=== PATIENT | female | born 1950 | race Caucasian/White ===

== ENCOUNTER 2017-07-21 12:40 | Emergency (ER) | payer MEDICAID, SELFPAY ==
[2017-07-21 12:42] VITALS: BP 113/70; PULSE 98; RESP 16; TEMP 36.6; O2SAT 98; BMI 42.1
[2017-07-21 13:51] LABS: Mucous, Urine 0 SEEN /hpf (<or=2+)
[2017-07-21 13:54] LABS: Color, Urine Yellow (Yellow); Glucose, Dipstick Normal (Normal); Ketone-Dipstick 5 mg/dl (Negative); Leukocyte Esterase-Dipstick 500 /ul (Negative); Nitrite-Dipstick Negative (Negative); Occult Blood-Urine 250 /ul (Negative); Protein-Dipstick 30 mg/dl (Negative); Specific Gravity, Urine 1.015 (1.002-1.030); Urine Clarity Turbid (Clear); Urine Urobilinogen 4 mg/dl (Normal)
[2017-07-21 13:55] LABS: Urine Bilirubin Dipstick 1 mg/dL (Negative)
[2017-07-21 14:04] LABS: Bacteria 1+ /hpf (None Seen); Red Blood Cells-Urine 5-10 SEEN /hpf (0-5); Squamous Epithelial Cells - UA 0-5 SEEN /hpf (5-10); White Blood Cells 50-100 SEEN /hpf (0-5)
[2017-07-21 14:11] LABS: Absolute Lymphocyte Count 0.69 X10^3/ul (0.83-4.51); Basophil# 0.01 X10^3/uL; Basophil% 0.3 % (0-1); Eosinophil# 0.17 X10^3/uL; Eosinophils% 5.5 % (0-5); Hematocrit 32.2 % (37-47); Hemoglobin 9.7 g/dl (12.0-15.0); Lymphocyte # 0.69 X10^3/ul (4.0); Lymphocyte % 22.3 % (19-41); Mean Corp Hgb Conc 30.1 g/gl (32-36); Mean Corpuscular Hgb 29.1 pg (27.0-32.0); Mean Corpuscular Volume 96.7 fL (81-99); Mean Platelet Vol. 11.4 fl (6.2-12.0); Monocyte# 0.24 X10^3/uL; Monocyte% 7.8 % (0-10); Neutrophil # 1.97 X10^3/uL (2.7-7.7); Neutrophil % 63.8 % (47-70); POSITIVE COUNT NO; POSITIVE DIFFERENTIAL NO; POSITIVE MORPHOLOGY NO; Platelet Count 145 K/mm3 (150-450); RBC Distribution Width CV 17.5 % (11.6-14.6); RBC Distribution Width SD 58.5 fl (35.1-43.9); Red Blood Count 3.33 M/mm3 (4.2-5.4); White Blood Count 3.1 K/mm3 (4.4-11.0)
[2017-07-21 14:23] LABS: Anion Gap 5 (5-15); BUN 21 mg/dL (7-18); BUN/Creat Ratio 17.8 RATIO (10-20); Calcium,Total 7.9 mg/dL (8.5-10.1); Chloride 107 mmol/L (98-107); Creatinine, Serum 1.18 mg/dL (0.55-1.02); EST Glomerular Filtration Rate 49 mL/min (>60); Est Glom Filt Rate - Afr Amer 59 mL/min (>60); Glucose 70 mg/dL (74-106); Potassium 4.2 mmol/L (3.5-5.1); Sodium Level 140 mmol/L (136-145)
--- NOTE | 2017-07-21 15:25 | ED.DCSUM_ITS ---
- ER Visit Summary Date of Service: 07/21/17 Chief Complaint: [Abdominal pain] History of Present Illness: The patient is a 67 F [who presents the emergency department with 4-5 days of lower abdominal pain lower back pain urinary frequency dysuria and urgency. No fevers or chills no nausea or vomiting. She also has burning and redness in her left groin. She has a history of UTIs. Her bowel movements have been normal. She is a diabetic.] Physical Examination: [] Afebrile vital signs within acceptable limits WN WD obese PERRL EOMI MMM NECK supple and nontender, no masses RRR no murmur rub or gallop, no peripheral edema, symmetric radial pulses CTAB no respiratory distress ABDOMEN is soft mild suprapubic tenderness, normal bowel sounds, no distension, no rebound or guarding She has redness and skin is correlation with satellite lesions in underneath the left pannus Tenderness to percussion of the low back but no CVA tenderness SKIN is warm and dry no rashes Alert and Oriented x3, CN II-XII in tact, no motor or sensory deficits, gait normal No lymphadenopathy Test Results: [] Emergency Department Course and Treatment: [Screening labs were obtained and show mild acute renal insufficiency with a creatinine of 1.1. She has a chronic leukopenia and white blood cell count was 3.1 she has a chronic anemia and hemoglobin is 9.7. Patient's urine was consistent with infection and urine culture was sent she was given a gram of ceftriaxone IV. Blood sugar was 70 she did eat in the emergency department and her blood sugar will be tracked prior to discharge. She will be sent home on Augmentin given sensitivity to penicillin of her previous urine cultures she will be given nystatin cream for treatment of her yeast infection] Treatment Plan: [] Disposition: [Discharge] Impression: [UTI, yeast infection in the left groin] This note was generated with [employer] dictation software. It may contain incorrect words, spelling, and punctuation that were not noted in review of the chart prior to signing ED Disposition - Plan for ED Patient: Chief Complaint: Complaint Referrals: Kolton Garcia [Primary Care Provider] -
--- NOTE | 2017-07-21 15:25 | ED.DEP ---
ED Disposition - Plan for ED Patient: Chief Complaint: Complaint Instructions: ED UTI Cystitis Female, ED Candidiasis Cutaneous Prescriptions: Amox/Clavulanate Tablet [Augmentin Tablet] 875 mg PO Q12H #20 tablet Nystatin/Triamcin Cream [Mycolog] 1 applic TOPICAL BID #1 tube Referrals: Kolton Garcia [Primary Care Provider] - 3-5 Days
[2017-07-21 15:45] LABS: Bedside Glucose 66 mg/dL (70-110)
[2017-07-21 15:47] VITALS: BP 123/81; PULSE 86; RESP 20; O2SAT 95
--- NOTE | 2017-07-21 15:59 | ED.DEP ---
ED Disposition - Plan for ED Patient: Chief Complaint: Complaint Instructions: ED Candidiasis Cutaneous, ED UTI Cystitis Female Prescriptions: Amox/Clavulanate Tablet [Augmentin Tablet] 875 mg PO Q12H #20 tablet Nystatin/Triamcin Cream [Mycolog] 1 applic TOPICAL BID #1 tube Phenazopyridine [Pyridium] 100 mg PO TID #6 tablet Referrals: Kolton Garcia [Primary Care Provider] - 3-5 Days
[2017-07-21 16:06] LABS: Bedside Glucose 85 mg/dL (70-110)
== END 2017-07-21 16:12 | disposition home or self-care (01) ==
PROVIDERS: Emergency Provider Emergency Medicine; Family Provider Family Medicine; PCP Family Medicine
DX: N39.0 Urinary tract infection, site not specified (principal); B37.89 Other sites of candidiasis; E11.9 Type 2 diabetes mellitus without complications; E66.9 Obesity, unspecified; Z68.41 Body mass index [BMI] 40.0-44.9, adult; Z87.440 Personal history of urinary (tract) infections; Z79.899 Other long term (current) drug therapy
CPT/HCPCS: 80048; 81001; 82962; 85025; 96365; 99284; A4216

== ENCOUNTER 2017-08-20 11:24 | Emergency (ER) | payer MEDICARE, MEDICAID, SELFPAY ==
[2017-08-20 11:26] VITALS: BP 95/68; PULSE 104; RESP 16; TEMP 36.4; O2SAT 100; BMI 38.2
[2017-08-20 11:35] LABS: Bedside Glucose 103 mg/dL (70-110)
[2017-08-20 12:44] LABS: Absolute Lymphocyte Count 0.47 X10^3/ul (0.83-4.51); Absolute Neutrophil Count 2.3 X10^3/uL (2.0-7.7); Basophil# 0.01 X10^3/uL; Basophil% 0.3 % (0-1); Eosinophil# 0.25 X10^3/uL; Eosinophils% 7.8 % (0-5); Hematocrit 34.2 % (37-47); Hemoglobin 10.1 g/dl (12.0-15.0); Lymphocyte # 0.47 X10^3/ul (4.0); Lymphocyte % 14.6 % (19-41); Mean Corp Hgb Conc 29.5 g/gl (32-36); Mean Corpuscular Hgb 28.3 pg (27.0-32.0); Mean Corpuscular Volume 95.8 fL (81-99); Mean Platelet Vol. 10.4 fl (6.2-12.0); Monocyte# 0.15 X10^3/uL; Monocyte% 4.7 % (0-10); Neutrophil # 2.31 X10^3/uL (2.7-7.7); Platelet Count 149 K/mm3 (150-450); RBC Distribution Width CV 17.5 % (11.6-14.6); RBC Distribution Width SD 60.6 fl (35.1-43.9); Red Blood Count 3.57 M/mm3 (4.2-5.4); White Blood Count 3.2 K/mm3 (4.4-11.0)
[2017-08-20 12:49] LABS: Differential Indicated SCAN CRITERIA MET; POSITIVE COUNT NO; POSITIVE DIFFERENTIAL YES; POSITIVE MORPHOLOGY NO
[2017-08-20 13:01] LABS: Anion Gap 9 (5-15); BUN 13 mg/dL (7-18); BUN/Creat Ratio 11.1 RATIO (10-20); Calcium,Total 7.6 mg/dL (8.5-10.1); Chloride 114 mmol/L (98-107); Creatinine, Serum 1.17 mg/dL (0.55-1.02); EST Glomerular Filtration Rate 49 mL/min (>60); Est Glom Filt Rate - Afr Amer 60 mL/min (>60); Estimated Creatinine Clearance 42.56 ml/min; Glucose 81 mg/dL (74-106); Potassium 3.9 mmol/L (3.5-5.1); Sodium Level 143 mmol/L (136-145)
[2017-08-20 13:36] VITALS: BP 142/86; PULSE 87; RESP 18; O2SAT 98
[2017-08-20 13:45] LABS: Color, Urine Yellow (Yellow); Glucose, Dipstick Normal (Normal); Ketone-Dipstick 15 mg/dl (Negative); Leukocyte Esterase-Dipstick 100 /ul (Negative); Nitrite-Dipstick Positive (Negative); Occult Blood-Urine 10 /ul (Negative); Protein-Dipstick 30 mg/dl (Negative); Urine Clarity Sl. Cloudy (Clear); Urine Urobilinogen 4 mg/dl (Normal)
[2017-08-20 13:47] LABS: Urine Bilirubin Dipstick 3 mg/dL (Negative)
[2017-08-20 13:48] LABS: Bacteria 1+ /hpf (None Seen); Hyaline Cast 0-5 SEEN /lpf (0-5); Mucous, Urine 1+ /hpf (<or=2+); Red Blood Cells-Urine 0-5 SEEN /hpf (0-5); Squamous Epithelial Cells - UA 0-5 SEEN /hpf (5-10); White Blood Cells 0-5 SEEN /hpf (0-5)
[2017-08-20 15:06] VITALS: BP 95/82; PULSE 91; RESP 21; O2SAT 99
--- NOTE | 2017-08-20 15:06 | ED.DCSUM_ITS ---
- ER Visit Summary Date of Service: 08/20/17 Chief Complaint: Hypoglycemia History of Present Illness: The patient is a 67 F who presents with hypoglycemic episode today. Patient states she felt lightheaded. Patient admits to some nausea and vomiting. Patient denies any shortness of breath. Patient also admits to some diarrhea. Patient denies any abdominal pain. Patient denies any fevers or chills. Patient states she has had a decreased appetite which is why her blood sugar felt like it was dropping again today. States she has been under a lot of stress with her son recently. Physical Examination: Vital signs are stable. Patient is afebrile. Patient is in no acute distress. Oral mucosa is pink and moist. Oropharynx is clear. Heart was regular rate and rhythm. Lungs are clear and equal bilaterally. There is good respiratory effort noted. Abdomen is soft. There is some mild diffuse tenderness. There is no rebound or guarding noted. Cranial nerves II through XII are intact. There are no focal motor or sensory deficits noted. The remaining physical exam is within normal limits. Test Results: CBC showed a white blood cell count 3.2. There is a mild anemia with a hemoglobin of 10.1. Basic metabolic profile showed a slightly elevated chloride of 114 and a slightly elevated creatinine of 1.17. Urinalysis showed leukocytes were 100. Nitrates were positive. There is 1+ bacteria. Emergency Department Course and Treatment: Patient was given a dose of Bactrim here. Patient was given a prescription for Bactrim. Patient was instructed to follow-up with her primary care physician in 7-10 days. She understood and was agreeable with the plan. All questions were answered. Disposition: Discharged home Impression: Urinary tract infection This note was generated with [facility] dictation software. It may contain incorrect words, spelling, and punctuation that were not noted in review of the chart prior to signing ED Disposition - Plan for ED Patient: Disposition: Home or Assisted Living Chief Complaint: Hypoglycemia Diagnosis: UTI (urinary tract infection) Instructions: ED UTI Cystitis Female Prescriptions: Sulfamethoxazole/Trimethoprim [Bactrim Ds Tablet] 1 ea PO BID #6 tab Referrals: Kolton Garcia [Primary Care Provider] -
[2017-08-20] MEDS: Smz/Tmp Ds Tablet 1 TABLET PO (15:07)
== END 2017-08-20 15:21 | disposition home or self-care (01) ==
PROVIDERS: Emergency Provider Emergency Medicine; Family Provider Family Medicine; PCP Family Medicine
DX: N39.0 Urinary tract infection, site not specified (principal); B96.89 Other specified bacterial agents as the cause of diseases classified elsewhere; E11.649 Type 2 diabetes mellitus with hypoglycemia without coma; Z79.899 Other long term (current) drug therapy
CPT/HCPCS: 80048; 81001; 82962; 85025; 99285; A4216

== ENCOUNTER 2017-10-03 23:03 | Inpatient (IN) | payer MEDICARE, MEDICAID, SELFPAY ==
[2017-10-03 23:04] VITALS: BP 90/49; PULSE 103; RESP 12; TEMP 36.6; O2SAT 96; BMI 38.7
--- NOTE | 2017-10-03 23:19 | ED.VIS.GEN ---
History of Present Illness Chief Complaint: Hypotension Informant: Patient, SNF Onset: Today Timing: - - unk Quality: 60s systolic Worsened by: nothing Relieved by: nothing Associated Symptoms: pt denies. states I feel fine. Narrative: Apparently patient had a decreased level of responsiveness although her eyes were open and she was awake, according [facility], her blood pressure was 77 over 40s, and she was awake and following commands but not talking so much, but here she is conversive with staff and states that she feels okay. She states she does not remember the staff of the [facility] talking to her, she does not remember feeling bad or anything like that. She does admit that she has had diarrhea lately. She had a urinary tract infection, they discontinued Ceftin near earlier today for that, she has C. difficile and has been placed on Flagyl but it apparently was not improving so today she was switched to oral vancomycin. Patient denies having any abdominal pain. - Past Medical History (1) Anxiety disorder Status: Chronic (2) DM type 2 (diabetes mellitus, type 2) Status: Chronic (3) Dyslipidemia Status: Chronic (4) HTN (hypertension) Status: Chronic (5) YOLANDA (obstructive sleep apnea) Status: Chronic (6) Obesity Status: Chronic Past Medical History - Allergies and Home Meds Allergies/Adverse Reactions: Allergies latex Allergy (Verified 07/21/17 12:41) Rash levofloxacin [From Levaquin] Allergy (Verified 07/21/17 12:41) Rash acetaminophen [From Darvocet-N] Adverse Reaction (Verified 07/21/17 12:41) Vomiting codeine Adverse Reaction (Verified 07/21/17 12:41) Unknown gabapentin Adverse Reaction (Verified 07/21/17 12:41) Other propoxyphene [From Darvon] Adverse Reaction (Verified 07/21/17 12:41) Vomiting Home Medications: Home Medications Medication Instructions Recorded Albuterol Inhaler [Ventolin Hfa] 2 puff INHALATION Q4H PRN PRN 02/28/16 Nystatin Powder [Mycostatin Powder] 1 applic TOPICAL BID PRN PRN 05/02/17 Nystatin/Triamcin Cream [Mycolog] 1 applic TOPICAL BID #1 tube 07/21/17 Bisacodyl 10 mg RC PRN PRN 10/04/17 Cefdinir 300 mg PO QHS 10/04/17 Citalopram Hydrobromide 40 mg PO DAILY 10/04/17 [Citalopram HBr] L. Rhamnosus GG/Inulin [Culturelle 1 each PO DAILY 10/04/17 Capsule] Mag Hydrox/Aluminum Hyd/Simeth 10/04/17 [Antacid Suspension] Potassium Chloride [K-Dur] 20 meq PO DAILY 10/04/17 Promethazine HCl 25 mg PO Q6H PRN PRN 10/04/17 Primary Care Physician: Kolton Garcia MD [Primary Care Provider] - Surgical History: appendectomy, cholecystectomy Lives: Group Home Smoking Status: Never smoker - Family History Maternal Family History: Reports: No pertinent history Review of Systems General: Denies: Fever Eyes: Denies: Blurred Vision - bilaterally, Diplopia ENT: Denies: Bilateral ear pain, Sore throat Cardiovascular: Denies: Chest pain, Palpitations Respiratory: Denies: Dyspnea, Cough Gastrointestinal: Reports: Diarrhea. Denies: Abdominal pain, Nausea, Vomiting Genitourinary: Denies: Dysuria, Hematuria Musculoskeletal: Denies: Myalgias, Back pain Skin: Denies: Rash, Abscess Neurological: Denies: Headache, Numbness Psych: Reports: Depression - chronic -- mother 2 yrs ago. Denies: Anxiety, Suicidal thoughts Endocrine: Denies: Heat intolerance, Cold intolerance Hematologic: Denies: Easy bruising, Easy bleeding Allergy: Denies: Swelling of the mouth, Swelling of the tongue Physical Exam Vital Signs/Narrative: Vital Signs Temp Pulse Resp BP Pulse Ox 10/03/17 23:04 97.9 F 103 H 12 90/49 L 96 Inital Vital Signs reviewed: Yes General: Well nourished, Well developed, Obese Head: Normocephalic, Atraumatic Eyes: Perrl, EOMI ENT: No rhinorrhea, Dry mucous membranes - w/ patches of thrush on oral MM Neck: Supple, Nontender, No lymphadenopathy, No JVD Cardiovascular: Regular rate, Regular rhythm, No murmurs Respiratory: No distress, CTA bilaterally, Chest nontender Abdomen: Soft, Nondistended, Normal bowel sounds, Tender - diffusely mildly, except NT in periumbilical area. Negative for: Guarding, Rebound tenderness Back: Nontender, Normal Inspection Extremities: Nontender, Edema - 2+ BLE symmetric w/o cellulitis Skin: Normal color, No rash Neurological: Alert, Cranial nerves II-XII grossly intact, Normal Strength, Normal Sensation, Disoriented - to time. Negative for: Confused Psychological: Normal affect Diagnostic/Tx/Re-eval Chest X-Ray - ED: 1 View, Read by Radiologist Impressions Chest X-Ray 10/03/17 23:50 IMPRESSION: Mild central vascular congestion. No pneumonia. A large hiatal hernia. Electronically Signed: Johnathan Sneed, at 0:17 EDT Tel , Service support , Abdomen/Pelvis CT 10/04/17 23:17 IMPRESSION: A markedly atrophic right kidney. 2 calyceal calculi in the left kidney. No hydronephrosis. A large hiatal hernia with the entire stomach and the splenic flexure in the hernial sac. This also a small umbilical hernia with a portion of bowel within the hernial sac. No acute appendicitis or diverticulitis and no intestinal obstruction. Electronically Signed: Johnathan Corcoranteh, at 1:01 EDT Tel , Service support , 10/03/17 23:50 Chest 1 View (Portable) [RAD] Stat 10/04/17 23:17 Abdomen/Pelvis without Cont [CT] Stat Laboratory Results 10/03/17 10/03/17 10/03/17 Range/Units 23:10 23:10 23:10 WBC 6.6 (4.4-11.0) K/mm3 RBC 3.24 L (4.2-5.4) M/mm3 Hgb 9.6 L (12.0-15.0) g/dl Hct 29.9 L (37-47) % MCV 92.3 (81-99) fL MCH 29.6 (27.0-32.0) pg MCHC 32.1 (32-36) g/gl RDW 21.0 H (11.6-14.6) % RDW Differential 68.3 H (35.1-43.9) fl Plt Count 54 L (150-450) K/mm3 Immature Gran % (Auto) 0.500 (0.0-0.9) % Neut % (Auto) 82.8 H (47-70) % Lymph % (Auto) 13.5 L (19-41) % Mobile % (Auto) 3.0 (0-10) % Eos % (Auto) 0.0 (0-5) % Baso % (Auto) 0.2 (0-1) % Absolute Neuts (auto) 5.5 (2.0-7.7) X10^3/uL Absolute Lymphs (auto) 0.89 (0.83-4.51) X10^3/ul Total Counted Not Reportable Differential Comment SCANNED Platelet Estimate MOD DEC (ADEQ) Polychromasia RARE Hypochromasia 3+ Anisocytosis 2+ Macrocytosis 1+ Target Cells RARE Ovalocytes 2+ Sodium 136 (136-145) mmol/L Potassium 3.8 (3.5-5.1) mmol/L Chloride 109 H (98-107) mmol/L Carbon Dioxide 18.0 L (21.0-32.0) mmol/L Anion Gap 9 (5-15) BUN 31 H (7-18) mg/dL Creatinine 1.55 H (0.55-1.02) mg/dL Estim Creat Clear Calc 34.72 ml/min Est GFR (MDRD) Af Amer 43 L (>60) mL/min Est GFR (MDRD) Non-Af 36 L (>60) mL/min BUN/Creatinine Ratio 20.0 (10-20) RATIO Glucose 72 L (74-106) mg/dL Lactic Acid 0.9 (0.4-2.0) mmol/L Calcium 7.1 L (8.5-10.1) mg/dL Total Bilirubin 0.60 (0.20-1.00) mg/dL AST 25 (15-37) U/L ALT 21 (13-56) U/L Alkaline Phosphatase 361 H (45-117) U/L Troponin I < 0.02 (<0.06) ng/mL Total Protein 3.6 L (6.4-8.2) g/dL Albumin 1.3 L (3.2-5.0) g/dL Globulin 2.3 (2.2-4.2) g/dL Albumin/Globulin Ratio 0.6 L (0.9-2.4) RATIO Urine Color (Yellow) Urine Clarity (Clear) Urine pH (5.0 - 8.0) Ur Specific [place] (1.002-1.030) Urine Protein (Negative) mg/dl Urine Glucose (UA) (Normal) mg/dl Urine Ketones (Negative) mg/dl Urine Occult Blood (Negative) /ul Urine Nitrite (Negative) Urine Bilirubin (Negative) mg/dL Urine Urobilinogen (Normal) mg/dl Ur Leukocyte Esterase (Negative) /ul Urine RBC (0-5) /hpf Urine WBC (0-5) /hpf Ur Squamous Epith Cells (5-10) /hpf Ur Transition Epith Cell (0-5) /hpf Urine Bacteria (None Seen) /hpf Urine Mucus (<or=2+) /hpf POC Glucose (70-110) mg/dL 10/03/17 10/03/17 Range/Units 23:30 23:50 WBC (4.4-11.0) K/mm3 RBC (4.2-5.4) M/mm3 Hgb (12.0-15.0) g/dl Hct (37-47) % MCV (81-99) fL MCH (27.0-32.0) pg MCHC (32-36) g/gl RDW (11.6-14.6) % RDW Differential (35.1-43.9) fl Plt Count (150-450) K/mm3 Immature Gran % (Auto) (0.0-0.9) % Neut % (Auto) (47-70) % Lymph % (Auto) (19-41) % Mobile % (Auto) (0-10) % Eos % (Auto) (0-5) % Baso % (Auto) (0-1) % Absolute Neuts (auto) (2.0-7.7) X10^3/uL Absolute Lymphs (auto) (0.83-4.51) X10^3/ul Total Counted Differential Comment Platelet Estimate (ADEQ) Polychromasia Hypochromasia Anisocytosis Macrocytosis Target Cells Ovalocytes Sodium (136-145) mmol/L Potassium (3.5-5.1) mmol/L Chloride (98-107) mmol/L Carbon Dioxide (21.0-32.0) mmol/L Anion Gap (5-15) BUN (7-18) mg/dL Creatinine (0.55-1.02) mg/dL Estim Creat Clear Calc ml/min Est GFR (MDRD) Af Amer (>60) mL/min Est GFR (MDRD) Non-Af (>60) mL/min BUN/Creatinine Ratio (10-20) RATIO Glucose (74-106) mg/dL Lactic Acid (0.4-2.0) mmol/L Calcium (8.5-10.1) mg/dL Total Bilirubin (0.20-1.00) mg/dL AST (15-37) U/L ALT (13-56) U/L Alkaline Phosphatase (45-117) U/L Troponin I (<0.06) ng/mL Total Protein (6.4-8.2) g/dL Albumin (3.2-5.0) g/dL Globulin (2.2-4.2) g/dL Albumin/Globulin Ratio (0.9-2.4) RATIO Urine Color Jessica (Yellow) Urine Clarity Sl. Cloudy (Clear) Urine pH 6.0 (5.0 - 8.0) Ur Specific [place] 1.020 (1.002-1.030) Urine Protein 30 H (Negative) mg/dl Urine Glucose (UA) Normal (Normal) mg/dl Urine Ketones 5 H (Negative) mg/dl Urine Occult Blood 10 H (Negative) /ul Urine Nitrite Positive H (Negative) Urine Bilirubin 1 H (Negative) mg/dL Urine Urobilinogen 1 H (Normal) mg/dl Ur Leukocyte Esterase 100 H (Negative) /ul Urine RBC 0-5 SEEN (0-5) /hpf Urine WBC 0-5 SEEN (0-5) /hpf Ur Squamous Epith Cells 0-5 SEEN (5-10) /hpf Ur Transition Epith Cell 0-5 SEEN (0-5) /hpf Urine Bacteria 1+ (None Seen) /hpf Urine Mucus 0 SEEN (<or=2+) /hpf POC Glucose 69 L (70-110) mg/dL - Rhythm Strip Rhythm Strip: Sinus Tach Rate: 105 Ectopy: None - Medical Decision Making Patient was given 2 L of IV fluids bolused, over several hours total. On reevaluation, her blood pressure still reading in the 70s. We did modified orthostatics, as she does not stand currently at baseline, her blood pressure went up when she sat up, to 90 systolic. It was in the 70s while lying flat. We did manual, it was 88/56, with a mean of 64. With continued observation, her blood pressures remained in the 70s systolic. She also has a non-anion gap metabolic acidosis. I think all of this is due to her continued diarrhea, due to C. difficile. She was just switched over to oral vancomycin. I think that given her vital signs, and the initial reason that [facility], that she should be admitted overnight to acute care for continued monitoring and hydration. Her lactate is within normal limits, she has no leukocytosis, her CT shows no signs of severe C. difficile, and she clinically is well and not septic. Discussed with hospitalist. ED Disposition - Plan for ED Patient: Disposition: Acute Care Hospital [facility] Chief Complaint: Hypotension Diagnosis: Dehydration, GEORGE (acute kidney injury), C. difficile colitis Referrals: Kolton Garcia MD [Primary Care Provider] -
--- NOTE | 2017-10-03 23:25 | ED.DCSUM_ITS ---
History of Present Illness Chief Complaint: Hypotension Informant: Patient, SNF Onset: Today Timing: - - unk Quality: 60s systolic Worsened by: nothing Relieved by: nothing Associated Symptoms: pt denies. states I feel fine. Narrative: Apparently patient had a decreased level of responsiveness although her eyes were open and she was awake, according to nursing staff at the long term. Her EMS, her blood pressure was 77 over 40s, and she was awake and following commands but not talking so much, but here she is conversive with staff and states that she feels okay. She states she does not remember the staff of the long term talking to her, she does not remember feeling bad or anything like that. She does admit that she has had diarrhea lately. She had a urinary tract infection, they discontinued Ceftin near earlier today for that, she has C. difficile and has been placed on Flagyl but it apparently was not improving so today she was switched to oral vancomycin. Patient denies having any abdominal pain. - Past Medical History (1) Anxiety disorder Status: Chronic (2) DM type 2 (diabetes mellitus, type 2) Status: Chronic (3) Dyslipidemia Status: Chronic (4) HTN (hypertension) Status: Chronic (5) YOLANDA (obstructive sleep apnea) Status: Chronic (6) Obesity Status: Chronic Past Medical History - Allergies and Home Meds Allergies/Adverse Reactions: Allergies latex Allergy (Verified 07/21/17 12:41) Rash levofloxacin [From Levaquin] Allergy (Verified 07/21/17 12:41) Rash acetaminophen [From Darvocet-N] Adverse Reaction (Verified 07/21/17 12:41) Vomiting codeine Adverse Reaction (Verified 07/21/17 12:41) Unknown gabapentin Adverse Reaction (Verified 07/21/17 12:41) Other propoxyphene [From Darvon] Adverse Reaction (Verified 07/21/17 12:41) Vomiting Home Medications: Home Medications Medication Instructions Recorded Albuterol Inhaler [Ventolin Hfa] 2 puff INHALATION Q4H PRN PRN 02/28/16 Nystatin Powder [Mycostatin Powder] 1 applic TOPICAL BID PRN PRN 05/02/17 Nystatin/Triamcin Cream [Mycolog] 1 applic TOPICAL BID #1 tube 07/21/17 Bisacodyl 10 mg RC PRN PRN 10/04/17 Cefdinir 300 mg PO QHS 10/04/17 Citalopram Hydrobromide 40 mg PO DAILY 10/04/17 [Citalopram HBr] L. Rhamnosus GG/Inulin [Culturelle 1 each PO DAILY 10/04/17 Capsule] Mag Hydrox/Aluminum Hyd/Simeth 10/04/17 [Antacid Suspension] Potassium Chloride [K-Dur] 20 meq PO DAILY 10/04/17 Promethazine HCl 25 mg PO Q6H PRN PRN 10/04/17 Primary Care Physician: Kolton Garcia MD [Primary Care Provider] - Surgical History: appendectomy, cholecystectomy Lives: [facility] Smoking Status: Never smoker - Family History Maternal Family History: Reports: No pertinent history Review of Systems General: Denies: Fever Eyes: Denies: Blurred Vision - bilaterally, Diplopia ENT: Denies: Bilateral ear pain, Sore throat Cardiovascular: Denies: Chest pain, Palpitations Respiratory: Denies: Dyspnea, Cough Gastrointestinal: Reports: Diarrhea. Denies: Abdominal pain, Nausea, Vomiting Genitourinary: Denies: Dysuria, Hematuria Musculoskeletal: Denies: Myalgias, Back pain Skin: Denies: Rash, Abscess Neurological: Denies: Headache, Numbness Psych: Reports: Depression - chronic -- mother 2 yrs ago. Denies: Anxiety , Suicidal thoughts Endocrine: Denies: Heat intolerance, Cold intolerance Hematologic: Denies: Easy bruising, Easy bleeding Allergy: Denies: Swelling of the mouth, Swelling of the tongue Physical Exam Vital Signs/Narrative: Vital Signs Temp Pulse Resp BP Pulse Ox 10/03/17 23:04 97.9 F 103 H 12 90/49 L 96 Inital Vital Signs reviewed: Yes General: Well nourished, Well developed, Obese Head: Normocephalic, Atraumatic Eyes: Perrl, EOMI ENT: No rhinorrhea, Dry mucous membranes - w/ patches of thrush on oral MM Neck: Supple, Nontender, No lymphadenopathy, No JVD Cardiovascular: Regular rate, Regular rhythm, No murmurs Respiratory: No distress, CTA bilaterally, Chest nontender Abdomen: Soft, Nondistended, Normal bowel sounds, Tender - diffusely mildly, except NT in periumbilical area. Negative for: Guarding, Rebound tenderness Back: Nontender, Normal Inspection Extremities: Nontender, Edema - 2+ BLE symmetric w/o cellulitis Skin: Normal color, No rash Neurological: Alert, Cranial nerves II-XII grossly intact, Normal Strength, Normal Sensation, Disoriented - to time. Negative for: Confused Psychological: Normal affect Diagnostic/Tx/Re-eval Chest X-Ray - ED: 1 View, Read by Radiologist Impressions Chest X-Ray 10/03/17 23:50 IMPRESSION: Mild central vascular congestion. No pneumonia. A large hiatal hernia. Electronically Signed: Johnathan Sneed, at 0:17 EDT Tel , Service support , Abdomen/Pelvis CT 10/04/17 23:17 IMPRESSION: A markedly atrophic right kidney. 2 calyceal calculi in the left kidney. No hydronephrosis. A large hiatal hernia with the entire stomach and the splenic flexure in the hernial sac. This also a small umbilical hernia with a portion of bowel within the hernial sac. No acute appendicitis or diverticulitis and no intestinal obstruction. Electronically Signed: Johnathan Corcoranteh, at 1:01 EDT Tel , Service support , 10/03/17 23:50 Chest 1 View (Portable) [RAD] Stat 10/04/17 23:17 Abdomen/Pelvis without Cont [CT] Stat Laboratory Results 10/03/17 10/03/17 10/03/17 Range/Units 23:10 23:10 23:10 WBC 6.6 (4.4-11.0) K/mm3 RBC 3.24 L (4.2-5.4) M/mm3 Hgb 9.6 L (12.0-15.0) g/dl Hct 29.9 L (37-47) % MCV 92.3 (81-99) fL MCH 29.6 (27.0-32.0) pg MCHC 32.1 (32-36) g/gl RDW 21.0 H (11.6-14.6) % RDW Differential 68.3 H (35.1-43.9) fl Plt Count 54 L (150-450) K/mm3 Immature Gran % (Auto) 0.500 (0.0-0.9) % Neut % (Auto) 82.8 H (47-70) % Lymph % (Auto) 13.5 L (19-41) % [place] % (Auto) 3.0 (0-10) % Eos % (Auto) 0.0 (0-5) % Baso % (Auto) 0.2 (0-1) % Absolute Neuts (auto) 5.5 (2.0-7.7) X10^3/uL Absolute Lymphs (auto) 0.89 (0.83-4.51) X10^3/ul Total Counted Not Reportable Differential Comment SCANNED Platelet Estimate MOD DEC (ADEQ) Polychromasia RARE Hypochromasia 3+ Anisocytosis 2+ Macrocytosis 1+ Target Cells RARE Ovalocytes 2+ Sodium 136 (136-145) mmol/L Potassium 3.8 (3.5-5.1) mmol/L Chloride 109 H (98-107) mmol/L Carbon Dioxide 18.0 L (21.0-32.0) mmol/L Anion Gap 9 (5-15) BUN 31 H (7-18) mg/dL Creatinine 1.55 H (0.55-1.02) mg/dL Estim Creat Clear Calc 34.72 ml/min Est GFR (MDRD) Af Amer 43 L (>60) mL/min Est GFR (MDRD) Non-Af 36 L (>60) mL/min BUN/Creatinine Ratio 20.0 (10-20) RATIO Glucose 72 L (74-106) mg/dL Lactic Acid 0.9 (0.4-2.0) mmol/L Calcium 7.1 L (8.5-10.1) mg/dL Total Bilirubin 0.60 (0.20-1.00) mg/dL AST 25 (15-37) U/L ALT 21 (13-56) U/L Alkaline Phosphatase 361 H (45-117) U/L Troponin I < 0.02 (<0.06) ng/mL Total Protein 3.6 L (6.4-8.2) g/dL Albumin 1.3 L (3.2-5.0) g/dL Globulin 2.3 (2.2-4.2) g/dL Albumin/Globulin Ratio 0.6 L (0.9-2.4) RATIO Urine Color (Yellow) Urine Clarity (Clear) Urine pH (5.0 - 8.0) Ur Specific [place] (1.002-1.030) Urine Protein (Negative) mg/dl Urine Glucose (UA) (Normal) mg/dl Urine Ketones (Negative) mg/dl Urine Occult Blood (Negative) /ul Urine Nitrite (Negative) Urine Bilirubin (Negative) mg/dL Urine Urobilinogen (Normal) mg/dl Ur Leukocyte Esterase (Negative) /ul Urine RBC (0-5) /hpf Urine WBC (0-5) /hpf Ur Squamous Epith Cells (5-10) /hpf Ur Transition Epith Cell (0-5) /hpf Urine Bacteria (None Seen) /hpf Urine Mucus (<or=2+) /hpf POC Glucose (70-110) mg/dL 10/03/17 10/03/17 Range/Units 23:30 23:50 WBC (4.4-11.0) K/mm3 RBC (4.2-5.4) M/mm3 Hgb (12.0-15.0) g/dl Hct (37-47) % MCV (81-99) fL MCH (27.0-32.0) pg MCHC (32-36) g/gl RDW (11.6-14.6) % RDW Differential (35.1-43.9) fl Plt Count (150-450) K/mm3 Immature Gran % (Auto) (0.0-0.9) % Neut % (Auto) (47-70) % Lymph % (Auto) (19-41) % [place] % (Auto) (0-10) % Eos % (Auto) (0-5) % Baso % (Auto) (0-1) % Absolute Neuts (auto) (2.0-7.7) X10^3/uL Absolute Lymphs (auto) (0.83-4.51) X10^3/ul Total Counted Differential Comment Platelet Estimate (ADEQ) Polychromasia Hypochromasia Anisocytosis Macrocytosis Target Cells Ovalocytes Sodium (136-145) mmol/L Potassium (3.5-5.1) mmol/L Chloride (98-107) mmol/L Carbon Dioxide (21.0-32.0) mmol/L Anion Gap (5-15) BUN (7-18) mg/dL Creatinine (0.55-1.02) mg/dL Estim Creat Clear Calc ml/min Est GFR (MDRD) Af Amer (>60) mL/min Est GFR (MDRD) Non-Af (>60) mL/min BUN/Creatinine Ratio (10-20) RATIO Glucose (74-106) mg/dL Lactic Acid (0.4-2.0) mmol/L Calcium (8.5-10.1) mg/dL Total Bilirubin (0.20-1.00) mg/dL AST (15-37) U/L ALT (13-56) U/L Alkaline Phosphatase (45-117) U/L Troponin I (<0.06) ng/mL Total Protein (6.4-8.2) g/dL Albumin (3.2-5.0) g/dL Globulin (2.2-4.2) g/dL Albumin/Globulin Ratio (0.9-2.4) RATIO Urine Color Jessica (Yellow) Urine Clarity Sl. Cloudy (Clear) Urine pH 6.0 (5.0 - 8.0) Ur Specific [place] 1.020 (1.002-1.030) Urine Protein 30 H (Negative) mg/dl Urine Glucose (UA) Normal (Normal) mg/dl Urine Ketones 5 H (Negative) mg/dl Urine Occult Blood 10 H (Negative) /ul Urine Nitrite Positive H (Negative) Urine Bilirubin 1 H (Negative) mg/dL Urine Urobilinogen 1 H (Normal) mg/dl Ur Leukocyte Esterase 100 H (Negative) /ul Urine RBC 0-5 SEEN (0-5) /hpf Urine WBC 0-5 SEEN (0-5) /hpf Ur Squamous Epith Cells 0-5 SEEN (5-10) /hpf Ur Transition Epith Cell 0-5 SEEN (0-5) /hpf Urine Bacteria 1+ (None Seen) /hpf Urine Mucus 0 SEEN (<or=2+) /hpf POC Glucose 69 L (70-110) mg/dL - Rhythm Strip Rhythm Strip: Sinus Tach Rate: 105 Ectopy: None - Medical Decision Making Patient was given 2 L of IV fluids bolused, over several hours total. On reevaluation, her blood pressure still reading in the 70s. We did modified orthostatics, as she does not stand currently at baseline, her blood pressure went up when she sat up, to 90 systolic. It was in the 70s while lying flat. We did manual, it was 88/56, with a mean of 64. With continued observation, her blood pressures remained in the 70s systolic. She also has a non-anion gap metabolic acidosis. I think all of this is due to her continued diarrhea, due to C. difficile. She was just switched over to oral vancomycin. I think that given her vital signs, and the initial reason that she was sent out of the long term to here, that she should be admitted overnight to acute care for continued monitoring and hydration. Her lactate is within normal limits, she has no leukocytosis, her CT shows no signs of severe C. difficile, and she clinically is well and not septic. Discussed with hospitalist. ED Disposition - Plan for ED Patient: Disposition: Acute Care Hospital [facility] Chief Complaint: Hypotension Diagnosis: Dehydration, GEORGE (acute kidney injury), C. difficile colitis Referrals: Kolton Garcia MD [Primary Care Provider] -
[2017-10-03 23:35] LABS: Absolute Lymphocyte Count 0.89 X10^3/ul (0.83-4.51); Absolute Neutrophil Count 5.5 X10^3/uL (2.0-7.7); Basophil# 0.01 X10^3/uL; Basophil% 0.2 % (0-1); Hematocrit 29.9 % (37-47); Hemoglobin 9.6 g/dl (12.0-15.0); Lymphocyte # 0.89 X10^3/ul (4.0); Lymphocyte % 13.5 % (19-41); Mean Corp Hgb Conc 32.1 g/gl (32-36); Mean Corpuscular Hgb 29.6 pg (27.0-32.0); Mean Corpuscular Volume 92.3 fL (81-99); Neutrophil # 5.48 X10^3/uL (2.7-7.7); Neutrophil % 82.8 % (47-70); Platelet Count 54 K/mm3 (150-450); RBC Distribution Width SD 68.3 fl (35.1-43.9); Red Blood Count 3.24 M/mm3 (4.2-5.4); White Blood Count 6.6 K/mm3 (4.4-11.0)
[2017-10-03 23:35] LABS: Bedside Glucose 69 mg/dL (70-110)
[2017-10-03 23:36] LABS: Differential Indicated SCAN CRITERIA MET; POSITIVE COUNT NO; POSITIVE DIFFERENTIAL NO; POSITIVE MORPHOLOGY YES
[2017-10-03 23:46] LABS: Lactic Acid 0.9 mmol/L (0.4-2.0)
[2017-10-03 23:48] LABS: ALB/GLOB Ratio 0.6 RATIO (0.9-2.4); AST(SGOT) 25 U/L (15-37); Alanine Aminotransfer ALT/SGPT 21 U/L (13-56); Albumin, Serum 1.3 g/dL (3.2-5.0); Alkaline Phosphatase 361 U/L (45-117); Anion Gap 9 (5-15); BUN 31 mg/dL (7-18); Calcium,Total 7.1 mg/dL (8.5-10.1); Chloride 109 mmol/L (98-107); Creatinine, Serum 1.55 mg/dL (0.55-1.02); EST Glomerular Filtration Rate 36 mL/min (>60); Est Glom Filt Rate - Afr Amer 43 mL/min (>60); Estimated Creatinine Clearance 34.72 ml/min; Globulin 2.3 g/dL (2.2-4.2); Glucose 72 mg/dL (74-106); Potassium 3.8 mmol/L (3.5-5.1); Protein, Total 3.6 g/dL (6.4-8.2); Sodium Level 136 mmol/L (136-145)
--- NOTE | 2017-10-03 23:50 | RAD_ITS ---
STUDY: X-RAY CHEST REASON FOR EXAM: Female, 67 years old. Hypotension TECHNIQUE: 1 view COMPARISON: May 02, 2017 FINDINGS: There is a large hiatal hernia. The heart is normal in size. There is mild central vascular congestion but no pneumonia and no pleural effusions.. Normal visualized thoracic spine. Normal visualized ribs, clavicles, and shoulders. There is no demonstrated abnormality of the visualized soft tissue structures of the upper abdomen. RAD/Chest 1 View (Portable) IMPRESSION: Mild central vascular congestion. No pneumonia. A large hiatal hernia. Electronically Signed: Johnathan Sneed, at 0:17 EDT Tel , Service support ,
[2017-10-03 23:54] LABS: Mucous, Urine 0 SEEN /hpf (<or=2+)
[2017-10-03 23:56] LABS: Color, Urine Amber (Yellow); Glucose, Dipstick Normal (Normal); Ketone-Dipstick 5 mg/dl (Negative); Leukocyte Esterase-Dipstick 100 /ul (Negative); Nitrite-Dipstick Positive (Negative); Occult Blood-Urine 10 /ul (Negative); Protein-Dipstick 30 mg/dl (Negative); Urine Clarity Sl. Cloudy (Clear); Urine Urobilinogen 1 mg/dl (Normal)
[2017-10-03 23:58] LABS: Anisocytosis 2+; Differential Comment SCANNED; Hypochromasia 3+; Macrocytosis 1+; Ovalocyte 2+; Platelet Estimate MOD DEC (ADEQ); Polychromasia RARE; Target Cells RARE
[2017-10-04] VITALS (19 sets, daily range): BP systolic 71–94; BP diastolic 43–66; PULSE 81–97; RESP 14–18; TEMP 36.3–36.8; O2SAT 93–97; BMI 40.6
[2017-10-04 00:05] LABS: Urine Bilirubin Dipstick 1 mg/dL (Negative)
[2017-10-04 00:06] LABS: Bacteria 1+ /hpf (None Seen); Squamous Epithelial Cells - UA 0-5 SEEN /hpf (5-10)
[2017-10-04 00:07] LABS: Red Blood Cells-Urine 0-5 SEEN /hpf (0-5); Transitional Epithelial - Ur 0-5 SEEN /hpf (0-5); White Blood Cells 0-5 SEEN /hpf (0-5)
[2017-10-04] MEDS: 0.9% Normal Saline 1,000 ML 999 ML IV (00:56)
[2017-10-04] MEDS: 0.9% Normal Saline 1,000 ML 200 ML IV (03:42)
--- NOTE | 2017-10-04 03:50 | NURSING ---
PT BGL WAS 66, RESULTS PAGED TO HOSPITALIST, ED PHYSICIAN NOTIFIED WELL
[2017-10-04 03:51] LABS: Bedside Glucose 65 mg/dL (70-110)
--- NOTE | 2017-10-04 03:51 | PCM.HP.STD ---
Problem List (1) GEORGE (acute kidney injury) Status: Acute (2) C. difficile colitis Status: Acute (3) YOLANDA (obstructive sleep apnea) Status: Chronic (4) HTN (hypertension) Status: Chronic (5) Dyslipidemia Status: Chronic (6) DM type 2 (diabetes mellitus, type 2) Status: Chronic (7) Anxiety disorder Status: Chronic History of Present Illness Date of Admission: 10/04/17 Chief Complaint: Hypotension. The patient is a 67 year old F with past medical history as mentioned above presented to the emergency department from group home because of low blood pressure and decreased level of responsiveness. At this time, the patient is alert and oriented ?3. She mentioned that they brought her to the hospital because she was sick, has been throwing up and she has been having diarrhea. She has a recent history of UTI and she was started on Ceftin that was discontinued a few days ago after she started having C. difficile colitis. Around 10 days ago, she was diagnosed with C. difficile colitis and she was started on Flagyl. She continued to have diarrhea without improvement and she was started on oral vancomycin today. Patient mentioned that she still having diarrhea. She denied abdominal pain, fever or chills. She denies chest pain or shortness of breath. She has history of type 2 diabetes mellitus and she was on metformin, most recent hemoglobin A1c was 4.8 on May,. Apparently, she is not on any antidiabetic medications at this time. Her blood sugar in the emergency room was 72 mg/dL. She has history of depression and anxiety and she has been on Celexa and Ativan as needed. She has a history of obstructive sleep apnea and she has been on CPAP. In the emergency room, patient was hypotensive, afebrile, heart rate has been stable, pulse ox is maintained on room air. Routine blood work was remarkable for hemoglobin of 9.6 g/dL, platelet count of 54, BUN of 31 and creatinine of 1.55. Lactic acid was normal. Troponin was negative. Urinalysis revealed cloudy urine, positive for nitrite, 100 leukocyte esterase, 0-5 WBCs and 1+ bacteria. She is being admitted for hypotension and acute kidney injury secondary to perfuse diarrhea and poor oral intake due to C. difficile colitis. Past Medical History Past Medical History (Chronic Problems): Chronic Problems YOLANDA (obstructive sleep apnea) (Chronic) Obesity (Chronic) HTN (hypertension) (Chronic) Dyslipidemia (Chronic) DM type 2 (diabetes mellitus, type 2) (Chronic) Anxiety disorder (Chronic) Allergies latex Allergy (Verified 07/21/17 12:41) Rash levofloxacin [From Levaquin] Allergy (Verified 07/21/17 12:41) Rash acetaminophen [From Darvocet-N] Adverse Reaction (Verified 07/21/17 12:41) Vomiting codeine Adverse Reaction (Verified 07/21/17 12:41) Unknown gabapentin Adverse Reaction (Verified 07/21/17 12:41) Other propoxyphene [From Darvon] Adverse Reaction (Verified 07/21/17 12:41) Vomiting Home Medications: Ambulatory Orders Medication Instructions Recorded Albuterol Inhaler [Ventolin Hfa] 2 puff INHALATION Q4H PRN PRN 02/28/16 Nystatin Powder [Mycostatin Powder] 1 applic TOPICAL BID PRN PRN 05/02/17 Nystatin/Triamcin Cream [Mycolog] 1 applic TOPICAL BID #1 tube 07/21/17 Bisacodyl 10 mg RC PRN PRN 10/04/17 Cefdinir 300 mg PO QHS 10/04/17 Citalopram Hydrobromide 40 mg PO DAILY 10/04/17 [Citalopram HBr] L. Rhamnosus GG/Inulin [Culturelle 1 each PO DAILY 10/04/17 Capsule] Mag Hydrox/Aluminum Hyd/Simeth 10/04/17 [Antacid Suspension] Potassium Chloride [K-Dur] 20 meq PO DAILY 10/04/17 Promethazine HCl 25 mg PO Q6H PRN PRN 10/04/17 Surgical History: appendectomy, cholecystectomy FAMILY PRACTICE MD History: No pertinent FAMILY PRACTICE MD history Lives: Care Home Smoking Status: Never smoker Alcohol: None, Rare - *Family History Maternal History Items: No pertinent history Paternal History Items: No pertinent history Review of Systems Constitutional: Reports: Anorexia, Weakness, Fatigue. Denies: Chills, Fever Eyes: Denies: Blurred vision, Double vision, Drainage, Redness HEENT: Denies: Difficulty Hearing, Ear Pain, Eye Pain, Nasal Congestion, Sore Throat Cardiovascular: Denies: Chest Pain, Chest Pressure, Chest Tightness, Light Headedness, Palpitations, Syncope Respiratory: Denies: Cough, Pleuritic Pain, Shortness of Breath, Sputum production, Wheezing Gastrointestinal: Reports: Diarrhea, Nausea, Vomiting. Denies: Abdominal Pain, Constipation Genitourinary: Denies: Dysuria, Frequency, Hematuria Musculoskeletal: Denies: Arm Pain, Back Pain, Foot Pain Skin: Denies: Dryness, Rash Neurological: Denies: Balance problems, Double vision, Change in Speech, Slurred speech, Focal weakness, Incoordination Psychiatric: Reports: Anxiety, Depression Endocrine: Denies: Change in Body Habitus, Polydipsia VTE Information - Inpt Only VTE Present on Admission: No VTE Mechan Device Prophylaxis: None VTE Pharm Prophylaxis ordered?: No Patient Problems: Active and Suspected Problems Dehydration (Acute) GEORGE (acute kidney injury) (Acute) C. difficile colitis (Acute) - Physical Exam General: Alert, Oriented x3, Cooperative, - - Minimally short of breath. HEENT: Atraumatic, PERRLA, EOMI Oral: No Gingival or Mucosal Lesions/ Ulcerations, Dry Mucosa Neck: Supple, No JVD, Negative Carotid Bruits, Trachea Midline, Thyroid Normal Size and Texture Lungs: Clear to auscultation, No rhonchi, No wheeze, No rales, Diminished Cardiovascular: Regular rate, Regular Rhythm, Normal S1, Normal S2, PMI Normal Abdomen: Bowel Sounds Present, Soft, Non Tender, Non-Distended, No Hepato-splenomegaly, Obese Extremities: No clubbing, No cyanosis, Edema - Nonpitting edema. Skin: No rashes, No breakdown Lymphatic: No Cervical, Supraclavicular, or Inguinal Adenopathy Neurological: Cranial nerves II-XII grossly intact, Neuro grossly intact Psych/Mental Status: Flat Affect Vital Signs Temp Pulse Resp BP Pulse Ox 97.9 F 94 14 82/66 L 96 10/03/17 23:04 10/04/17 03:34 10/04/17 03:34 10/04/17 03:34 10/04/17 03:34 Oxygen Delivery Method Room Air Weight: 247 lb 2.211 oz Body Mass Index (BMI) 38.7 Finger Stick Blood Glucose 69 Laboratory Tests Past 24 Hrs 10/03/17 10/03/17 10/03/17 23:10 23:10 23:10 WBC 6.6 RBC 3.24 L Hgb 9.6 L Hct 29.9 L MCV 92.3 MCH 29.6 MCHC 32.1 RDW 21.0 H RDW Differential 68.3 H Plt Count 54 L Immature Gran % (Auto) 0.500 Neut % (Auto) 82.8 H Lymph % (Auto) 13.5 L [place] % (Auto) 3.0 Eos % (Auto) 0.0 Baso % (Auto) 0.2 Absolute Neuts (auto) 5.5 Absolute Lymphs (auto) 0.89 Total Counted Not Reportable Differential Comment SCANNED Platelet Estimate MOD DEC Polychromasia RARE Hypochromasia 3+ Anisocytosis 2+ Macrocytosis 1+ Target Cells RARE Ovalocytes 2+ Sodium 136 Potassium 3.8 Chloride 109 H Carbon Dioxide 18.0 L Anion Gap 9 BUN 31 H Creatinine 1.55 H Estim Creat Clear Calc 34.72 Est GFR (MDRD) Af Amer 43 L Est GFR (MDRD) Non-Af 36 L BUN/Creatinine Ratio 20.0 Glucose 72 L Lactic Acid 0.9 Calcium 7.1 L Total Bilirubin 0.60 AST 25 ALT 21 Alkaline Phosphatase 361 H Troponin I < 0.02 Total Protein 3.6 L Albumin 1.3 L Globulin 2.3 Albumin/Globulin Ratio 0.6 L Urine Color Urine Clarity Urine pH Ur Specific Roff Urine Protein Urine Glucose (UA) Urine Ketones Urine Occult Blood Urine Nitrite Urine Bilirubin Urine Urobilinogen Ur Leukocyte Esterase Urine RBC Urine WBC Ur Squamous Epith Cells Ur Transition Epith Cell Urine Bacteria Urine Mucus 10/03/17 23:50 WBC RBC Hgb Hct MCV MCH MCHC RDW RDW Differential Plt Count Immature Gran % (Auto) Neut % (Auto) Lymph % (Auto) [place] % (Auto) Eos % (Auto) Baso % (Auto) Absolute Neuts (auto) Absolute Lymphs (auto) Total Counted Differential Comment Platelet Estimate Polychromasia Hypochromasia Anisocytosis Macrocytosis Target Cells Ovalocytes Sodium Potassium Chloride Carbon Dioxide Anion Gap BUN Creatinine Estim Creat Clear Calc Est GFR (MDRD) Af Amer Est GFR (MDRD) Non-Af BUN/Creatinine Ratio Glucose Lactic Acid Calcium Total Bilirubin AST ALT Alkaline Phosphatase Troponin I Total Protein Albumin Globulin Albumin/Globulin Ratio Urine Color Jessica Urine Clarity Sl. Cloudy Urine pH 6.0 Ur Specific Roff 1.020 Urine Protein 30 H Urine Glucose (UA) Normal Urine Ketones 5 H Urine Occult Blood 10 H Urine Nitrite Positive H Urine Bilirubin 1 H Urine Urobilinogen 1 H Ur Leukocyte Esterase 100 H Urine RBC 0-5 SEEN Urine WBC 0-5 SEEN Ur Squamous Epith Cells 0-5 SEEN Ur Transition Epith Cell 0-5 SEEN Urine Bacteria 1+ Urine Mucus 0 SEEN POC Glucose 10/04/17 10/03/17 03:48 23:30 POC Glucose 65 L 69 L Clinical Impression(s) from Imaging Studies Chest X-Ray 10/03/17 23:50 IMPRESSION: Mild central vascular congestion. No pneumonia. A large hiatal hernia. Electronically Signed: Johnathan Sneed, at 0:17 EDT Tel , Service support , Abdomen/Pelvis CT 10/04/17 23:17 IMPRESSION: A markedly atrophic right kidney. 2 calyceal calculi in the left kidney. No hydronephrosis. A large hiatal hernia with the entire stomach and the splenic flexure in the hernial sac. This also a small umbilical hernia with a portion of bowel within the hernial sac. No acute appendicitis or diverticulitis and no intestinal obstruction. Electronically Signed: Johnathan Sneed, at 1:01 EDT Tel , Service support , Assessment/Plan Active and Suspected Problems Dehydration (Acute) GEORGE (acute kidney injury) (Acute) C. difficile colitis (Acute) This is a 67 years old female patient presented to the emergency room from the group home because of decreased level of responsiveness and hypotension in context of recent diagnosis of C. difficile colitis and she was found to have hypotension, thrombocytopenia and acute kidney injury. #1 hypotension: This is could be explained by poor oral intake and profuse diarrhea. Her blood pressure has been around 70-90 systolic and patient was asymptomatic. Reportedly, she was lethargic at the group home but in the emergency department, she has been alert and oriented ?3, slightly sleepy. She is not tachycardic, afebrile. Plan: Admit to PCU, cardiac monitoring, continue IV fluids with Ringer's lactate and D5, complete bedrest, repeat CBC and BMP to the at 11 AM, treat underlying C. difficile colitis with antibiotics, follow blood and urine cultures, PT OT evaluation and treatment. #2 acute kidney injury: Secondary to poor oral intake, hypotension and infection. Most recent BUN and creatinine were normal. Admission creatinine is 1.55. Plan: IV fluids, input output chart, repeat BMP later today. #3 recent history of C. difficile colitis: Patient received around 8 days of oral Flagyl and she was started on vancomycin yesterday. Plan to continue oral vancomycin. #4 hypoglycemia: Blood sugar in the ER was around 72 mg/dL and came down to 65 mg/dL. One amp of D50 given. She does have a history of type 2 diabetes mellitus on definitely, metformin was discontinued because her blood sugar was low. Plan: Accu-Cheks every 4 hours, IV fluids with Ringer lactate and D5 percent, encourage oral intake, hemoglobin A1c. #5 thrombocytopenia: This is acute. Her baseline platelet count is normal. Unclear etiology. No evidence of active bleeding. Plan: PT and INR, repeat CBC at 11 AM today. #6 chronic anemia: It is normocytic anemia, likely anemia of chronic disease. Baseline hemoglobin has been around 9-10 g/dL. Admission hemoglobin is 9.6 g/dL. No evidence of active bleeding, no indication for transfusion. #8 history of type 2 diabetes mellitus: Most recent hemoglobin A1c was from May, and it was 4.8. She has been off metformin. She has been hypoglycemic. plan as above. #7 anxiety/depression: Continue Celexa and Ativan. #9 DVT prophylaxis: SCDs. No chemical prophylaxis, platelet count are low. This note was generated with Nano dictation software. It may contain incorrect words, spelling, and punctuation that were not noted in checking the note before signing. Code Visit Inpatient E&M: 14244 Init Hosp L3
--- NOTE | 2017-10-04 04:02 | HP.PCM_ITS ---
Problem List (1) GEROGE (acute kidney injury) Status: Acute (2) C. difficile colitis Status: Acute (3) YOLANDA (obstructive sleep apnea) Status: Chronic (4) HTN (hypertension) Status: Chronic (5) Dyslipidemia Status: Chronic (6) DM type 2 (diabetes mellitus, type 2) Status: Chronic (7) Anxiety disorder Status: Chronic History of Present Illness Date of Admission: 10/04/17 Chief Complaint: Hypotension. The patient is a 67 year old F with past medical history as mentioned above [facility] emergency department [facility] because of low blood pressure and decreased level of responsiveness. At this time, the patient is alert and oriented ?3. She mentioned that they brought her to the hospital because she was sick, has been throwing up and she has been having diarrhea. She has a recent history of UTI and she was started on Ceftin that was discontinued a few days ago after she started having C. difficile colitis. Around 10 days ago, she was diagnosed with C. difficile colitis and she was started on Flagyl. She continued to have diarrhea without improvement and she was started on oral vancomycin today. Patient mentioned that she still having diarrhea. She denied abdominal pain, fever or chills. She denies chest pain or shortness of breath. She has history of type 2 diabetes mellitus and she was on metformin, most recent hemoglobin A1c was 4.8 on May,. Apparently, she is not on any antidiabetic medications at this time. Her blood sugar in the emergency room was 72 mg/dL. She has history of depression and anxiety and she has been on Celexa and Ativan as needed. She has a history of obstructive sleep apnea and she has been on CPAP. In the emergency room, patient was hypotensive, afebrile, heart rate has been stable, pulse ox is maintained on room air. Routine blood work was remarkable for hemoglobin of 9.6 g/dL, platelet count of 54, BUN of 31 and creatinine of 1.55. Lactic acid was normal. Troponin was negative. Urinalysis revealed cloudy urine, positive for nitrite, 100 leukocyte esterase, 0-5 WBCs and 1+ bacteria. She is being admitted for hypotension and acute kidney injury secondary to perfuse diarrhea and poor oral intake due to C. difficile colitis. Past Medical History Past Medical History (Chronic Problems): Chronic Problems YOLANDA (obstructive sleep apnea) (Chronic) Obesity (Chronic) HTN (hypertension) (Chronic) Dyslipidemia (Chronic) DM type 2 (diabetes mellitus, type 2) (Chronic) Anxiety disorder (Chronic) Allergies latex Allergy (Verified 07/21/17 12:41) Rash levofloxacin [From Levaquin] Allergy (Verified 07/21/17 12:41) Rash acetaminophen [From Darvocet-N] Adverse Reaction (Verified 07/21/17 12:41) Vomiting codeine Adverse Reaction (Verified 07/21/17 12:41) Unknown gabapentin Adverse Reaction (Verified 07/21/17 12:41) Other propoxyphene [From Darvon] Adverse Reaction (Verified 07/21/17 12:41) Vomiting Home Medications: Ambulatory Orders Medication Instructions Recorded Albuterol Inhaler [Ventolin Hfa] 2 puff INHALATION Q4H PRN PRN 02/28/16 Nystatin Powder [Mycostatin Powder] 1 applic TOPICAL BID PRN PRN 05/02/17 Nystatin/Triamcin Cream [Mycolog] 1 applic TOPICAL BID #1 tube 07/21/17 Bisacodyl 10 mg RC PRN PRN 10/04/17 Cefdinir 300 mg PO QHS 10/04/17 Citalopram Hydrobromide 40 mg PO DAILY 10/04/17 [Citalopram HBr] L. 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 Denies: Chills, Fever Eyes: Denies: Blurred vision, Double vision, Drainage, Redness HEENT: Denies: Difficulty Hearing, Ear Pain, Eye Pain, Nasal Congestion, Sore Throat Cardiovascular: Denies: Chest Pain, Chest Pressure, Chest Tightness, Light Headedness, Palpitations, Syncope Respiratory: Denies: Cough, Pleuritic Pain, Shortness of Breath, Sputum production, Wheezing Gastrointestinal: Reports: Diarrhea, Nausea, Vomiting. Denies: Abdominal Pain, Constipation Genitourinary: Denies: Dysuria, Frequency, Hematuria Musculoskeletal: Denies: Arm Pain, Back Pain, Foot Pain Skin: Denies: Dryness, Rash Neurological: Denies: Balance problems, Double vision, Change in Speech, Slurred speech, Focal weakness, Incoordination Psychiatric: Reports: Anxiety, Depression Endocrine: Denies: Change in Body Habitus, Polydipsia VTE Information - Inpt Only VTE Present on Admission: No VTE Mechan Device Prophylaxis: None VTE Pharm Prophylaxis ordered?: No Patient Problems: Active and Suspected Problems Dehydration (Acute) GEORGE (acute kidney injury) (Acute) C. difficile colitis (Acute) - Physical Exam General: Alert, Oriented x3, Cooperative, - - Minimally short of breath. HEENT: Atraumatic, PERRLA, EOMI Oral: No Gingival or Mucosal Lesions/ Ulcerations, Dry Mucosa Neck: Supple, No JVD, Negative Carotid Bruits, Trachea Midline, Thyroid Normal Size and Texture Lungs: Clear to auscultation, No rhonchi, No wheeze, No rales, Diminished Cardiovascular: Regular rate, Regular Rhythm, Normal S1, Normal S2, PMI Normal Abdomen: Bowel Sounds Present, Soft, Non Tender, Non-Distended, No Hepato- splenomegaly, Obese Extremities: No clubbing, No cyanosis, Edema - Nonpitting edema. Skin: No rashes, No breakdown Lymphatic: No Cervical, Supraclavicular, or Inguinal Adenopathy Neurological: Cranial nerves II-XII grossly intact, Neuro grossly intact Psych/Mental Status: Flat Affect Vital Signs Temp Pulse Resp BP Pulse Ox 97.9 F 94 14 82/66 L 96 10/03/17 23:04 10/04/17 03:34 10/04/17 03:34 10/04/17 03:34 10/04/17 03:34 Oxygen Delivery Method Room Air Weight: 247 lb 2.211 oz Body Mass Index (BMI) 38.7 Finger Stick Blood Glucose 69 Laboratory Tests Past 24 Hrs 10/03/17 10/03/17 10/03/17 23:10 23:10 23:10 WBC 6.6 RBC 3.24 L Hgb 9.6 L Hct 29.9 L MCV 92.3 MCH 29.6 MCHC 32.1 RDW 21.0 H RDW Differential 68.3 H Plt Count 54 L Immature Gran % (Auto) 0.500 Neut % (Auto) 82.8 H Lymph % (Auto) 13.5 L Ness % (Auto) 3.0 Eos % (Auto) 0.0 Baso % (Auto) 0.2 Absolute Neuts (auto) 5.5 Absolute Lymphs (auto) 0.89 Total Counted Not Reportable Differential Comment SCANNED Platelet Estimate MOD DEC Polychromasia RARE Hypochromasia 3+ Anisocytosis 2+ Macrocytosis 1+ Target Cells RARE Ovalocytes 2+ Sodium 136 Potassium 3.8 Chloride 109 H Carbon Dioxide 18.0 L Anion Gap 9 BUN 31 H Creatinine 1.55 H Estim Creat Clear Calc 34.72 Est GFR (MDRD) Af Amer 43 L Est GFR (MDRD) Non-Af 36 L BUN/Creatinine Ratio 20.0 Glucose 72 L Lactic Acid 0.9 Calcium 7.1 L Total Bilirubin 0.60 AST 25 ALT 21 Alkaline Phosphatase 361 H Troponin I < 0.02 Total Protein 3.6 L Albumin 1.3 L Globulin 2.3 Albumin/Globulin Ratio 0.6 L Urine Color Urine Clarity Urine pH Ur Specific [place] Urine Protein Urine Glucose (UA) Urine Ketones Urine Occult Blood Urine Nitrite Urine Bilirubin Urine Urobilinogen Ur Leukocyte Esterase Urine RBC Urine WBC Ur Squamous Epith Cells Ur Transition Epith Cell Urine Bacteria Urine Mucus 10/03/17 23:50 WBC RBC Hgb Hct MCV MCH MCHC RDW RDW Differential Plt Count Immature Gran % (Auto) Neut % (Auto) Lymph % (Auto) Ness % (Auto) Eos % (Auto) Baso % (Auto) Absolute Neuts (auto) Absolute Lymphs (auto) Total Counted Differential Comment Platelet Estimate Polychromasia Hypochromasia Anisocytosis Macrocytosis Target Cells Ovalocytes Sodium Potassium Chloride Carbon Dioxide Anion Gap BUN Creatinine Estim Creat Clear Calc Est GFR (MDRD) Af Amer Est GFR (MDRD) Non-Af BUN/Creatinine Ratio Glucose Lactic Acid Calcium Total Bilirubin AST ALT Alkaline Phosphatase Troponin I Total Protein Albumin Globulin Albumin/Globulin Ratio Urine Color Jessica Urine Clarity Sl. Cloudy Urine pH 6.0 Ur Specific [place] 1.020 Urine Protein 30 H Urine Glucose (UA) Normal Urine Ketones 5 H Urine Occult Blood 10 H Urine Nitrite Positive H Urine Bilirubin 1 H Urine Urobilinogen 1 H Ur Leukocyte Esterase 100 H Urine RBC 0-5 SEEN Urine WBC 0-5 SEEN Ur Squamous Epith Cells 0-5 SEEN Ur Transition Epith Cell 0-5 SEEN Urine Bacteria 1+ Urine Mucus 0 SEEN POC Glucose 10/04/17 10/03/17 03:48 23:30 POC Glucose 65 L 69 L Clinical Impression(s) from Imaging Studies Chest X-Ray 10/03/17 23:50 IMPRESSION: Mild central vascular congestion. No pneumonia. A large hiatal hernia. Electronically Signed: Johnathan Sneed, at 0:17 EDT Tel , Service support , Abdomen/Pelvis CT 10/04/17 23:17 IMPRESSION: A markedly atrophic right kidney. 2 calyceal calculi in the left kidney. No hydronephrosis. A large hiatal hernia with the entire stomach and the splenic flexure in the hernial sac. This also a small umbilical hernia with a portion of bowel within the hernial sac. No acute appendicitis or diverticulitis and no intestinal obstruction. Electronically Signed: Johnathan Sneed, at 1:01 EDT Tel , Service support , Assessment/Plan Active and Suspected Problems Dehydration (Acute) GEORGE (acute kidney injury) (Acute) C. difficile colitis (Acute) This is a 67 years old female patient presented [facility] emergency [facility] because of decreased level of responsiveness and hypotension in context of recent diagnosis of C. difficile colitis and she was found to have hypotension, thrombocytopenia and acute kidney injury. #1 hypotension: This is could be explained by poor oral intake and profuse diarrhea. Her blood pressure has been around 70-90 systolic and patient was asymptomatic. Reportedly, she was lethargic at the [facility] but in the emergency department, she has been alert and oriented ?3, slightly sleepy. She is not tachycardic, afebrile. Plan: Admit to PCU, cardiac monitoring, continue IV fluids with Ringer's lactate and D5, complete bedrest, repeat CBC and BMP to the at 11 AM, treat underlying C. difficile colitis with antibiotics, follow blood and urine cultures, PT OT evaluation and treatment. #2 acute kidney injury: Secondary to poor oral intake, hypotension and infection. Most recent BUN and creatinine were normal. Admission creatinine is 1.55. Plan: IV fluids, input output chart, repeat BMP later today. #3 recent history of C. difficile colitis: Patient received around 8 days of oral Flagyl and she was started on vancomycin yesterday. Plan to continue oral vancomycin. #4 hypoglycemia: Blood sugar in the ER was around 72 mg/dL and came down to 65 mg/dL. One amp of D50 given. She does have a history of type 2 diabetes mellitus on definitely, metformin was discontinued because her blood sugar was low. Plan: Accu-Cheks every 4 hours, IV fluids with Ringer lactate and D5 percent, encourage oral intake, hemoglobin A1c. #5 thrombocytopenia: This is acute. Her baseline platelet count is normal. Unclear etiology. No evidence of active bleeding. Plan: PT and INR, repeat CBC at 11 AM today. #6 chronic anemia: It is normocytic anemia, likely anemia of chronic disease. Baseline hemoglobin has been around 9-10 g/dL. Admission hemoglobin is 9.6 g/ dL. No evidence of active bleeding, no indication for transfusion. #8 history of type 2 diabetes mellitus: Most recent hemoglobin A1c was from May, and it was 4.8. She has been off metformin. She has been hypoglycemic. plan as above. #7 anxiety/depression: Continue Celexa and Ativan. #9 DVT prophylaxis: SCDs. No chemical prophylaxis, platelet count are low. This note was generated with [employer] dictation software. It may contain incorrect words, spelling, and punctuation that were not noted in checking the note before signing. Code Visit Inpatient E&M: 76923 Init Hosp L3
[2017-10-04] MEDS: Dextrose 50%-Water 25 GM/50 ML DISP.SYRIN IV (04:10)
--- NOTE | 2017-10-04 04:34 | ED.RN ---
DAUGHTER BONIFACIO TO INFORM HER SHE WAS BEING ADMITTED TO PCU. VOICEMAIL LEFT PER DAUGHTER'S REQUEST
[2017-10-04 05:35] LABS: Bedside Glucose 96 mg/dL (70-110)
[2017-10-04] MEDS: Dextrose 5%-Lactated Ringers 1,000 ML 100 ML IV ×2 (06:10→15:48)
[2017-10-04 06:21] LABS: International Normalized Ratio 1.5; Prothrombin Time (Protime)PT. 18.1 SECONDS (11.7-14.9)
[2017-10-04 07:59] LABS: Hemoglobin A1c 4.9 % (4.2-6.3)
[2017-10-04 09:56] LABS: Bedside Glucose 100 mg/dL (70-110)
[2017-10-04] MEDS: Menthol/Lanolin/Calamine/Znox 113 GM Tube 1 APPLIC TOPICAL ×4 (10:57→21:42)
[2017-10-04] MEDS: Citalopram 40 MG TABLET PO (10:58)
--- NOTE | 2017-10-04 11:12 | PCM.PN.HOSP ---
Patient Problems: Active and Suspected Problems Dehydration (Acute) GEORGE (acute kidney injury) (Acute) C. difficile colitis (Acute) Subjective: Feeling better. No further diarrhea. Vitals/I&O's: Vital Signs Temp Pulse Resp BP Pulse Ox 36.3 C L 90 16 91/56 L 97 10/04/17 10:55 10/04/17 10:55 10/04/17 10:55 10/04/17 10:55 10/04/17 10:55 Oxygen Delivery Method Room Air Weight: 110.6 kg Body Mass Index (BMI) 40.6 Intake and Output for Last 24 Hours 10/02/17 10/03/17 10/04/17 23:59 23:59 23:59 Intake Total 947 / 947 Balance 947 / 947 General: Alert, Cooperative, No apparent distress HEENT: Atraumatic, Normocephalic Neck: No Nodes, Thyroid Normal Size and Texture Lungs: Clear to auscultation, Normal air movement, No rhonchi, No wheeze Cardiovascular: Regular rate, Regular Rhythm, Normal S1, Normal S2, No murmurs Abdomen: Bowel Sounds Present, Soft, Non Tender, Non-Distended, No Hepato-splenomegaly Extremities: No edema, No Calf Tenderness Skin: No rashes, No breakdown Laboratory Results 10/04/17 03:48: POC Glucose 65 L 10/04/17 05:31: POC Glucose 96 10/04/17 05:50: PT 18.1 H, INR 1.5 10/04/17 05:50: Hemoglobin A1c 4.9 10/04/17 09:48: POC Glucose 100 Current Medications Albuterol Sulfate (Ventolin Aerosols) 2.5 mg INHALATION Q2H PRN PRN PRN Reason: Shortness of breath, wheezing Calamine/Phenol (Calmoseptine Ointment) 1 applic TOPICAL 4X/DAY [facility] PRN Reason: Protocol Last Admin: 10/04/17 10:57 Dose: 1 applicatio Citalopram Hydrobromide (Celexa) 40 mg PO DAILY [facility] Last Admin: 10/04/17 10:58 Dose: 40 mg Dextrose/Lactated Ringer's () 1,000 mls @ 100 mls/hr IV .Q10H [facility] Last Admin: 10/04/17 06:10 Dose: 100 mls/hr Nutritional Formula (Lactose Free) (Glucerna Shake) 120 ml PO 4X/DAY [facility] Ondansetron HCl (Zofran) 4 mg IV Q6H PRN PRN PRN Reason: NAUSEA/VOMITING Potassium Chloride (K-Dur) 20 meq PO DAILYCM [facility] Last Admin: 10/04/17 10:58 Dose: 20 meq Sodium Chloride () 5 - 30 ml IV UD PRN PRN Reason: SALINE FLUSH Vancomycin HCl (Vancomycin 125mg/5ml Susp) 125 mg PO Q6 [facility] Last Admin: 10/04/17 10:59 Dose: 125 mg Medical Necessity - Tobacco Use Smoking Status: Former smoker Assessment/Plan Active and Suspected Problems Dehydration (Acute) GEORGE (acute kidney injury) (Acute) C. difficile colitis (Acute) 1. Hypotension: resolved 2/2 volume depletion 2. GEORGE: likely prerenal monitor continue IVF 3. C diff: appears to be controlled present before arrival continue PO Vanc, continue for total of 10-14 d 4. pancytopenia unclear etiology monitor consider BMBx, but could be done as outpt. 5. DVT proph: SCDs. Code Visit Procedures: Other Procedure - See Report - non-billable rounding.
--- NOTE | 2017-10-04 11:17 | PN_ITS ---
Patient Problems: Active and Suspected Problems Dehydration (Acute) GEORGE (acute kidney injury) (Acute) C. difficile colitis (Acute) Subjective: Feeling better. No further diarrhea. Vitals/I&O's: Vital Signs Temp Pulse Resp BP Pulse Ox 36.3 C L 90 16 91/56 L 97 10/04/17 10:55 10/04/17 10:55 10/04/17 10:55 10/04/17 10:55 10/04/17 10:55 Oxygen Delivery Method Room Air Weight: 110.6 kg Body Mass Index (BMI) 40.6 Intake and Output for Last 24 Hours 10/02/17 10/03/17 10/04/17 23:59 23:59 23:59 Intake Total 947 / 947 Balance 947 / 947 General: Alert, Cooperative, No apparent distress HEENT: Atraumatic, Normocephalic Neck: No Nodes, Thyroid Normal Size and Texture Lungs: Clear to auscultation, Normal air movement, No rhonchi, No wheeze Cardiovascular: Regular rate, Regular Rhythm, Normal S1, Normal S2, No murmurs Abdomen: Bowel Sounds Present, Soft, Non Tender, Non-Distended, No Hepato- splenomegaly Extremities: No edema, No Calf Tenderness Skin: No rashes, No breakdown Laboratory Results 10/04/17 03:48: POC Glucose 65 L 10/04/17 05:31: POC Glucose 96 10/04/17 05:50: PT 18.1 H, INR 1.5 10/04/17 05:50: Hemoglobin A1c 4.9 10/04/17 09:48: POC Glucose 100 Current Medications Albuterol Sulfate (Ventolin Aerosols) 2.5 mg INHALATION Q2H PRN PRN PRN Reason: Shortness of breath, wheezing Calamine/Phenol (Calmoseptine Ointment) 1 applic TOPICAL 4X/DAY [facility] PRN Reason: Protocol Last Admin: 10/04/17 10:57 Dose: 1 applicatio Citalopram Hydrobromide (Celexa) 40 mg PO DAILY [facility] Last Admin: 10/04/17 10:58 Dose: 40 mg Dextrose/Lactated Ringer's () 1,000 mls @ 100 mls/hr IV .Q10H [facility] Last Admin: 10/04/17 06:10 Dose: 100 mls/hr Nutritional Formula (Lactose Free) (Glucerna Shake) 120 ml PO 4X/DAY [facility] Ondansetron HCl (Zofran) 4 mg IV Q6H PRN PRN PRN Reason: NAUSEA/VOMITING Potassium Chloride (K-Dur) 20 meq PO DAILYCM [facility] Last Admin: 10/04/17 10:58 Dose: 20 meq Sodium Chloride () 5 - 30 ml IV UD PRN PRN Reason: SALINE FLUSH Vancomycin HCl (Vancomycin 125mg/5ml Susp) 125 mg PO Q6 [facility] Last Admin: 10/04/17 10:59 Dose: 125 mg Medical Necessity - Tobacco Use Smoking Status: Former smoker Assessment/Plan Active and Suspected Problems Dehydration (Acute) GEORGE (acute kidney injury) (Acute) C. difficile colitis (Acute) 1. Hypotension: * resolved * 2/2 volume depletion 2. GEORGE: * likely prerenal * monitor * continue IVF 3. C diff: * appears to be controlled * present before arrival * continue PO Vanc, continue for total of 10-14 d 4. pancytopenia * unclear etiology * monitor * consider BMBx, but could be done as outpt. 5. DVT proph: SCDs. Code Visit Procedures: Other Procedure - See Report - non-billable rounding.
[2017-10-04 11:49] LABS: Absolute Lymphocyte Count 0.69 X10^3/ul (0.83-4.51); Absolute Neutrophil Count 4.1 X10^3/uL (2.0-7.7); Basophil# 0.01 X10^3/uL; Basophil% 0.2 % (0-1); Eosinophil# 0.02 X10^3/uL; Eosinophils% 0.4 % (0-5); Hemoglobin 9.3 g/dl (12.0-15.0); Lymphocyte # 0.69 X10^3/ul (4.0); Lymphocyte % 13.9 % (19-41); Mean Corp Hgb Conc 32.1 g/gl (32-36); Mean Corpuscular Hgb 29.6 pg (27.0-32.0); Mean Corpuscular Volume 92.4 fL (81-99); Monocyte# 0.17 X10^3/uL; Monocyte% 3.4 % (0-10); Neutrophil # 4.05 X10^3/uL (2.7-7.7); Neutrophil % 81.7 % (47-70); Platelet Count 49 K/mm3 (150-450); RBC Distribution Width CV 21.4 % (11.6-14.6); RBC Distribution Width SD 69.8 fl (35.1-43.9); Red Blood Count 3.14 M/mm3 (4.2-5.4)
[2017-10-04 11:52] LABS: Differential Indicated SCAN CRITERIA MET; POSITIVE COUNT YES; POSITIVE DIFFERENTIAL NO; POSITIVE MORPHOLOGY YES
[2017-10-04 12:04] LABS: Anion Gap 10 (5-15); BUN 28 mg/dL (7-18); BUN/Creat Ratio 21.9 RATIO (10-20); Calcium,Total 6.8 mg/dL (8.5-10.1); Chloride 116 mmol/L (98-107); Creatinine, Serum 1.28 mg/dL (0.55-1.02); EST Glomerular Filtration Rate 44 mL/min (>60); Est Glom Filt Rate - Afr Amer 54 mL/min (>60); Glucose 83 mg/dL (74-106); Potassium 3.5 mmol/L (3.5-5.1); Sodium Level 144 mmol/L (136-145)
--- NOTE | 2017-10-04 12:04 | CASEMGMT ---
Patient is from [facility]. faxed updates to [facility]. Green sheet is on chart with instructions should patient be d/c over the weekend. Plan: return to [facility] under skilled level of care. Tana DUBOIS MSW
[2017-10-04] MEDS: Glucerna Shake 120 ML LIQUID PO ×3 (13:23→21:42)
[2017-10-04 14:16] LABS: Bedside Glucose 92 mg/dL (70-110)
[2017-10-04 14:38] LABS: Pathologist Review Reviewed
[2017-10-04] MEDS: Ferrous Sulfate 325 MG Tablet PO (15:47)
[2017-10-04] MEDS: Pantoprazole Sodium 40 MG Tablet PO (15:47)
[2017-10-04] MEDS: busPIRone 5 MG Tablet PO ×2 (15:47→21:41)
[2017-10-04] MEDS: Famotidine 20 MG Tablet PO (15:47)
[2017-10-04] MEDS: Allopurinol 300 MG Tablet PO (15:47)
[2017-10-04 18:25] LABS: Bedside Glucose 84 mg/dL (70-110)
[2017-10-04] MEDS: Atorvastatin Calcium 10 MG Tablet 5 MG PO (21:41)
[2017-10-04 23:10] LABS: Bedside Glucose 92 mg/dL (70-110)
--- NOTE | 2017-10-04 23:17 | CT_ITS ---
STUDY: CT ABDOMEN AND PELVIS WITHOUT CONTRAST REASON FOR EXAM: Female, 67 years old. Abdominal pain RADIATION DOSAGE (If Supplied By Facility): CTDIvol = ( 21.57 ) mGy, DLP = ( 1099.37 ) mGycm TECHNIQUE: Transaxial images were obtained from the dome of the diaphragm to the symphysis pubis without oral contrast, and without intravenous contrast. Sagittal and coronal images were reconstructed. Individualized dose optimization techniques were used for this CT. COMPARISON: None. FINDINGS: Small pleuroparenchymal changes in the right middle lobe peripherally. There is hepatomegaly and fatty liver infiltration with no dilated intrahepatic biliary radicles. Previous cholecystectomy.. The spleen, pancreas and both adrenals are normal. A markedly atrophic right kidney. It is 6.5 and 6.1 mm calyceal calculi in the left kidney. There is a large hiatal hernia with the stomach and splenic flexure in the hernial sac. There is no bowel distention, acute appendicitis or diverticulitis. No abnormally constricting large bowel lesions. An umbilical hernia is identified with a small portion of bowel within the hernial sac. There is no ascites, free intraperitoneal air or any evidence of epiploic appendagitis. The vascular structures in the retroperitoneum are normal Degenerative changes at L3-4 L4-5 and L5-S1 and an old compression fracture involving the superior to L1. There is no retrocrural, retroperitoneal or mesenteric adenopathy. There is no mesenteric mistiness The urinary bladder is normal.. The uterus is normal There is no inguinal or pelvic adenopathy and there is no inguinal hernia. CT/Abdomen/Pelvis without Cont IMPRESSION: A markedly atrophic right kidney. 2 calyceal calculi in the left kidney. No hydronephrosis. A large hiatal hernia with the entire stomach and the splenic flexure in the hernial sac. This also a small umbilical hernia with a portion of bowel within the hernial sac. No acute appendicitis or diverticulitis and no intestinal obstruction. Electronically Signed: Johnathan Sneed, at 1:01 EDT Tel , Service support ,
[2017-10-05] VITALS (20 sets, daily range): BP systolic 78–92; BP diastolic 42–57; PULSE 82–100; RESP 16–26; TEMP 34.8–38.3; O2SAT 93–100
[2017-10-05] MEDS: Dextrose 5%-Lactated Ringers 1,000 ML 100 ML IV ×3 (00:31→21:29)
[2017-10-05 06:56] LABS: Bedside Glucose 89 mg/dL (70-110)
[2017-10-05 07:15] LABS: International Normalized Ratio 1.7; Prothrombin Time (Protime)PT. 19.6 SECONDS (11.7-14.9)
[2017-10-05] MEDS: Ferrous Sulfate 325 MG Tablet PO (08:37)
[2017-10-05] MEDS: Allopurinol 300 MG Tablet PO ×2 (08:37→17:19)
[2017-10-05] MEDS: Pantoprazole Sodium 40 MG Tablet PO (08:49)
[2017-10-05] MEDS: busPIRone 5 MG Tablet PO ×2 (08:49→21:50)
[2017-10-05] MEDS: Citalopram 40 MG TABLET PO (08:49)
[2017-10-05] MEDS: Menthol/Lanolin/Calamine/Znox 113 GM Tube 1 APPLIC TOPICAL ×4 (08:49→21:57)
[2017-10-05] MEDS: Famotidine 20 MG Tablet PO (10:50)
[2017-10-05] MEDS: Glucerna Shake 120 ML LIQUID PO ×4 (10:50→21:51)
--- NOTE | 2017-10-05 11:51 | PN_ITS ---
Patient Problems: Active and Suspected Problems Dehydration (Acute) GEORGE (acute kidney injury) (Acute) C. difficile colitis (Acute) Subjective: Eating 25-50% of her meals. Still with diarrhea. Patient asking nursing to feed her at times. Vitals/I&O's: Vital Signs Temp Pulse Resp BP Pulse Ox 35.7 C L 91 17 87/53 L 95 10/05/17 10:52 10/05/17 11:36 10/05/17 10:52 10/05/17 10:52 10/05/17 11:30 Oxygen Delivery Method Room Air Weight: 110.6 kg Body Mass Index (BMI) 40.6 Intake and Output for Last 24 Hours 10/03/17 10/04/17 10/05/17 23:59 23:59 23:59 Intake Total 2311 Balance 2311 General: Alert, Cooperative, No apparent distress HEENT: Atraumatic, Normocephalic Neck: No Nodes, Thyroid Normal Size and Texture Lungs: Clear to auscultation, Normal air movement, No rhonchi, No wheeze Cardiovascular: Regular rate, Regular Rhythm, Normal S1, Normal S2, No murmurs Abdomen: Soft, Non Tender, Obese, Tender Extremities: No Calf Tenderness, Edema Skin: No rashes, No breakdown Psych/Mental Status: Normal Affect, Appropriate Laboratory Results 10/04/17 11:30: WBC 5.0, RBC 3.14 L, Hgb 9.3 L, Hct 29.0 L, MCV 92.4, MCH 29.6, MCHC 32.1, RDW 21.4 H, RDW Differential 69.8 H, Plt Count 49 L*, Immature Gran % (Auto) 0.400, Neut % (Auto) 81.7 H, Lymph % (Auto) 13.9 L, [place] % (Auto) 3.4, Eos % (Auto) 0.4, Baso % (Auto) 0.2, Absolute Neuts (auto) 4.1, Absolute Lymphs (auto) 0.69 L, Total Counted Not Reportable, Differential Comment COMMENT, Diff Path Review Reviewed 10/04/17 11:30: Sodium 144, Potassium 3.5, Chloride 116 H, Carbon Dioxide 18.0 L , Anion Gap 10, BUN 28 H, Creatinine 1.28 H, Estim Creat Clear Calc 38.90, Est GFR (MDRD) Af Amer 54 L, Est GFR (MDRD) Non-Af 44 L, BUN/Creatinine Ratio 21.9 H , Glucose 83, Calcium 6.8 L 10/04/17 14:12: POC Glucose 92 10/04/17 16:57: POC Glucose 84 10/04/17 21:40: POC Glucose 92 10/05/17 06:09: PT 19.6 H, INR 1.7 10/05/17 06:34: POC Glucose 89 Current Medications Acetaminophen (Tylenol) 650 mg PO Q4H PRN PRN PRN Reason: PAIN Albuterol Sulfate (Ventolin Aerosols) 2.5 mg INHALATION Q2H PRN PRN PRN Reason: Shortness of breath, wheezing All[facility]oprim) [facility] Last Admin: 10/05/17 08:37 Dose: 300 mg Atorvastatin Calcium (Lipitor) 5 mg PO QHS [facility] Last Admin: 10/04/17 21:41 Dose: 5 mg Buspirone HCl (Buspar) 5 mg PO BID [facility] Last Admin: 10/05/17 08:49 Dose: 5 mg Calamine/Phenol (Calmoseptine Ointment) 1 applic TOPICAL 4X/DAY [facility] PRN Reason: Protocol Last Admin: 10/05/17 08:49 Dose: 1 applicatio Citalopram Hydrobromide (Celexa) 40 mg PO DAILY [facility] Last Admin: 10/05/17 08:49 Dose: 40 mg Famotidine (Pepcid) 20 mg PO DAILY [facility] Last Admin: 10/05/17 10:50 Dose: 20 mg Ferrous Sulfate (Ferrous Sulfate) 325 mg PO DAILY@0800 [facility] Last Admin: 10/05/17 08:37 Dose: 325 mg Dextrose/Lactated Ringer's () 1,000 mls @ 100 mls/hr IV .Q10H [facility] Last Admin: 10/05/17 10:50 Dose: 100 mls/hr Insulin Aspart (Novolog Flexpen (Bkc)) 0 units SC ACHS [facility] PRN Reason: Protocol Last Admin: 10/05/17 11:12 Dose: Not Given Nutritional Formula (Lactose Free) (Glucerna Shake) 120 ml PO 4X/DAY [facility] Last Admin: 10/05/17 10:50 Dose: 120 ml Nystatin (Nystatin) 500,000 unit PO 4X/DAY [facility] Ondansetron HCl (Zofran) 4 mg IV Q6H PRN PRN PRN Reason: NAUSEA/VOMITING Pantoprazole Sodium (Protonix) 40 mg PO DAILY [facility] Last Admin: 10/05/17 08:49 Dose: 40 mg Potassium Chloride (K-Dur) 20 meq PO DAILYCM [facility] Last Admin: 10/05/17 08:37 Dose: 20 meq Sodium Chloride () 5 - 30 ml IV UD PRN PRN Reason: SALINE FLUSH Vancomycin HCl (Vancomycin 125mg/5ml Susp) 125 mg PO Q6 [facility] Last Admin: 10/05/17 11:16 Dose: 125 mg Medical Necessity - Tobacco Use Smoking Status: Former smoker Assessment/Plan Active and Suspected Problems Dehydration (Acute) GEORGE (acute kidney injury) (Acute) C. difficile colitis (Acute) 1. Hypotension: * reoccurred * 2/2 volume depletion * Continue with IV fluids 2. GEORGE: * likely prerenal * monitor * continue IVF 3. C diff: * appears to be controlled * present before arrival * continue PO Vanc, continue for total of 10-14 d 4. pancytopenia * unclear etiology * monitor * consider BMBx, but could be done as outpt. 5. DVT proph: SCDs. Code Visit Inpatient E&M: [id number] Subs Hosp L2
[2017-10-05 12:58] LABS: Absolute Lymphocyte Count 0.51 X10^3/ul (0.83-4.51); Absolute Neutrophil Count 2.9 X10^3/uL (2.0-7.7); Basophil# 0.01 X10^3/uL; Basophil% 0.3 % (0-1); Eosinophil# 0.03 X10^3/uL; Eosinophils% 0.8 % (0-5); Hematocrit 27.2 % (37-47); Hemoglobin 8.6 g/dl (12.0-15.0); Lymphocyte # 0.51 X10^3/ul (4.0); Mean Corp Hgb Conc 31.6 g/gl (32-36); Mean Corpuscular Hgb 29.3 pg (27.0-32.0); Mean Corpuscular Volume 92.5 fL (81-99); Monocyte# 0.14 X10^3/uL; Monocyte% 3.8 % (0-10); Neutrophil # 2.94 X10^3/uL (2.7-7.7); Neutrophil % 80.8 % (47-70); Platelet Count 42 K/mm3 (150-450); RBC Distribution Width CV 21.4 % (11.6-14.6); RBC Distribution Width SD 70.6 fl (35.1-43.9); Red Blood Count 2.94 M/mm3 (4.2-5.4); White Blood Count 3.6 K/mm3 (4.4-11.0)
[2017-10-05 12:59] LABS: Differential Indicated SCAN CRITERIA MET; POSITIVE COUNT YES; POSITIVE DIFFERENTIAL YES; POSITIVE MORPHOLOGY YES
[2017-10-05 13:15] LABS: Hypochromasia 1+; Spherocyte 1+
[2017-10-05 13:16] LABS: Anisocytosis 1+; Ovalocyte 1+; Platelet Estimate MKD DEC (ADEQ); Tear Drop Cell 1+
[2017-10-05 13:22] LABS: Anion Gap 9 (5-15); BUN 26 mg/dL (7-18); BUN/Creat Ratio 20.3 RATIO (10-20); Calcium,Total 6.9 mg/dL (8.5-10.1); Chloride 116 mmol/L (98-107); Creatinine, Serum 1.28 mg/dL (0.55-1.02); EST Glomerular Filtration Rate 44 mL/min (>60); Est Glom Filt Rate - Afr Amer 54 mL/min (>60); Glucose 79 mg/dL (74-106); Potassium 3.4 mmol/L (3.5-5.1); Sodium Level 141 mmol/L (136-145)
[2017-10-05 13:31] LABS: Bedside Glucose 86 mg/dL (70-110)
--- NOTE | 2017-10-05 14:40 | US_ITS ---
STUDY: ABDOMINAL ULTRASOUND - RIGHT UPPER QUADRANT REASON FOR VISIT: Female, 67 years old. Right upper quadrant pain TECHNIQUE: Ultrasound evaluation of the right upper quadrant was performed with real-time and static lucero-scale imaging. TECHNICAL QUALITY: Limited by body habitus and bowel gas. COMPARISON: CT dated 10/04/2017. FINDINGS: Liver: The liver measures 16 cm. There is increased echogenicity consistent with fatty infiltration. The bile ducts are within normal limits. There is hepatic color flow. The direction of portal flow is hepatopetal. There is no demonstrated mass lesion. Gallbladder: The patient is status post cholecystectomy. Common Bile Duct (C.B.D.): The common bile duct measures 4 mm. Pancreas: Normal size of the head, body and tail of the pancreas. There is normal echogenicity of the pancreas. There is no demonstrated pancreatic mass or cyst. Right Kidney: Not visualized. US/Liver IMPRESSION: Limited study. Fatty liver. No focal hepatic lesions identified. Status post cholecystectomy. Normal pancreas. Right kidney visualized. Electronically Signed: Mateusz Lopez, at 16:12 EDT Tel , Service support ,
[2017-10-05] MEDS: NYSTATIN 500,000 UNIT/5 ML UDC 500000 UNIT PO ×3 (15:05→21:51)
[2017-10-05 17:16] LABS: Bedside Glucose 80 mg/dL (70-110)
[2017-10-05] MEDS: Acetaminophen 325 MG Tablet 650 MG PO (17:19)
[2017-10-05] MEDS: Atorvastatin Calcium 10 MG Tablet 5 MG PO (21:51)
[2017-10-05 23:26] LABS: Bedside Glucose 109 mg/dL (70-110)
[2017-10-06] VITALS (21 sets, daily range): BP systolic 80–103; BP diastolic 42–58; PULSE 91–121; RESP 20–28; TEMP 36.2–38.6; O2SAT 96–99
[2017-10-06] MEDS: Albuterol 2.5 MG/3 ML VIAL.NEB. INHALATION ×2 (03:36→18:30)
[2017-10-06 07:01] LABS: Bedside Glucose 87 mg/dL (70-110)
[2017-10-06 08:29] LABS: Absolute Lymphocyte Count 0.83 X10^3/ul (0.83-4.51); Absolute Neutrophil Count 4.2 X10^3/uL (2.0-7.7); Basophil# 0.01 X10^3/uL; Basophil% 0.2 % (0-1); Differential Indicated SCAN CRITERIA MET; Hematocrit 29.4 % (37-47); Hemoglobin 9.3 g/dl (12.0-15.0); Lymphocyte # 0.83 X10^3/ul (4.0); Lymphocyte % 15.9 % (19-41); Mean Corp Hgb Conc 31.6 g/gl (32-36); Mean Corpuscular Hgb 29.4 pg (27.0-32.0); Monocyte# 0.15 X10^3/uL; Monocyte% 2.9 % (0-10); Neutrophil # 4.23 X10^3/uL (2.7-7.7); Neutrophil % 80.8 % (47-70); POSITIVE COUNT NO; POSITIVE DIFFERENTIAL NO; POSITIVE MORPHOLOGY YES; Platelet Count 50 K/mm3 (150-450); RBC Distribution Width CV 21.6 % (11.6-14.6); RBC Distribution Width SD 71.2 fl (35.1-43.9); Red Blood Count 3.16 M/mm3 (4.2-5.4); White Blood Count 5.2 K/mm3 (4.4-11.0)
[2017-10-06 08:34] LABS: International Normalized Ratio 1.6; Prothrombin Time (Protime)PT. 19.2 SECONDS (11.7-14.9)
[2017-10-06 08:42] LABS: ALB/GLOB Ratio 0.7 RATIO (0.9-2.4); AST(SGOT) 26 U/L (15-37); Alanine Aminotransfer ALT/SGPT 22 U/L (13-56); Albumin, Serum 1.5 g/dL (3.2-5.0); Alkaline Phosphatase 285 U/L (45-117); Anion Gap 8 (5-15); BUN 22 mg/dL (7-18); BUN/Creat Ratio 19.5 RATIO (10-20); Calcium,Total 7.2 mg/dL (8.5-10.1); Chloride 117 mmol/L (98-107); Creatinine, Serum 1.13 mg/dL (0.55-1.02); EST Glomerular Filtration Rate 51 mL/min (>60); Est Glom Filt Rate - Afr Amer 62 mL/min (>60); Estimated Creatinine Clearance 44.07 ml/min; Globulin 2.3 g/dL (2.2-4.2); Glucose 87 mg/dL (74-106); Potassium 3.5 mmol/L (3.5-5.1); Protein, Total 3.8 g/dL (6.4-8.2); Sodium Level 144 mmol/L (136-145)
[2017-10-06 08:49] LABS: Anisocytosis 1+; Ovalocyte 1+; Spherocyte 1+
[2017-10-06] MEDS: Glucerna Shake 120 ML LIQUID PO ×4 (08:49→22:47)
[2017-10-06 08:50] LABS: Platelet Estimate MKD DEC (ADEQ); Platelet Morphology LARGE
[2017-10-06] MEDS: Citalopram 40 MG TABLET PO (08:50)
[2017-10-06] MEDS: busPIRone 5 MG Tablet PO ×2 (08:50→22:46)
[2017-10-06] MEDS: Allopurinol 300 MG Tablet PO ×2 (08:50→17:50)
[2017-10-06] MEDS: Famotidine 20 MG Tablet PO (08:50)
[2017-10-06] MEDS: NYSTATIN 500,000 UNIT/5 ML UDC 500000 UNIT PO ×4 (08:50→22:45)
[2017-10-06] MEDS: Pantoprazole Sodium 40 MG Tablet PO (08:50)
[2017-10-06] MEDS: Acetaminophen 325 MG Tablet 650 MG PO ×2 (08:50→22:47)
[2017-10-06] MEDS: Ferrous Sulfate 325 MG Tablet PO (08:50)
[2017-10-06] MEDS: Menthol/Lanolin/Calamine/Znox 113 GM Tube 1 APPLIC TOPICAL ×4 (08:54→22:44)
[2017-10-06] MEDS: Dextrose 5%-Lactated Ringers 1,000 ML 100 ML IV ×2 (08:56→17:53)
--- NOTE | 2017-10-06 12:06 | PCM.PN.HOSP ---
Patient Problems: Active and Suspected Problems Dehydration (Acute) GEORGE (acute kidney injury) (Acute) C. difficile colitis (Acute) Subjective: Still with diarrhea. Eating some food. Wants to get stronger. Vitals/I&O's: Vital Signs Temp Pulse Resp BP Pulse Ox 37.9 C H 110 H 20 H 103/56 L 97 10/06/17 08:35 10/06/17 08:35 10/06/17 08:35 10/06/17 08:35 10/06/17 08:35 Oxygen Delivery Method Room Air Weight: 110.6 kg Body Mass Index (BMI) 40.6 Intake and Output for Last 24 Hours 10/04/17 10/05/17 10/06/17 23:59 23:59 23:59 Intake Total 231 / 2 5966 / 3346 614 / 614 Balance 2311 / 2311 3346 / 3346 614 / 614 General: Alert, Cooperative, No apparent distress, - - Appears much older than stated age HEENT: Atraumatic, Normocephalic Neck: No Nodes, Thyroid Normal Size and Texture Lungs: Clear to auscultation, No rhonchi, No wheeze, Diminished Cardiovascular: Regular rate, Regular Rhythm, Normal S1, Normal S2 Abdomen: Non-Distended, Obese, - - Right upper and left upper quadrant tenderness Extremities: No Calf Tenderness Skin: No rashes, No breakdown Psych/Mental Status: Appropriate, Flat Affect Laboratory Results 10/05/17 06:09: WBC 3.6 L, RBC 2.94 L, Hgb 8.6 L, Hct 27.2 L, MCV 92.5, MCH 29.3, MCHC 31.6 L, RDW 21.4 H, RDW Differential 70.6 H, Plt Count 42 L*, Immature Gran % (Auto) 0.300, Neut % (Auto) 80.8 H, Lymph % (Auto) 14.0 L, [place] % (Auto) 3.8, Eos % (Auto) 0.8, Baso % (Auto) 0.3, Absolute Neuts (auto) 2.9, Absolute Lymphs (auto) 0.51 L, Total Counted Not Reportable, Diff Path Review May , Platelet Estimate MKD DEC, Hypochromasia 1+, Anisocytosis 1+, Spherocytes 1+ H, Tear Drop Cells 1+, Ovalocytes 1+ 10/05/17 06:09: Sodium 141, Potassium 3.4 L, Chloride 116 H, Carbon Dioxide 16.0 L, Anion Gap 9, BUN 26 H, Creatinine 1.28 H, Estim Creat Clear Calc 38.90, Est GFR (MDRD) Af Amer 54 L, Est GFR (MDRD) Non-Af 44 L, BUN/Creatinine Ratio 20.3 H, Glucose 79, Calcium 6.9 L 10/05/17 11:08: POC Glucose 86 10/05/17 16:47: POC Glucose 80 10/05/17 21:49: POC Glucose 109 10/06/17 06:49: POC Glucose 87 10/06/17 07:55: WBC 5.2, RBC 3.16 L, Hgb 9.3 L, Hct 29.4 L, MCV 93.0, MCH 29.4, MCHC 31.6 L, RDW 21.6 H, RDW Differential 71.2 H, Plt Count 50 L*, Immature Gran % (Auto) 0.200, Neut % (Auto) 80.8 H, Lymph % (Auto) 15.9 L, [place] % (Auto) 2.9, Eos % (Auto) 0.0, Baso % (Auto) 0.2, Absolute Neuts (auto) 4.2, Absolute Lymphs (auto) 0.83, Total Counted Not Reportable, Diff Path Review October, Platelet Estimate MKD DEC, Plt Morphology Comment LARGE, Anisocytosis 1+, Spherocytes 1+ H, Ovalocytes 1+ 10/06/17 07:55: PT 19.2 H, INR 1.6 10/06/17 07:55: Sodium 144, Potassium 3.5, Chloride 117 H, Carbon Dioxide 19.0 L, Anion Gap 8, BUN 22 H, Creatinine 1.13 H, Estim Creat Clear Calc 44.07, Est GFR (MDRD) Af Amer 62, Est GFR (MDRD) Non-Af 51 L, BUN/Creatinine Ratio 19.5, Glucose 87, Calcium 7.2 L, Total Bilirubin 0.60, AST 26, ALT 22, Alkaline Phosphatase 285 H, Total Protein 3.8 L, Albumin 1.5 L, Globulin 2.3, Albumin/Globulin Ratio 0.7 L Current Medications Acetaminophen (Tylenol) 650 mg PO Q4H PRN PRN PRN Reason: PAIN Last Admin: 10/06/17 08:50 Dose: 650 mg Albuterol Sulfate (Ventolin Aerosols) 2.5 mg INHALATION Q2H PRN PRN PRN Reason: Shortness of breath, wheezing Last Admin: 10/06/17 03:36 Dose: 2.5 mg Allopurinol (Zyloprim) 300 mg PO BIDCM [facility] Last Admin: 10/06/17 08:50 Dose: 300 mg Atorvastatin Calcium (Lipitor) 5 mg PO QHS [facility] Last Admin: 10/05/17 21:51 Dose: 5 mg Buspirone HCl (Buspar) 5 mg PO BID [facility] Last Admin: 10/06/17 08:50 Dose: 5 mg Calamine/Phenol (Calmoseptine Ointment) 1 applic TOPICAL 4X/DAY [facility] PRN Reason: Protocol Last Admin: 10/06/17 08:54 Dose: 1 applicatio Citalopram Hydrobromide (Celexa) 40 mg PO DAILY [facility] Last Admin: 10/06/17 08:50 Dose: 40 mg Famotidine (Pepcid) 20 mg PO DAILY [facility] Last Admin: 10/06/17 08:50 Dose: 20 mg Ferrous Sulfate (Ferrous Sulfate) 325 mg PO DAILY@0800 [facility] Last Admin: 10/06/17 08:50 Dose: 325 mg Dextrose/Lactated Ringer's () 1,000 mls @ 100 mls/hr IV .Q10H [facility] Last Admin: 10/06/17 08:56 Dose: 100 mls/hr Insulin Aspart (Novolog Flexpen (Bkc)) 0 units SC ACHS [facility] PRN Reason: Protocol Last Admin: 10/06/17 07:41 Dose: Not Given Nutritional Formula (Lactose Free) (Glucerna Shake) 120 ml PO 4X/DAY [facility] Last Admin: 10/06/17 08:49 Dose: 120 ml Nystatin (Nystatin) 500,000 unit PO 4X/DAY [facility] Last Admin: 10/06/17 08:50 Dose: 500,000 unit Ondansetron HCl (Zofran) 4 mg IV Q6H PRN PRN PRN Reason: NAUSEA/VOMITING Pantoprazole Sodium (Protonix) 40 mg PO DAILY [facility] Last Admin: 10/06/17 08:50 Dose: 40 mg Potassium Chloride (K-Dur) 20 meq PO DAILYCM [facility] Last Admin: 10/06/17 08:50 Dose: 20 meq Sodium Chloride () 5 - 30 ml IV UD PRN PRN Reason: SALINE FLUSH Vancomycin HCl (Vancomycin 125mg/5ml Susp) 125 mg PO Q6 [facility] Last Admin: 10/06/17 05:08 Dose: 125 mg Medical Necessity - Tobacco Use Smoking Status: Former smoker Assessment/Plan Active and Suspected Problems Dehydration (Acute) GEORGE (acute kidney injury) (Acute) C. difficile colitis (Acute) 1. Hypotension: Resolved at this time Patient was transfused at 25 g of albumin yesterday. I suspect patient has chronic borderline low or just chronically hypotensive at baseline. 2. GEORGE: Resolved likely prerenal monitor HLIV 3. C diff: appears to be controlled present before arrival continue PO Vanc, continue for total of 10-14 d 4. pancytopenia unclear etiology monitor consider BMBx, but could be done as outpt. 5. Coagulopathy Concern the patient may have underlying cirrhosis CAT scan of the abdomen and pelvis made no mention of any liver changes consistent with cirrhosis. We will check a right upper quadrant ultrasound to further evaluate that. But with the patient's pancytopenia plus coagulopathy and I am concerned patient may have some underlying cirrhosis. Patient did receive some albumin yesterday and it is unclear if that has seemed to help her blood pressure or not. May consider giving additional albumin as well. 5. DVT proph: SCDs. 6. Debility: Back to group home facility once patient medically stable for discharge. Code Visit Inpatient E&M: [id number] Subs Hosp L2
--- NOTE | 2017-10-06 12:10 | PN_ITS ---
Patient Problems: Active and Suspected Problems Dehydration (Acute) GEORGE (acute kidney injury) (Acute) C. difficile colitis (Acute) Subjective: Still with diarrhea. Eating some food. Wants to get stronger. Vitals/I&O's: Vital Signs Temp Pulse Resp BP Pulse Ox 37.9 C H 110 H 20 H 103/56 L 97 10/06/17 08:35 10/06/17 08:35 10/06/17 08:35 10/06/17 08:35 10/06/17 08:35 Oxygen Delivery Method Room Air Weight: 110.6 kg Body Mass Index (BMI) 40.6 Intake and Output for Last 24 Hours 10/04/17 10/05/17 10/06/17 23:59 23:59 23:59 Intake Total 231 / 2 3746 / 3346 614 / 614 Balance 2311 / 2311 3346 / 3346 614 / 614 General: Alert, Cooperative, No apparent distress, - - Appears much older than stated age HEENT: Atraumatic, Normocephalic Neck: No Nodes, Thyroid Normal Size and Texture Lungs: Clear to auscultation, No rhonchi, No wheeze, Diminished Cardiovascular: Regular rate, Regular Rhythm, Normal S1, Normal S2 Abdomen: Non-Distended, Obese, - - Right upper and left upper quadrant tenderness Extremities: No Calf Tenderness Skin: No rashes, No breakdown Psych/Mental Status: Appropriate, Flat Affect Laboratory Results 10/05/17 06:09: WBC 3.6 L, RBC 2.94 L, Hgb 8.6 L, Hct 27.2 L, MCV 92.5, MCH 29.3 , MCHC 31.6 L, RDW 21.4 H, RDW Differential 70.6 H, Plt Count 42 L*, Immature Gran % (Auto) 0.300, Neut % (Auto) 80.8 H, Lymph % (Auto) 14.0 L, [place] % (Auto) 3.8, Eos % (Auto) 0.8, Baso % (Auto) 0.3, Absolute Neuts (auto) 2.9, Absolute Lymphs (auto) 0.51 L, Total Counted Not Reportable, Diff Path Review May , Platelet Estimate MKD DEC, Hypochromasia 1+, Anisocytosis 1+, Spherocytes 1+ H, Tear Drop Cells 1+, Ovalocytes 1+ 10/05/17 06:09: Sodium 141, Potassium 3.4 L, Chloride 116 H, Carbon Dioxide 16.0 L, Anion Gap 9, BUN 26 H, Creatinine 1.28 H, Estim Creat Clear Calc 38.90, Est GFR (MDRD) Af Amer 54 L, Est GFR (MDRD) Non-Af 44 L, BUN/Creatinine Ratio 20.3 H, Glucose 79, Calcium 6.9 L 10/05/17 11:08: POC Glucose 86 10/05/17 16:47: POC Glucose 80 10/05/17 21:49: POC Glucose 109 10/06/17 06:49: POC Glucose 87 10/06/17 07:55: WBC 5.2, RBC 3.16 L, Hgb 9.3 L, Hct 29.4 L, MCV 93.0, MCH 29.4, MCHC 31.6 L, RDW 21.6 H, RDW Differential 71.2 H, Plt Count 50 L*, Immature Gran % (Auto) 0.200, Neut % (Auto) 80.8 H, Lymph % (Auto) 15.9 L, [place] % (Auto) 2.9, Eos % (Auto) 0.0, Baso % (Auto) 0.2, Absolute Neuts (auto) 4.2, Absolute Lymphs (auto) 0.83, Total Counted Not Reportable, Diff Path Review October, Platelet Estimate MKD DEC, Plt Morphology Comment LARGE, Anisocytosis 1+, Spherocytes 1+ H, Ovalocytes 1+ 10/06/17 07:55: PT 19.2 H, INR 1.6 10/06/17 07:55: Sodium 144, Potassium 3.5, Chloride 117 H, Carbon Dioxide 19.0 L , Anion Gap 8, BUN 22 H, Creatinine 1.13 H, Estim Creat Clear Calc 44.07, Est GFR (MDRD) Af Amer 62, Est GFR (MDRD) Non-Af 51 L, BUN/Creatinine Ratio 19.5, Glucose 87, Calcium 7.2 L, Total Bilirubin 0.60, AST 26, ALT 22, Alkaline Phosphatase 285 H, Total Protein 3.8 L, Albumin 1.5 L, Globulin 2.3, Albumin/ Globulin Ratio 0.7 L Current Medications Acetaminophen (Tylenol) 650 mg PO Q4H PRN PRN PRN Reason: PAIN Last Admin: 10/06/17 08:50 Dose: 650 mg Albuterol Sulfate (Ventolin Aerosols) 2.5 mg INHALATION Q2H PRN PRN PRN Reason: Shortness of breath, wheezing Last Admin: 10/06/17 03:36 Dose: 2.5 mg Allopurinol (Zyloprim) 300 mg PO BIDCM [facility] Last Admin: 10/06/17 08:50 Dose: 300 mg Atorvastatin Calcium (Lipitor) 5 mg PO QHS [facility] Last Admin: 10/05/17 21:51 Dose: 5 mg Buspirone HCl (Buspar) 5 mg PO BID [facility] Last Admin: 10/06/17 08:50 Dose: 5 mg Calamine/Phenol (Calmoseptine Ointment) 1 applic TOPICAL 4X/DAY [facility] PRN Reason: Protocol Last Admin: 10/06/17 08:54 Dose: 1 applicatio Citalopram Hydrobromide (Celexa) 40 mg PO DAILY [facility] Last Admin: 10/06/17 08:50 Dose: 40 mg Famotidine (Pepcid) 20 mg PO DAILY [facility] Last Admin: 10/06/17 08:50 Dose: 20 mg Ferrous Sulfate (Ferrous Sulfate) 325 mg PO DAILY@0800 [facility] Last Admin: 10/06/17 08:50 Dose: 325 mg Dextrose/Lactated Ringer's () 1,000 mls @ 100 mls/hr IV .Q10H [facility] Last Admin: 10/06/17 08:56 Dose: 100 mls/hr Insulin Aspart (Novolog Flexpen (Bkc)) 0 units SC ACHS [facility] PRN Reason: Protocol Last Admin: 10/06/17 07:41 Dose: Not Given Nutritional Formula (Lactose Free) (Glucerna Shake) 120 ml PO 4X/DAY [facility] Last Admin: 10/06/17 08:49 Dose: 120 ml Nystatin (Nystatin) 500,000 unit PO 4X/DAY [facility] Last Admin: 10/06/17 08:50 Dose: 500,000 unit Ondansetron HCl (Zofran) 4 mg IV Q6H PRN PRN PRN Reason: NAUSEA/VOMITING Pantoprazole Sodium (Protonix) 40 mg PO DAILY [facility] Last Admin: 10/06/17 08:50 Dose: 40 mg Potassium Chloride (K-Dur) 20 meq PO DAILYCM [facility] Last Admin: 10/06/17 08:50 Dose: 20 meq Sodium Chloride () 5 - 30 ml IV UD PRN PRN Reason: SALINE FLUSH Vancomycin HCl (Vancomycin 125mg/5ml Susp) 125 mg PO Q6 [facility] Last Admin: 10/06/17 05:08 Dose: 125 mg Medical Necessity - Tobacco Use Smoking Status: Former smoker Assessment/Plan Active and Suspected Problems Dehydration (Acute) GEORGE (acute kidney injury) (Acute) C. difficile colitis (Acute) 1. Hypotension: * Resolved at this time * Patient was transfused at 25 g of albumin yesterday. * I suspect patient has chronic borderline low or just chronically hypotensive at baseline. 2. GEORGE: * Resolved * likely prerenal * monitor * HLIV 3. C diff: * appears to be controlled * present before arrival * continue PO Vanc, continue for total of 10-14 d 4. pancytopenia * unclear etiology * monitor * consider BMBx, but could be done as outpt. 5. Coagulopathy * Concern the patient may have underlying cirrhosis * CAT scan of the abdomen and pelvis made no mention of any liver changes consistent with cirrhosis. We will check a right upper quadrant ultrasound to further evaluate that. But with the patient's pancytopenia plus coagulopathy and I am concerned patient may have some underlying cirrhosis. Patient did receive some albumin yesterday and it is unclear if that has seemed to help her blood pressure or not. May consider giving additional albumin as well. 5. DVT proph: SCDs. 6. Debility: Back to long term facility once patient medically stable for discharge. Code Visit Inpatient E&M: [id number] Subs Hosp L2
[2017-10-06 12:30] LABS: Bedside Glucose 104 mg/dL (70-110)
[2017-10-06 13:43] LABS: Thyroid Stim Hormone (TSH) 6.17 uIU/mL (0.358-3.74)
[2017-10-06 15:41] LABS: Bedside Glucose 116 mg/dL (70-110)
[2017-10-06] MEDS: Ondansetron 4 MG/2 ML Vial IV (18:08)
[2017-10-06] MEDS: Atorvastatin Calcium 10 MG Tablet 5 MG PO (22:45)
[2017-10-06 23:51] LABS: Bedside Glucose 123 mg/dL (70-110)
[2017-10-07] VITALS (15 sets, daily range): BP systolic 84–104; BP diastolic 52–61; PULSE 95–108; RESP 18–24; TEMP 36.2–38.7; O2SAT 94–100
[2017-10-07] MEDS: Dextrose 5%-Lactated Ringers 1,000 ML 60 ML IV (02:40)
[2017-10-07 06:24] LABS: Absolute Lymphocyte Count 0.71 X10^3/ul (0.83-4.51); Absolute Neutrophil Count 3.5 X10^3/uL (2.0-7.7); Basophil# 0.01 X10^3/uL; Basophil% 0.2 % (0-1); Hematocrit 27.6 % (37-47); Hemoglobin 8.7 g/dl (12.0-15.0); Lymphocyte # 0.71 X10^3/ul (4.0); Lymphocyte % 16.2 % (19-41); Mean Corp Hgb Conc 31.5 g/gl (32-36); Mean Corpuscular Hgb 29.6 pg (27.0-32.0); Mean Corpuscular Volume 93.9 fL (81-99); Monocyte# 0.14 X10^3/uL; Monocyte% 3.2 % (0-10); Neutrophil # 3.51 X10^3/uL (2.7-7.7); Neutrophil % 80.2 % (47-70); RBC Distribution Width CV 21.6 % (11.6-14.6); RBC Distribution Width SD 72.6 fl (35.1-43.9); Red Blood Count 2.94 M/mm3 (4.2-5.4); White Blood Count 4.4 K/mm3 (4.4-11.0)
[2017-10-07 06:25] LABS: ALB/GLOB Ratio 0.6 RATIO (0.9-2.4); AST(SGOT) 25 U/L (15-37); Alanine Aminotransfer ALT/SGPT 22 U/L (13-56); Albumin, Serum 1.3 g/dL (3.2-5.0); Alkaline Phosphatase 251 U/L (45-117); Anion Gap 8 (5-15); BUN 22 mg/dL (7-18); BUN/Creat Ratio 18.5 RATIO (10-20); Chloride 116 mmol/L (98-107); Creatinine, Serum 1.19 mg/dL (0.55-1.02); Differential Indicated SCAN CRITERIA MET; EST Glomerular Filtration Rate 48 mL/min (>60); Est Glom Filt Rate - Afr Amer 58 mL/min (>60); Estimated Creatinine Clearance 41.85 ml/min; Globulin 2.2 g/dL (2.2-4.2); Glucose 87 mg/dL (74-106); Magnesium 2.1 mg/dL (1.6-2.6); POSITIVE COUNT YES; POSITIVE DIFFERENTIAL NO; POSITIVE MORPHOLOGY YES; Phosphorus 2.1 mg/dL (2.5-4.9); Platelet Count 49 K/mm3 (150-450); Potassium 3.6 mmol/L (3.5-5.1); Protein, Total 3.5 g/dL (6.4-8.2); Sodium Level 143 mmol/L (136-145)
--- NOTE | 2017-10-07 06:28 | NURSING ---
Critical platelet result 49 given to Kalani Andino RN
[2017-10-07 06:55] LABS: Anisocytosis 2+; Differential Comment SCANNED; Macrocytosis 3+; Ovalocyte 1+; Platelet Estimate MOD DEC (ADEQ); Target Cells RARE
[2017-10-07 07:01] LABS: Bedside Glucose 81 mg/dL (70-110)
[2017-10-07] MEDS: Acetaminophen 325 MG Tablet 650 MG PO ×3 (08:13→22:52)
[2017-10-07] MEDS: Allopurinol 300 MG Tablet PO ×2 (08:13→17:54)
[2017-10-07] MEDS: Ferrous Sulfate 325 MG Tablet PO (08:13)
[2017-10-07 09:29] LABS: Vitamin B12 422 pg/mL (211-911)
[2017-10-07 09:38] LABS: Pathologist Review Reviewed
[2017-10-07 09:40] LABS: Pathologist Review Reviewed
[2017-10-07 09:44] LABS: Pathologist Review Reviewed
--- NOTE | 2017-10-07 09:56 | PCM.TXEXTCAR ---
- Diet 10/06/17 12:18 Diet: Cardiac: Calorie-Controlled Dietary Modifications:: Mechanical Soft Diet Is pt able to select menu?: No How many daily calories?: 1800 calorie - Routine Orders/Code Status Code Status: Full Code - Wound(s) L Buttock Wound Type: Pressure Injury L ABD Fold Wound Type: Skin Tear - Therapies Physical Therapy: Eval and Treat Occupational Therapy: Eval and Treat - Allergies/Procedures Done in Hospital Allergies/Adverse Reactions: Allergies latex Allergy (Verified 07/21/17 12:41) Rash levofloxacin [From Levaquin] Allergy (Verified 07/21/17 12:41) Rash acetaminophen [From Darvocet-N] Adverse Reaction (Verified 07/21/17 12:41) Vomiting codeine Adverse Reaction (Verified 07/21/17 12:41) Unknown gabapentin Adverse Reaction (Verified 07/21/17 12:41) Other propoxyphene [From Darvon] Adverse Reaction (Verified 07/21/17 12:41) Vomiting - Type of Care/Length of Stay Estimated LOS: Convalescent Care Less Than 30 days Type of Care Needed: Skilled Rehab Potential: Fair Prognosis: Fair - Additional Orders/Day of Discharge Day of Discharge: 10/07/17 - Dietary and Speech Recommendations Dietitian Recommendations/Changes: Rec liberalize diet to 1800 Calorie Controlled as PO intake inadequate. Will add Glucerna Shake on medpass for additional calories and protein if consumed. Rec 1 pkt Demarcus BID for improved wound healing - please order from pharmacy. - Follow Up Care Primary Care Physician: Kolton Garcia MD [Primary Care Provider] -
--- NOTE | 2017-10-07 09:58 | PCM.DC.SUM ---
Discharge Date and Diagnosis - Problem List Patient Problems: Active and Suspected Problems Dehydration (Acute) GEORGE (acute kidney injury) (Acute) C. difficile colitis (Acute) Date of Admission: 10/04/17 Date of Discharge: 10/07/17 - Primary Discharge Diagnosis Active and Suspected Problems Dehydration (Acute) GEORGE (acute kidney injury) (Acute) C. difficile colitis (Acute) - Secondary Discharge Diagnosis Chronic Problems YOLANDA (obstructive sleep apnea) (Chronic) Obesity (Chronic) HTN (hypertension) (Chronic) Dyslipidemia (Chronic) DM type 2 (diabetes mellitus, type 2) (Chronic) Anxiety disorder (Chronic) Hospital Course and Treatment Imaging Results: Clinical Impression(s) from Imaging Studies Chest X-Ray 10/03/17 23:50 IMPRESSION: Mild central vascular congestion. No pneumonia. A large hiatal hernia. Electronically Signed: Johnathan Sneed, at 0:17 EDT Tel , Service support , Abdomen/Pelvis CT 10/04/17 23:17 IMPRESSION: A markedly atrophic right kidney. 2 calyceal calculi in the left kidney. No hydronephrosis. A large hiatal hernia with the entire stomach and the splenic flexure in the hernial sac. This also a small umbilical hernia with a portion of bowel within the hernial sac. No acute appendicitis or diverticulitis and no intestinal obstruction. Electronically Signed: Johnathan Sneed, at 1:01 EDT Tel , Service support , Liver Ultrasound 10/05/17 14:40 IMPRESSION: Limited study. Fatty liver. No focal hepatic lesions identified. Status post cholecystectomy. Normal pancreas. Right kidney visualized. Electronically Signed: Mateusz Lopez, at 16:12 EDT Tel , Service support , Operations: None Summary of Care Provided: The patient is a 67 year old F with a recent diagnosis of C. difficile colitis admitted with altered mental status low blood pressure in addition to acute kidney injury 1. Hypotension secondary to dehydration from patient's profuse diarrhea with resultant acute kidney injury. Patient was admitted to monitored bed resuscitated with IV fluids blood pressure did improve 2. Acute kidney injury secondary to ATN from hypotension: Creatinine was 1.55 on admission was 1.19 at the time of discharge 3. Recent C. difficile colitis patient was on Flagyl this was discontinued please on p.o. vancomycin 4. Diabetes mellitus type 2 with complications including hypoglycemia patient was on metformin discontinued. Was placed on Accu-Cheks before meals and at bedtime with sliding scale coverage 5. Pancytopenia this was attributed to patient chronic liver disease CT of the abdomen and pelvis obtained demonstrated the liver with fatty changes 6. Anemia secondary to anemia of chronic disorder monitoring H&H patient did not meet criteria for blood transfusion 7. Morbid obesity with BMI of 40.6 weight loss advised 8. Depression with anxiety 9. Physical debility requested for PT and OT eval and treatment patient was discharged back to her ECF Discharge Diet: 1800 Calorie Control Diet Home Medications: Medications to take at Discharge Albuterol Inhaler [Ventolin Hfa] 2 puff INHALATION Q4H PRN PRN 02/28/16 Nystatin Powder [Mycostatin Powder] 1 applic TOPICAL BID PRN PRN 05/02/17 Nystatin/Triamcin Cream [Mycolog] 1 applic TOPICAL BID #1 tube 07/21/17 Allopurinol 100 mg PO BID 10/04/17 Bisacodyl 10 mg RC DAILY PRN PRN 10/04/17 Citalopram Hydrobromide [Citalopram HBr] 40 mg PO DAILY 10/04/17 Ferrous Sulfate [Iron] 325 mg PO DAILY 10/04/17 L. Rhamnosus GG/Inulin [Culturelle Capsule] 1 each PO DAILY 10/04/17 Mag Hydrox/Aluminum Hyd/Simeth [Antacid Suspension] 10/04/17 Omeprazole 40 mg PO DAILY 10/04/17 Potassium Chloride [K-Dur] 10 meq PO DAILY 10/04/17 Promethazine HCl 25 mg PO Q6H PRN PRN 10/04/17 Ranitidine [Zantac] 300 mg PO DAILY 10/04/17 Simvastatin 5 mg PO DAILY 10/04/17 busPIRone [Buspar] 5 mg PO BID 10/04/17 Vancomcyin 125 MG/ 5 ML Susp [Vancomycin 125mg/5mL Susp] 125 mg PO Q6 #40 dose 10/07/17 Following Prescrptions Were Given to Patient: Vancomcyin 125 MG/ 5 ML Susp [Vancomycin 125mg/5mL Susp] 125 mg PO Q6 #40 dose Primary Care Physician: Kolton Garcia MD [Primary Care Provider] - Disposition: Senior Care facility Minutes spent on discharge:: 35 Patient Condition:: Stable Medical Necessity - Tobacco Use Smoking Status: Former smoker Meaningful Use Info Meaningful Use Diagnoses (Choose all that apply): None applicable Code Visit Inpatient E&M: 17038 Disch Hosp
[2017-10-07] MEDS: Famotidine 20 MG Tablet PO (10:19)
[2017-10-07] MEDS: Glucerna Shake 120 ML LIQUID PO ×4 (10:19→22:42)
[2017-10-07] MEDS: Citalopram 40 MG TABLET PO (10:19)
[2017-10-07] MEDS: Pantoprazole Sodium 40 MG Tablet PO (10:19)
[2017-10-07] MEDS: Menthol/Lanolin/Calamine/Znox 113 GM Tube 1 APPLIC TOPICAL ×4 (10:19→22:43)
[2017-10-07] MEDS: busPIRone 5 MG Tablet PO ×2 (10:19→22:53)
[2017-10-07] MEDS: NYSTATIN 500,000 UNIT/5 ML UDC 500000 UNIT PO ×4 (10:19→22:57)
[2017-10-07 11:20] LABS: Bedside Glucose 99 mg/dL (70-110)
--- NOTE | 2017-10-07 14:44 | CASEMGMT ---
Patient is ready for d/c back to [facility]. AIDA then found out patient's daughter does not want her to go back to [facility]. AIDA called patient's daughter in the am and left a voice mail as well as in the afternoon and left a voice mail. AIDA found another contact printer dry film on [facility]'s face sheet and called. This is a family friend that is listed because patient's daughter is so hard to reach. AIDA told her above. She said she will try and talk to other family and/or patient's daughter. She will get back with SW. SW did try and talk with patient earlier and she is confused. AIDA asked patient, You came here from [facility]? and patient said, No. AIDA asked if she came here from a halfway and she said, No. Patient came to [facility] from [facility]. Patient's cousin then came to [facility] and said a family friend called and said patient is ready for d/c. She said they don't want her to go back to [facility]. She said patient's daughter works at [employer]gent [employer] and is not allowed to have her cell phone. She said they want her to go to [facility]. She asked SW why they are discharging her when she is not even better. AIDA told her she would have to talk with the RN or Dr about this. AIDA called [facility] and Isha was not available. AIDA left a voice mail and faxed over referral. Plan: Family does not want patient to go back to [facility]. This was never mentioned during her whole hospitalization until day of d/c. Family wants [facility]. AIDA waiting on return call from [facility]. Tana DUBOIS MSW
[2017-10-07 16:35] LABS: Bedside Glucose 100 mg/dL (70-110)
[2017-10-07 22:50] LABS: Bedside Glucose 67 mg/dL (70-110)
[2017-10-07] MEDS: Atorvastatin Calcium 10 MG Tablet 5 MG PO (22:53)
[2017-10-08] VITALS (14 sets, daily range): BP systolic 86–108; BP diastolic 57–69; PULSE 97–108; RESP 18–20; TEMP 36.2–37.3; O2SAT 92–97
[2017-10-08] MEDS: Acetaminophen 325 MG Tablet 650 MG PO ×3 (06:57→17:32)
[2017-10-08 07:06] LABS: Bedside Glucose 58 mg/dL (70-110)
--- NOTE | 2017-10-08 07:13 | PCM.PN.HOSP ---
Patient Problems: Active and Suspected Problems Dehydration (Acute) GEORGE (acute kidney injury) (Acute) C. difficile colitis (Acute) Subjective: LATE ENTRY NOTE FOR 10/07/17 The patient is a 67 year old F with a recent diagnosis of C. difficile colitis admitted with altered mental status low blood pressure in addition to acute kidney injury Vitals/I&O's: Vital Signs Temp Pulse Resp BP Pulse Ox 98.1 F 108 H 18 86/60 L 96 10/08/17 06:23 10/08/17 06:23 10/08/17 06:23 10/08/17 06:23 10/08/17 06:23 Oxygen Delivery Method Room Air Weight: 110.6 kg Body Mass Index (BMI) 40.6 Intake and Output for Last 24 Hours 10/06/17 10/07/17 10/08/17 23:59 23:59 23:59 Intake Total 2197 / 2197 1896 / 1896 240 / 240 Balance 2197 / 2197 1896 / 1896 240 / 240 General: Alert HEENT: Atraumatic Neck: Supple Lungs: Diminished Cardiovascular: Regular rate Abdomen: Bowel Sounds Present Extremities: No clubbing, No cyanosis Skin: No rashes Musculoskeletal: No Muscle Wasting Neurological: Neuro grossly intact Psych/Mental Status: Normal Affect Laboratory Results 10/05/17 06:09: Diff Path Review Reviewed 10/06/17 07:55: Diff Path Review Reviewed 10/06/17 12:50: Vitamin B12 422 10/07/17 05:36: Diff Path Review Reviewed 10/07/17 11:16: POC Glucose 99 10/07/17 16:26: POC Glucose 100 10/07/17 22:40: POC Glucose 67 L 10/08/17 06:58: POC Glucose 58 L Current Medications Acetaminophen (Tylenol) 650 mg PO Q4H PRN PRN PRN Reason: PAIN Last Admin: 10/08/17 06:57 Dose: 650 mg Albuterol Sulfate (Ventolin Aerosols) 2.5 mg INHALATION Q2H PRN PRN PRN Reason: Shortness of breath, wheezing Last Admin: 10/06/17 18:30 Dose: 2.5 mg Allopurinol (Zyloprim) 300 mg PO BIDCM [facility] Last Admin: 10/07/17 17:54 Dose: 300 mg Atorvastatin Calcium (Lipitor) 5 mg PO QHS [facility] Last Admin: 10/07/17 22:53 Dose: 5 mg Buspirone HCl (Buspar) 5 mg PO BID [facility] Last Admin: 10/07/17 22:53 Dose: 5 mg Calamine/Phenol (Calmoseptine Ointment) 1 applic TOPICAL 4X/DAY [facility] PRN Reason: Protocol Last Admin: 10/07/17 22:43 Dose: 1 applicatio Citalopram Hydrobromide (Celexa) 40 mg PO DAILY [facility] Last Admin: 10/07/17 10:19 Dose: 40 mg Famotidine (Pepcid) 20 mg PO DAILY [facility] Last Admin: 10/07/17 10:19 Dose: 20 mg Ferrous Sulfate (Ferrous Sulfate) 325 mg PO DAILY@0800 [facility] Last Admin: 10/07/17 08:13 Dose: 325 mg Dextrose/Lactated Ringer's () 1,000 mls @ 60 mls/hr IV .[id number] [facility] Last Admin: 10/07/17 17:01 Dose: Not Given Insulin Aspart (Novolog Flexpen (Bkc)) 0 units SC ACHS [facility] PRN Reason: Protocol Last Admin: 10/07/17 22:43 Dose: Not Given Nutritional Formula (Lactose Free) (Glucerna Shake) 120 ml PO 4X/DAY [facility] Last Admin: 10/07/17 22:42 Dose: 120 ml Nystatin (Nystatin) 500,000 unit PO 4X/DAY [facility] Last Admin: 10/07/17 22:57 Dose: 500,000 unit Ondansetron HCl (Zofran) 4 mg IV Q6H PRN PRN PRN Reason: NAUSEA/VOMITING Last Admin: 10/06/17 18:08 Dose: 4 mg Pantoprazole Sodium (Protonix) 40 mg PO DAILY [facility] Last Admin: 10/07/17 10:19 Dose: 40 mg Potassium Chlor[facility] ([facility]) [facility] Last Admin: 10/07/17 08:13 Dose: 20 meq Sodium Chloride () 5 - 30 ml IV UD PRN PRN Reason: SALINE FLUSH Vancomycin HCl (Vancomycin 125mg/5ml Susp) 125 mg PO Q6 [facility] Last Admin: 10/08/17 05:10 Dose: 125 mg Medical Necessity - Tobacco Use Smoking Status: Former smoker Assessment/Plan Active and Suspected Problems Dehydration (Acute) GEORGE (acute kidney injury) (Acute) C. difficile colitis (Acute) The patient is a 67 year old F with a recent diagnosis of C. difficile colitis admitted with altered mental status low blood pressure in addition to acute kidney injury 1. Hypotension secondary to dehydration from patient's profuse diarrhea with resultant acute kidney injury. Patient was admitted to monitored bed resuscitated with IV fluids blood pressure did improve 2. Acute kidney injury secondary to ATN from hypotension: Creatinine was 1.55 on admission was 1.19 on 10/07/2017 3. Recent C. difficile colitis patient was on Flagyl this was discontinued please on p.o. vancomycin 4. Diabetes mellitus type 2 with complications including hypoglycemia patient was on metformin discontinued. Was placed on Accu-Cheks before meals and at bedtime with sliding scale coverage 5. Pancytopenia this was attributed to patient chronic liver disease CT of the abdomen and pelvis obtained demonstrated the liver with fatty changes 6. Anemia secondary to anemia of chronic disorder monitoring H&H patient did not meet criteria for blood transfusion 7. Morbid obesity with BMI of 40.6 weight loss advised 8. Depression with anxiety 9. Physical debility requested for PT and OT eval and treatment patient was discharged back to her F Code Visit Inpatient E&M: 58250 Subs Hosp L3
[2017-10-08 07:36] LABS: Bedside Glucose 83 mg/dL (70-110)
[2017-10-08] MEDS: Pantoprazole Sodium 40 MG Tablet PO (08:20)
[2017-10-08] MEDS: NYSTATIN 500,000 UNIT/5 ML UDC 500000 UNIT PO ×4 (08:20→21:38)
[2017-10-08] MEDS: Famotidine 20 MG Tablet PO (08:20)
[2017-10-08] MEDS: Allopurinol 300 MG Tablet PO ×2 (08:20→17:15)
[2017-10-08] MEDS: Ferrous Sulfate 325 MG Tablet PO (08:20)
[2017-10-08] MEDS: Citalopram 40 MG TABLET PO (08:20)
[2017-10-08] MEDS: Glucerna Shake 120 ML LIQUID PO ×4 (08:21→21:40)
[2017-10-08] MEDS: Menthol/Lanolin/Calamine/Znox 113 GM Tube 1 APPLIC TOPICAL ×4 (08:22→21:37)
[2017-10-08] MEDS: busPIRone 5 MG Tablet PO ×2 (08:35→21:37)
--- NOTE | 2017-10-08 08:46 | CASEMGMT ---
AIDA spoke with Isha at [facility] and they cannot accept patient due to her c-diff and they do not have any private rooms. SW tried to call patient's daughter and again there was no answer. She did not return SW's phone calls yesterday even after hours. AIDA called patient's cousin, Valeria who stopped in yesterday and told SW they wanted [facility]. SW left her a vm letting her know that [facility] cannot take patient and SW needs to know where else they would like AIDA to try. Await return call. Tana DUBOIS DRESSING ROOM PORTER
--- NOTE | 2017-10-08 12:41 | CASEMGMT ---
SW called patient's cousin, Valeria. She asked SW what other facilities are available. SW went through the list of facilities. She asked SW to send a referral to [facility]. SW asked her if they are not available where would they like her to go. She said anywhere in [place] or [place] as long as it is not [facility]. SW told her SW will work on this. AIDA called Sophy at [facility] and made a referral. SW also faxed over the information. Await return call. Tana DUBOIS MSW
--- NOTE | 2017-10-08 12:59 | NURSING ---
Attempted IV start x3 without success. Primary nurse at bedside and is aware of same.
[2017-10-08 13:16] LABS: Bedside Glucose 81 mg/dL (70-110)
--- NOTE | 2017-10-08 13:43 | PCM.PN.HOSP ---
Patient Problems: Active and Suspected Problems Dehydration (Acute) GEORGE (acute kidney injury) (Acute) C. difficile colitis (Acute) Subjective: The patient is a 67 year old F with a recent diagnosis of C. difficile colitis admitted with altered mental status low blood pressure in addition to acute kidney injury found was for patient to be discharged to care home facility the day prior however she refused to go back to where she was previously administered asked to be sent to a different care home facility. Consultation placed to case management to assist with disposition Objective: General: Alert HEENT: Atraumatic Neck: Supple Lungs: Diminished Cardiovascular: Regular rate Abdomen: Bowel Sounds Present Extremities: No clubbing, No cyanosis Skin: interrigo Musculoskeletal: No Muscle Wasting Neurological: Neuro grossly intact Psych/Mental Status: Normal Affect Vitals/I&O's: Vital Signs Temp Pulse Resp BP Pulse Ox 97.1 F L 102 H 20 H 102/64 97 10/08/17 12:28 10/08/17 12:28 10/08/17 12:28 10/08/17 12:28 10/08/17 12:28 Oxygen Delivery Method Nasal Cannula Weight: 110.6 kg Body Mass Index (BMI) 40.6 Intake and Output for Last 24 Hours 10/06/17 10/07/17 10/08/17 23:59 23:59 23:59 Intake Total 2197 / 2197 1896 / 1896 490 / 490 Balance 2197 / 2197 1896 / 1896 490 / 490 Laboratory Results 10/07/17 16:26: POC Glucose 100 10/07/17 22:40: POC Glucose 67 L 10/08/17 06:58: POC Glucose 58 L 10/08/17 07:30: POC Glucose 83 10/08/17 12:06: POC Glucose 81 Current Medications Acetaminophen (Tylenol) 650 mg PO Q4H PRN PRN PRN Reason: PAIN Last Admin: 10/08/17 12:25 Dose: 650 mg Albuterol Sulfate (Ventolin Aerosols) 2.5 mg INHALATION Q2H PRN PRN PRN Reason: Shortness of breath, wheezing Last Admin: 10/06/17 18:30 Dose: 2.5 mg Allopurinol (Zyloprim) 300 mg PO BIDCM [facility] Last Admin: 10/08/17 08:20 Dose: 300 mg Atorvastatin Calcium (Lipitor) 5 mg PO QHS [facility] Last Admin: 10/07/17 22:53 Dose: 5 mg Buspirone HCl (Buspar) 5 mg PO BID [facility] Last Admin: 10/08/17 08:35 Dose: 5 mg Calamine/Phenol (Calmoseptine Ointment) 1 applic TOPICAL 4X/DAY [facility] PRN Reason: Protocol Last Admin: 10/08/17 08:22 Dose: 1 applicatio Citalopram Hydrobromide (Celexa) 40 mg PO DAILY [facility] Last Admin: 10/08/17 08:20 Dose: 40 mg Famotidine (Pepcid) 20 mg PO DAILY [facility] Last Admin: 10/08/17 08:20 Dose: 20 mg Ferrous Sulfate (Ferrous Sulfate) 325 mg PO DAILY@0800 [facility] Last Admin: 10/08/17 08:20 Dose: 325 mg Dextrose/Lactated Ringer's () 1,000 mls @ 60 mls/hr IV .[id number] [facility] Last Admin: 10/08/17 12:22 Dose: 60 mls/hr Insulin Aspart (Novolog Flexpen (Bkc)) 0 units SC ACHS [facility] PRN Reason: Protocol Last Admin: 10/08/17 12:27 Dose: Not Given Nutritional Formula (Lactose Free) (Glucerna Shake) 120 ml PO 4X/DAY [facility] Last Admin: 10/08/17 08:21 Dose: 120 ml Nystatin (Nystatin) 500,000 unit PO 4X/DAY [facility] Last Admin: 10/08/17 08:20 Dose: 500,000 unit Nystatin/Triamcinolone Acetonide (Mycolog) 1 applic TOPICAL TID [facility] PRN Reason: Protocol Ondansetron HCl (Zofran) 4 mg IV Q6H PRN PRN PRN Reason: NAUSEA/VOMITING Last Admin: 10/06/17 18:08 Dose: 4 mg Pantoprazole Sodium (Protonix) 40 mg PO DAILY [facility] Last Admin: 10/08/17 08:20 Dose: 40 mg Potassium [facility]lor[facility] ([facility]) [facility] Last Admin: 10/08/17 08:20 Dose: 20 meq Sodium Chloride () 5 - 30 ml IV UD PRN PRN Reason: SALINE FLUSH Vancomycin HCl (Vancomycin 125mg/5ml Susp) 125 mg PO Q6 [facility] Last Admin: 10/08/17 12:27 Dose: 125 mg Medical Necessity - Tobacco Use Smoking Status: Former smoker Assessment/Plan Active and Suspected Problems Dehydration (Acute) GEORGE (acute kidney injury) (Acute) C. difficile colitis (Acute) The patient is a 67 year old F with a recent diagnosis of C. difficile colitis admitted with altered mental status low blood pressure in addition to acute kidney injury 1. Hypotension secondary to dehydration from patient's profuse diarrhea with resultant acute kidney injury. Patient was admitted to monitored bed resuscitated with IV fluids blood pressure did improve 2. Acute kidney injury secondary to ATN from hypotension: Creatinine was 1.55 on admission was 1.19 on 10/07/2017 3. Recent C. difficile colitis patient was on Flagyl this was discontinued please on p.o. vancomycin 4. Diabetes mellitus type 2 with complications including hypoglycemia patient was on metformin discontinued. Was placed on Accu-Cheks before meals and at bedtime with sliding scale coverage 5. Pancytopenia this was attributed to patient chronic liver disease CT of the abdomen and pelvis obtained demonstrated the liver with fatty changes 6. Anemia secondary to anemia of chronic disorder monitoring H&H patient did not meet criteria for blood transfusion 7. Morbid obesity with BMI of 40.6 weight loss advised 8. Depression with anxiety 9. Physical debility requested for PT and OT eval and treatment patient was discharged back to her F Code Visit Inpatient E&M: 69470 Subs Hosp L2
[2017-10-08] MEDS: Nystatin/Triamcin Cream Tube 1 APPLIC TOPICAL ×2 (15:01→21:38)
--- NOTE | 2017-10-08 15:07 | CASEMGMT ---
[facility] will take patient when ready. AIDA obtained the PASRR from [facility]. AIDA faxed PASRR and request for level of care to [facility]. Await receipt of level of care. AIDA called [facility] and let Liliana know that patient will not be coming back to them. She asked to notify family they will need to get her belongings as that is the only female bed they have available. AIDA also called patient's cousin, Valeria and left her a message letting her know that [facility] can take patient and she may go today. Await level of care from [facility] Tana DUBOIS RETORT PRESS OPERATOR
--- NOTE | 2017-10-08 15:52 | CASEMGMT ---
Still waiting on the level of care from [facility]. SW will have it tomorrow and patient can go at that time. Tana DUBOIS MSW
[2017-10-08 17:36] LABS: Bedside Glucose 78 mg/dL (70-110)
[2017-10-08 20:08] LABS: Folate, Hemolysate Test 279.4 ng/mL (Not Estab.); Folate, RBC (Hct) Test 27.6 % (34.0-46.6)
[2017-10-08] MEDS: Atorvastatin Calcium 10 MG Tablet 5 MG PO (21:38)
[2017-10-08 21:51] LABS: Bedside Glucose 80 mg/dL (70-110)
[2017-10-09] MEDS: Acetaminophen 325 MG Tablet 650 MG PO ×2 (00:03→09:55)
[2017-10-09 01:12] VITALS: PULSE 129
[2017-10-09 03:01] VITALS: PULSE 96
[2017-10-09 03:25] VITALS: BP 107/67; PULSE 100; RESP 18; TEMP 36.6; O2SAT 97
[2017-10-09 03:30] VITALS: O2SAT 97
[2017-10-09] MEDS: Nystatin/Triamcin Cream Tube 1 APPLIC TOPICAL (06:39)
[2017-10-09 06:50] LABS: Bedside Glucose 67 mg/dL (70-110)
[2017-10-09 07:38] VITALS: PULSE 100
[2017-10-09 09:25] VITALS: BP 103/71; PULSE 101; RESP 20; TEMP 36.8; O2SAT 96
--- NOTE | 2017-10-09 09:40 | PCM.PN.HOSP ---
Patient Problems: Active and Suspected Problems Dehydration (Acute) GEORGE (acute kidney injury) (Acute) C. difficile colitis (Acute) Subjective: Plan is for patient to be discharged to ECF today Objective: General: Alert HEENT: Atraumatic Neck: Supple Lungs: Diminished Cardiovascular: Regular rate Abdomen: Bowel Sounds Present Extremities: No clubbing, No cyanosis Skin: interrigo Musculoskeletal: No Muscle Wasting Neurological: Neuro grossly intact Psych/Mental Status: Normal Affect Vitals/I&O's: Vital Signs Temp Pulse Resp BP Pulse Ox 98.2 F 101 H 20 H 103/71 96 10/09/17 09:25 10/09/17 09:25 10/09/17 09:25 10/09/17 09:25 10/09/17 09:25 Oxygen Delivery Method Room Air Weight: 110.6 kg Body Mass Index (BMI) 40.6 Intake and Output for Last 24 Hours 10/07/17 10/08/17 10/09/17 23:59 23:59 23:59 Intake Total 1896 / 1896 960 / 960 120 / 120 Balance 1896 / 1896 960 / 960 120 / 120 Laboratory Results 10/08/17 12:06: POC Glucose 81 10/08/17 17:24: POC Glucose 78 10/08/17 21:36: POC Glucose 80 10/09/17 06:36: POC Glucose 67 L Current Medications Acetaminophen (Tylenol) 650 mg PO Q4H PRN PRN PRN Reason: PAIN Last Admin: 10/09/17 00:03 Dose: 650 mg Albuterol Sulfate (Ventolin Aerosols) 2.5 mg INHALATION Q2H PRN PRN PRN Reason: Shortness of breath, wheezing Last Admin: 10/06/17 18:30 Dose: 2.5 mg [facility] Last Admin: 10/08/17 17:15 Dose: 300 mg Atorvastatin Calcium (Lipitor) 5 mg PO QHS [facility] Last Admin: 10/08/17 21:38 Dose: 5 mg Buspirone HCl (Buspar) 5 mg PO BID [facility] Last Admin: 10/08/17 21:37 Dose: 5 mg Calamine/Phenol (Calmoseptine Ointment) 1 applic TOPICAL 4X/DAY [facility] PRN Reason: Protocol Last Admin: 10/08/17 21:37 Dose: 1 applicatio Citalopram Hydrobromide (Celexa) 40 mg PO DAILY [facility] Last Admin: 10/08/17 08:20 Dose: 40 mg Famotidine (Pepcid) 20 mg PO DAILY [facility] Last Admin: 10/08/17 08:20 Dose: 20 mg Ferrous Sulfate (Ferrous Sulfate) 325 mg PO DAILY@0800 [facility] Last Admin: 10/08/17 08:20 Dose: 325 mg Insulin Aspart (Novolog Flexpen (Bkc)) 0 units SC ACHS [facility] PRN Reason: Protocol Last Admin: 10/09/17 06:39 Dose: Not Given Nutritional Formula (Lactose Free) (Glucerna Shake) 120 ml PO 4X/DAY [facility] Last Admin: 10/08/17 21:40 Dose: 120 ml Nystatin (Nystatin) 500,000 unit PO 4X/DAY [facility] Last Admin: 10/08/17 21:38 Dose: 500,000 unit Nystatin/Triamcinolone Acetonide (Mycolog) 1 applic TOPICAL TID [facility] PRN Reason: Protocol Last Admin: 10/09/17 06:39 Dose: 1 applicatio Ondansetron HCl (Zofran) 4 mg IV Q6H PRN PRN PRN Reason: NAUSEA/VOMITING Last Admin: 10/06/17 18:08 Dose: 4 mg Pantoprazole Sodium (Protonix) 40 mg PO DAILY [facility] Last Admin: 10/08/17 08:20 Dose: 40 mg Potassium Chloride (K[facility]Dur) [facility] Last Admin: 10/08/17 08:20 Dose: 20 meq Sodium Chloride () 5 - 30 ml IV UD PRN PRN Reason: SALINE FLUSH Vancomycin HCl (Vancomycin 125mg/5ml Susp) 125 mg PO Q6 [facility] Last Admin: 10/09/17 06:39 Dose: 125 mg Medical Necessity - Tobacco Use Smoking Status: Former smoker Assessment/Plan Active and Suspected Problems Dehydration (Acute) GEORGE (acute kidney injury) (Acute) C. difficile colitis (Acute) The patient is a 67 year old F with a recent diagnosis of C. difficile colitis admitted with altered mental status low blood pressure in addition to acute kidney injury 1. Hypotension secondary to dehydration from patient's profuse diarrhea with resultant acute kidney injury. Patient was admitted to monitored bed resuscitated with IV fluids blood pressure did improve 2. Acute kidney injury secondary to ATN from hypotension: Creatinine was 1.55 on admission was 1.19 on 10/07/2017 3. Recent C. difficile colitis patient was on Flagyl this was discontinued please on p.o. vancomycin 4. Diabetes mellitus type 2 with complications including hypoglycemia patient was on metformin discontinued. Was placed on Accu-Cheks before meals and at bedtime with sliding scale coverage 5. Pancytopenia this was attributed to patient chronic liver disease CT of the abdomen and pelvis obtained demonstrated the liver with fatty changes 6. Anemia secondary to anemia of chronic disorder monitoring H&H patient did not meet criteria for blood transfusion 7. Morbid obesity with BMI of 40.6 weight loss advised 8. Depression with anxiety 9. Physical debility requested for PT and OT eval and treatment patient was discharged back to her F Code Visit Inpatient E&M: 21927 Subs Hosp L2
--- NOTE | 2017-10-09 09:44 | PN_ITS ---
Patient Problems: Active and Suspected Problems Dehydration (Acute) GEORGE (acute kidney injury) (Acute) C. difficile colitis (Acute) Subjective: Plan is for patient to be discharged to ECF today Objective: General: Alert HEENT: Atraumatic Neck: Supple Lungs: Diminished Cardiovascular: Regular rate Abdomen: Bowel Sounds Present Extremities: No clubbing, No cyanosis Skin: interrigo Musculoskeletal: No Muscle Wasting Neurological: Neuro grossly intact Psych/Mental Status: Normal Affect Vitals/I&O's: Vital Signs Temp Pulse Resp BP Pulse Ox 98.2 F 101 H 20 H 103/71 96 10/09/17 09:25 10/09/17 09:25 10/09/17 09:25 10/09/17 09:25 10/09/17 09:25 Oxygen Delivery Method Room Air Weight: 110.6 kg Body Mass Index (BMI) 40.6 Intake and Output for Last 24 Hours 10/07/17 10/08/17 10/09/17 23:59 23:59 23:59 Intake Total 1896 / 1896 960 / 960 120 / 120 Balance 1896 / 1896 960 / 960 120 / 120 Laboratory Results 10/08/17 12:06: POC Glucose 81 10/08/17 17:24: POC Glucose 78 10/08/17 21:36: POC Glucose 80 10/09/17 06:36: POC Glucose 67 L Current Medications Acetaminophen (Tylenol) 650 mg PO Q4H PRN PRN PRN Reason: PAIN Last Admin: 10/09/17 00:03 Dose: 650 mg Albuterol Sulfate (Ventolin Aerosols) 2.5 mg INHALATION Q2H PRN PRN PRN Reason: Shortness of breath, wheezing Last Admin: 10/06/17 18:30 Dose: 2.5 mg [facility] Last Admin: 10/08/17 17:15 Dose: 300 mg Atorvastatin Calcium (Lipitor) 5 mg PO QHS [facility] Last Admin: 10/08/17 21:38 Dose: 5 mg Buspirone HCl (Buspar) 5 mg PO BID [facility] Last Admin: 10/08/17 21:37 Dose: 5 mg Calamine/Phenol (Calmoseptine Ointment) 1 applic TOPICAL 4X/DAY [facility] PRN Reason: Protocol Last Admin: 10/08/17 21:37 Dose: 1 applicatio Citalopram Hydrobromide (Celexa) 40 mg PO DAILY [facility] Last Admin: 10/08/17 08:20 Dose: 40 mg Famotidine (Pepcid) 20 mg PO DAILY [facility] Last Admin: 10/08/17 08:20 Dose: 20 mg Ferrous Sulfate (Ferrous Sulfate) 325 mg PO DAILY@0800 [facility] Last Admin: 10/08/17 08:20 Dose: 325 mg Insulin Aspart (Novolog Flexpen (Bkc)) 0 units SC ACHS [facility] PRN Reason: Protocol Last Admin: 10/09/17 06:39 Dose: Not Given Nutritional Formula (Lactose Free) (Glucerna Shake) 120 ml PO 4X/DAY [facility] Last Admin: 10/08/17 21:40 Dose: 120 ml Nystatin (Nystatin) 500,000 unit PO 4X/DAY [facility] Last Admin: 10/08/17 21:38 Dose: 500,000 unit Nystatin/Triamcinolone Acetonide (Mycolog) 1 applic TOPICAL TID [facility] PRN Reason: Protocol Last Admin: 10/09/17 06:39 Dose: 1 applicatio Ondansetron HCl (Zofran) 4 mg IV Q6H PRN PRN PRN Reason: NAUSEA/VOMITING Last Admin: 10/06/17 18:08 Dose: 4 mg Pantoprazole Sodium (Protonix) 40 mg PO DAILY [facility] Last Admin: 10/08/17 08:20 Dose: 40 mg Potassium Chlor[facility] (K-Dur) [facility] Last Admin: 10/08/17 08:20 Dose: 20 meq Sodium Chloride () 5 - 30 ml IV UD PRN PRN Reason: SALINE FLUSH Vancomycin HCl (Vancomycin 125mg/5ml Susp) 125 mg PO Q6 [facility] Last Admin: 10/09/17 06:39 Dose: 125 mg Medical Necessity - Tobacco Use Smoking Status: Former smoker Assessment/Plan Active and Suspected Problems Dehydration (Acute) GEORGE (acute kidney injury) (Acute) C. difficile colitis (Acute) The patient is a 67 year old F with a recent diagnosis of C. difficile colitis admitted with altered mental status low blood pressure in addition to acute kidney injury 1. Hypotension secondary to dehydration from patient's profuse diarrhea with resultant acute kidney injury. Patient was admitted to monitored bed resuscitated with IV fluids blood pressure did improve 2. Acute kidney injury secondary to ATN from hypotension: Creatinine was 1.55 on admission was 1.19 on 10/07/2017 3. Recent C. difficile colitis patient was on Flagyl this was discontinued please on p.o. vancomycin 4. Diabetes mellitus type 2 with complications including hypoglycemia patient was on metformin discontinued. Was placed on Accu-Cheks before meals and at bedtime with sliding scale coverage 5. Pancytopenia this was attributed to patient chronic liver disease CT of the abdomen and pelvis obtained demonstrated the liver with fatty changes 6. Anemia secondary to anemia of chronic disorder monitoring H&H patient did not meet criteria for blood transfusion 7. Morbid obesity with BMI of 40.6 weight loss advised 8. Depression with anxiety 9. Physical debility requested for PT and OT eval and treatment patient was discharged back to her F Code Visit Inpatient E&M: 15751 Subs Hosp L2
[2017-10-09] MEDS: NYSTATIN 500,000 UNIT/5 ML UDC 500000 UNIT PO (09:54)
[2017-10-09] MEDS: Glucerna Shake 120 ML LIQUID PO (09:55)
[2017-10-09] MEDS: Citalopram 40 MG TABLET PO (09:56)
[2017-10-09] MEDS: Pantoprazole Sodium 40 MG Tablet PO (09:56)
[2017-10-09] MEDS: Ferrous Sulfate 325 MG Tablet PO (09:56)
[2017-10-09] MEDS: Menthol/Lanolin/Calamine/Znox 113 GM Tube 1 APPLIC TOPICAL (09:56)
[2017-10-09] MEDS: busPIRone 5 MG Tablet PO (09:56)
[2017-10-09] MEDS: Famotidine 20 MG Tablet PO (09:56)
[2017-10-09] MEDS: Allopurinol 300 MG Tablet PO (09:56)
--- NOTE | 2017-10-09 10:52 | CASEMGMT ---
Patient is ready for d/c to [facility]. AIDA faxed orders. Received PASRR from [facility] as that is where patient came to [facility] from. SW completed a new level of care and received paperwork from [facility]. Called [facility] and arranged for patient to get picked up at 1130 via cot. AIDA notified Sophy marcum [place], RN, traveling secretary, patient, left a message for her daughter and also spoke with patient's cousin, Valeria letting her know. AIDA has not been able to reach patient's daughter during this hospitalization as per family she works and is not allowed to have her cell phone at work. SW has also left her several messages letting her know what has been going on with d/c planning. AIDA spoke with Valeria, patient's cousin and she said she has been talking with patient's daughter and everyone is okay with plan. Plan: [facility] level of care on her Medicaid and a PASRR. [facility] transported her via cot. Tana [employer] REP
[2017-10-09 14:32] LABS: Folates, RBC Test 1012 ng/mL (>498)
== END 2017-10-09 11:34 | disposition intermediate care facility (04) | DRG 683 ==
LOC: ED 10-04 03:31 → PCU 10-04 04:05
PROVIDERS: Admitting Provider Hospitalist; Emergency Provider Emergency Medicine; Family Provider Family Medicine; PCP Family Medicine; Visit Provider Internal Medicine
DX: N17.0 Acute kidney failure with tubular necrosis (principal); A04.72 Enterocolitis due to Clostridium difficile, not specified as recurrent; Z68.41 Body mass index [BMI] 40.0-44.9, adult; D61.818 Other pancytopenia; E86.0 Dehydration; G47.33 Obstructive sleep apnea (adult) (pediatric); I10 Essential (primary) hypertension; E78.5 Hyperlipidemia, unspecified; E66.01 Morbid (severe) obesity due to excess calories; D63.8 Anemia in other chronic diseases classified elsewhere; K76.9 Liver disease, unspecified; E11.649 Type 2 diabetes mellitus with hypoglycemia without coma; I95.9 Hypotension, unspecified; F41.8 Other specified anxiety disorders; Z87.891 Personal history of nicotine dependence
CPT/HCPCS: 36415; 71045; 74176; 76705; 80048; 80053; 81001; 82607; 82747; 82962; 83036; 83605; 83735; 84100; 84443; 84484; 85014; 85025; 85610; 87040; 87077; 87086; 87088; 87184; 87186; 92526; 94640; 97110; 97140; 97162; 97165; 97530; 97802; 99285; J7030; J7040; P9047; P9612; G8978; G8979; G8987; G8988; G8996; G8997; G8998; J2405

== ENCOUNTER → 2017-10-14 05:00 | Outpatient (REF) | payer MEDICARE, MEDICAID, SELFPAY ==
[2017-10-14 09:32] LABS: Hematocrit 27.5 % (37-47); Hemoglobin 8.7 g/dl (12.0-15.0); Mean Corp Hgb Conc 31.6 g/gl (32-36); Mean Corpuscular Hgb 31.4 pg (27.0-32.0); Mean Corpuscular Volume 99.3 fL (81-99); Mean Platelet Vol. 12.9 fl (6.2-12.0); Platelet Count 92 K/mm3 (150-450); RBC Distribution Width CV 20.3 % (11.6-14.6); RBC Distribution Width SD 68.2 fl (35.1-43.9); Red Blood Count 2.77 M/mm3 (4.2-5.4); Scan Indicated on CBC? Y/N YES- FLAGS NOTED; White Blood Count 4.3 K/mm3 (4.4-11.0)
[2017-10-14 09:52] LABS: ALB/GLOB Ratio 0.3 RATIO (0.9-2.4); AST(SGOT) 40 U/L (15-37); Alanine Aminotransfer ALT/SGPT 21 U/L (13-56); Albumin, Serum 0.9 g/dL (3.2-5.0); Alkaline Phosphatase 348 U/L (45-117); Anion Gap 10 (5-15); BUN 15 mg/dL (7-18); BUN/Creat Ratio 17.1 RATIO (10-20); Calcium,Total 5.6 mg/dL (8.5-10.1); Chloride 117 mmol/L (98-107); Cholesterol < 50 mg/dL (200); Creatinine, Serum 0.88 mg/dL (0.55-1.02); EST Glomerular Filtration Rate 68 mL/min (>60); Est Glom Filt Rate - Afr Amer 83 mL/min (>60); Globulin 2.7 g/dL (2.2-4.2); Glucose 50 mg/dL (74-106); High Density Lipoprotein 10 mg/dL; Protein, Total 3.6 g/dL (6.4-8.2); Sodium Level 142 mmol/L (136-145); Triglycerides 104 mg/dL; Very Low Density Lipoprotein 21 mg/dL (5-40)
[2017-10-14 09:56] LABS: Hemoglobin A1c 4.7 % (4.2-6.3)
[2017-10-14 20:15] LABS: PTHIN 52.2 pg/mL (18.4-80.1)
== END ==
LOC: OLS.AVEB 05:00
PROVIDERS: Visit Provider Family Medicine
DX: E78.5 Hyperlipidemia, unspecified (principal); E11.9 Type 2 diabetes mellitus without complications; D64.9 Anemia, unspecified; E88.09 Other disorders of plasma-protein metabolism, not elsewhere classified
CPT/HCPCS: 36415; 80053; 80061; 83036; 83970; 85027

== ENCOUNTER 2017-10-16 15:23 | Emergency (ER) | payer MEDICAID, SELFPAY ==
[2017-10-16 15:25] VITALS: BP 161/148; PULSE 108; RESP 18; TEMP 36.9; O2SAT 96; BMI 45.3
[2017-10-16 16:23] VITALS: BP 190/176; PULSE 106; RESP 22; O2SAT 95
--- NOTE | 2017-10-16 16:30 | ED.VISSUMM ---
- ER Visit Summary Date of Service: 10/16/17 Chief Complaint: Sent to ER from [facility] because of low blood pressure. History of Present Illness: The patient is a 67 F with history of dementia/disorientation who is not able to contribute much other than she feels okay. She was recently admitted for acute kidney injury secondary to Pseudomonas on her colitis. She was on metronidazole prior to her most recent admission and then placed on vancomycin. She denies fever or chills. She denies chest pain shortness of breath. She denies abdominal pain. Denies diarrhea even though she is wearing a fecal-containing system. Records were reviewed. Physical Examination: Blood pressure is 161/148 temperature 98.4 heart rate 108 respiration 18 with a pulse ox 96% on room air. HEENT exam is remarkable for asymmetric pupils secondary to cataract surgery. Mucosa is dry. Lungs are clear to auscultation. Air movement of air bilaterally with no wheeze, rales or rhonchi. Abdomen soft nontender bowel sounds present normal. There is no evidence of trauma. There is no petechia purpura. She is not alert or oriented. This was documented by Dr. Christa martines her last ER visit. Test Results: Count and differential normal. H&H 8.4 and 27.7 which is approximately what the results were on October 14. Creatinine on October 09 was 1.19. Today it is 0.86. CO2 is 20 with an anion gap of 8. Chloride is elevated at 115. Emergency Department Course and Treatment: Since patient clinically is dehydrated and had diagnosis of acute kidney injury for last admission BMP was obtained. CBC was obtained to evaluate white count H&H and differential since the nursing staff at the facility reported low blood pressure. Treatment Plan: Since patient is hypertensive and asymptomatic and has not been on any hypertensive meds per review of recent records she was started on lisinopril 10 mg daily. She received first dose in the emergency department. Disposition: To return to nursing facility Impression: 1. Asymptomatic hypertension 2. Chronic anemia 3. Mild dehydration 4. History of pseudomembranous enterocolitis on vancomycin This note was generated with [employer] dictation software. It may contain incorrect words, spelling, and punctuation that were not noted in review of the chart prior to signing ED Disposition - Plan for ED Patient: Disposition: Home or Assisted Living Chief Complaint: Diarrhea Instructions: Clostridium difficile Infection, ED HTN Established Prescriptions: Lisinopril [Zestril] 10 mg PO DAILY #30 tab Referrals: Kolton Garcia MD [Primary Care Provider] - As Needed
--- NOTE | 2017-10-16 16:34 | ED.DCSUM_ITS ---
- ER Visit Summary Date of Service: 10/16/17 Chief Complaint: Sent to ER from [facility] because of low blood pressure. History of Present Illness: The patient is a 67 F with history of dementia/ disorientation who is not able to contribute much other than she feels okay. She was recently admitted for acute kidney injury secondary to Pseudomonas on her colitis. She was on metronidazole prior to her most recent admission and then placed on vancomycin. She denies fever or chills. She denies chest pain shortness of breath. She denies abdominal pain. Denies diarrhea even though she is wearing a fecal-containing system. Records were reviewed. Physical Examination: Blood pressure is 161/148 temperature 98.4 heart rate 108 respiration 18 with a pulse ox 96% on room air. HEENT exam is remarkable for asymmetric pupils secondary to cataract surgery. Mucosa is dry. Lungs are clear to auscultation. Air movement of air bilaterally with no wheeze, rales or rhonchi. Abdomen soft nontender bowel sounds present normal. There is no evidence of trauma. There is no petechia purpura. She is not alert or oriented. This was documented by Dr. Christa martines her last ER visit. Test Results: Count and differential normal. H&H 8.4 and 27.7 which is approximately what the results were on October 14. Creatinine on October 09 was 1.19. Today it is 0.86. CO2 is 20 with an anion gap of 8. Chloride is elevated at 115. Emergency Department Course and Treatment: Since patient clinically is dehydrated and had diagnosis of acute kidney injury for last admission BMP was obtained. CBC was obtained to evaluate white count H&H and differential since the nursing staff at the facility reported low blood pressure. Treatment Plan: Since patient is hypertensive and asymptomatic and has not been on any hypertensive meds per review of recent records she was started on lisinopril 10 mg daily. She received first dose in the emergency department. Disposition: To return to nursing facility Impression: 1. Asymptomatic hypertension 2. Chronic anemia 3. Mild dehydration 4. History of pseudomembranous enterocolitis on vancomycin This note was generated with [employer] dictation software. It may contain incorrect words, spelling, and punctuation that were not noted in review of the chart prior to signing ED Disposition - Plan for ED Patient: Disposition: Home or Assisted Living Chief Complaint: Diarrhea Instructions: Clostridium difficile Infection, ED HTN Established Prescriptions: Lisinopril [Zestril] 10 mg PO DAILY #30 tab Referrals: Kolton Garcia MD [Primary Care Provider] - As Needed
[2017-10-16 16:45] LABS: Absolute Lymphocyte Count 1.29 X10^3/ul (0.83-4.51); Absolute Neutrophil Count 3.4 X10^3/uL (2.0-7.7); Basophil# 0.01 X10^3/uL; Basophil% 0.2 % (0-1); Eosinophil# 0.04 X10^3/uL; Eosinophils% 0.8 % (0-5); Hematocrit 27.7 % (37-47); Hemoglobin 8.4 g/dl (12.0-15.0); Lymphocyte # 1.29 X10^3/ul (4.0); Lymphocyte % 25.2 % (19-41); Mean Corp Hgb Conc 30.3 g/gl (32-36); Mean Corpuscular Hgb 30.4 pg (27.0-32.0); Mean Corpuscular Volume 100.4 fL (81-99); Mean Platelet Vol. 13.3 fl (6.2-12.0); Monocyte% 5.9 % (0-10); Neutrophil # 3.41 X10^3/uL (2.7-7.7); Neutrophil % 66.7 % (47-70); Platelet Count 108 K/mm3 (150-450); RBC Distribution Width CV 20.7 % (11.6-14.6); RBC Distribution Width SD 68.7 fl (35.1-43.9); Red Blood Count 2.76 M/mm3 (4.2-5.4); White Blood Count 5.1 K/mm3 (4.4-11.0)
[2017-10-16 16:46] LABS: Differential Indicated SCAN CRITERIA MET; POSITIVE COUNT NO; POSITIVE DIFFERENTIAL NO; POSITIVE MORPHOLOGY YES
[2017-10-16 16:48] LABS: Anion Gap 8 (5-15); BUN 18 mg/dL (7-18); BUN/Creat Ratio 20.9 RATIO (10-20); Calcium,Total 6.8 mg/dL (8.5-10.1); Chloride 115 mmol/L (98-107); Creatinine, Serum 0.86 mg/dL (0.55-1.02); EST Glomerular Filtration Rate 70 mL/min (>60); Est Glom Filt Rate - Afr Amer 85 mL/min (>60); Estimated Creatinine Clearance 55.57 ml/min; Glucose 79 mg/dL (74-106); Potassium 3.9 mmol/L (3.5-5.1); Sodium Level 143 mmol/L (136-145)
[2017-10-16 17:04] LABS: Differential Comment SCANNED
--- NOTE | 2017-10-16 17:53 | NURSING ---
CALLED [facility] FOR TRANSPORT. ETA IS 20 MIN
[2017-10-16 19:19] VITALS: BP 83/60; PULSE 96; RESP 19; O2SAT 95
--- NOTE | 2017-10-16 19:20 | NURSING ---
TALKED WITH SHANE MAXWELL AT [facility], PT ENDED UP STAYING LONGER TO GET FLUID BOLUS. REPORT HAS BEEN CALLED AND PT IS CLEARED TO BE TRANSPORTED.
[2017-10-16 19:54] VITALS: BP 95/43; PULSE 106; RESP 16; O2SAT 98
== END 2017-10-16 19:54 | disposition home or self-care (01) ==
PROVIDERS: Emergency Provider Emergency Medicine; Family Provider Family Medicine; PCP Family Medicine
DX: I10 Essential (primary) hypertension (principal); D64.9 Anemia, unspecified; E86.0 Dehydration; Z86.19 Personal history of other infectious and parasitic diseases; E11.9 Type 2 diabetes mellitus without complications; E78.00 Pure hypercholesterolemia, unspecified; F41.9 Anxiety disorder, unspecified; G47.33 Obstructive sleep apnea (adult) (pediatric); E66.9 Obesity, unspecified; Z68.42 Body mass index [BMI] 45.0-49.9, adult; Z79.899 Other long term (current) drug therapy
CPT/HCPCS: 80048; 85025; 96360; 96361; 99284; J7040; A4216

== ENCOUNTER 2017-10-18 14:52 | Inpatient (IN) | payer MEDICAID, MEDICARE, SELFPAY ==
[2017-10-18] VITALS (15 sets, daily range): BP systolic 77–135; BP diastolic 48–106; PULSE 100–110; RESP 17–25; TEMP 36.4–36.7; O2SAT 94–100; BMI 46.0; BMI 39.6
--- NOTE | 2017-10-18 14:59 | CT_ITS ---
STUDY: CT ABDOMEN AND PELVIS WITH CONTRAST REASON FOR EXAM: Female, 67 years old. Peritonitis. Vaginal bleeding. Hypotension. Acute kidney injury. RADIATION DOSAGE (If Supplied By Facility): CTDIvol = ( 20.40 ) mGy, DLP = ( 1301.01 ) mGycm TECHNIQUE: Transaxial images were obtained from the dome of the diaphragm to the symphysis pubis without oral contrast. 100ml ml of Isovue 300 contrast was administered. Sagittal and coronal images were reconstructed. Individualized dose optimization techniques were used for this CT. COMPARISON: 10/04/2017. FINDINGS: Limited views through the lower chest show mild scarring or subsegmental atelectasis in the right lung base. Very small bilateral pleural effusions. Normal shape liver with marked fatty infiltration. Hepatomegaly. No masses. Gallbladder is not seen. Probable atrophy of the pancreas. Stable calcifications on the surface of the spleen which is otherwise normal. Normal adrenal glands. Stable appearance of severe atrophy of the right kidney, stable nonobstructing stones in the mid and lower left kidney. No hydronephrosis. Evaluation of the GI tract is limited by absence of oral contrast. Stable large hiatal hernia. Cannot exclude stomach wall thickening. No dilated loops of bowel or evidence for obstruction. Cannot exclude segmental thickening of the olvera of the small bowel. Cannot exclude enteritis. Possible diffuse thickening of the wall of the large bowel. Possible diffuse nonspecific colitis. Appendix not definitely seen. Normal abdominal aorta. Normal inferior vena cava. Normal retroperitoneum. Normal urinary bladder. There is atrophy of the uterus. There is anasarca throughout the abdominal wall. Small umbilical hernia. There are diffuse degenerative changes of the visualized lumbar spine. CT/Abdomen/Pelvis W IV Cont ONLY IMPRESSION: Evaluation of the GI tract limited without oral contrast. Cannot exclude diffuse colitis. No change in fatty liver, large hiatal hernia, severe right renal atrophy, nonobstructing stones of the left kidney. Electronically Signed: Syed Casey MD at 16:34 EDT , Service support ,
[2017-10-18] MEDS: 0.9% Normal Saline 1,000 ML 1000 ML IV (15:28)
--- NOTE | 2017-10-18 15:35 | ED.DCSUM_ITS ---
- ER Visit Summary Date of Service: 10/18/17 Chief Complaint: Arrived by ambulance from nursing facility because of low blood pressure, rapid heart rate and vaginal bleeding History of Present Illness: The patient is a 67 F who is not a good informant secondary to dementia. She was seen by me on Saturday. She did not have any vaginal bleeding at that time. She was brought to the ER for hypotension and had numerous blood pressure readings that were markedly elevated. She has no complaints. Paramedics informed me that she has significant abdominal pain. Physical Examination: Patient appears pale. Initial blood pressure 135/106 with a heart rate of 110. Respiratory rates elevated 22. Pulse ox 94% on room air, which is within normal range. Temperature 97.5. She appears pale. Conjunctivae is pale. Her left pupil is larger than the right secondary to prior cataract surgery. TMs normal. Mucosa slightly dry. Heart is rapid and regular with distant heart tones. Lungs are clear to auscultation. Abdomen is sick significantly tender left lower quadrant. There is tenderness throughout. She has percussion tenderness and equivocal rebound tenderness left lower quadrant. This is a new finding compared to Saturday. Bowel sounds are diminished. Lower extreme exam is remarkable for edema. This is unchanged from Saturday. There is evidence of vaginal bleeding. She is alert but not oriented. Motor sensory intact. DTRs are symmetric. There is no clonus. There is no Babinski sign. Test Results: H&H is 8.5 and 28 which is patient's baseline. Electro panels unremarkable. INR is 2.0 with a PTT of 46.8. Based on meds on she is not on any anticoagulant. Lactate is 1.5. CT of the abdomen with IV contrast reveals evidence of colitis. Patient is presently receiving vancomycin for pseudomembranous enterocolitis. No other abnormality noted. Emergency Department Course and Treatment: IV fluids was ordered since initial report was for hypotension and tachycardia. Blood work was obtained. She was typed and screened since she does have vaginal bleeding. Because she has significant tenderness with guarding and equivocal rebound tenderness a CT of the abdomen with IV contrast was ordered. Creatinine on Saturday was 0.86. She was placed on a monitor and is to remain on a monitor. She also was made n.p.o. Treatment Plan: Patient did receive 1 L of normal saline wide open. She has become hypotensive during her ER stay with the most recent blood pressure being 83/48 heart rate of 100. 500 cc of additional normal saline was ordered. Pelvic exam was performed which reveals evidence of vaginal bleeding. Difficult to see the cervix. Bimanual exam was unremarkable. The bimanual exam is limited secondary to body habitus. Disposition: The hospitalist was paged for admission and Dr. Kalani Holden was paged for [employer] consultation since patient has vaginal bleeding and is postmenopausal. Impression: 1. Hypotension 2. Vaginal bleeding uncertain etiology 3. Pseudomembranous enterocolitis 4. Chronic anemia 5. Coagulopathy 6. History of type 2 diabetes 7. History hypertension 8. History of obstructive sleep apnea This note was generated with [employer] dictation software. It may contain incorrect words, spelling, and punctuation that were not noted in review of the chart prior to signing ED Disposition - Plan for ED Patient: Chief Complaint: Abd Pain Referrals: Kolton Garcia MD [Primary Care Provider] -
[2017-10-18 15:53] LABS: Prothrombin Time (Protime)PT. 22.6 SECONDS (11.7-14.9)
[2017-10-18 15:54] LABS: Partial Thromboplast Time 46.8 Seconds (24.1-36.2)
--- NOTE | 2017-10-18 16:02 | ED.RN ---
CA 6.5, AWARE.
[2017-10-18 16:03] LABS: Absolute Lymphocyte Count 1.28 X10^3/ul (0.83-4.51); Absolute Neutrophil Count 3.4 X10^3/uL (2.0-7.7); Anion Gap 5 (5-15); BUN 18 mg/dL (7-18); BUN/Creat Ratio 19.3 RATIO (10-20); Basophil# 0.01 X10^3/uL; Basophil% 0.2 % (0-1); Calcium,Total 6.5 mg/dL (8.5-10.1); Chloride 117 mmol/L (98-107); Creatinine, Serum 0.93 mg/dL (0.55-1.02); EST Glomerular Filtration Rate 64 mL/min (>60); Eosinophil# 0.02 X10^3/uL; Eosinophils% 0.4 % (0-5); Est Glom Filt Rate - Afr Amer 77 mL/min (>60); Estimated Creatinine Clearance 49.22 ml/min; Glucose 94 mg/dL (74-106); Hemoglobin 8.5 g/dl (12.0-15.0); Lymphocyte # 1.28 X10^3/ul (4.0); Lymphocyte % 25.3 % (19-41); Mean Corp Hgb Conc 30.4 g/gl (32-36); Mean Corpuscular Hgb 29.9 pg (27.0-32.0); Mean Corpuscular Volume 98.6 fL (81-99); Mean Platelet Vol. 12.1 fl (6.2-12.0); Monocyte# 0.31 X10^3/uL; Monocyte% 6.1 % (0-10); Neutrophil % 67.2 % (47-70); Platelet Count 102 K/mm3 (150-450); Potassium 4.4 mmol/L (3.5-5.1); RBC Distribution Width CV 21.3 % (11.6-14.6); RBC Distribution Width SD 73.4 fl (35.1-43.9); Red Blood Count 2.84 M/mm3 (4.2-5.4); Sodium Level 143 mmol/L (136-145); White Blood Count 5.1 K/mm3 (4.4-11.0)
[2017-10-18 16:06] LABS: Differential Indicated SCAN CRITERIA MET; POSITIVE COUNT NO; POSITIVE DIFFERENTIAL NO; POSITIVE MORPHOLOGY YES
[2017-10-18 16:07] LABS: Absolute Nucleated RBC Count 0.06 10^3/uL (0-5); NRBC Flagged by Analyzer 1.3 % (0-5)
[2017-10-18 16:12] LABS: Lactic Acid 1.5 mmol/L (0.4-2.0)
[2017-10-18 16:13] LABS: Hypochromasia 1+; Macrocytosis 1+; Ovalocyte RARE; Platelet Estimate SLT DEC (ADEQ); Polychromasia RARE
--- NOTE | 2017-10-18 17:33 | EKG12_ITS ---
Test Reason : ABD PAIN Blood Pressure : / mmHG Vent. Rate : 116 BPM Atrial Rate : 116 BPM P-R Int : 194 ms QRS Dur : 068 ms QT Int : 346 ms P-R-T Axes : 059 067 058 degrees QTc Int : 480 ms Sinus tachycardia Low voltage QRS Nonspecific ST abnormality Abnormal ECG Confirmed by CEASAR RINCON, SANJAY ([id number]), staff editor MACARIO COMER ([id number]) on 10/22/2017 2:23:17 PM Referred By: Kaushik Bueno Confirmed By:SANJAY MCDONOUGH MD
--- NOTE | 2017-10-18 18:38 | PCM.HP.STD ---
Problem List (1) Hypotension Status: Acute (2) Vaginal bleeding Status: Acute (3) Recurrent colitis due to Clostridium difficile Status: Acute (4) Dehydration Status: Acute (5) GEORGE (acute kidney injury) Status: Resolved (6) YOLANDA (obstructive sleep apnea) Status: Chronic (7) Obesity Status: Chronic (8) HTN (hypertension) Status: Chronic (9) Dyslipidemia Status: Chronic (10) DM type 2 (diabetes mellitus, type 2) Status: Chronic (11) Anxiety disorder Status: Chronic History of Present Illness Date of Admission: 10/18/17 Chief Complaint: Hypotension, tachycardia and vaginal bleeding The patient is a 67 year old F with multiple comorbidities including 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 Garner on October 15 was sent from group home for hypotension, tachycardia and low hemoglobin. In ED, patient was found to have vaginal bleeding as per ED Dr. Pulido. She was also seen in ER on last Saturday and as per ER physician she did not had vaginal bleeding at that time and denies any seeing LACQUER PIN PRESS OPERATOR doctor in the past. Patient also has chronic abdominal pain and currently complains of left-sided abdominal pain. In the ED, her heart rate was 110/min, respiratory rate 22, pulse ox 94% on room air and temperature 97.5. Her blood pressure was initially 135/106 but dropped to 83/48. Lactic acid is normal. INR is 2. H&H is 8.5/28. CT abdomen done in the ER with IV contrast but without oral contrast shows nonspecific diffuse colitis.. Right renal atrophy which is chronic with nonobstructive stones of left kidney [] Past Medical History Past Medical History (Chronic Problems): Chronic Problems YOLANDA (obstructive sleep apnea) (Chronic) Obesity (Chronic) HTN (hypertension) (Chronic) Dyslipidemia (Chronic) DM type 2 (diabetes mellitus, type 2) (Chronic) Anxiety disorder (Chronic) Allergies latex Allergy (Verified 10/18/17 14:53) Rash levofloxacin [From Levaquin] Allergy (Verified 10/18/17 14:53) Rash acetaminophen [From Darvocet-N] Adverse Reaction (Verified 10/18/17 14:53) Vomiting codeine Adverse Reaction (Verified 10/18/17 14:53) Unknown gabapentin Adverse Reaction (Verified 10/18/17 14:53) Other propoxyphene [From Darvon] Adverse Reaction (Verified 10/18/17 14:53) Vomiting Home Medications: Ambulatory Orders Medication Instructions Recorded Albuterol Inhaler [Ventolin Hfa] 2 puff INHALATION Q4H PRN PRN 02/28/16 Nystatin Powder [Mycostatin Powder] 1 applic TOPICAL BID PRN PRN 05/02/17 Nystatin/Triamcin Cream [Mycolog] 1 applic TOPICAL BID #1 tube 07/21/17 Allopurinol 100 mg PO BID 10/04/17 Bisacodyl 10 mg RC DAILY PRN PRN 10/04/17 Citalopram Hydrobromide 40 mg PO DAILY 10/04/17 [Citalopram HBr] Ferrous Sulfate [Iron] 325 mg PO DAILY 10/04/17 L. Rhamnosus GG/Inulin [Culturelle 1 each PO DAILY 10/04/17 Capsule] Mag Hydrox/Aluminum Hyd/Simeth 10/04/17 [Antacid Suspension] Omeprazole 40 mg PO DAILY 10/04/17 Potassium Chloride [K-Dur] 10 meq PO DAILY 10/04/17 Promethazine HCl 25 mg PO Q6H PRN PRN 10/04/17 Ranitidine [Zantac] 300 mg PO DAILY 10/04/17 Simvastatin 5 mg PO DAILY 10/04/17 busPIRone [Buspar] 5 mg PO BID 10/04/17 Vancomcyin 125 MG/ 5 ML Susp 125 mg PO Q6 #40 dose 10/07/17 [Vancomycin 125mg/5mL Susp] Ca/D3/Mag Ox/Zinc/Help Desk Assistant/Keo/Bor 1 each PO DAILY 10/16/17 [Calcium 998-T0-Xebnbldx Chw Tb] Lisinopril [Zestril] 10 mg PO DAILY #30 tab 10/16/17 Multivitamin [Daily Multiple 1 each PO DAILY 10/16/17 Vitamin] Zinc Oxide [Dr. Christopher's Adult 170 gm TP DAILY 10/16/17 Barrier] Surgical History: appendectomy, cholecystectomy LACQUER PIN PRESS OPERATOR History: No pertinent LACQUER PIN PRESS OPERATOR history Smoking Status: Former smoker - *Family History Maternal History Items: No pertinent history Paternal History Items: No pertinent history Review of Systems Constitutional: Reports: Malaise, Weakness, Fatigue HEENT: Denies: Head Aches, Sinus Congestion, Sinus Drainage Cardiovascular: Denies: Chest Pain, Palpitations Respiratory: Reports: Shortness of breath upon exertion. Denies: Cough, Shortness of breath at rest, Sputum production Gastrointestinal: Reports: Abdominal Pain, Nausea. Denies: Vomiting Genitourinary: Denies: Dysuria Musculoskeletal: Reports: Joint Pain, Joint Tenderness Skin: Denies: Rash, Wounds Neurological: Denies: Numbness, Tingling, Focal weakness Psychiatric: Denies: Anxiety, Depression, Homicidal Ideations, Suicidal Ideations Hematologic/ Lymphatic: Denies: Easy Bruising, Easy Bleeding VTE Information - Inpt Only VTE Present on Admission: No VTE Pharm Prophylaxis ordered?: No Reason prophylaxis not ordered:: Medical Contraindication - Active hemorrhage Patient Problems: Active and Suspected Problems Hypotension (Acute) Vaginal bleeding (Acute) Recurrent colitis due to Clostridium difficile (Acute) - Physical Exam General: Oriented x3, Cooperative, Lethargic HEENT: Atraumatic, PERRLA, EOMI, Normocephalic Oral: Dry Mucosa Neck: Supple, No JVD, Negative Carotid Bruits Lungs: Clear to auscultation, Diminished, Short of Breath Cardiovascular: Regular Rhythm, Normal S1, Normal S2, No murmurs, Tachycardic Abdomen: Bowel Sounds Present, Soft, Hypoactive Bowel Sounds, Tender - Present over left side of her abdomen Abdomen. Extremities: Capillary Refill Less than 3 Seconds, Edema Skin: Rash Present - Present over intertriginous groin region Musculoskeletal: No Tenderness to Palpation of Joints or Extremities, Arthritic Changes, Muscle Wasting Neurological: Cranial nerves II-XII grossly intact Psych/Mental Status: Normal Affect, Appropriate Vital Signs Temp Pulse Resp BP Pulse Ox 97.5 F L 100 18 96/62 98 10/18/17 14:54 10/18/17 17:33 10/18/17 17:33 10/18/17 17:33 10/18/17 17:33 Assessment/Plan Active and Suspected Problems Hypotension (Acute) Vaginal bleeding (Acute) Recurrent colitis due to Clostridium difficile (Acute) The patient is a 67 year old F with multiple comorbidities including 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 Garner on October 15 was sent from group home for hypotension, tachycardia and low hemoglobin. In ED, patient was found to have vaginal bleeding as per ED Dr. Pulido. She was also seen in ER on last Saturday and as per ER physician she did not had vaginal bleeding at that time and denies any seeing LACQUER PIN PRESS OPERATOR doctor in the past. Patient is poor historian mainly from dementia. Patient also has chronic abdominal pain and currently complains of left-sided abdominal pain. In the ED, her heart rate was 110/min, respiratory rate 22, pulse ox 94% on room air and temperature 97.5. Her blood pressure was initially 135/106 but dropped to 83/48. Lactic acid is normal. INR is 2. H&H is 8.5/28. CT abdomen done in the ER with IV contrast but without oral contrast shows nonspecific diffuse colitis.. Right renal atrophy which is chronic with nonobstructive stones of left kidney 1. Acute hypotension with tachycardia most probably from vaginal/possible rectal bleeding: As per ER physician patient had vaginal bleeding as mentioned above. Patient is being admitted in ICU. Critical care. On aggressive IV fluid rehydration to correct hypotension. Type and crossmatch ordered. 1 unit of PRBC transfusion today. Director Of Student Financial Services consult. ER physician already talked to LACQUER PIN PRESS OPERATOR. 2. Acute anemia on anemia of chronic disease most probably from vaginal bleeding: LACQUER PIN PRESS OPERATOR consult as mentioned above. Patient also has chronic thrombocytopenia. Currently platelet count is 102,000. [place] [address]-76,000 in October 2017; probably from chronic liver disease 3 Acute on recurrent C. difficile colitis: Patient is on vancomycin 125 p.o. every 6 hourly. Increased to 250 mg every 6 hourly. On Flagyl 500 mg IV every 8 hourly. 4. History of recent, recurrent UTI with pseudomonas aeruginosa, Enterobacter heterogeneous and Enterococcus faecium in the past: UA with urine culture is ordered. Ayon catheter insertion to monitor intake and output. 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 Was placed on Accu-Cheks before meals and at bedtime with sliding scale coverage 6. Morbid obesity with BMI of 40.6 weight loss advised 7. Depression with anxiety 8. Physical debility requested for PT and OT eval and treatment patient was discharged back to her F Laboratory Results 10/18/17 15:17: WBC 5.1, RBC 2.84 L, Hgb 8.5 L, Hct 28.0 L, MCV 98.6, MCH 29.9, MCHC 30.4 L, RDW 21.3 H, RDW Differential 73.4 H, Plt Count 102 L, MPV 12.1 H, Immature Gran % (Auto) 0.800, Neut % (Auto) 67.2, Lymph % (Auto) 25.3, [place] % (Auto) 6.1, Eos % (Auto) 0.4, Baso % (Auto) 0.2, Absolute Neuts (auto) 3.4, Absolute Lymphs (auto) 1.28, Total Counted Not Reportable, Nucleated RBC % 1.3, Differential Comment , Diff Path Review May , Platelet Estimate SLT DEC, Polychromasia RARE, Hypochromasia 1+, Macrocytosis 1+, Ovalocytes RARE, Absolute Retic 0.06 10/18/17 15:17: PT 22.6 H, INR 2.0, APTT 46.8 H 10/18/17 15:17: Sodium 143, Potassium 4.4, Chloride 117 H, Carbon Dioxide 21.0, Anion Gap 5, BUN 18, Creatinine 0.93, Estim Creat Clear Calc 49.22, Est GFR (MDRD) Af Amer 77, Est GFR (MDRD) Non-Af 64, BUN/Creatinine Ratio 19.3, Glucose 94, Calcium 6.5 L* 10/18/17 15:17: Lactic Acid 1.5 10/18/17 15:17: Blood Type O POSITIVE, Antibody Screen NEGATIVE Clinical Impression(s) from Imaging Studies Abdomen/Pelvis CT 10/18/17 14:59 IMPRESSION: Evaluation of the GI tract limited without oral contrast. Cannot exclude diffuse colitis. No change in fatty liver, large hiatal hernia, severe right renal atrophy, nonobstructing stones of the left kidney. Code Visit Inpatient E&M: 82613 Init Hosp L3
--- NOTE | 2017-10-18 18:55 | HP.PCM_ITS ---
Problem List (1) Hypotension Status: Acute (2) Vaginal bleeding Status: Acute (3) Recurrent colitis due to Clostridium difficile Status: Acute (4) Dehydration Status: Acute (5) GEORGE (acute kidney injury) Status: Resolved (6) YOLANDA (obstructive sleep apnea) Status: Chronic (7) Obesity Status: Chronic (8) HTN (hypertension) Status: Chronic (9) Dyslipidemia Status: Chronic (10) DM type 2 (diabetes mellitus, type 2) Status: Chronic (11) Anxiety disorder Status: Chronic History of Present Illness Date of Admission: 10/18/17 Chief Complaint: Hypotension, tachycardia and vaginal bleeding The patient is a 67 year old F with multiple comorbidities including 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 Garner on October 15 was [facility] for hypotension, tachycardia and low hemoglobin. In ED, patient was found to have vaginal bleeding as per ED Dr. Pulido. She was also seen in ER on last Saturday and as per ER physician she did not had vaginal bleeding at that time and denies any seeing CLINICAL RESEARCH MONITOR doctor in the past. Patient also has chronic abdominal pain and currently complains of left-sided abdominal pain. In the ED, her heart rate was 110/min, respiratory rate 22, pulse ox 94% on room air and temperature 97.5. Her blood pressure was initially 135/106 but dropped to 83/48. Lactic acid is normal. INR is 2. H&H is 8.5/28. CT abdomen done in the ER with IV contrast but without oral contrast shows nonspecific diffuse colitis.. Right renal atrophy which is chronic with nonobstructive stones of left kidney [] Past Medical History Past Medical History (Chronic Problems): Chronic Problems YOLANDA (obstructive sleep apnea) (Chronic) Obesity (Chronic) HTN (hypertension) (Chronic) Dyslipidemia (Chronic) DM type 2 (diabetes mellitus, type 2) (Chronic) Anxiety disorder (Chronic) Allergies latex Allergy (Verified 10/18/17 14:53) Rash levofloxacin [From Levaquin] Allergy (Verified 10/18/17 14:53) Rash acetaminophen [From Darvocet-N] Adverse Reaction (Verified 10/18/17 14:53) Vomiting codeine Adverse Reaction (Verified 10/18/17 14:53) Unknown gabapentin Adverse Reaction (Verified 10/18/17 14:53) Other propoxyphene [From Darvon] Adverse Reaction (Verified 10/18/17 14:53) Vomiting Home Medications: Ambulatory Orders Medication Instructions Recorded Albuterol Inhaler [Ventolin Hfa] 2 puff INHALATION Q4H PRN PRN 02/28/16 Nystatin Powder [Mycostatin Powder] 1 applic TOPICAL BID PRN PRN 05/02/17 Nystatin/Triamcin Cream [Mycolog] 1 applic TOPICAL BID #1 tube 07/21/17 Allopurinol 100 mg PO BID 10/04/17 Bisacodyl 10 mg RC DAILY PRN PRN 10/04/17 Citalopram Hydrobromide 40 mg PO DAILY 10/04/17 [Citalopram HBr] Ferrous Sulfate [Iron] 325 mg PO DAILY 10/04/17 L. Rhamnosus GG/Inulin [Culturelle 1 each PO DAILY 10/04/17 Capsule] Mag Hydrox/Aluminum Hyd/Simeth 10/04/17 [Antacid Suspension] Omeprazole 40 mg PO DAILY 10/04/17 Potassium Chloride [K-Dur] 10 meq PO DAILY 10/04/17 Promethazine HCl 25 mg PO Q6H PRN PRN 10/04/17 Ranitidine [Zantac] 300 mg PO DAILY 10/04/17 Simvastatin 5 mg PO DAILY 10/04/17 busPIRone [Buspar] 5 mg PO BID 10/04/17 Vancomcyin 125 MG/ 5 ML Susp 125 mg PO Q6 #40 dose 10/07/17 [Vancomycin 125mg/5mL Susp] Ca/D3/Mag Ox/Zinc/Foundry Worker/Keo/Bor 1 each PO DAILY 10/16/17 [Calcium 585-T5-Ofvbhtmg Chw Tb] Lisinopril [Zestril] 10 mg PO DAILY #30 tab 10/16/17 Multivitamin [Daily Multiple 1 each PO DAILY 10/16/17 Vitamin] Zinc Oxide [Dr. Christopher's Adult 170 gm TP DAILY 10/16/17 Barrier] Surgical History: appendectomy, cholecystectomy CLINICAL RESEARCH MONITOR History: No pertinent CLINICAL RESEARCH MONITOR history Smoking Status: Former smoker - *Family History Maternal History Items: No pertinent history Paternal History Items: No pertinent history Review of Systems Constitutional: Reports: Malaise, Weakness, Fatigue HEENT: Denies: Head Aches, Sinus Congestion, Sinus Drainage Cardiovascular: Denies: Chest Pain, Palpitations Respiratory: Reports: Shortness of breath upon exertion. Denies: Cough, Shortness of breath at rest, Sputum production Gastrointestinal: Reports: Abdominal Pain, Nausea. Denies: Vomiting Genitourinary: Denies: Dysuria Musculoskeletal: Reports: Joint Pain, Joint Tenderness Skin: Denies: Rash, Wounds Neurological: Denies: Numbness, Tingling, Focal weakness Psychiatric: Denies: Anxiety, Depression, Homicidal Ideations, Suicidal Ideations Hematologic/ Lymphatic: Denies: Easy Bruising, Easy Bleeding VTE Information - Inpt Only VTE Present on Admission: No VTE Pharm Prophylaxis ordered?: No Reason prophylaxis not ordered:: Medical Contraindication - Active hemorrhage Patient Problems: Active and Suspected Problems Hypotension (Acute) Vaginal bleeding (Acute) Recurrent colitis due to Clostridium difficile (Acute) - Physical Exam General: Oriented x3, Cooperative, Lethargic HEENT: Atraumatic, PERRLA, EOMI, Normocephalic Oral: Dry Mucosa Neck: Supple, No JVD, Negative Carotid Bruits Lungs: Clear to auscultation, Diminished, Short of Breath Cardiovascular: Regular Rhythm, Normal S1, Normal S2, No murmurs, Tachycardic Abdomen: Bowel Sounds Present, Soft, Hypoactive Bowel Sounds, Tender - Present over left side of her abdomen Abdomen. Extremities: Capillary Refill Less than 3 Seconds, Edema Skin: Rash Present - Present over intertriginous groin region Musculoskeletal: No Tenderness to Palpation of Joints or Extremities, Arthritic Changes, Muscle Wasting Neurological: Cranial nerves II-XII grossly intact Psych/Mental Status: Normal Affect, Appropriate Vital Signs Temp Pulse Resp BP Pulse Ox 97.5 F L 100 18 96/62 98 10/18/17 14:54 10/18/17 17:33 10/18/17 17:33 10/18/17 17:33 10/18/17 17:33 Assessment/Plan Active and Suspected Problems Hypotension (Acute) Vaginal bleeding (Acute) Recurrent colitis due to Clostridium difficile (Acute) The patient is a 67 year old F with multiple comorbidities including 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 Garner on October 15 [facility] hypot[facility], tachycardia and low hemoglobin. In ED, patient was found to have vaginal bleeding as per ED Dr. Pulido. She was also seen in ER on last Saturday and as per ER physician she did not had vaginal bleeding at that time and denies any seeing CLINICAL RESEARCH MONITOR doctor in the past. Patient is poor historian mainly from dementia. Patient also has chronic abdominal pain and currently complains of left-sided abdominal pain. In the ED, her heart rate was 110/min, respiratory rate 22, pulse ox 94% on room air and temperature 97.5. Her blood pressure was initially 135/106 but dropped to 83/48. Lactic acid is normal. INR is 2. H&H is 8.5/28. CT abdomen done in the ER with IV contrast but without oral contrast shows nonspecific diffuse colitis.. Right renal atrophy which is chronic with nonobstructive stones of left kidney 1. Acute hypotension with tachycardia most probably from vaginal/possible rectal bleeding: As per ER physician patient had vaginal bleeding as mentioned above. Patient is being admitted in ICU. Critical care. On aggressive IV fluid rehydration to correct hypotension. Type and crossmatch ordered. 1 unit of PRBC transfusion today. Commercial Administrator consult. ER physician already talked to CLINICAL RESEARCH MONITOR. 2. Acute anemia on anemia of chronic disease most probably from vaginal bleeding : CLINICAL RESEARCH MONITOR consult as mentioned above. Patient also has chronic thrombocytopenia. Currently platelet count is 102,000. [place] [address]-01, 000 in October 2017; probably from chronic liver disease 3 Acute on recurrent C. difficile colitis: Patient is on vancomycin 125 p.o. every 6 hourly. Increased to 250 mg every 6 hourly. On Flagyl 500 mg IV every 8 hourly. 4. History of recent, recurrent UTI with pseudomonas aeruginosa, Enterobacter heterogeneous and Enterococcus faecium in the past: UA with urine culture is ordered. Ayon catheter insertion to monitor intake and output. 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 Was placed on Accu- Cheks before meals and at bedtime with sliding scale coverage 6. Morbid obesity with BMI of 40.6 weight loss advised 7. Depression with anxiety 8. Physical debility requested for PT and OT eval and treatment patient was discharged back to her F Laboratory Results 10/18/17 15:17: WBC 5.1, RBC 2.84 L, Hgb 8.5 L, Hct 28.0 L, MCV 98.6, MCH 29.9, MCHC 30.4 L, RDW 21.3 H, RDW Differential 73.4 H, Plt Count 102 L, MPV 12.1 H, Immature Gran % (Auto) 0.800, Neut % (Auto) 67.2, Lymph % (Auto) 25.3, [place] % ( Auto) 6.1, Eos % (Auto) 0.4, Baso % (Auto) 0.2, Absolute Neuts (auto) 3.4, Absolute Lymphs (auto) 1.28, Total Counted Not Reportable, Nucleated RBC % 1.3, Differential Comment , Diff Path Review May , Platelet Estimate SLT DEC, Polychromasia RARE, Hypochromasia 1+, Macrocytosis 1+, Ovalocytes RARE, Absolute Retic 0.06 10/18/17 15:17: PT 22.6 H, INR 2.0, APTT 46.8 H 10/18/17 15:17: Sodium 143, Potassium 4.4, Chloride 117 H, Carbon Dioxide 21.0, Anion Gap 5, BUN 18, Creatinine 0.93, Estim Creat Clear Calc 49.22, Est GFR ( MDRD) Af Amer 77, Est GFR (MDRD) Non-Af 64, BUN/Creatinine Ratio 19.3, Glucose 94, Calcium 6.5 L* 10/18/17 15:17: Lactic Acid 1.5 10/18/17 15:17: Blood Type O POSITIVE, Antibody Screen NEGATIVE Clinical Impression(s) from Imaging Studies Abdomen/Pelvis CT 10/18/17 14:59 IMPRESSION: Evaluation of the GI tract limited without oral contrast. Cannot exclude diffuse colitis. No change in fatty liver, large hiatal hernia, severe right renal atrophy, nonobstructing stones of the left kidney. Code Visit Inpatient E&M: 42419 Init Hosp L3
[2017-10-18] MEDS: 0.9% Normal Saline 1,000 ML 500 ML IV (19:39)
[2017-10-18] MEDS: 0.9% Normal Saline 1,000 ML 150 ML IV (19:42)
[2017-10-18] MEDS: 0.9% NaCl IVPB Med Flush (250 mL) 15 ML IV (20:43)
--- NOTE | 2017-10-18 21:10 | NURSING ---
Patient's ring given to daughter, Norma, to take home.
[2017-10-18] MEDS: Nystatin Powder 15gm Bottle 1 APPLIC TOPICAL (21:43)
[2017-10-18] MEDS: 0.9% NaCl Peripheral Flush Adult/Peds IV (21:46)
[2017-10-18 21:48] LABS: AST(SGOT) 61 U/L (15-37); Alanine Aminotransfer ALT/SGPT 27 U/L (13-56); Alkaline Phosphatase 382 U/L (45-117); Bilirubin, Direct 0.09 mg/dL (0.00-0.30); Globulin 2.4 g/dL (2.2-4.2); Protein, Total 3.4 g/dL (6.4-8.2)
[2017-10-18 22:02] LABS: M R Staph aureus DNA By PCR Negative (Negative); Probe Check PASS; Specimen Processing Control PASS
[2017-10-19] VITALS (34 sets, daily range): BP systolic 76–107; BP diastolic 41–66; PULSE 86–115; RESP 15–28; TEMP 36.8–38.2; O2SAT 90–100
[2017-10-19 00:06] LABS: Bedside Glucose 74 mg/dL (70-110)
[2017-10-19 00:21] LABS: Hematocrit 26.6 % (37-47); Mean Corp Hgb Conc 30.1 g/gl (32-36); Mean Corpuscular Hgb 30.4 pg (27.0-32.0); Mean Corpuscular Volume 101.1 fL (81-99); Mean Platelet Vol. 12.8 fl (6.2-12.0); Platelet Count 99 K/mm3 (150-450); RBC Distribution Width CV 21.2 % (11.6-14.6); RBC Distribution Width SD 70.3 fl (35.1-43.9); Red Blood Count 2.63 M/mm3 (4.2-5.4); White Blood Count 3.9 K/mm3 (4.4-11.0)
[2017-10-19 00:22] LABS: Scan Indicated on CBC? Y/N YES- FLAGS NOTED
[2017-10-19 00:35] LABS: Differential Comment SCANNED
[2017-10-19] MEDS: fentaNYL 100 MCG/2 ML Ampul 25 MCG IV (01:56)
--- NOTE | 2017-10-19 01:59 | NURSING ---
Fentanyl 25mcg given for back and buttocks pain 03/12. Medication verified with Wes Lowe RN. Vial was scanned, computer froze after vial was dispensed into sharps container.
[2017-10-19] MEDS: 0.9% Normal Saline 1,000 ML 150 ML IV ×3 (03:39→19:35)
[2017-10-19] MEDS: Nystatin Powder 15gm Bottle 1 APPLIC TOPICAL (05:05)
[2017-10-19] MEDS: CHLORHEXIDINE GLUC 2% CLOTH 1 EACH TOWELETTE TOPICAL (05:16)
[2017-10-19] MEDS: 0.9% Normal Saline 1,000 ML 999 ML IV (06:40)
[2017-10-19] MEDS: 0.9% NaCl Peripheral Flush Adult/Peds IV (06:51)
[2017-10-19] MEDS: Dextrose 50%-Water 25 GM/50 ML DISP.SYRIN IV (06:51)
[2017-10-19 07:30] LABS: Bedside Glucose 66 mg/dL (70-110)
[2017-10-19 07:30] LABS: Bedside Glucose 104 mg/dL (70-110)
--- NOTE | 2017-10-19 08:19 | CON.PCM_ITS ---
Problem List (1) Hypotension Status: Acute (2) Vaginal bleeding Status: Acute (3) Recurrent colitis due to Clostridium difficile Status: Acute (4) Dehydration Status: Acute (5) YOLANDA (obstructive sleep apnea) Status: Chronic (6) Obesity Status: Chronic (7) HTN (hypertension) Status: Chronic (8) Dyslipidemia Status: Chronic (9) DM type 2 (diabetes mellitus, type 2) Status: Chronic (10) Anxiety disorder Status: Chronic Reason for Consult Date of Consultation: 10/19/17 Reason for Consultation: Hypotension History of Present Illness: The patient is a 67 year old F, with past medical history listed below, who presented to [facility] secondary to vaginal bleeding. Patient has a history of recurrent C. difficile and reportedly has been treated for the last 6-8 weeks with recurrent doses of vancomycin and Flagyl. On presentation to the emergency room, patient was noted to be hypotensive with significant abdominal pain. Blood pressure at that time was adequate at 135/106 with a heart rate of 110. Patient was satting 94% on room air. Patient reportedly did appear pale. CT scan of the abdomen showed colitis. Over the course of ER care, patient became hypotensive and tachycardic. Patient was typed and screened secondary to vaginal bleeding, but no reported blood was given. Patient was then transferred to the intensive care unit for further monitoring. Over the evening, patient has remained labile with blood pressure. No pressors have been initiated at this time. Patient opens her eyes to voice, but is not really following commands or interacting reliably. Patient denies pain, but grimaces with deep palpation of the abdomen. No shortness of breath is reported. Patient was noted to have hypoglycemia this morning and did respond to protocol. No vaginal bleeding has been noted overnight. General surgery was called shortly after my evaluation of the patient. Surgery is currently speaking with family in attempting to find more information. Unable to obtain a reliable review of systems at this time. Review of the general medical record shows previous urine cultures with enterococcus faecium, faecalis and pseudomonas. Infectious disease is not available on the weekends. Past Medical History Past Medical History (Chronic Problems): Chronic Problems YOLANDA (obstructive sleep apnea) (Chronic) Obesity (Chronic) HTN (hypertension) (Chronic) Dyslipidemia (Chronic) DM type 2 (diabetes mellitus, type 2) (Chronic) Anxiety disorder (Chronic) Allergies latex Allergy (Verified 10/18/17 14:53) Rash levofloxacin [From Levaquin] Allergy (Verified 10/18/17 14:53) Rash acetaminophen [From Darvocet-N] Adverse Reaction (Verified 10/18/17 14:53) Vomiting codeine Adverse Reaction (Verified 10/18/17 14:53) Unknown gabapentin Adverse Reaction (Verified 10/18/17 14:53) Other propoxyphene [From Darvon] Adverse Reaction (Verified 10/18/17 14:53) Vomiting Home Medications: Ambulatory Orders Medication Instructions Recorded Albuterol Inhaler [Ventolin Hfa] 2 puff INHALATION Q4H PRN PRN 02/28/16 Nystatin Powder [Mycostatin Powder] 1 applic TOPICAL BID PRN PRN 05/02/17 Nystatin/Triamcin Cream [Mycolog] 1 applic TOPICAL BID #1 tube 07/21/17 Allopurinol 100 mg PO BID 10/04/17 Bisacodyl 10 mg RC DAILY PRN PRN 10/04/17 Citalopram Hydrobromide 40 mg PO DAILY 10/04/17 [Citalopram HBr] Ferrous Sulfate [Iron] 325 mg PO DAILY 10/04/17 L. Rhamnosus GG/Inulin [Culturelle 1 each PO DAILY 10/04/17 Capsule] Mag Hydrox/Aluminum Hyd/Simeth 10/04/17 [Antacid Suspension] Omeprazole 40 mg PO DAILY 10/04/17 Potassium Chloride [K-Dur] 10 meq PO DAILY 10/04/17 Promethazine HCl 25 mg PO Q6H PRN PRN 10/04/17 Ranitidine [Zantac] 300 mg PO DAILY 10/04/17 Simvastatin 5 mg PO DAILY 10/04/17 busPIRone [Buspar] 5 mg PO BID 10/04/17 Vancomcyin 125 MG/ 5 ML Susp 125 mg PO Q6 #40 dose 10/07/17 [Vancomycin 125mg/5mL Susp] Ca/D3/Mag Ox/Zinc/Senior Software Manager/Keo/Bor 1 each PO DAILY 10/16/17 [Calcium 130-O4-Ycdahybu Chw Tb] Multivitamin [Daily Multiple 1 each PO DAILY 10/16/17 Vitamin] Zinc Oxide [Dr. Christopher's Adult 170 gm TP DAILY 10/16/17 Barrier] Surgical History: appendectomy, cholecystectomy POND SUPERVISOR History: No pertinent POND SUPERVISOR history Smoking Status: Former smoker - *Family History Maternal History Items: No pertinent history Paternal History Items: No pertinent history Review of Systems Unable to obtain accurate/complete ROS d/t: Current medical state Patient Problems: Active and Suspected Problems Hypotension (Acute) Vaginal bleeding (Acute) Recurrent colitis due to Clostridium difficile (Acute) Objective: CT of the abdomen was personally reviewed by myself and with surgery. No acute perforation was appreciated. There is some colonic thickening noted. - Physical Exam General: - - RASS -2. No accessory muscle use noted. Morbidly obese. Pale in appearance without diaphoresis HEENT: Atraumatic, PERRLA, EOMI, Normocephalic Oral: No Gingival or Mucosal Lesions/ Ulcerations, Dry Mucosa Neck: Supple, No JVD, No Nodes, Trachea Midline Lungs: No rhonchi, No wheeze, No rales, Diminished, - - Symmetric expansion. No dullness to percussion. Cardiovascular: Normal S1, Normal S2, No murmurs, No rub noted, No Gallop, Tachycardic Abdomen: Soft, Non-Distended, Hypoactive Bowel Sounds, Rebound Tenderness Extremities: No clubbing, No cyanosis, Capillary Refill Less than 3 Seconds, Edema Skin: No rashes, No breakdown Musculoskeletal: No Tenderness to Palpation of Joints or Extremities Lymphatic: No Cervical, Supraclavicular, or Inguinal Adenopathy Neurological: Cranial nerves II-XII grossly intact, Sensory exam intact to light touch and pain Psych/Mental Status: Flat Affect Vital Signs Temp Pulse Resp BP Pulse Ox 36.8 C 97 21 H 81/49 L 95 10/19/17 00:00 10/19/17 08:00 10/19/17 07:00 10/19/17 07:00 10/19/17 07:00 Oxygen Delivery Method Room Air Weight: 114.8 kg Body Mass Index (BMI) 39.6 Intake and Output for Last 24 Hours 10/17/17 10/18/17 10/19/17 23:59 23:59 23:59 Intake Total 1916 / 1916 871.3 / 871.3 Output Total 400 / 400 350 / 350 Balance 1516 / 1516 521.3 / 521.3 Laboratory Tests Past 24 Hrs 10/18/17 10/18/17 10/18/17 19:50 20:50 20:50 WBC Cancelled Corrected WBC Cancelled RBC Cancelled Hgb Cancelled Hct Cancelled MCV Cancelled MCH Cancelled MCHC Cancelled RDW Cancelled RDW Differential Cancelled Plt Count Cancelled MPV Cancelled Differential Comment Diff Path Review Cancelled Total Bilirubin 0.60 Direct Bilirubin 0.09 AST 61 H ALT 27 Alkaline Phosphatase 382 H Total Protein 3.4 L Albumin 1.0 L Globulin 2.4 MRSA (PCR) Negative 10/18/17 23:40 WBC 3.9 L Corrected WBC RBC 2.63 L Hgb 8.0 L Hct 26.6 L MCV 101.1 H MCH 30.4 MCHC 30.1 L RDW 21.2 H RDW Differential 70.3 H Plt Count 99 L MPV 12.8 H Differential Comment SCANNED Diff Path Review Total Bilirubin Direct Bilirubin AST ALT Alkaline Phosphatase Total Protein Albumin Globulin MRSA (PCR) POC Glucose 10/19/17 10/19/17 10/18/17 07:05 06:38 23:39 POC Glucose 104 66 L 74 Clinical Impression(s) from Imaging Studies Abdomen/Pelvis CT 10/18/17 14:59 IMPRESSION: Evaluation of the GI tract limited without oral contrast. Cannot exclude diffuse colitis. No change in fatty liver, large hiatal hernia, severe right renal atrophy, nonobstructing stones of the left kidney. Electronically Signed: Syed Casey MD at 16:34 EDT , Service support , Assessment/Plan Active and Suspected Problems Hypotension (Acute) Vaginal bleeding (Acute) Recurrent colitis due to Clostridium difficile (Acute) RECOMMENDATIONS: 1. Place arterial line 2. Await recommendations from surgery 3. Possible initiation of pressor therapy 4. Verify C. difficile status 5. Transfuse 1 unit of blood 6. Place PICC line 7. Possibly place NG to facilitate p.o. vancomycin 8. Baseline BuSpar IMPRESSIONS: 1. Hypotension History is limited at this time. Patient does have a history of C. difficile, so C. difficile colitis associated septic shock would be a concern. Patient does have a large body habitus and may have inaccurate blood pressures. Arterial line will be placed. Patient currently being covered for C. difficile colitis. Will obtain pancultures. Also obtain a UA and treat with empiric healthcare associated antibiotics if consistent with infection. Anticipate prolonged medical course, so we will place a PICC line instead of a central line if possible. Cannot exclude the need for colectomy. 2. Acute blood loss anemia secondary to reported vaginal bleeding INR is elevated on presentation. Patient also has a low albumin. Gynecology has been consulted. Patient has a history of chronic thrombocytopenia that is thought to be secondary to chronic liver disease. Will transfuse 1 unit of packed red blood cells in attempt to keep hemoglobin greater than 9 given reported acute blood loss. Current hemoglobin is not that far off of baseline hemoglobin of approximately 9. 3. History of recurrent UTI Ayon is in place. Will obtain urinalysis and culture. Infectious disease is not available on the weekends. 4. Type 2 diabetes mellitus with multiple complications Patient currently n.p.o. secondary to status. Check fingerstick blood sugars with sliding scale insulin. No basal insulin at this time. 5. Morbid obesity/anxiety/depression/protracted illness/lack of history Complicates care, management, recovery and prognosis. Will continue to monitor closely. Patient was significantly depressed albumin with prolonged medical care and deconditioning. Continue with mobility protocol. TIME: 50 minutes of critical care time spent addressing patient's hypotension, acute blood loss anemia, review of all data and collaboration with care team (7 AM to 8:40 AM) Code Visit 9xxxx: [id number] Critical care first hour
--- NOTE | 2017-10-19 08:20 | PCM.PN.HOSP ---
Patient Problems: Active and Suspected Problems Chronic anemia (Acute) Hypotension (Acute) Vaginal bleeding (Acute) Recurrent colitis due to Clostridium difficile (Acute) Subjective: Patient is still hypotensive, blood pressure 80/64 to low 90s; map 68. Heart rate in 90s. The patient is 1/4 drowsy, disoriented to time, place and circumstances Patient has fecal bag. Seen by surgeon, bread stacker, and SALES ENGINEER. Vitals/I&O's: Vital Signs Temp Pulse Resp BP Pulse Ox 98.2 F 98 23 H 80/50 L 94 10/19/17 00:00 10/19/17 08:00 10/19/17 08:00 10/19/17 08:00 10/19/17 08:00 Oxygen Delivery Method Room Air Weight: 253 lb 1.451 oz Body Mass Index (BMI) 39.6 Intake and Output for Last 24 Hours 10/17/17 10/18/17 10/19/17 23:59 23:59 23:59 Intake Total 1916 / 1916 871.3 / 871.3 Output Total 400 / 400 350 / 350 Balance 1516 / 1516 521.3 / 521.3 General: Confused, Disoriented, Lethargic HEENT: Atraumatic, PERRLA, EOMI, Normocephalic Oral: Dry Mucosa Lungs: No wheeze, No rales, Diminished Cardiovascular: Regular rate, Regular Rhythm, Normal S1, Normal S2, No murmurs Abdomen: Bowel Sounds Present, Soft, Hypoactive Bowel Sounds, Rebound Tenderness - Mainly in the left side., Tender Extremities: Edema Musculoskeletal: Arthritic Changes, Muscle Wasting Neurological: - - Cannot completely assess the patient is very lethargic and disoriented Psych/Mental Status: Flat Affect Laboratory Results 10/18/17 19:50: MRSA (PCR) Negative 10/18/17 20:50: Total Bilirubin 0.60, Direct Bilirubin 0.09, AST 61 H, ALT 27, Alkaline Phosphatase 382 H, Total Protein 3.4 L, Albumin 1.0 L, Globulin 2.4 10/18/17 20:50: WBC Cancelled, Corrected WBC Cancelled, RBC Cancelled, Hgb Cancelled, Hct Cancelled, MCV Cancelled, MCH Cancelled, MCHC Cancelled, RDW Cancelled, RDW Differential Cancelled, Plt Count Cancelled, MPV Cancelled, Diff Path Review Cancelled 10/18/17 23:39: POC Glucose 74 10/18/17 23:40: WBC 3.9 L, RBC 2.63 L, Hgb 8.0 L, Hct 26.6 L, MCV 101.1 H, MCH 30.4, MCHC 30.1 L, RDW 21.2 H, RDW Differential 70.3 H, Plt Count 99 L, MPV 12.8 H, Differential Comment SCANNED 10/19/17 06:38: POC Glucose 66 L 10/19/17 07:05: POC Glucose 104 Current Medications Allopurinol (Zyloprim) 100 mg PO BID [facility] Last Admin: 10/18/17 23:45 Dose: Not Given Bisacodyl (Dulcolax) 10 mg RECTAL DAILY PRN PRN PRN Reason: Constipation Chlorhexidine Gluconate () 1 each TOPICAL DAILY [facility] Last Admin: 10/19/17 05:16 Dose: 1 each Dextrose (D50w Syringe) 0 gm IV X1 PRN; Protocol PRN Reason: Hypoglycemia Last Admin: 10/19/17 06:51 Dose: 12.5 gm Fentanyl Citrate (Sublimaze (100mcg Ampule)) 25 mcg IV Q2H PRN PRN PRN Reason: PAIN Last Admin: 10/19/17 01:56 Dose: 25 mcg Glucagon () 1 mg IM .X1 PRN PRN Reason: Hypoglycemia Sodium Chloride () 1,000 mls @ 150 mls/hr IV .Q6H40M [facility] Last Admin: 10/19/17 03:39 Dose: 150 mls/hr Metronidazole (Flagyl) 500 mg in 100 mls @ 100 mls/hr IV Q8 [facility] Last Admin: 10/19/17 05:05 Dose: 100 mls/hr Pantoprazole Sodium 40 mg/ (Sodium Chloride) 110 mls @ 330 mls/hr IV DAILY [facility] Last Admin: 10/18/17 20:43 Dose: 330 mls/hr Sodium Chloride () 250 mls @ 15 mls/hr IV .[id number] PRN PRN Reason: SALINE FLUSH Last Admin: 10/18/17 20:43 Dose: 15 mls/hr Magnesium Hydroxide (Milk Of Magnesia) 30 ml PO DAILY PRN PRN Reason: Constipation Magnesium Hydroxide (Milk Of Magnesia) 30 ml PO DAILY PRN PRN PRN Reason: Constipation Nystatin (Mycostatin Powder) 1 applic TOPICAL TID JOELLE PRN Reason: Protocol Last Admin: 10/19/17 05:05 Dose: 1 applicatio Ondansetron HCl (Zofran) 4 mg IV Q8H PRN PRN PRN Reason: NAUSEA Promethazine HCl (Phenergan) 12.5 mg IV Q6H PRN PRN PRN Reason: NAUSEA/VOMITING Sodium Chloride () 5 - 30 ml IV UD PRN PRN Reason: SALINE FLUSH Last Admin: 10/19/17 06:51 Dose: 20 ml Vancomycin HCl (Vancomycin 125mg/5ml Susp) 250 mg PO Q6 JOELLE Last Admin: 10/19/17 05:17 Dose: Not Given Medical Necessity - Tobacco Use Smoking Status: Former smoker Assessment/Plan Active and Suspected Problems Chronic anemia (Acute) Hypotension (Acute) Vaginal bleeding (Acute) Recurrent colitis due to Clostridium difficile (Acute) The patient is a 67 year old F with multiple comorbidities including 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 Garner on October 15 was sent from alf for hypotension, tachycardia and low hemoglobin. In ED, patient was found to have vaginal bleeding as per ED Dr. Pulido. She was also seen in ER on last Saturday and as per ER physician she did not had vaginal bleeding at that time and denies any seeing SALES ENGINEER doctor in the past. Patient is poor historian mainly from dementia. Patient also has chronic abdominal pain and currently complains of left-sided abdominal pain. In the ED, her heart rate was 110/min, respiratory rate 22, pulse ox 94% on room air and temperature 97.5. Her blood pressure was initially 135/106 but dropped to 83/48. Lactic acid is normal. INR is 2. H&H is 8.5/28. CT abdomen done in the ER with IV contrast but without oral contrast shows nonspecific diffuse colitis.. Right renal atrophy which is chronic with nonobstructive stones of left kidney 1. SIRS (tachycardia, hypotension, acute hypotension with tachycardia, tachypnea; exact etiology unclear but possible vaginal bleeding/rectal bleeding or infectious etiology/UTI: As per ER physician patient had vaginal bleeding as mentioned above. Patient is being admitted in ICU. Critical care. On aggressive IV fluid rehydration to correct hypotension. Type and crossmatch ordered. 1 unit of PRBC transfusion today. Discussed with the bread stacker, Dr. Donovan, surgeon Dr. Hall and SALES ENGINEER. SALES ENGINEER recommended pelvic ultrasound when she is more stable. A-line placed. Blood pressure i 89/56s. 2. Acute anemia on anemia of chronic disease most probably from vaginal bleeding with pancytopenia: SALES ENGINEER consult as mentioned above. Patient also has chronic thrombocytopenia. Currently platelet count is 102,000. [place] [address]-85,000 in October 2017; probably from chronic liver disease. When patient is more stable, can consult nurses educator. 3 history of recurrent C. difficile colitis: C. difficile test is negative. Vancomycin oral is discontinued. Try to get alf test regarding C. difficile as she verbally told about 3-4 times history of C. difficile 4. History of recent, recurrent UTI with pseudomonas aeruginosa, Enterobacter heterogeneous and Enterococcus faecium in the past: Ayon catheter insertion to monitor intake and output. UA suggestive of leukocyte esterase positive and nitrite positive but no significant pyuria. On empiric broad-spectrum antibiotic meropenem and vancomycin. 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 Was placed on Accu-Cheks before meals and at bedtime with sliding scale coverage 6. Morbid obesity with BMI of 40.6 weight loss advised 7. Depression with anxiety 8. Physical debility requested for PT and OT eval and treatment patient was discharged back to her [facility] Laboratory Results 10/18/17 15:17: WBC 5.1, RBC 2.84 L, Hgb 8.5 L, Hct 28.0 L, MCV 98.6, MCH 29.9, MCHC 30.4 L, RDW 21.3 H, RDW Differential 73.4 H, Plt Count 102 L, MPV 12.1 H, Immature Gran % (Auto) 0.800, Neut % (Auto) 67.2, Lymph % (Auto) 25.3, [place] % (Auto) 6.1, Eos % (Auto) 0.4, Baso % (Auto) 0.2, Absolute Neuts (auto) 3.4, Absolute Lymphs (auto) 1.28, Total Counted Not Reportable, Nucleated RBC % 1.3, Differential Comment , Diff Path Review October, Platelet Estimate SLT DEC, Polychromasia RARE, Hypochromasia 1+, Macrocytosis 1+, Ovalocytes RARE, Absolute Retic 0.06 10/18/17 15:17: PT 22.6 H, INR 2.0, APTT 46.8 H 10/18/17 15:17: Sodium 143, Potassium 4.4, Chloride 117 H, Carbon Dioxide 21.0, Anion Gap 5, BUN 18, Creatinine 0.93, Estim Creat Clear Calc 49.22, Est GFR (MDRD) Af Amer 77, Est GFR (MDRD) Non-Af 64, BUN/Creatinine Ratio 19.3, Glucose 94, Calcium 6.5 L* 10/18/17 15:17: Lactic Acid 1.5 10/18/17 15:17: Blood Type O POSITIVE, Antibody Screen NEGATIVE Clinical Impression(s) from Imaging Studies Abdomen/Pelvis CT 10/18/17 14:59 IMPRESSION: Evaluation of the GI tract limited without oral contrast. Cannot exclude diffuse colitis. No change in fatty liver, large hiatal hernia, severe right renal atrophy, nonobstructing stones of the left kidney. Code Visit Inpatient E&M: 64148 Init Hosp L3
--- NOTE | 2017-10-19 08:23 | PCM.CONS.GEN ---
Reason for Consult Date of Consultation: 10/19/17 Reason for Consultation: vaginal bleeding History of Present Illness: The patient is a 67 year old female with dementia, presented from [facility] with hypotension, tachycardia. abdominal pain. Vaginal bleeding noted on exam in emergency dept. Past Medical History Past Medical History (Chronic Problems): Chronic Problems YOLANDA (obstructive sleep apnea) (Chronic) Obesity (Chronic) HTN (hypertension) (Chronic) Dyslipidemia (Chronic) DM type 2 (diabetes mellitus, type 2) (Chronic) Anxiety disorder (Chronic) Allergies latex Allergy (Verified 10/18/17 14:53) Rash levofloxacin [From Levaquin] Allergy (Verified 10/18/17 14:53) Rash acetaminophen [From Darvocet-N] Adverse Reaction (Verified 10/18/17 14:53) Vomiting codeine Adverse Reaction (Verified 10/18/17 14:53) Unknown gabapentin Adverse Reaction (Verified 10/18/17 14:53) Other propoxyphene [From Darvon] Adverse Reaction (Verified 10/18/17 14:53) Vomiting Home Medications: Ambulatory Orders Medication Instructions Recorded Albuterol Inhaler [Ventolin Hfa] 2 puff INHALATION Q4H PRN PRN 02/28/16 Nystatin Powder [Mycostatin Powder] 1 applic TOPICAL BID PRN PRN 05/02/17 Nystatin/Triamcin Cream [Mycolog] 1 applic TOPICAL BID #1 tube 07/21/17 Allopurinol 100 mg PO BID 10/04/17 Bisacodyl 10 mg RC DAILY PRN PRN 10/04/17 Citalopram Hydrobromide 40 mg PO DAILY 10/04/17 [Citalopram HBr] Ferrous Sulfate [Iron] 325 mg PO DAILY 10/04/17 L. Rhamnosus GG/Inulin [Culturelle 1 each PO DAILY 10/04/17 Capsule] Mag Hydrox/Aluminum Hyd/Simeth 10/04/17 [Antacid Suspension] Omeprazole 40 mg PO DAILY 10/04/17 Potassium Chloride [K-Dur] 10 meq PO DAILY 10/04/17 Promethazine HCl 25 mg PO Q6H PRN PRN 10/04/17 Ranitidine [Zantac] 300 mg PO DAILY 10/04/17 Simvastatin 5 mg PO DAILY 10/04/17 busPIRone [Buspar] 5 mg PO BID 10/04/17 Vancomcyin 125 MG/ 5 ML Susp 125 mg PO Q6 #40 dose 10/07/17 [Vancomycin 125mg/5mL Susp] Ca/D3/Mag Ox/Zinc/Relief Docking Master/Keo/Bor 1 each PO DAILY 10/16/17 [Calcium 969-T2-[id number] Chw Tb] Multivitamin [Daily Multiple 1 each PO DAILY 10/16/17 Vitamin] Zinc Oxide [Dr. Christopher's Adult 170 gm TP DAILY 10/16/17 Barrier] Surgical History: appendectomy, cholecystectomy, - - cataract surgery ORACLE E BUSINESS DEVELOPER History: No pertinent ORACLE E BUSINESS DEVELOPER history Smoking Status: Former smoker - *Family History Maternal History Items: No pertinent history Paternal History Items: No pertinent history Review of Systems Gastrointestinal: Reports: Abdominal Pain Patient Problems: Active and Suspected Problems Hypotension (Acute) Vaginal bleeding (Acute) Recurrent colitis due to Clostridium difficile (Acute) Subjective: poor historian d/t dementia - Physical Exam General: Alert, Cooperative, Confused HEENT: Atraumatic Abdomen: Obese, Tender Extremities: Edema, - - does not tolerate movement of legs 2/2 abdominal pain Skin: - - minimal blood ? streak at upper thigh, no active bleeding appreciated but very limited exam as not able to tolerate movement of legs Psych/Mental Status: - - confused. oriented to year and her name Vital Signs Temp Pulse Resp BP Pulse Ox 98.2 F 98 23 H 80/50 L 94 10/19/17 00:00 10/19/17 08:00 10/19/17 08:00 10/19/17 08:00 10/19/17 08:00 Oxygen Delivery Method Room Air Weight: 114.8 kg Body Mass Index (BMI) 39.6 Intake and Output for Last 24 Hours 10/17/17 10/18/17 10/19/17 23:59 23:59 23:59 Intake Total 1916 / 1916 871.3 / 871.3 Output Total 400 / 400 350 / 350 Balance 1516 / 1516 521.3 / 521.3 Laboratory Tests Past 24 Hrs 10/18/17 10/18/17 10/18/17 19:50 20:50 20:50 WBC Cancelled Corrected WBC Cancelled RBC Cancelled Hgb Cancelled Hct Cancelled MCV Cancelled MCH Cancelled MCHC Cancelled RDW Cancelled RDW Differential Cancelled Plt Count Cancelled MPV Cancelled Differential Comment Diff Path Review Cancelled Total Bilirubin 0.60 Direct Bilirubin 0.09 AST 61 H ALT 27 Alkaline Phosphatase 382 H Total Protein 3.4 L Albumin 1.0 L Globulin 2.4 MRSA (PCR) Negative 10/18/17 23:40 WBC 3.9 L Corrected WBC RBC 2.63 L Hgb 8.0 L Hct 26.6 L MCV 101.1 H MCH 30.4 MCHC 30.1 L RDW 21.2 H RDW Differential 70.3 H Plt Count 99 L MPV 12.8 H Differential Comment SCANNED Diff Path Review Total Bilirubin Direct Bilirubin AST ALT Alkaline Phosphatase Total Protein Albumin Globulin MRSA (PCR) POC Glucose 10/19/17 10/19/17 10/18/17 07:05 06:38 23:39 POC Glucose [address]: fatty liver; gallbladder not seen, atrophy of right kidney, nonobstructive stones left kidney; hiatal hernia. diffuse colitis. There is atrophy of the uterus, Normal retroperitoneum. Assessment/Plan Active and Suspected Problems Hypotension (Acute) Vaginal bleeding (Acute) Recurrent colitis due to Clostridium difficile (Acute) A/P: Postmenopausal bleeding. The minimal bleeding noted on limited exam would not explain her chronic anemia or current hypotension and tachycardia. No prior documentation of postmenopausal bleeding on exams in ED in recent weeks (recurrent visits due to C Diff colitis). I am unable to adequately examine patient due to abdominal pain and her inability to tolerate movement of her legs without pain. Limited exam today showed very minimal vaginal bleeding with a possible streak of blood at the upper inner thighs. Differential diagnosis of bleeding includes: cervical cancer, endometrial hyperplasia with / without atypia, endometrial polyp, endometrial cancer or scant bleeding due to urogenital atrophy and her elevated INR. Would recommend a pelvic ultrasound as the next step if she is able to tolerate this. May consider endometrial biopsy and would recommend this if the endometrial stripe is thick.
--- NOTE | 2017-10-19 08:25 | PN_ITS ---
Patient Problems: Active and Suspected Problems Chronic anemia (Acute) Hypotension (Acute) Vaginal bleeding (Acute) Recurrent colitis due to Clostridium difficile (Acute) Subjective: Patient is still hypotensive, blood pressure 80/64 to low 90s; map 68. Heart rate in 90s. The patient is 1/4 drowsy, disoriented to time, place and circumstances Patient has fecal bag. Seen by surgeon, engineering secretary, and CROP SETTING OUT MACHINE OPERATOR. Vitals/I&O's: Vital Signs Temp Pulse Resp BP Pulse Ox 98.2 F 98 23 H 80/50 L 94 10/19/17 00:00 10/19/17 08:00 10/19/17 08:00 10/19/17 08:00 10/19/17 08:00 Oxygen Delivery Method Room Air Weight: 253 lb 1.451 oz Body Mass Index (BMI) 39.6 Intake and Output for Last 24 Hours 10/17/17 10/18/17 10/19/17 23:59 23:59 23:59 Intake Total 1916 / 1916 871.3 / 871.3 Output Total 400 / 400 350 / 350 Balance 1516 / 1516 521.3 / 521.3 General: Confused, Disoriented, Lethargic HEENT: Atraumatic, PERRLA, EOMI, Normocephalic Oral: Dry Mucosa Lungs: No wheeze, No rales, Diminished Cardiovascular: Regular rate, Regular Rhythm, Normal S1, Normal S2, No murmurs Abdomen: Bowel Sounds Present, Soft, Hypoactive Bowel Sounds, Rebound Tenderness - Mainly in the left side., Tender Extremities: Edema Musculoskeletal: Arthritic Changes, Muscle Wasting Neurological: - - Cannot completely assess the patient is very lethargic and disoriented Psych/Mental Status: Flat Affect Laboratory Results 10/18/17 19:50: MRSA (PCR) Negative 10/18/17 20:50: Total Bilirubin 0.60, Direct Bilirubin 0.09, AST 61 H, ALT 27, Alkaline Phosphatase 382 H, Total Protein 3.4 L, Albumin 1.0 L, Globulin 2.4 10/18/17 20:50: WBC Cancelled, Corrected WBC Cancelled, RBC Cancelled, Hgb Cancelled, Hct Cancelled, MCV Cancelled, MCH Cancelled, MCHC Cancelled, RDW Cancelled, RDW Differential Cancelled, Plt Count Cancelled, MPV Cancelled, Diff Path Review Cancelled 10/18/17 23:39: POC Glucose 74 10/18/17 23:40: WBC 3.9 L, RBC 2.63 L, Hgb 8.0 L, Hct 26.6 L, MCV 101.1 H, MCH 30.4, MCHC 30.1 L, RDW 21.2 H, RDW Differential 70.3 H, Plt Count 99 L, MPV 12.8 H, Differential Comment SCANNED 10/19/17 06:38: POC Glucose 66 L 10/19/17 07:05: POC Glucose 104 Current Medications Allopurinol (Zyloprim) 100 mg PO BID [facility] Last Admin: 10/18/17 23:45 Dose: Not Given Bisacodyl (Dulcolax) 10 mg RECTAL DAILY PRN PRN PRN Reason: Constipation Chlorhexidine Gluconate () 1 each TOPICAL DAILY [facility] Last Admin: 10/19/17 05:16 Dose: 1 each Dextrose (D50w Syringe) 0 gm IV X1 PRN; Protocol PRN Reason: Hypoglycemia Last Admin: 10/19/17 06:51 Dose: 12.5 gm Fentanyl Citrate (Sublimaze (100mcg Ampule)) 25 mcg IV Q2H PRN PRN PRN Reason: PAIN Last Admin: 10/19/17 01:56 Dose: 25 mcg Glucagon () 1 mg IM .X1 PRN PRN Reason: Hypoglycemia Sodium Chloride () 1,000 mls @ 150 mls/hr IV .Q6H40M [facility] Last Admin: 10/19/17 03:39 Dose: 150 mls/hr Metronidazole (Flagyl) 500 mg in 100 mls @ 100 mls/hr IV Q8 [facility] Last Admin: 10/19/17 05:05 Dose: 100 mls/hr Pantoprazole Sodium 40 mg/ (Sodium Chloride) 110 mls @ 330 mls/hr IV DAILY [facility] Last Admin: 10/18/17 20:43 Dose: 330 mls/hr Sodium Chloride () 250 mls @ 15 mls/hr IV .[id number] PRN PRN Reason: SALINE FLUSH Last Admin: 10/18/17 20:43 Dose: 15 mls/hr Magnesium Hydroxide (Milk Of Magnesia) 30 ml PO DAILY PRN PRN Reason: Constipation Magnesium Hydroxide (Milk Of Magnesia) 30 ml PO DAILY PRN PRN PRN Reason: Constipation Nystatin (Mycostatin Powder) 1 applic TOPICAL TID JOELLE PRN Reason: Protocol Last Admin: 10/19/17 05:05 Dose: 1 applicatio Ondansetron HCl (Zofran) 4 mg IV Q8H PRN PRN PRN Reason: NAUSEA Promethazine HCl (Phenergan) 12.5 mg IV Q6H PRN PRN PRN Reason: NAUSEA/VOMITING Sodium Chloride () 5 - 30 ml IV UD PRN PRN Reason: SALINE FLUSH Last Admin: 10/19/17 06:51 Dose: 20 ml Vancomycin HCl (Vancomycin 125mg/5ml Susp) 250 mg PO Q6 JOELLE Last Admin: 10/19/17 05:17 Dose: Not Given Medical Necessity - Tobacco Use Smoking Status: Former smoker Assessment/Plan Active and Suspected Problems Chronic anemia (Acute) Hypotension (Acute) Vaginal bleeding (Acute) Recurrent colitis due to Clostridium difficile (Acute) The patient is a 67 year old F with multiple comorbidities including 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 Garner on October 15 was [facility] for hypotension, tachycardia and low hemoglobin. In ED, patient was found to have vaginal bleeding as per ED Dr. Pulido. She was also seen in ER on last Saturday and as per ER physician she did not had vaginal bleeding at that time and denies any seeing CROP SETTING OUT MACHINE OPERATOR doctor in the past. Patient is poor historian mainly from dementia. Patient also has chronic abdominal pain and currently complains of left-sided abdominal pain. In the ED, her heart rate was 110/min, respiratory rate 22, pulse ox 94% on room air and temperature 97.5. Her blood pressure was initially 135/106 but dropped to 83/48. Lactic acid is normal. INR is 2. H&H is 8.5/28. CT abdomen done in the ER with IV contrast but without oral contrast shows nonspecific diffuse colitis.. Right renal atrophy which is chronic with nonobstructive stones of left kidney 1. SIRS (tachycardia, hypotension, acute hypotension with tachycardia, tachypnea; exact etiology unclear but possible vaginal bleeding/rectal bleeding or infectious etiology/UTI: As per ER physician patient had vaginal bleeding as mentioned above. Patient is being admitted in ICU. Critical care. On aggressive IV fluid rehydration to correct hypotension. Type and crossmatch ordered. 1 unit of PRBC transfusion today. Discussed with the engineering secretary, Dr. Donovan, surgeon Dr. Hall and CROP SETTING OUT MACHINE OPERATOR. CROP SETTING OUT MACHINE OPERATOR recommended pelvic ultrasound when she is more stable. A-line placed. Blood pressure i 89/56s. 2. Acute anemia on anemia of chronic disease most probably from vaginal bleeding with pancytopenia: CROP SETTING OUT MACHINE OPERATOR consult as mentioned above. Patient also has chronic thrombocytopenia. Currently platelet count is 102,000. [place] [address]-09,000 in October 2017; probably from chronic liver disease. When patient is more stable, can consult application programmer analyst. 3 history of recurrent C. difficile colitis: C. difficile test is negative. Vancomycin oral is discontinued. Try to get [facility] test regarding C. difficile as she verbally told about 3-4 times history of C. difficile 4. History of recent, recurrent UTI with pseudomonas aeruginosa, Enterobacter heterogeneous and Enterococcus faecium in the past: Ayon catheter insertion to monitor intake and output. UA suggestive of leukocyte esterase positive and nitrite positive but no significant pyuria. On empiric broad-spectrum antibiotic meropenem and vancomycin. 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 Was placed on Accu- Cheks before meals and at bedtime with sliding scale coverage 6. Morbid obesity with BMI of 40.6 weight loss advised 7. Depression with anxiety 8. Physical debility requested for PT and OT eval and treatment patient was discharged back to her [facility] Laboratory Results 10/18/17 15:17: WBC 5.1, RBC 2.84 L, Hgb 8.5 L, Hct 28.0 L, MCV 98.6, MCH 29.9, MCHC 30.4 L, RDW 21.3 H, RDW Differential 73.4 H, Plt Count 102 L, MPV 12.1 H, Immature Gran % (Auto) 0.800, Neut % (Auto) 67.2, Lymph % (Auto) 25.3, Angelina % ( Auto) 6.1, Eos % (Auto) 0.4, Baso % (Auto) 0.2, Absolute Neuts (auto) 3.4, Absolute Lymphs (auto) 1.28, Total Counted Not Reportable, Nucleated RBC % 1.3, Differential Comment , Diff Path Review October, Platelet Estimate SLT DEC, Polychromasia RARE, Hypochromasia 1+, Macrocytosis 1+, Ovalocytes RARE, Absolute Retic 0.06 10/18/17 15:17: PT 22.6 H, INR 2.0, APTT 46.8 H 10/18/17 15:17: Sodium 143, Potassium 4.4, Chloride 117 H, Carbon Dioxide 21.0, Anion Gap 5, BUN 18, Creatinine 0.93, Estim Creat Clear Calc 49.22, Est GFR ( MDRD) Af Amer 77, Est GFR (MDRD) Non-Af 64, BUN/Creatinine Ratio 19.3, Glucose 94, Calcium 6.5 L* 10/18/17 15:17: Lactic Acid 1.5 10/18/17 15:17: Blood Type O POSITIVE, Antibody Screen NEGATIVE Clinical Impression(s) from Imaging Studies Abdomen/Pelvis CT 10/18/17 14:59 IMPRESSION: Evaluation of the GI tract limited without oral contrast. Cannot exclude diffuse colitis. No change in fatty liver, large hiatal hernia, severe right renal atrophy, nonobstructing stones of the left kidney. Code Visit Inpatient E&M: 81502 Init Hosp L3
--- NOTE | 2017-10-19 08:37 | CON.PCM_ITS ---
Reason for Consult Date of Consultation: 10/19/17 Reason for Consultation: vaginal bleeding History of Present Illness: The patient is a 67 year old female with dementia, [facility], tachycardia. abdominal pain. Vaginal bleeding noted on exam in emergency dept. Past Medical History Past Medical History (Chronic Problems): Chronic Problems YOLANDA (obstructive sleep apnea) (Chronic) Obesity (Chronic) HTN (hypertension) (Chronic) Dyslipidemia (Chronic) DM type 2 (diabetes mellitus, type 2) (Chronic) Anxiety disorder (Chronic) Allergies latex Allergy (Verified 10/18/17 14:53) Rash levofloxacin [From Levaquin] Allergy (Verified 10/18/17 14:53) Rash acetaminophen [From Darvocet-N] Adverse Reaction (Verified 10/18/17 14:53) Vomiting codeine Adverse Reaction (Verified 10/18/17 14:53) Unknown gabapentin Adverse Reaction (Verified 10/18/17 14:53) Other propoxyphene [From Darvon] Adverse Reaction (Verified 10/18/17 14:53) Vomiting Home Medications: Ambulatory Orders Medication Instructions Recorded Albuterol Inhaler [Ventolin Hfa] 2 puff INHALATION Q4H PRN PRN 02/28/16 Nystatin Powder [Mycostatin Powder] 1 applic TOPICAL BID PRN PRN 05/02/17 Nystatin/Triamcin Cream [Mycolog] 1 applic TOPICAL BID #1 tube 07/21/17 Allopurinol 100 mg PO BID 10/04/17 Bisacodyl 10 mg RC DAILY PRN PRN 10/04/17 Citalopram Hydrobromide 40 mg PO DAILY 10/04/17 [Citalopram HBr] Ferrous Sulfate [Iron] 325 mg PO DAILY 10/04/17 L. Rhamnosus GG/Inulin [Culturelle 1 each PO DAILY 10/04/17 Capsule] Mag Hydrox/Aluminum Hyd/Simeth 10/04/17 [Antacid Suspension] Omeprazole 40 mg PO DAILY 10/04/17 Potassium Chloride [K-Dur] 10 meq PO DAILY 10/04/17 Promethazine HCl 25 mg PO Q6H PRN PRN 10/04/17 Ranitidine [Zantac] 300 mg PO DAILY 10/04/17 Simvastatin 5 mg PO DAILY 10/04/17 busPIRone [Buspar] 5 mg PO BID 10/04/17 Vancomcyin 125 MG/ 5 ML Susp 125 mg PO Q6 #40 dose 10/07/17 [Vancomycin 125mg/5mL Susp] Ca/D3/Mag Ox/Zinc/Tie Binder/Keo/Bor 1 each PO DAILY 10/16/17 [Calcium [id number] Chw Tb] Multivitamin [Daily Multiple 1 each PO DAILY 10/16/17 Vitamin] Zinc Oxide [Dr. 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 streak at upper thigh, no active bleeding appreciated but very limited exam as not able to tolerate movement of legs Psych/Mental Status: - - confused. oriented to year and her name Vital Signs Temp Pulse Resp BP Pulse Ox 98.2 F 98 23 H 80/50 L 94 10/19/17 00:00 10/19/17 08:00 10/19/17 08:00 10/19/17 08:00 10/19/17 08:00 Oxygen Delivery Method Room Air Weight: 114.8 kg Body Mass Index (BMI) 39.6 Intake and Output for Last 24 Hours 10/17/17 10/18/17 10/19/17 23:59 23:59 23:59 Intake Total 1916 / 1916 871.3 / 871.3 Output Total 400 / 400 350 / 350 Balance 1516 / 1516 521.3 / 521.3 Laboratory Tests Past 24 Hrs 10/18/17 10/18/17 10/18/17 19:50 20:50 20:50 WBC Cancelled Corrected WBC Cancelled RBC Cancelled Hgb Cancelled Hct Cancelled MCV Cancelled MCH Cancelled MCHC Cancelled RDW Cancelled RDW Differential Cancelled Plt Count Cancelled MPV Cancelled Differential Comment Diff Path Review Cancelled Total Bilirubin 0.60 Direct Bilirubin 0.09 AST 61 H ALT 27 Alkaline Phosphatase 382 H Total Protein 3.4 L Albumin 1.0 L Globulin 2.4 MRSA (PCR) Negative 10/18/17 23:40 WBC 3.9 L Corrected WBC RBC 2.63 L Hgb 8.0 L Hct 26.6 L MCV 101.1 H MCH 30.4 MCHC 30.1 L RDW 21.2 H RDW Differential 70.3 H Plt Count 99 L MPV 12.8 H Differential Comment SCANNED Diff Path Review Total Bilirubin Direct Bilirubin AST ALT Alkaline Phosphatase Total Protein Albumin Globulin MRSA (PCR) POC Glucose 10/19/17 10/19/17 10/18/17 07:05 06:38 23:39 POC Glucose [address]: fatty liver; gallbladder not seen, atrophy of right kidney, nonobstructive stones left kidney; hiatal hernia. diffuse colitis. There is atrophy of the uterus, Normal retroperitoneum. Assessment/Plan Active and Suspected Problems Hypotension (Acute) Vaginal bleeding (Acute) Recurrent colitis due to Clostridium difficile (Acute) A/P: Postmenopausal bleeding. The minimal bleeding noted on limited exam would not explain her chronic anemia or current hypotension and tachycardia. No prior documentation of postmenopausal bleeding on exams in ED in recent weeks (recurrent visits due to C Diff colitis). I am unable to adequately examine patient due to abdominal pain and her inability to tolerate movement of her legs without pain. Limited exam today showed very minimal vaginal bleeding with a possible streak of blood at the upper inner thighs. Differential diagnosis of bleeding includes: cervical cancer, endometrial hyperplasia with / without atypia, endometrial polyp, endometrial cancer or scant bleeding due to urogenital atrophy and her elevated INR. Would recommend a pelvic ultrasound as the next step if she is able to tolerate this. May consider endometrial biopsy and would recommend this if the endometrial stripe is thick.
--- NOTE | 2017-10-19 08:38 | NURSING ---
spoke with daughter, Aicha, regarding placement of arterial line and PICC line after daughter spoke to Dr. Hall. Phone consent obtained for both procedures with Meghan MAXWELL verifying.
--- NOTE | 2017-10-19 09:02 | CASEMGMT ---
SOCIAL WORK: Referral received this date from printed circuit board assembler for SW consult. Chart reviewed. Patient admitted to ICU on 10/18 and was here earlier this month. She is currently oriented to person and unable to participate in discharge planning discussion. SW initiated contact with daughter, Aicha, via phone; introduced self and SW role at [facility]. Confirmed with daughter that plan is for patient return to [facility] when medically stable. Advised daughter that primary social media content manager will be available during the week and provided her with contact information. No further issues at this time. PLAN: Return to [facility] when medically ready. JEMIMA Dumont
[2017-10-19 09:35] LABS: Hematocrit 23.2 % (37-47); Hemoglobin 7.2 g/dl (12.0-15.0); Mean Corpuscular Hgb 31.4 pg (27.0-32.0); Mean Corpuscular Volume 101.3 fL (81-99); Mean Platelet Vol. 12.5 fl (6.2-12.0); Platelet Count 85 K/mm3 (150-450); RBC Distribution Width CV 21.1 % (11.6-14.6); RBC Distribution Width SD 70.6 fl (35.1-43.9); Red Blood Count 2.29 M/mm3 (4.2-5.4); White Blood Count 3.1 K/mm3 (4.4-11.0)
[2017-10-19 09:37] LABS: Scan Indicated on CBC? Y/N YES- FLAGS NOTED
[2017-10-19 09:42] LABS: International Normalized Ratio 2.2; Prothrombin Time (Protime)PT. 24.5 SECONDS (11.7-14.9)
[2017-10-19 09:51] LABS: Anion Gap 5 (5-15); BUN 15 mg/dL (7-18); BUN/Creat Ratio 21.8 RATIO (10-20); Chloride 122 mmol/L (98-107); Creatinine, Serum 0.69 mg/dL (0.55-1.02); EST Glomerular Filtration Rate 91 mL/min (>60); Est Glom Filt Rate - Afr Amer 110 mL/min (>60); Estimated Creatinine Clearance 53.81 ml/min; Glucose 73 mg/dL (74-106); Potassium 3.5 mmol/L (3.5-5.1); Sodium Level 146 mmol/L (136-145)
[2017-10-19 10:00] LABS: Lactic Acid 0.6 mmol/L (0.4-2.0)
--- NOTE | 2017-10-19 10:19 | PCM.CONS.GEN ---
Problem List (1) Recurrent colitis due to Clostridium difficile Status: Acute Reason for Consult Date of Consultation: 10/19/17 Reason for Consultation: C. difficile and sepsis History of Present Illness: The patient is a 67 year old F who [facility] to [facility]. The patient was admitted to [facility] over a month ago with UTI. She was then discharged to a penitentiary and then found to have C. difficile and was treated with Vanc and Flagyl. She was in the emergency room a few days ago and her urine grew out small amounts of bacteria. She was readmitted today with hypotension. She was admitted to the ICU and given 4 L of fluid. Her blood pressure remains low. She is confused but she does complain of abdominal pain. She reports this pain is diffuse. She has a fecal management system in from the penitentiary with liquid stool. She is not having any nausea or vomiting. She is not having any fevers or chills. Past Medical History Past Medical History (Chronic Problems): Chronic Problems YOLANDA (obstructive sleep apnea) (Chronic) Obesity (Chronic) HTN (hypertension) (Chronic) Dyslipidemia (Chronic) DM type 2 (diabetes mellitus, type 2) (Chronic) Anxiety disorder (Chronic) Allergies latex Allergy (Verified 10/18/17 14:53) Rash levofloxacin [From Levaquin] Allergy (Verified 10/18/17 14:53) Rash acetaminophen [From Darvocet-N] Adverse Reaction (Verified 10/18/17 14:53) Vomiting codeine Adverse Reaction (Verified 10/18/17 14:53) Unknown gabapentin Adverse Reaction (Verified 10/18/17 14:53) Other propoxyphene [From Darvon] Adverse Reaction (Verified 10/18/17 14:53) Vomiting Home Medications: Ambulatory Orders Medication Instructions Recorded Albuterol Inhaler [Ventolin Hfa] 2 puff INHALATION Q4H PRN PRN 02/28/16 Nystatin Powder [Mycostatin Powder] 1 applic TOPICAL BID PRN PRN 05/02/17 Nystatin/Triamcin Cream [Mycolog] 1 applic TOPICAL BID #1 tube 07/21/17 Allopurinol 100 mg PO BID 10/04/17 Bisacodyl 10 mg RC DAILY PRN PRN 10/04/17 Citalopram Hydrobromide 40 mg PO DAILY 10/04/17 [Citalopram HBr] Ferrous Sulfate [Iron] 325 mg PO DAILY 10/04/17 L. Rhamnosus GG/Inulin [Culturelle 1 each PO DAILY 10/04/17 Capsule] Mag Hydrox/Aluminum Hyd/Simeth 10/04/17 [Antacid Suspension] Omeprazole 40 mg PO DAILY 10/04/17 Potassium Chloride [K-Dur] 10 meq PO DAILY 10/04/17 Promethazine HCl 25 mg PO Q6H PRN PRN 10/04/17 Ranitidine [Zantac] 300 mg PO DAILY 10/04/17 Simvastatin 5 mg PO DAILY 10/04/17 busPIRone [Buspar] 5 mg PO BID 10/04/17 Vancomcyin 125 MG/ 5 ML Susp 125 mg PO Q6 #40 dose 10/07/17 [Vancomycin 125mg/5mL Susp] Ca/D3/Mag Ox/Zinc/Precision Agronomist/Keo/Bor 1 each PO DAILY 10/16/17 [Calcium 155-T1-[id number] Chw Tb] Multivitamin [Daily Multiple 1 each PO DAILY 10/16/17 Vitamin] Zinc Oxide [Dr. 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 Denies: Fever HEENT: Reports: Difficulty Swallowing Cardiovascular: Denies: Chest Pain Respiratory: Denies: Cough Gastrointestinal: Reports: Abdominal Pain, Diarrhea. Denies: Hematochezia, Nausea, Vomiting Genitourinary: Denies: Dysuria Skin: Denies: Dryness, Jaundice Neurological: Reports: Difficulty swallowing Psychiatric: Denies: Anxiety, Depression Hematologic/ Lymphatic: Reports: Anemia Patient Problems: Active and Suspected Problems Chronic anemia (Acute) Hypotension (Acute) Vaginal bleeding (Acute) Recurrent colitis due to Clostridium difficile (Acute) - Physical Exam General: Alert, Cooperative, Confused, - - Patient is alert but only oriented to herself. HEENT: Atraumatic, PERRLA, EOMI Oral: Moist Mucosa Neck: No JVD Lungs: Normal air movement Cardiovascular: Regular Rhythm, Tachycardic Abdomen: Soft, Non-Distended, Tender - Diffuse tenderness but no guarding. Extremities: No clubbing Skin: No rashes Musculoskeletal: No Muscle Wasting Lymphatic: No Cervical, Supraclavicular, or Inguinal Adenopathy Neurological: Cranial nerves II-XII grossly intact Psych/Mental Status: Normal Affect, Appropriate Vital Signs Temp Pulse Resp BP Pulse Ox 98.2 F 99 21 H 91/42 L 99 10/19/17 00:00 10/19/17 10:00 10/19/17 10:00 10/19/17 10:00 10/19/17 10:00 Oxygen Delivery Method Room Air Weight: 253 lb 1.451 oz Body Mass Index (BMI) 39.6 Intake and Output for Last 24 Hours 10/17/17 10/18/17 10/19/17 23:59 23:59 23:59 Intake Total 1916 / 1916 871.3 / 871.3 Output Total 400 / 400 350 / 350 Balance 1516 / 1516 521.3 / 521.3 Microbiology Past 72 Hours 10/19/17 06:50 C. difficile DNA Amplification - Final Stool Laboratory Tests Past 24 Hrs 10/18/17 10/18/17 10/18/17 19:50 20:50 20:50 WBC Cancelled Corrected WBC Cancelled RBC Cancelled Hgb Cancelled Hct Cancelled MCV Cancelled MCH Cancelled MCHC Cancelled RDW Cancelled RDW Differential Cancelled Plt Count Cancelled MPV Cancelled Differential Comment Diff Path Review Cancelled PT INR Sodium Potassium Chloride Carbon Dioxide Anion Gap BUN Creatinine Estim Creat Clear Calc Est GFR (MDRD) Af Amer Est GFR (MDRD) Non-Af BUN/Creatinine Ratio Glucose Lactic Acid Calcium Total Bilirubin 0.60 Direct Bilirubin 0.09 AST 61 H ALT 27 Alkaline Phosphatase 382 H Total Protein 3.4 L Albumin 1.0 L Globulin 2.4 MRSA (PCR) Negative 10/18/17 10/19/17 10/19/17 23:40 09:15 09:15 WBC 3.9 L 3.1 L Corrected WBC RBC 2.63 L 2.29 L Hgb 8.0 L 7.2 L Hct 26.6 L 23.2 L MCV 101.1 H 101.3 H MCH 30.4 31.4 MCHC 30.1 L 31.0 L RDW 21.2 H 21.1 H RDW Differential 70.3 H 70.6 H Plt Count 99 L 85 L MPV 12.8 H 12.5 H Differential Comment SCANNED Diff Path Review PT 24.5 H INR 2.2 Sodium Potassium Chloride Carbon Dioxide Anion Gap BUN Creatinine Estim Creat Clear Calc Est GFR (MDRD) Af Amer Est GFR (MDRD) Non-Af BUN/Creatinine Ratio Glucose Lactic Acid Calcium Total Bilirubin Direct Bilirubin AST ALT Alkaline Phosphatase Total Protein Albumin Globulin MRSA (PCR) 10/19/17 10/19/17 09:15 09:15 WBC Corrected WBC RBC Hgb Hct MCV MCH MCHC RDW RDW Differential Plt Count MPV Differential Comment Diff Path Review PT INR Sodium 146 H Potassium 3.5 Chloride 122 H Carbon Dioxide 19.0 L Anion Gap 5 BUN 15 Creatinine 0.69 Estim Creat Clear Calc 53.81 Est GFR (MDRD) Af Amer 110 Est GFR (MDRD) Non-Af 91 BUN/Creatinine Ratio 21.8 H Glucose 73 L Lactic Acid 0.6 Calcium 6.0 L* Total Bilirubin Direct Bilirubin AST ALT Alkaline Phosphatase Total Protein Albumin Globulin MRSA (PCR) POC Glucose 10/19/17 10/19/17 10/18/17 07:05 06:38 23:39 POC Glucose 104 66 L 74 Clinical Impression(s) from Imaging Studies Abdomen/Pelvis CT 10/18/17 14:59 IMPRESSION: Evaluation of the GI tract limited without oral contrast. Cannot exclude diffuse colitis. No change in fatty liver, large hiatal hernia, severe right renal atrophy, nonobstructing stones of the left kidney. 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 The patient had a history of C. difficile [facility] the penitentiary. I recheck the C. difficile here by PCR and it was negative. Continue vanc and Flagyl as the patient may need to be started on broad-spectrum antibiotics. The patient's abdomen is tender but there is no guarding. On CT scan the colon does not look very thickened and there is minimal inflammation if any around the colon. The patient has no fevers or chills. 2. The patient is anemic which may account for her hypotension. She is getting 2 units of blood. 3. The patient had a recent UTI. UA and urine cultures are pending, as are blood cultures. This may be urosepsis. 4. I did place an arterial line for the ICU team and the left radial artery. The left radial artery was prepped and draped in the usual sterile fashion. Ultrasound was used to locate the left radial artery. The area above the artery was anesthetized with lidocaine. Next an arterial line was placed into this with a good blood return. This was connected to arterial line tubing and a good waveform was present. It was sutured to her wrist with a 4-0 nylon suture. Bandage was then applied. The patient tolerated the procedure well. 5. I talked to the patient's daughter at great length. I discussed the possibility that this was fulminant C. difficile colitis necessitating colectomy if the patient's condition worsens. I think this may be unlikely as the C. difficile was negative and CT scan is not very impressive but I will keep this as last resort. If the UA is positive I would recommend treating the UTI. This may worsen the C. difficile but she can have a CorPak or NG to give oral think that is the case. She may also be a candidate for Vanco enemas. I would recommend consulting ID. Werner Hall MD Pager: [facility] [address] [place] [address], [address] [place] [address] Office:
--- NOTE | 2017-10-19 10:27 | CON.PCM_ITS ---
Problem List (1) Recurrent colitis due to Clostridium difficile Status: Acute Reason for Consult Date of Consultation: 10/19/17 Reason for Consultation: C. difficile and sepsis History of Present Illness: The patient is a 67 year old F who was [facility] her jail due to [facility]ension. The patient was admitted to [facility] over a month ago with UTI. She was then discharged to a jail and then found to have C. difficile and was treated with Vanc and Flagyl. She was in the emergency room a few days ago and her urine grew out small amounts of bacteria. She was readmitted today with hypotension. She was admitted to the ICU and given 4 L of fluid. Her blood pressure remains low. She is confused but she does complain of abdominal pain. She reports this pain is diffuse. She has a fecal management system in from the jail with liquid stool. She is not having any nausea or vomiting. She is not having any fevers or chills. Past Medical History Past Medical History (Chronic Problems): Chronic Problems YOLANDA (obstructive sleep apnea) (Chronic) Obesity (Chronic) HTN (hypertension) (Chronic) Dyslipidemia (Chronic) DM type 2 (diabetes mellitus, type 2) (Chronic) Anxiety disorder (Chronic) Allergies latex Allergy (Verified 10/18/17 14:53) Rash levofloxacin [From Levaquin] Allergy (Verified 10/18/17 14:53) Rash acetaminophen [From Darvocet-N] Adverse Reaction (Verified 10/18/17 14:53) Vomiting codeine Adverse Reaction (Verified 10/18/17 14:53) Unknown gabapentin Adverse Reaction (Verified 10/18/17 14:53) Other propoxyphene [From Darvon] Adverse Reaction (Verified 10/18/17 14:53) Vomiting Home Medications: Ambulatory Orders Medication Instructions Recorded Albuterol Inhaler [Ventolin Hfa] 2 puff INHALATION Q4H PRN PRN 02/28/16 Nystatin Powder [Mycostatin Powder] 1 applic TOPICAL BID PRN PRN 05/02/17 Nystatin/Triamcin Cream [Mycolog] 1 applic TOPICAL BID #1 tube 07/21/17 Allopurinol 100 mg PO BID 10/04/17 Bisacodyl 10 mg RC DAILY PRN PRN 10/04/17 Citalopram Hydrobromide 40 mg PO DAILY 10/04/17 [Citalopram HBr] Ferrous Sulfate [Iron] 325 mg PO DAILY 10/04/17 L. Rhamnosus GG/Inulin [Culturelle 1 each PO DAILY 10/04/17 Capsule] Mag Hydrox/Aluminum Hyd/Simeth 10/04/17 [Antacid Suspension] Omeprazole 40 mg PO DAILY 10/04/17 Potassium Chloride [K-Dur] 10 meq PO DAILY 10/04/17 Promethazine HCl 25 mg PO Q6H PRN PRN 10/04/17 Ranitidine [Zantac] 300 mg PO DAILY 10/04/17 Simvastatin 5 mg PO DAILY 10/04/17 busPIRone [Buspar] 5 mg PO BID 10/04/17 Vancomcyin 125 MG/ 5 ML Susp 125 mg PO Q6 #40 dose 10/07/17 [Vancomycin 125mg/5mL Susp] Ca/D3/Mag Ox/Zinc/Software Developer Manager/Keo/Bor 1 each PO DAILY 10/16/17 [Calcium [id number]-[id number] Chw Tb] Multivitamin [Daily Multiple 1 each PO DAILY 10/16/17 Vitamin] Zinc Oxide [Dr. Christopher's Adult 170 gm TP DAILY 10/16/17 Barrier] Surgical History: appendectomy, cholecystectomy, - - cataract surgery DESIGN ENGINEER History: No pertinent DESIGN ENGINEER history Smoking Status: Former smoker - *Family History Maternal History Items: No pertinent history Paternal History Items: No pertinent history Review of Systems Constitutional: Reports: Anorexia. Denies: Fever HEENT: Reports: Difficulty Swallowing Cardiovascular: Denies: Chest Pain Respiratory: Denies: Cough Gastrointestinal: Reports: Abdominal Pain, Diarrhea. Denies: Hematochezia, Nausea, Vomiting Genitourinary: Denies: Dysuria Skin: Denies: Dryness, Jaundice Neurological: Reports: Difficulty swallowing Psychiatric: Denies: Anxiety, Depression Hematologic/ Lymphatic: Reports: Anemia Patient Problems: Active and Suspected Problems Chronic anemia (Acute) Hypotension (Acute) Vaginal bleeding (Acute) Recurrent colitis due to Clostridium difficile (Acute) - Physical Exam General: Alert, Cooperative, Confused, - - Patient is alert but only oriented to herself. HEENT: Atraumatic, PERRLA, EOMI Oral: Moist Mucosa Neck: No JVD Lungs: Normal air movement Cardiovascular: Regular Rhythm, Tachycardic Abdomen: Soft, Non-Distended, Tender - Diffuse tenderness but no guarding. Extremities: No clubbing Skin: No rashes Musculoskeletal: No Muscle Wasting Lymphatic: No Cervical, Supraclavicular, or Inguinal Adenopathy Neurological: Cranial nerves II-XII grossly intact Psych/Mental Status: Normal Affect, Appropriate Vital Signs Temp Pulse Resp BP Pulse Ox 98.2 F 99 21 H 91/42 L 99 10/19/17 00:00 10/19/17 10:00 10/19/17 10:00 10/19/17 10:00 10/19/17 10:00 Oxygen Delivery Method Room Air Weight: 253 lb 1.451 oz Body Mass Index (BMI) 39.6 Intake and Output for Last 24 Hours 10/17/17 10/18/17 10/19/17 23:59 23:59 23:59 Intake Total 1916 / 1916 871.3 / 871.3 Output Total 400 / 400 350 / 350 Balance 1516 / 1516 521.3 / 521.3 Microbiology Past 72 Hours 10/19/17 06:50 C. difficile DNA Amplification - Final Stool Laboratory Tests Past 24 Hrs 10/18/17 10/18/17 10/18/17 19:50 20:50 20:50 WBC Cancelled Corrected WBC Cancelled RBC Cancelled Hgb Cancelled Hct Cancelled MCV Cancelled MCH Cancelled MCHC Cancelled RDW Cancelled RDW Differential Cancelled Plt Count Cancelled MPV Cancelled Differential Comment Diff Path Review Cancelled PT INR Sodium Potassium Chloride Carbon Dioxide Anion Gap BUN Creatinine Estim Creat Clear Calc Est GFR (MDRD) Af Amer Est GFR (MDRD) Non-Af BUN/Creatinine Ratio Glucose Lactic Acid Calcium Total Bilirubin 0.60 Direct Bilirubin 0.09 AST 61 H ALT 27 Alkaline Phosphatase 382 H Total Protein 3.4 L Albumin 1.0 L Globulin 2.4 MRSA (PCR) Negative 10/18/17 10/19/17 10/19/17 23:40 09:15 09:15 WBC 3.9 L 3.1 L Corrected WBC RBC 2.63 L 2.29 L Hgb 8.0 L 7.2 L Hct 26.6 L 23.2 L MCV 101.1 H 101.3 H MCH 30.4 31.4 MCHC 30.1 L 31.0 L RDW 21.2 H 21.1 H RDW Differential 70.3 H 70.6 H Plt Count 99 L 85 L MPV 12.8 H 12.5 H Differential Comment SCANNED Diff Path Review PT 24.5 H INR 2.2 Sodium Potassium Chloride Carbon Dioxide Anion Gap BUN Creatinine Estim Creat Clear Calc Est GFR (MDRD) Af Amer Est GFR (MDRD) Non-Af BUN/Creatinine Ratio Glucose Lactic Acid Calcium Total Bilirubin Direct Bilirubin AST ALT Alkaline Phosphatase Total Protein Albumin Globulin MRSA (PCR) 10/19/17 10/19/17 09:15 09:15 WBC Corrected WBC RBC Hgb Hct MCV MCH MCHC RDW RDW Differential Plt Count MPV Differential Comment Diff Path Review PT INR Sodium 146 H Potassium 3.5 Chloride 122 H Carbon Dioxide 19.0 L Anion Gap 5 BUN 15 Creatinine 0.69 Estim Creat Clear Calc 53.81 Est GFR (MDRD) Af Amer 110 Est GFR (MDRD) Non-Af 91 BUN/Creatinine Ratio 21.8 H Glucose 73 L Lactic Acid 0.6 Calcium 6.0 L* Total Bilirubin Direct Bilirubin AST ALT Alkaline Phosphatase Total Protein Albumin Globulin MRSA (PCR) POC Glucose 10/19/17 10/19/17 10/18/17 07:05 06:38 23:39 POC Glucose 104 66 L 74 Clinical Impression(s) from Imaging Studies Abdomen/Pelvis CT 10/18/17 14:59 IMPRESSION: Evaluation of the GI tract limited without oral contrast. Cannot exclude diffuse colitis. No change in fatty liver, large hiatal hernia, severe right renal atrophy, nonobstructing stones of the left kidney. 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 The patient had a history of C. difficile [facility] the jail. I recheck the C. difficile here by PCR and it was negative. Continue vanc and Flagyl as the patient may need to be started on broad-spectrum antibiotics. The patient' s abdomen is tender but there is no guarding. On CT scan the colon does not look very thickened and there is minimal inflammation if any around the colon. The patient has no fevers or chills. 2. The patient is anemic which may account for her hypotension. She is getting 2 units of blood. 3. The patient had a recent UTI. UA and urine cultures are pending, as are blood cultures. This may be urosepsis. 4. I did place an arterial line for the ICU team and the left radial artery. The left radial artery was prepped and draped in the usual sterile fashion. Ultrasound was used to locate the left radial artery. The area above the artery was anesthetized with lidocaine. Next an arterial line was placed into this with a good blood return. This was connected to arterial line tubing and a good waveform was present. It was sutured to her wrist with a 4-0 nylon suture. Bandage was then applied. The patient tolerated the procedure well. 5. I talked to the patient's daughter at great length. I discussed the possibility that this was fulminant C. difficile colitis necessitating colectomy if the patient's condition worsens. I think this may be unlikely as the C. difficile was negative and CT scan is not very impressive but I will keep this as last resort. If the UA is positive I would recommend treating the UTI. This may worsen the C. difficile but she can have a CorPak or NG to give oral think that is the case. She may also be a candidate for Vanco enemas. I would recommend consulting ID. Werner Hall MD Pager: [facility] [address] [place] [address], [address] [place] [address] Office:
[2017-10-19 10:36] LABS: Mucous, Urine 0 SEEN /hpf (<or=2+); Red Blood Cells-Urine 0 SEEN /hpf (0-5); Squamous Epithelial Cells - UA 0 SEEN /hpf (5-10)
[2017-10-19 10:37] LABS: Color, Urine Yellow (Yellow); Glucose, Dipstick Normal (Normal); Ketone-Dipstick Negative (Negative); Leukocyte Esterase-Dipstick 500 /ul (Negative); Nitrite-Dipstick Positive (Negative); Occult Blood-Urine 150 /ul (Negative); Protein-Dipstick 30 mg/dl (Negative); Specific Gravity, Urine 1.015 (1.002-1.030); Urine Clarity Sl. Cloudy (Clear); Urine Urobilinogen Normal (Normal)
[2017-10-19 10:43] LABS: Urine Bilirubin Dipstick 1 mg/dL (Negative)
[2017-10-19 10:44] LABS: Bacteria 2+ /hpf (None Seen); White Blood Cells 5-10 SEEN /hpf (0-5)
--- NOTE | 2017-10-19 10:45 | PCM.RX.CS ---
Consult Pharmacy has been consulted to manage selected antiobiotic: Vancomycin Type of Consult: New start Suspected Infection: Other Prior Doses of Antibiotics Received/Current Regimen: NONE Labs: Sodium 146 mmol/L (136-145) H 10/19/17 09:15 Potassium 3.5 mmol/L (3.5-5.1) 10/19/17 09:15 Chloride 122 mmol/L (98-107) H 10/19/17 09:15 Carbon Dioxide 19.0 mmol/L (21.0-32.0) L 10/19/17 09:15 Anion Gap 5 (5-15) 10/19/17 09:15 BUN 15 mg/dL (7-18) 10/19/17 09:15 Creatinine 0.69 mg/dL (0.55-1.02) 10/19/17 09:15 Est GFR (MDRD) Af Amer 110 mL/min (>60) 10/19/17 09:15 Est GFR (MDRD) Non-Af 91 mL/min (>60) 10/19/17 09:15 BUN/Creatinine Ratio 21.8 RATIO (10-20) H 10/19/17 09:15 Glucose 73 mg/dL (74-106) L 10/19/17 09:15 Microbiology: Microbiology 10/19/17 06:50 Stool C. difficile DNA Amplification - Final Weight used for dosin.8 kg Estimated Creatinine Clearance: 53ML/MIN Goal Trough: 15-20 mcg/mL Pharmacy Plan for Drug Dosing: PLAN/RECOMMENDATION 1. Vancomycin 1500mg IV Q12hrs 2. Trough 10/20/17 @2330, prior to 4th scheduled dose 3. Pharmacy Service will continue to monitor and adjust dosing as required.
--- NOTE | 2017-10-19 17:32 | NURSING ---
Dr. Holden notified of pt having small amounts of vaginal bleeding.
[2017-10-19] MEDS: Nystatin/Triamcin Cream Tube 1 APPLIC TOPICAL (21:59)
[2017-10-19] MEDS: Allopurinol 100 MG Tablet PO (22:00)
[2017-10-19] MEDS: Haloperidol Lactate 5 MG/ML Vial 2 MG IV (22:35)
[2017-10-20] VITALS (39 sets, daily range): BP systolic 72–118; BP diastolic 42–68; PULSE 80–115; RESP 14–102; TEMP 37.7–38.7; O2SAT 90–100
[2017-10-20] MEDS: Acetaminophen 325 MG Tablet 650 MG PO (00:23)
[2017-10-20 01:45] LABS: Bedside Glucose 83 mg/dL (70-110)
[2017-10-20 04:51] LABS: Absolute Lymphocyte Count 1.61 X10^3/ul (0.83-4.51); Absolute Neutrophil Count 5.3 X10^3/uL (2.0-7.7); Basophil# 0.02 X10^3/uL; Basophil% 0.3 % (0-1); Eosinophil# 0.02 X10^3/uL; Eosinophils% 0.3 % (0-5); Hematocrit 26.4 % (37-47); Hemoglobin 8.4 g/dl (12.0-15.0); Lymphocyte # 1.61 X10^3/ul (4.0); Lymphocyte % 21.7 % (19-41); Mean Corp Hgb Conc 31.8 g/gl (32-36); Mean Corpuscular Hgb 31.8 pg (27.0-32.0); Mean Platelet Vol. 12.6 fl (6.2-12.0); Monocyte# 0.41 X10^3/uL; Monocyte% 5.5 % (0-10); Neutrophil # 5.25 X10^3/uL (2.7-7.7); Neutrophil % 70.7 % (47-70); Platelet Count 84 K/mm3 (150-450); RBC Distribution Width CV 20.5 % (11.6-14.6); RBC Distribution Width SD 68.1 fl (35.1-43.9); Red Blood Count 2.64 M/mm3 (4.2-5.4); White Blood Count 7.4 K/mm3 (4.4-11.0)
[2017-10-20] MEDS: CHLORHEXIDINE GLUC 2% CLOTH 1 EACH TOWELETTE TOPICAL (04:52)
[2017-10-20 04:53] LABS: Differential Indicated SCAN CRITERIA MET; POSITIVE COUNT NO; POSITIVE DIFFERENTIAL NO; POSITIVE MORPHOLOGY YES
[2017-10-20] MEDS: 0.9% NaCl Peripheral Flush Adult/Peds IV ×4 (04:57→23:36)
[2017-10-20 05:25] LABS: Anion Gap 9 (5-15); BUN 13 mg/dL (7-18); BUN/Creat Ratio 20.4 RATIO (10-20); Calcium,Total 5.1 mg/dL (8.5-10.1); Chloride 123 mmol/L (98-107); Creatinine, Serum 0.64 mg/dL (0.55-1.02); EST Glomerular Filtration Rate 99 mL/min (>60); Est Glom Filt Rate - Afr Amer 120 mL/min (>60); Estimated Creatinine Clearance 53.81 ml/min; Glucose 146 mg/dL (74-106); Magnesium 1.4 mg/dL (1.6-2.6); Phosphorus 1.8 mg/dL (2.5-4.9); Sodium Level 147 mmol/L (136-145)
[2017-10-20 06:23] LABS: Differential Comment SCAN
[2017-10-20 06:24] LABS: Anisocytosis 1+; Hypochromasia 1+; Microcytosis 1+; Polychromasia 1+
[2017-10-20] MEDS: Dext 5%-0.45% NS 1,000 ML 100 ML IV ×2 (06:29→21:51)
[2017-10-20] MEDS: fentaNYL 100 MCG/2 ML Ampul 25 MCG IV ×3 (06:57→21:59)
--- NOTE | 2017-10-20 07:03 | PN_ITS ---
Subjective: Patient with decreased blood pressure overnight and had to be initiated on pressor therapy. Patient currently on Levophed at 10 and tolerating well. Patient with intermittent confusion noted. Significant fever noted overnight, but remains on room air. Patient with no complaints and reports subjective improvement compared to yesterday. General: Alert, Cooperative, No apparent distress, Disoriented, - - Morbidly obese. Speaking in full sentences. HEENT: Atraumatic, PERRLA, EOMI, Normocephalic, - - No scleral icterus or injection noted. Oral: Moist Mucosa, No Gingival or Mucosal Lesions/ Ulcerations Neck: Supple, No JVD, No Nodes, Trachea Midline Lungs: No rhonchi, No wheeze, No rales, Diminished, - - Symmetric expansion. No dullness to percussion. Cardiovascular: Normal S1, Normal S2, No murmurs, No rub noted, No Gallop, Tachycardic Abdomen: Bowel Sounds Present, Soft, Non-Distended, Obese, Tender - On deep palpation in the left upper quadrant Extremities: No clubbing, No cyanosis, Capillary Refill Less than 3 Seconds, Edema Skin: - - No significant change compared to previous Musculoskeletal: No Tenderness to Palpation of Joints or Extremities, No Muscle Wasting Lymphatic: No Cervical, Supraclavicular, or Inguinal Adenopathy Neurological: Cranial nerves II-XII grossly intact, Neuro grossly intact, Motor Exam 5/5 strength throughout Psych/Mental Status: Normal Affect, Appropriate Vital Signs Temp Pulse Resp BP Pulse Ox 38.1 C H 106 H 21 H 99/54 L 96 10/20/17 04:00 10/20/17 06:00 10/20/17 06:00 10/20/17 06:35 10/20/17 06:00 Oxygen Delivery Method Mechanical Ventilator Weight: 121.8 kg Body Mass Index (BMI) 39.6 Intake and Output for Last 24 Hours 10/18/17 10/19/17 10/20/17 23:59 23:59 23:59 Intake Total 1916 / 1916 3371.3 / 3371.3 2284.6 / 2284.6 Output Total 400 / 400 675 / 675 200 / 200 Balance 1516 / 1516 2696.3 / 2696.3 2084.6 / 2084.6 Labs (Last 48 Hours) 10/18/17 10/18/1710/18/18 19:50 20:50 20:50 WBC Cancelled Corrected WBC Cancelled RBC Cancelled Hgb Cancelled Hct Cancelled MCV Cancelled MCH Cancelled MCHC Cancelled RDW Cancelled RDW Differential Cancelled Plt Count Cancelled MPV Cancelled Immature Gran % (Auto) Neut % (Auto) Lymph % (Auto) [place] % (Auto) Eos % (Auto) Baso % (Auto) Absolute Neuts (auto) Absolute Lymphs (auto) Total Counted Differential Comment Diff Path Review Cancelled Polychromasia Hypochromasia Anisocytosis Microcytosis PT INR Sodium Potassium Chloride Carbon Dioxide Anion Gap BUN Creatinine Estim Creat Clear Calc Est GFR (MDRD) Af Amer Est GFR (MDRD) Non-Af BUN/Creatinine Ratio Glucose Lactic Acid Calcium Phosphorus Magnesium Total Bilirubin 0.60 Direct Bilirubin 0.09 AST 61 H ALT 27 Alkaline Phosphatase 382 H Total Protein 3.4 L Albumin 1.0 L Globulin 2.4 Urine Color Urine Clarity Urine pH Ur Specific [place] Urine Protein Urine Glucose (UA) Urine Ketones Urine Occult Blood Urine Nitrite Urine Bilirubin Urine Urobilinogen Ur Leukocyte Esterase Urine RBC Urine WBC Ur Squamous Epith Cells Urine Bacteria Urine Mucus MRSA (PCR) Negative POC Glucose 10/18/17 10/18/17 10/19/17 23:39 23:40 06:38 WBC 3.9 L Corrected WBC RBC 2.63 L Hgb 8.0 L Hct 26.6 L MCV 101.1 H MCH 30.4 MCHC 30.1 L RDW 21.2 H RDW Differential 70.3 H Plt Count 99 L MPV 12.8 H Immature Gran % (Auto) Neut % (Auto) Lymph % (Auto) [place] % (Auto) Eos % (Auto) Baso % (Auto) Absolute Neuts (auto) Absolute Lymphs (auto) Total Counted Differential Comment SCANNED Diff Path Review Polychromasia Hypochromasia Anisocytosis Microcytosis PT INR Sodium Potassium Chloride Carbon Dioxide Anion Gap BUN Creatinine Estim Creat Clear Calc Est GFR (MDRD) Af Amer Est GFR (MDRD) Non-Af BUN/Creatinine Ratio Glucose Lactic Acid Calcium Phosphorus Magnesium Total Bilirubin Direct Bilirubin AST ALT Alkaline Phosphatase Total Protein Albumin Globulin Urine Color Urine Clarity Urine pH Ur Specific [place] Urine Protein Urine Glucose (UA) Urine Ketones Urine Occult Blood Urine Nitrite Urine Bilirubin Urine Urobilinogen Ur Leukocyte Esterase Urine RBC Urine WBC Ur Squamous Epith Cells Urine Bacteria Urine Mucus MRSA (PCR) POC Glucose 74 66 L 10/19/17 10/19/17 10/19/17 07:05 09:15 09:15 WBC 3.1 L Corrected WBC RBC 2.29 L Hgb 7.2 L Hct 23.2 L MCV 101.3 H MCH 31.4 MCHC 31.0 L RDW 21.1 H RDW Differential 70.6 H Plt Count 85 L MPV 12.5 H Immature Gran % (Auto) Neut % (Auto) Lymph % (Auto) [place] % (Auto) Eos % (Auto) Baso % (Auto) Absolute Neuts (auto) Absolute Lymphs (auto) Total Counted Differential Comment Diff Path Review Polychromasia Hypochromasia Anisocytosis Microcytosis PT 24.5 H INR 2.2 Sodium Potassium Chloride Carbon Dioxide Anion Gap BUN Creatinine Estim Creat Clear Calc Est GFR (MDRD) Af Amer Est GFR (MDRD) Non-Af BUN/Creatinine Ratio Glucose Lactic Acid Calcium Phosphorus Magnesium Total Bilirubin Direct Bilirubin AST ALT Alkaline Phosphatase Total Protein Albumin Globulin Urine Color Urine Clarity Urine pH Ur Specific [place] Urine Protein Urine Glucose (UA) Urine Ketones Urine Occult Blood Urine Nitrite Urine Bilirubin Urine Urobilinogen Ur Leukocyte Esterase Urine RBC Urine WBC Ur Squamous Epith Cells Urine Bacteria Urine Mucus MRSA (PCR) POC Glucose 104 10/19/17 10/19/17 10/19/17 09:15 09:15 10:20 WBC Corrected WBC RBC Hgb Hct MCV MCH MCHC RDW RDW Differential Plt Count MPV Immature Gran % (Auto) Neut % (Auto) Lymph % (Auto) [place] % (Auto) Eos % (Auto) Baso % (Auto) Absolute Neuts (auto) Absolute Lymphs (auto) Total Counted Differential Comment Diff Path Review Polychromasia Hypochromasia Anisocytosis Microcytosis PT INR Sodium 146 H Potassium 3.5 Chloride 122 H Carbon Dioxide 19.0 L Anion Gap 5 BUN 15 Creatinine 0.69 Estim Creat Clear Calc 53.81 Est GFR (MDRD) Af Amer 110 Est GFR (MDRD) Non-Af 91 BUN/Creatinine Ratio 21.8 H Glucose 73 L Lactic Acid 0.6 Calcium 6.0 L* Phosphorus Magnesium Total Bilirubin Direct Bilirubin AST ALT Alkaline Phosphatase Total Protein Albumin Globulin Urine Color Yellow Urine Clarity Sl. Cloudy Urine pH 6.0 Ur Specific [place] 1.015 Urine Protein 30 H Urine Glucose (UA) Normal Urine Ketones Negative Urine Occult Blood 150 H Urine Nitrite Positive H Urine Bilirubin 1 H Urine Urobilinogen Normal Ur Leukocyte Esterase 500 H Urine RBC 0 SEEN Urine WBC 5-10 SEEN Ur Squamous Epith Cells 0 SEEN Urine Bacteria 2+ Urine Mucus 0 SEEN MRSA (PCR) POC Glucose 10/20/17 10/20/17 10/20/17 01:41 04:30 04:30 WBC 7.4 Corrected WBC RBC 2.64 L Hgb 8.4 L Hct 26.4 L MCV 100.0 H MCH 31.8 MCHC 31.8 L RDW 20.5 H RDW Differential 68.1 H Plt Count 84 L MPV 12.6 H Immature Gran % (Auto) 1.500 H Neut % (Auto) 70.7 H Lymph % (Auto) 21.7 [place] % (Auto) 5.5 Eos % (Auto) 0.3 Baso % (Auto) 0.3 Absolute Neuts (auto) 5.3 Absolute Lymphs (auto) 1.61 Total Counted Not Reportable Differential Comment SCAN Diff Path Review Polychromasia 1+ Hypochromasia 1+ Anisocytosis 1+ Microcytosis 1+ PT INR Sodium 147 H Potassium 3.0 L Chloride 123 H Carbon Dioxide 15.0 L Anion Gap 9 BUN 13 Creatinine 0.64 Estim Creat Clear Calc 53.81 Est GFR (MDRD) Af Amer 120 Est GFR (MDRD) Non-Af 99 BUN/Creatinine Ratio 20.4 H Glucose 146 H Lactic Acid Calcium 5.1 L* Phosphorus 1.8 L Magnesium 1.4 L Total Bilirubin Direct Bilirubin AST ALT Alkaline Phosphatase Total Protein Albumin Globulin Urine Color Urine Clarity Urine pH Ur Specific [place] Urine Protein Urine Glucose (UA) Urine Ketones Urine Occult Blood Urine Nitrite Urine Bilirubin Urine Urobilinogen Ur Leukocyte Esterase Urine RBC Urine WBC Ur Squamous Epith Cells Urine Bacteria Urine Mucus MRSA (PCR) POC Glucose 83 Microbiology 10/19/17 06:50 Stool C. difficile DNA Amplification - Final Medical Necessity - Tobacco Use Smoking Status: Former smoker Assessment/Plan Active and Suspected Problems Chronic anemia (Acute) Hypotension (Acute) Vaginal bleeding (Acute) Recurrent colitis due to Clostridium difficile (Acute) RECOMMENDATIONS: 1. Aggressive electrolyte repletion 2. Wean pressors as tolerated 3. Await repeat C. difficile 4. Verify C. difficile status 5. No further transfusions 6. Await culture data IMPRESSIONS: 1. Septic shock Repeat C. difficile yesterday came back negative. Urinalysis is consistent with a probable UTI. Patient is on broad-spectrum antibiotics at this time. Patient did spike a fever overnight and had to be placed on pressor therapy. Patient appears to be responding well. Would not recommend fluid boluses at this time. 2. Acute blood loss anemia secondary to reported vaginal bleeding INR is elevated on presentation. Patient also has a low albumin. Gynecology has been consulted. No repeat bleeding has been reported. Do not believe any interventions are planned as of this time. Continue to monitor clinically. Will not transfuse blood products today. 3. History of recurrent UTI Ayon is in place. Will obtain urinalysis and culture. Infectious disease is not available on the weekends. Patient currently on very broad- spectrum antibiotics. Will continue with p.o. vancomycin/Flagyl if able as patient is at risk for developing recurrent C. difficile 4. Type 2 diabetes mellitus with multiple complications Patient currently n.p.o. secondary to status. Check fingerstick blood sugars with sliding scale insulin. No basal insulin at this time. 5. Delirium/metabolic encephalopathy Patient with multiple etiologies of delirium including acute infection, hypernatremia, hypokalemia, hyperchloremia, hypomagnesemia and hypophosphatemia. Aggressive electrolyte repletion has been ordered. Haldol as needed for agitation. Continue with delirium protocol. 6. Morbid obesity/anxiety/depression/protracted illness/lack of history Complicates care, management, recovery and prognosis. Will continue to monitor closely. Patient was significantly depressed albumin with prolonged medical care and deconditioning. Continue with mobility protocol. TIME: 35 minutes of critical care time spent addressing patient's hypotension, acute blood loss anemia, review of all data and collaboration with care team (5: 30 AM to 6:30 AM) Code Visit [id number]: [id number] Critical care first hour
[2017-10-20] MEDS: Allopurinol 100 MG Tablet PO ×2 (08:08→21:50)
--- NOTE | 2017-10-20 08:19 | PCM.PN.HOSP ---
Patient Problems: Active and Suspected Problems Chronic anemia (Acute) Hypotension (Acute) Vaginal bleeding (Acute) Recurrent colitis due to Clostridium difficile (Acute) Subjective: Overall, patient looks better, more alert and awake. Speech is more clear, coherent and comprehensible. Patient has a line. On vasopressor, map around 68 mmHg on arterial blood pressure monitoring. Patient had temperature and on 100.8 Fahrenheit last night and biology faculty member today. On broad-spectrum antibiotic IV meropenem and vancomycin. Had 1 unit of PRBC yesterday. Hemoglobin improved 8.4 g percent. platelet count 84,000. Vitals/I&O's: Vital Signs Temp Pulse Resp BP Pulse Ox 100.6 F H 106 H 21 H 99/54 L 96 10/20/17 04:00 10/20/17 06:00 10/20/17 06:00 10/20/17 06:35 10/20/17 06:43 Oxygen Delivery Method Room Air Weight: 268 lb 8.368 oz Body Mass Index (BMI) 39.6 Intake and Output for Last 24 Hours 10/18/17 10/19/17 10/20/17 23:59 23:59 23:59 Intake Total 1916 / 1916 3371.3 / 3371.3 2284.6 / 2284.6 Output Total 400 / 400 675 / 675 200 / 200 Balance 1516 / 1516 2696.3 / 2696.3 2084.6 / 2084.6 General: Alert, Cooperative, Disoriented HEENT: Atraumatic, PERRLA, EOMI, Normocephalic Oral: Dry Mucosa Neck: Supple, No JVD, Negative Carotid Bruits Lungs: No rhonchi, No wheeze, No rales, Diminished Cardiovascular: Regular rate, Normal S1, Normal S2, No murmurs Abdomen: Bowel Sounds Present, Soft, Hypoactive Bowel Sounds, Tender - Predominantly over left side, - - Has fecal collection bag Extremities: No edema, Capillary Refill Less than 3 Seconds Musculoskeletal: Arthritic Changes, Muscle Wasting Neurological: Cranial nerves II-XII grossly intact Psych/Mental Status: Flat Affect, Depressed Microbiology Past 72 Hours 10/19/17 06:50 Stool C. difficile DNA Amplification - Final Laboratory Results 10/19/17 09:15: WBC 3.1 L, RBC 2.29 L, Hgb 7.2 L, Hct 23.2 L, MCV 101.3 H, MCH 31.4, MCHC 31.0 L, RDW 21.1 H, RDW Differential 70.6 H, Plt Count 85 L, MPV 12.5 H, Differential Comment 10/19/17 09:15: PT 24.5 H, INR 2.2 10/19/17 09:15: Sodium 146 H, Potassium 3.5, Chloride 122 H, Carbon Dioxide 19.0 L, Anion Gap 5, BUN 15, Creatinine 0.69, Estim Creat Clear Calc 53.81, Est GFR (MDRD) Af Amer 110, Est GFR (MDRD) Non-Af 91, BUN/Creatinine Ratio 21.8 H, Glucose 73 L, Calcium 6.0 L* 10/19/17 09:15: Lactic Acid 0.6 10/19/17 10:20: Urine Color Yellow, Urine Clarity Sl. Cloudy, Urine pH 6.0, Ur Specific [place] 1.015, Urine Protein 30 H, Urine Glucose (UA) Normal, Urine Ketones Negative, Urine Occult Blood 150 H, Urine Nitrite Positive H, Urine Bilirubin 1 H, Urine Urobilinogen Normal, Ur Leukocyte Esterase 500 H, Urine RBC 0 SEEN, Urine WBC 5-10 SEEN, Ur Squamous Epith Cells 0 SEEN, Urine Bacteria 2+, Urine Mucus 0 SEEN 10/20/17 01:41: POC Glucose 83 10/20/17 04:30: WBC 7.4, RBC 2.64 L, Hgb 8.4 L, Hct 26.4 L, MCV 100.0 H, MCH 31.8, MCHC 31.8 L, RDW 20.5 H, RDW Differential 68.1 H, Plt Count 84 L, MPV 12.6 H, Immature Gran % (Auto) 1.500 H, Neut % (Auto) 70.7 H, Lymph % (Auto) 21.7, [place] % (Auto) 5.5, Eos % (Auto) 0.3, Baso % (Auto) 0.3, Absolute Neuts (auto) 5.3, Absolute Lymphs (auto) 1.61, Total Counted Not Reportable, Differential Comment SCAN, Polychromasia 1+, Hypochromasia 1+, Anisocytosis 1+, Microcytosis 1+ 10/20/17 04:30: Sodium 147 H, Potassium 3.0 L, Chloride 123 H, Carbon Dioxide 15.0 L, Anion Gap 9, BUN 13, Creatinine 0.64, Estim Creat Clear Calc 53.81, Est GFR (MDRD) Af Amer 120, Est GFR (MDRD) Non-Af 99, BUN/Creatinine Ratio 20.4 H, Glucose 146 H, Calcium 5.1 L*, Phosphorus 1.8 L, Magnesium 1.4 L Current Medications Acetaminophen (Tylenol) 650 mg PO Q6H PRN PRN PRN Reason: pain/fever Last Admin: 10/20/17 00:23 Dose: 650 mg Allopurinol (Zyloprim) 100 mg PO BID [facility] Last Admin: 10/20/17 08:08 Dose: 100 mg Bisacodyl (Dulcolax) 10 mg RECTAL DAILY PRN PRN PRN Reason: Constipation Chlorhexidine Gluconate () 1 each TOPICAL DAILY [facility] Last Admin: 10/20/17 04:52 Dose: 1 each Dextrose (D50w Syringe) 0 gm IV X1 PRN; Protocol PRN Reason: Hypoglycemia Last Admin: 10/19/17 06:51 Dose: 12.5 gm Fentanyl Citrate (Sublimaze (100mcg Ampule)) 25 mcg IV Q2H PRN PRN PRN Reason: PAIN Last Admin: 10/20/17 06:57 Dose: 25 mcg Glucagon () 1 mg IM .X1 PRN PRN Reason: Hypoglycemia Metronidazole (Flagyl) 500 mg in 100 mls @ 100 mls/hr IV Q8 [facility] Last Admin: 10/20/17 04:52 Dose: 100 mls/hr Pantoprazole Sodium 40 mg/ (Sodium Chloride) 110 mls @ 330 mls/hr IV DAILY [facility] Last Admin: 10/19/17 11:35 Dose: 330 mls/hr Sodium Chloride () 250 mls @ 15 mls/hr IV .[id number] PRN PRN Reason: SALINE FLUSH Last Admin: 10/18/17 20:43 Dose: 15 mls/hr Meropenem 1 gm/ Sodium (Chloride) 120 mls @ 33 mls/hr IV Q8 [facility] Last Admin: 10/20/17 04:52 Dose: 33 mls/hr Vancomycin HCl 1,500 mg/ (Sodium Chloride) 530 mls @ 250 mls/hr IV Q12H [facility] Last Admin: 10/19/17 23:25 Dose: 250 mls/hr Norepinephrine Bitartrate 8 mg (/ Dextrose) 258 mls @ 9.67 mls/hr IV .[id number] JOELLE PRN Reason: 5 MCG/MIN Last Admin: 10/19/17 23:08 Dose: 9.67 mls/hr Magnesium Sulfate (4 Gm/100 Ml) 4 gm in 100 mls @ 25 mls/hr IV X1 ONE Stop: 10/20/17 09:28 Last Admin: 10/20/17 08:09 Dose: 25 mls/hr Potassium Phosphate 40 mm/ (Sodium Chloride) 513.3333 mls @ 62.5 mls/hr IV X1 ONE Stop: 10/20/17 13:41 Last Admin: 10/20/17 08:18 Dose: 62.5 mls/hr Dextrose/Sodium Chloride () 1,000 mls @ 100 mls/hr IV .Q10H JOELLE Last Admin: 10/20/17 06:29 Dose: 100 mls/hr Magnesium Hydroxide (Milk Of Magnesia) 30 ml PO DAILY PRN PRN Reason: Constipation Magnesium Hydroxide (Milk Of Magnesia) 30 ml PO DAILY PRN PRN PRN Reason: Constipation Nystatin/Triamcinolone Acetonide (Mycolog) 1 applic TOPICAL BID JOELLE PRN Reason: Protocol Last Admin: 10/19/17 21:59 Dose: 1 applicatio Ondansetron HCl (Zofran) 4 mg IV Q8H PRN PRN PRN Reason: NAUSEA Promethazine HCl (Phenergan) 12.5 mg IV Q6H PRN PRN PRN Reason: NAUSEA/VOMITING Sodium Chloride () 5 - 30 ml IV UD PRN PRN Reason: SALINE FLUSH Last Admin: 10/20/17 06:58 Dose: 20 ml Medical Necessity - Tobacco Use Smoking Status: Former smoker Assessment/Plan Active and Suspected Problems Chronic anemia (Acute) Hypotension (Acute) Vaginal bleeding (Acute) Recurrent colitis due to Clostridium difficile (Acute) The patient is a 67 year old F with multiple comorbidities including 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 Garner on October 15 was sent from snf for hypotension, tachycardia and low hemoglobin. In ED, patient was found to have vaginal bleeding as per ED Dr. Ashok. She was also seen in ER on last Saturday and as per ER physician she did not had vaginal bleeding at that time and denies any seeing RADIO FREQUENCY ENGINEER doctor in the past. Patient is poor historian mainly from dementia. Patient also has chronic abdominal pain and currently complains of left-sided abdominal pain. In the ED, her heart rate was 110/min, respiratory rate 22, pulse ox 94% on room air and temperature 97.5. Her blood pressure was initially 135/106 but dropped to 83/48. Lactic acid is normal. INR is 2. H&H is 8.5/28. CT abdomen done in the ER with IV contrast but without oral contrast shows nonspecific diffuse colitis.. Right renal atrophy which is chronic with nonobstructive stones of left kidney 1. SIRS (tachycardia, hypotension, acute hypotension with tachycardia, tachypnea; exact etiology unclear but possible vaginal bleeding/rectal bleeding or infectious etiology/UTI: As per ER physician patient had vaginal bleeding as mentioned above. Patient is being admitted in ICU. Critical care. On aggressive IV fluid rehydration to correct hypotension. 1 More unit of PRBC transfusion today. Discussed with the eyewear manufacturing supervisor, Dr. Donovan, surgeon Dr. Hall and RADIO FREQUENCY ENGINEER. RADIO FREQUENCY ENGINEER recommended pelvic ultrasound when she is more stable. A-line placed. Map is more than 65 on vasopressor Levophed. ID consult. 2. Acute anemia on anemia of chronic disease most probably from vaginal bleeding with pancytopenia: RADIO FREQUENCY ENGINEER consult as mentioned above. Patient also has chronic thrombocytopenia. Hemoglobin improved from 7.2 g percent to 8.4 today. Platelet count is stable at 80 thousand- 100,000. [place] [address]-05,000 in October 2017; probably from chronic liver disease. When patient is more stable, can consult service bar cashier. 3 history of recurrent C. difficile colitis: C. difficile test is negative. Vancomycin oral is discontinued. Try to get snf test regarding C. difficile as she verbally told about 3-4 times history of C. difficile 4. History of recent, recurrent UTI with pseudomonas aeruginosa, Enterobacter heterogeneous and Enterococcus faecium in the past: Ayon catheter insertion to monitor intake and output. UA suggestive of leukocyte esterase positive and nitrite positive but no significant pyuria. On empiric broad-spectrum antibiotic meropenem and vancomycin. 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 Was placed on Accu-Cheks before meals and at bedtime with sliding scale coverage 6. Morbid obesity with BMI of 40.6 weight loss advised 7. Depression with anxiety 8. Physical debility requested for PT and OT eval and treatment patient was discharged back to her F Microbiology Past 72 Hours 10/19/17 06:50 Stool C. difficile DNA Amplification - Final Laboratory Results 10/18/17 15:17: Crossmatch See Detail 10/19/17 09:15: WBC 3.1 L, RBC 2.29 L, Hgb 7.2 L, Hct 23.2 L, MCV 101.3 H, MCH 31.4, MCHC 31.0 L, RDW 21.1 H, RDW Differential 70.6 H, Plt Count 85 L, MPV 12.5 H, Differential Comment 10/19/17 09:15: PT 24.5 H, INR 2.2 10/19/17 09:15: Sodium 146 H, Potassium 3.5, Chloride 122 H, Carbon Dioxide 19.0 L, Anion Gap 5, BUN 15, Creatinine 0.69, Estim Creat Clear Calc 53.81, Est GFR (MDRD) Af Amer 110, Est GFR (MDRD) Non-Af 91, BUN/Creatinine Ratio 21.8 H, Glucose 73 L, Calcium 6.0 L* 10/19/17 09:15: Lactic Acid 0.6 10/19/17 10:20: Urine Color Yellow, Urine Clarity Sl. Cloudy, Urine pH 6.0, Ur Specific [place] 1.015, Urine Protein 30 H, Urine Glucose (UA) Normal, Urine Ketones Negative, Urine Occult Blood 150 H, Urine Nitrite Positive H, Urine Bilirubin 1 H, Urine Urobilinogen Normal, Ur Leukocyte Esterase 500 H, Urine RBC 0 SEEN, Urine WBC 5-10 SEEN, Ur Squamous Epith Cells 0 SEEN, Urine Bacteria 2+, Urine Mucus 0 SEEN 10/20/17 01:41: POC Glucose 83 10/20/17 04:30: WBC 7.4, RBC 2.64 L, Hgb 8.4 L, Hct 26.4 L, MCV 100.0 H, MCH 31.8, MCHC 31.8 L, RDW 20.5 H, RDW Differential 68.1 H, Plt Count 84 L, MPV 12.6 H, Immature Gran % (Auto) 1.500 H, Neut % (Auto) 70.7 H, Lymph % (Auto) 21.7, [place] % (Auto) 5.5, Eos % (Auto) 0.3, Baso % (Auto) 0.3, Absolute Neuts (auto) 5.3, Absolute Lymphs (auto) 1.61, Total Counted Not Reportable, Differential Comment SCAN, Polychromasia 1+, Hypochromasia 1+, Anisocytosis 1+, Microcytosis 1+ 10/20/17 04:30: Sodium 147 H, Potassium 3.0 L, Chloride 123 H, Carbon Dioxide 15.0 L, Anion Gap 9, BUN 13, Creatinine 0.64, Estim Creat Clear Calc 53.81, Est GFR (MDRD) Af Amer 120, Est GFR (MDRD) Non-Af 99, BUN/Creatinine Ratio 20.4 H, Glucose 146 H, Calcium 5.1 L*, Phosphorus 1.8 L, Magnesium 1.4 L Clinical Impression(s) from Imaging Studies Abdomen/Pelvis CT 10/18/17 14:59 IMPRESSION: Evaluation of the GI tract limited without oral contrast. Cannot exclude diffuse colitis. No change in fatty liver, large hiatal hernia, severe right renal atrophy, nonobstructing stones of the left kidney. Code Visit Inpatient E&M: 35696 Init Hosp L3
--- NOTE | 2017-10-20 08:29 | PN_ITS ---
Patient Problems: Active and Suspected Problems Chronic anemia (Acute) Hypotension (Acute) Vaginal bleeding (Acute) Recurrent colitis due to Clostridium difficile (Acute) Subjective: Overall, patient looks better, more alert and awake. Speech is more clear, coherent and comprehensible. Patient has a line. On vasopressor, map around 68 mmHg on arterial blood pressure monitoring. Patient had temperature and on 100.8 Fahrenheit last night and transition coach today. On broad-spectrum antibiotic IV meropenem and vancomycin. Had 1 unit of PRBC yesterday. Hemoglobin improved 8.4 g percent. platelet count 84,000. Vitals/I&O's: Vital Signs Temp Pulse Resp BP Pulse Ox 100.6 F H 106 H 21 H 99/54 L 96 10/20/17 04:00 10/20/17 06:00 10/20/17 06:00 10/20/17 06:35 10/20/17 06:43 Oxygen Delivery Method Room Air Weight: 268 lb 8.368 oz Body Mass Index (BMI) 39.6 Intake and Output for Last 24 Hours 10/18/17 10/19/17 10/20/17 23:59 23:59 23:59 Intake Total 1916 / 1916 3371.3 / 3371.3 2284.6 / 2284.6 Output Total 400 / 400 675 / 675 200 / 200 Balance 1516 / 1516 2696.3 / 2696.3 2084.6 / 2084.6 General: Alert, Cooperative, Disoriented HEENT: Atraumatic, PERRLA, EOMI, Normocephalic Oral: Dry Mucosa Neck: Supple, No JVD, Negative Carotid Bruits Lungs: No rhonchi, No wheeze, No rales, Diminished Cardiovascular: Regular rate, Normal S1, Normal S2, No murmurs Abdomen: Bowel Sounds Present, Soft, Hypoactive Bowel Sounds, Tender - Predominantly over left side, - - Has fecal collection bag Extremities: No edema, Capillary Refill Less than 3 Seconds Musculoskeletal: Arthritic Changes, Muscle Wasting Neurological: Cranial nerves II-XII grossly intact Psych/Mental Status: Flat Affect, Depressed Microbiology Past 72 Hours 10/19/17 06:50 Stool C. difficile DNA Amplification - Final Laboratory Results 10/19/17 09:15: WBC 3.1 L, RBC 2.29 L, Hgb 7.2 L, Hct 23.2 L, MCV 101.3 H, MCH 31.4, MCHC 31.0 L, RDW 21.1 H, RDW Differential 70.6 H, Plt Count 85 L, MPV 12.5 H, Differential Comment 10/19/17 09:15: PT 24.5 H, INR 2.2 10/19/17 09:15: Sodium 146 H, Potassium 3.5, Chloride 122 H, Carbon Dioxide 19.0 L, Anion Gap 5, BUN 15, Creatinine 0.69, Estim Creat Clear Calc 53.81, Est GFR (MDRD) Af Amer 110, Est GFR (MDRD) Non-Af 91, BUN/Creatinine Ratio 21.8 H, Glucose 73 L, Calcium 6.0 L* 10/19/17 09:15: Lactic Acid 0.6 10/19/17 10:20: Urine Color Yellow, Urine Clarity Sl. Cloudy, Urine pH 6.0, Ur Specific [place] 1.015, Urine Protein 30 H, Urine Glucose (UA) Normal, Urine Ketones Negative, Urine Occult Blood 150 H, Urine Nitrite Positive H, Urine Bilirubin 1 H, Urine Urobilinogen Normal, Ur Leukocyte Esterase 500 H, Urine RBC 0 SEEN, Urine WBC 5-10 SEEN, Ur Squamous Epith Cells 0 SEEN, Urine Bacteria 2+, Urine Mucus 0 SEEN 10/20/17 01:41: POC Glucose 83 10/20/17 04:30: WBC 7.4, RBC 2.64 L, Hgb 8.4 L, Hct 26.4 L, MCV 100.0 H, MCH 31.8, MCHC 31.8 L, RDW 20.5 H, RDW Differential 68.1 H, Plt Count 84 L, MPV 12.6 H, Immature Gran % (Auto) 1.500 H, Neut % (Auto) 70.7 H, Lymph % (Auto) 21.7, [place] % (Auto) 5.5, Eos % (Auto) 0.3, Baso % (Auto) 0.3, Absolute Neuts ( auto) 5.3, Absolute Lymphs (auto) 1.61, Total Counted Not Reportable, Differential Comment SCAN, Polychromasia 1+, Hypochromasia 1+, Anisocytosis 1+, Microcytosis 1+ 10/20/17 04:30: Sodium 147 H, Potassium 3.0 L, Chloride 123 H, Carbon Dioxide 15.0 L, Anion Gap 9, BUN 13, Creatinine 0.64, Estim Creat Clear Calc 53.81, Est GFR (MDRD) Af Amer 120, Est GFR (MDRD) Non-Af 99, BUN/Creatinine Ratio 20.4 H, Glucose 146 H, Calcium 5.1 L*, Phosphorus 1.8 L, Magnesium 1.4 L Current Medications Acetaminophen (Tylenol) 650 mg PO Q6H PRN PRN PRN Reason: pain/fever Last Admin: 10/20/17 00:23 Dose: 650 mg Allopurinol (Zyloprim) 100 mg PO BID [facility] Last Admin: 10/20/17 08:08 Dose: 100 mg Bisacodyl (Dulcolax) 10 mg RECTAL DAILY PRN PRN PRN Reason: Constipation Chlorhexidine Gluconate () 1 each TOPICAL DAILY [facility] Last Admin: 10/20/17 04:52 Dose: 1 each Dextrose (D50w Syringe) 0 gm IV X1 PRN; Protocol PRN Reason: Hypoglycemia Last Admin: 10/19/17 06:51 Dose: 12.5 gm Fentanyl Citrate (Sublimaze (100mcg Ampule)) 25 mcg IV Q2H PRN PRN PRN Reason: PAIN Last Admin: 10/20/17 06:57 Dose: 25 mcg Glucagon () 1 mg IM .X1 PRN PRN Reason: Hypoglycemia Metronidazole (Flagyl) 500 mg in 100 mls @ 100 mls/hr IV Q8 [facility] Last Admin: 10/20/17 04:52 Dose: 100 mls/hr Pantoprazole Sodium 40 mg/ (Sodium Chloride) 110 mls @ 330 mls/hr IV DAILY [facility] Last Admin: 10/19/17 11:35 Dose: 330 mls/hr Sodium Chloride () 250 mls @ 15 mls/hr IV .[id number] PRN PRN Reason: SALINE FLUSH Last Admin: 10/18/17 20:43 Dose: 15 mls/hr Meropenem 1 gm/ Sodium (Chloride) 120 mls @ 33 mls/hr IV Q8 [facility] Last Admin: 10/20/17 04:52 Dose: 33 mls/hr Vancomycin HCl 1,500 mg/ (Sodium Chloride) 530 mls @ 250 mls/hr IV Q12H [facility] Last Admin: 10/19/17 23:25 Dose: 250 mls/hr Norepinephrine Bitartrate 8 mg (/ Dextrose) 258 mls @ 9.67 mls/hr IV .[id number] JOELLE PRN Reason: 5 MCG/MIN Last Admin: 10/19/17 23:08 Dose: 9.67 mls/hr Magnesium Sulfate (4 Gm/100 Ml) 4 gm in 100 mls @ 25 mls/hr IV X1 ONE Stop: 10/20/17 09:28 Last Admin: 10/20/17 08:09 Dose: 25 mls/hr Potassium Phosphate 40 mm/ (Sodium Chloride) 513.3333 mls @ 62.5 mls/hr IV X1 ONE Stop: 10/20/17 13:41 Last Admin: 10/20/17 08:18 Dose: 62.5 mls/hr Dextrose/Sodium Chloride () 1,000 mls @ 100 mls/hr IV .Q10H JOELLE Last Admin: 10/20/17 06:29 Dose: 100 mls/hr Magnesium Hydroxide (Milk Of Magnesia) 30 ml PO DAILY PRN PRN Reason: Constipation Magnesium Hydroxide (Milk Of Magnesia) 30 ml PO DAILY PRN PRN PRN Reason: Constipation Nystatin/Triamcinolone Acetonide (Mycolog) 1 applic TOPICAL BID JOELLE PRN Reason: Protocol Last Admin: 10/19/17 21:59 Dose: 1 applicatio Ondansetron HCl (Zofran) 4 mg IV Q8H PRN PRN PRN Reason: NAUSEA Promethazine HCl (Phenergan) 12.5 mg IV Q6H PRN PRN PRN Reason: NAUSEA/VOMITING Sodium Chloride () 5 - 30 ml IV UD PRN PRN Reason: SALINE FLUSH Last Admin: 10/20/17 06:58 Dose: 20 ml Medical Necessity - Tobacco Use Smoking Status: Former smoker Assessment/Plan Active and Suspected Problems Chronic anemia (Acute) Hypotension (Acute) Vaginal bleeding (Acute) Recurrent colitis due to Clostridium difficile (Acute) The patient is a 67 year old F with multiple comorbidities including 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 Garner on October 15 was sent from senior living for hypotension, tachycardia and low hemoglobin. In ED, patient was found to have vaginal bleeding as per ED Dr. Ashok. She was also seen in ER on last Saturday and as per ER physician she did not had vaginal bleeding at that time and denies any seeing FINANCIAL ACCOUNTING ANALYST doctor in the past. Patient is poor historian mainly from dementia. Patient also has chronic abdominal pain and currently complains of left-sided abdominal pain. In the ED, her heart rate was 110/min, respiratory rate 22, pulse ox 94% on room air and temperature 97.5. Her blood pressure was initially 135/106 but dropped to 83/48. Lactic acid is normal. INR is 2. H&H is 8.5/28. CT abdomen done in the ER with IV contrast but without oral contrast shows nonspecific diffuse colitis.. Right renal atrophy which is chronic with nonobstructive stones of left kidney 1. SIRS (tachycardia, hypotension, acute hypotension with tachycardia, tachypnea; exact etiology unclear but possible vaginal bleeding/rectal bleeding or infectious etiology/UTI: As per ER physician patient had vaginal bleeding as mentioned above. Patient is being admitted in ICU. Critical care. On aggressive IV fluid rehydration to correct hypotension. 1 More unit of PRBC transfusion today. Discussed with the nutritionists, Dr. Donovan, surgeon Dr. Hall and FINANCIAL ACCOUNTING ANALYST. FINANCIAL ACCOUNTING ANALYST recommended pelvic ultrasound when she is more stable. A-line placed. Map is more than 65 on vasopressor Levophed. ID consult. 2. Acute anemia on anemia of chronic disease most probably from vaginal bleeding with pancytopenia: FINANCIAL ACCOUNTING ANALYST consult as mentioned above. Patient also has chronic thrombocytopenia. Hemoglobin improved from 7.2 g percent to 8.4 today. Platelet count is stable at 80 thousand- 100,000. [place] [address]-78,000 in October 2017; probably from chronic liver disease. When patient is more stable, can consult paint brush maker. 3 history of recurrent C. difficile colitis: C. difficile test is negative. Vancomycin oral is discontinued. Try to get senior living test regarding C. difficile as she verbally told about 3-4 times history of C. difficile 4. History of recent, recurrent UTI with pseudomonas aeruginosa, Enterobacter heterogeneous and Enterococcus faecium in the past: Ayon catheter insertion to monitor intake and output. UA suggestive of leukocyte esterase positive and nitrite positive but no significant pyuria. On empiric broad-spectrum antibiotic meropenem and vancomycin. 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 Was placed on Accu- Cheks before meals and at bedtime with sliding scale coverage 6. Morbid obesity with BMI of 40.6 weight loss advised 7. Depression with anxiety 8. Physical debility requested for PT and OT eval and treatment patient was discharged back to her F Microbiology Past 72 Hours 10/19/17 06:50 Stool C. difficile DNA Amplification - Final Laboratory Results 10/18/17 15:17: Crossmatch See Detail 10/19/17 09:15: WBC 3.1 L, RBC 2.29 L, Hgb 7.2 L, Hct 23.2 L, MCV 101.3 H, MCH 31.4, MCHC 31.0 L, RDW 21.1 H, RDW Differential 70.6 H, Plt Count 85 L, MPV 12.5 H, Differential Comment 10/19/17 09:15: PT 24.5 H, INR 2.2 10/19/17 09:15: Sodium 146 H, Potassium 3.5, Chloride 122 H, Carbon Dioxide 19.0 L, Anion Gap 5, BUN 15, Creatinine 0.69, Estim Creat Clear Calc 53.81, Est GFR (MDRD) Af Amer 110, Est GFR (MDRD) Non-Af 91, BUN/Creatinine Ratio 21.8 H, Glucose 73 L, Calcium 6.0 L* 10/19/17 09:15: Lactic Acid 0.6 10/19/17 10:20: Urine Color Yellow, Urine Clarity Sl. Cloudy, Urine pH 6.0, Ur Specific [place] 1.015, Urine Protein 30 H, Urine Glucose (UA) Normal, Urine Ketones Negative, Urine Occult Blood 150 H, Urine Nitrite Positive H, Urine Bilirubin 1 H, Urine Urobilinogen Normal, Ur Leukocyte Esterase 500 H, Urine RBC 0 SEEN, Urine WBC 5-10 SEEN, Ur Squamous Epith Cells 0 SEEN, Urine Bacteria 2+, Urine Mucus 0 SEEN 10/20/17 01:41: POC Glucose 83 10/20/17 04:30: WBC 7.4, RBC 2.64 L, Hgb 8.4 L, Hct 26.4 L, MCV 100.0 H, MCH 31.8, MCHC 31.8 L, RDW 20.5 H, RDW Differential 68.1 H, Plt Count 84 L, MPV 12.6 H, Immature Gran % (Auto) 1.500 H, Neut % (Auto) 70.7 H, Lymph % (Auto) 21.7, [place] % (Auto) 5.5, Eos % (Auto) 0.3, Baso % (Auto) 0.3, Absolute Neuts ( auto) 5.3, Absolute Lymphs (auto) 1.61, Total Counted Not Reportable, Differential Comment SCAN, Polychromasia 1+, Hypochromasia 1+, Anisocytosis 1+, Microcytosis 1+ 10/20/17 04:30: Sodium 147 H, Potassium 3.0 L, Chloride 123 H, Carbon Dioxide 15.0 L, Anion Gap 9, BUN 13, Creatinine 0.64, Estim Creat Clear Calc 53.81, Est GFR (MDRD) Af Amer 120, Est GFR (MDRD) Non-Af 99, BUN/Creatinine Ratio 20.4 H, Glucose 146 H, Calcium 5.1 L*, Phosphorus 1.8 L, Magnesium 1.4 L Clinical Impression(s) from Imaging Studies Abdomen/Pelvis CT 10/18/17 14:59 IMPRESSION: Evaluation of the GI tract limited without oral contrast. Cannot exclude diffuse colitis. No change in fatty liver, large hiatal hernia, severe right renal atrophy, nonobstructing stones of the left kidney. Code Visit Inpatient E&M: 35711 Init Hosp L3
[2017-10-20 08:41] LABS: Bedside Glucose 96 mg/dL (70-110)
--- NOTE | 2017-10-20 09:36 | PN.SURG_ITS ---
Patient Problems: Active and Suspected Problems Chronic anemia (Acute) Hypotension (Acute) Vaginal bleeding (Acute) Recurrent colitis due to Clostridium difficile (Acute) Subjective: Patient had fevers overnight and was started on pressors. - Physical Exam General: Cooperative, Confused HEENT: Atraumatic Neck: No JVD Lungs: Normal air movement Cardiovascular: Regular Rhythm, Tachycardic Abdomen: Soft, Non-Distended, Tender - Mild diffuse tenderness Skin: No rashes Vital Signs Temp Pulse Resp BP Pulse Ox 100.6 F H 105 H 21 H 99/54 L 96 10/20/17 04:00 10/20/17 07:04 10/20/17 06:00 10/20/17 06:35 10/20/17 06:43 Oxygen Delivery Method Room Air Weight: 268 lb 8.368 oz Body Mass Index (BMI) 39.6 Intake and Output for Last 24 Hours 10/18/17 10/19/17 10/20/17 23:59 23:59 23:59 Intake Total 1916 / 1916 3371.3 / 3371.3 2284.6 / 2284.6 Output Total 400 / 400 675 / 675 200 / 200 Balance 1516 / 1516 2696.3 / 2696.3 2084.6 / 2084.6 Microbiology Past 72 Hours 10/20/17 07:25 C. difficile DNA Amplification - Final Stool 10/19/17 06:50 C. difficile DNA Amplification - Final Stool Laboratory Tests Past 24 Hrs 10/19/17 10/19/17 10/19/17 09:15 09:15 09:15 WBC 3.1 L RBC 2.29 L Hgb 7.2 L Hct 23.2 L MCV 101.3 H MCH 31.4 MCHC 31.0 L RDW 21.1 H RDW Differential 70.6 H Plt Count 85 L MPV 12.5 H Immature Gran % (Auto) Neut % (Auto) Lymph % (Auto) [place] % (Auto) Eos % (Auto) Baso % (Auto) Absolute Neuts (auto) Absolute Lymphs (auto) Total Counted Differential Comment Polychromasia Hypochromasia Anisocytosis Microcytosis PT 24.5 H INR 2.2 Sodium 146 H Potassium 3.5 Chloride 122 H Carbon Dioxide 19.0 L Anion Gap 5 BUN 15 Creatinine 0.69 Estim Creat Clear Calc 53.81 Est GFR (MDRD) Af Amer 110 Est GFR (MDRD) Non-Af 91 BUN/Creatinine Ratio 21.8 H Glucose 73 L Lactic Acid Calcium 6.0 L* Phosphorus Magnesium Urine Color Urine Clarity Urine pH Ur Specific [place] Urine Protein Urine Glucose (UA) Urine Ketones Urine Occult Blood Urine Nitrite Urine Bilirubin Urine Urobilinogen Ur Leukocyte Esterase Urine RBC Urine WBC Ur Squamous Epith Cells Urine Bacteria Urine Mucus 10/19/17 10/19/17 10/20/17 09:15 10:20 04:30 WBC 7.4 RBC 2.64 L Hgb 8.4 L Hct 26.4 L MCV 100.0 H MCH 31.8 MCHC 31.8 L RDW 20.5 H RDW Differential 68.1 H Plt Count 84 L MPV 12.6 H Immature Gran % (Auto) 1.500 H Neut % (Auto) 70.7 H Lymph % (Auto) 21.7 [place] % (Auto) 5.5 Eos % (Auto) 0.3 Baso % (Auto) 0.3 Absolute Neuts (auto) 5.3 Absolute Lymphs (auto) 1.61 Total Counted Not Reportable Differential Comment SCAN Polychromasia 1+ Hypochromasia 1+ Anisocytosis 1+ Microcytosis 1+ PT INR Sodium Potassium Chloride Carbon Dioxide Anion Gap BUN Creatinine Estim Creat Clear Calc Est GFR (MDRD) Af Amer Est GFR (MDRD) Non-Af BUN/Creatinine Ratio Glucose Lactic Acid 0.6 Calcium Phosphorus Magnesium Urine Color Yellow Urine Clarity Sl. Cloudy Urine pH 6.0 Ur Specific [place] 1.015 Urine Protein 30 H Urine Glucose (UA) Normal Urine Ketones Negative Urine Occult Blood 150 H Urine Nitrite Positive H Urine Bilirubin 1 H Urine Urobilinogen Normal Ur Leukocyte Esterase 500 H Urine RBC 0 SEEN Urine WBC 5-10 SEEN Ur Squamous Epith Cells 0 SEEN Urine Bacteria 2+ Urine Mucus 0 SEEN 10/20/17 04:30 WBC RBC Hgb Hct MCV MCH MCHC RDW RDW Differential Plt Count MPV Immature Gran % (Auto) Neut % (Auto) Lymph % (Auto) [place] % (Auto) Eos % (Auto) Baso % (Auto) Absolute Neuts (auto) Absolute Lymphs (auto) Total Counted Differential Comment Polychromasia Hypochromasia Anisocytosis Microcytosis PT INR Sodium 147 H Potassium 3.0 L Chloride 123 H Carbon Dioxide 15.0 L Anion Gap 9 BUN 13 Creatinine 0.64 Estim Creat Clear Calc 53.81 Est GFR (MDRD) Af Amer 120 Est GFR (MDRD) Non-Af 99 BUN/Creatinine Ratio 20.4 H Glucose 146 H Lactic Acid Calcium 5.1 L* Phosphorus 1.8 L Magnesium 1.4 L Urine Color Urine Clarity Urine pH Ur Specific [place] Urine Protein Urine Glucose (UA) Urine Ketones Urine Occult Blood Urine Nitrite Urine Bilirubin Urine Urobilinogen Ur Leukocyte Esterase Urine RBC Urine WBC Ur Squamous Epith Cells Urine Bacteria Urine Mucus POC Glucose 10/20/17 10/20/17 04:54 01:41 POC Glucose 96 83 Medical Necessity - Tobacco Use Smoking Status: Former smoker Assessment/Plan Active and Suspected Problems Chronic anemia (Acute) Hypotension (Acute) Vaginal bleeding (Acute) Recurrent colitis due to Clostridium difficile (Acute) 67-year-old female with urosepsis 1. The patient is having sepsis from a supposed urinary source. The patient's C. difficile was negative yesterday and a repeat C. difficile is pending. We discussed the case with the detention and they were under the impression that a positive C. difficile was performed in the hospital before she went there. There was never a C. difficile checked at this hospital. It is possible that the patient has never had C. difficile colitis. She is being treated with Flagyl in case. 2. Dr. Donovan is started on broad-spectrum antibiotics and she is receiving pressor support for hypotension. 3. Continue n.p.o. status until pressors are off and abdominal pain is resolved. Repeat C. difficile is pending. 4. No surgery at this time indicated. Werner Hall MD Pager: [facility] [address] [place] [address], [address] [place] [address] Office:
[2017-10-20] MEDS: Nystatin/Triamcin Cream Tube 1 APPLIC TOPICAL ×2 (09:40→21:51)
[2017-10-20 12:00] LABS: Bedside Glucose 89 mg/dL (70-110)
[2017-10-20] MEDS: Menthol/Lanolin/Calamine/Znox 113 GM Tube 1 APPLIC TOPICAL ×3 (13:07→21:51)
[2017-10-20 17:51] LABS: Bedside Glucose 107 mg/dL (70-110)
--- NOTE | 2017-10-20 20:10 | NURSING ---
dressing to ECHO PICC changed per policy. chg tegaderm applied with stat lock. patient tolerated well.
[2017-10-20 23:46] LABS: Bedside Glucose 122 mg/dL (70-110)
[2017-10-21] VITALS (38 sets, daily range): BP systolic 69–107; BP diastolic 43–75; PULSE 103–117; RESP 12–29; TEMP 36.7–37.8; O2SAT 94–100
[2017-10-21 01:34] LABS: Vancomycin, Trough Level 23.3 ug/mL (5.0-15.0)
--- NOTE | 2017-10-21 01:54 | PCM.RX.CS ---
Consult Pharmacy has been consulted to manage selected antiobiotic: Vancomycin Type of Consult: Follow-up Suspected Infection: Other Prior Doses of Antibiotics Received/Current Regimen: Medications Vancomycin HCl 1,250 mg/ (Sodium Chloride) 275 mls @ 183.333 mls/hr IV Q12H JOELLE Discontinued Medications Vancomycin HCl 1,500 mg/ (Sodium Chloride) 530 mls @ 250 mls/hr IV Q12H JOELLE Last Admin: 10/20/17 23:36 Dose: 250 mls/hr Labs: Sodium 147 mmol/L (136-145) H 10/20/17 04:30 Potassium 3.0 mmol/L (3.5-5.1) L 10/20/17 04:30 Chloride 123 mmol/L (98-107) H 10/20/17 04:30 Carbon Dioxide 15.0 mmol/L (21.0-32.0) L 10/20/17 04:30 Anion Gap 9 (5-15) 10/20/17 04:30 BUN 13 mg/dL (7-18) 10/20/17 04:30 Creatinine 0.64 mg/dL (0.55-1.02) 10/20/17 04:30 Est GFR (MDRD) Af Amer 120 mL/min (>60) 10/20/17 04:30 Est GFR (MDRD) Non-Af 99 mL/min (>60) 10/20/17 04:30 BUN/Creatinine Ratio 20.4 RATIO (10-20) H 10/20/17 04:30 Glucose 146 mg/dL (74-106) H 10/20/17 04:30 Vancomycin Trough 23.3 ug/mL (5.0-15.0) H 10/20/17 23:30 Microbiology: Microbiology 10/19/17 10:20 Urine Catheter - Catheter Urine Culture - Preliminary GNR lactose cloth worker 10/20/17 07:25 Stool C. difficile DNA Amplification - Final 10/19/17 06:50 Stool C. difficile DNA Amplification - Final Weight used for dosin.8 kg Estimated Creatinine Clearance: 132 Goal Trough: 15-20 mcg/mL Pharmacy Plan for Drug Dosing: Pharmacy Service will continue to monitor and adjust dosing as required. Follow-Up Labs: Trough Vancomycin Labs to be done on [date and time ordered]: 10/22/17 @2052
--- NOTE | 2017-10-21 01:57 | PHA.PHARE_ITS ---
Consult Pharmacy has been consulted to manage selected antiobiotic: Vancomycin Type of Consult: Follow-up Suspected Infection: Other Prior Doses of Antibiotics Received/Current Regimen: Medications Vancomycin HCl 1,250 mg/ (Sodium Chloride) 275 mls @ 183.333 mls/hr IV Q12H JOELLE Discontinued Medications Vancomycin HCl 1,500 mg/ (Sodium Chloride) 530 mls @ 250 mls/hr IV Q12H JOELLE Last Admin: 10/20/17 23:36 Dose: 250 mls/hr Labs: Sodium 147 mmol/L (136-145) H 10/20/17 04:30 Potassium 3.0 mmol/L (3.5-5.1) L 10/20/17 04:30 Chloride 123 mmol/L (98-107) H 10/20/17 04:30 Carbon Dioxide 15.0 mmol/L (21.0-32.0) L 10/20/17 04:30 Anion Gap 9 (5-15) 10/20/17 04:30 BUN 13 mg/dL (7-18) 10/20/17 04:30 Creatinine 0.64 mg/dL (0.55-1.02) 10/20/17 04:30 Est GFR (MDRD) Af Amer 120 mL/min (>60) 10/20/17 04:30 Est GFR (MDRD) Non-Af 99 mL/min (>60) 10/20/17 04:30 BUN/Creatinine Ratio 20.4 RATIO (10-20) H 10/20/17 04:30 Glucose 146 mg/dL (74-106) H 10/20/17 04:30 Vancomycin Trough 23.3 ug/mL (5.0-15.0) H 10/20/17 23:30 Microbiology: Microbiology 10/19/17 10:20 Urine Catheter - Catheter Urine Culture - Preliminary GNR lactose inspector metal can 10/20/17 07:25 Stool C. difficile DNA Amplification - Final 10/19/17 06:50 Stool C. difficile DNA Amplification - Final Weight used for dosin.8 kg Estimated Creatinine Clearance: 132 Goal Trough: 15-20 mcg/mL Pharmacy Plan for Drug Dosing: Pharmacy Service will continue to monitor and adjust dosing as required. Follow-Up Labs: Trough Vancomycin Labs to be done on [date and time ordered]: 10/22/17 @9985
[2017-10-21 05:40] LABS: International Normalized Ratio 2.4; Prothrombin Time (Protime)PT. 26.5 SECONDS (11.7-14.9)
[2017-10-21 05:44] LABS: Anion Gap 9 (5-15); BUN 13 mg/dL (7-18); BUN/Creat Ratio 16.5 RATIO (10-20); Calcium,Total 5.7 mg/dL (8.5-10.1); Chloride 120 mmol/L (98-107); Creatinine, Serum 0.79 mg/dL (0.55-1.02); EST Glomerular Filtration Rate 77 mL/min (>60); Est Glom Filt Rate - Afr Amer 94 mL/min (>60); Estimated Creatinine Clearance 53.81 ml/min; Glucose 133 mg/dL (74-106); Magnesium 2.1 mg/dL (1.6-2.6); Phosphorus 2.4 mg/dL (2.5-4.9); Potassium 3.8 mmol/L (3.5-5.1); Sodium Level 146 mmol/L (136-145)
[2017-10-21] MEDS: CHLORHEXIDINE GLUC 2% CLOTH 1 EACH TOWELETTE TOPICAL (05:59)
[2017-10-21 06:46] LABS: Bedside Glucose 129 mg/dL (70-110)
--- NOTE | 2017-10-21 07:08 | PCM.PN.INT ---
Subjective: The patient was seen and examined at the bedside this morning. Events from the last 24 hours have been reviewed. The patient remains febrile and hypotensive, requiring levophed administration. Blood counts are stable. The patient is currently overall net +10.5 L for the admission. She is without specific complaints this morning. Objective: The patient's most recent lab work, culture data and imaging studies have all been personally reviewed. C. difficile was negative. Blood cultures are pending. Urine Gram stain was positive for the presence of a gram-negative megan. CT abdomen and pelvis revealed possible enteritis/colitis, fatty liver, large hiatal hernia and nonobstructing stones of the left kidney. Polysomnogram from 2012 revealed evidence of obstructive sleep apnea, for which it was recommended that the patient be placed on nasal BiPAP therapy at a pressure setting of 17/11 cm of water. General: Alert, Cooperative, No apparent distress HEENT: Atraumatic, PERRLA, Normocephalic Oral: No Gingival or Mucosal Lesions/ Ulcerations Neck: Supple, No Nodes, Trachea Midline Lungs: No rhonchi, No wheeze, No rales, Diminished Cardiovascular: Normal S1, Normal S2, No murmurs, Tachycardic Abdomen: Bowel Sounds Present, Soft, Non Tender, Obese Extremities: No clubbing, No cyanosis, Edema Skin: - - No significant change from previous Musculoskeletal: No Muscle Wasting Lymphatic: No Cervical, Supraclavicular, or Inguinal Adenopathy Neurological: Neuro grossly intact Psych/Mental Status: Normal Affect, Appropriate Vital Signs Temp Pulse Resp BP Pulse Ox 100.0 F H 111 H 25 H 87/52 L 99 10/21/17 04:00 10/21/17 06:00 10/21/17 06:00 10/21/17 06:46 10/21/17 06:00 Oxygen Delivery Method Room Air Weight: 278 lb 3.574 oz Body Mass Index (BMI) 39.6 Intake and Output for Last 24 Hours 10/19/17 10/20/17 10/21/17 23:59 23:59 23:59 Intake Total 3371.3 / 3371.3 4649.6 / 4649.6 2368.7 / 2368.7 Output Total 675 / 675 475 / 475 200 / 200 Balance 2696.3 / 2696.3 4174.6 / 4174.6 2168.7 / 2168.7 Labs (Last 48 Hours) 10/19/17 10/19/17 10/19/17 06:38 07:05 09:15 WBC 3.1 L RBC 2.29 L Hgb 7.2 L Hct 23.2 L MCV 101.3 H MCH 31.4 MCHC 31.0 L RDW 21.1 H RDW Differential 70.6 H Plt Count 85 L MPV 12.5 H Immature Gran % (Auto) Neut % (Auto) Lymph % (Auto) Sterling % (Auto) Eos % (Auto) Baso % (Auto) Absolute Neuts (auto) Absolute Lymphs (auto) Total Counted Differential Comment Polychromasia Hypochromasia Anisocytosis Microcytosis PT INR Sodium Potassium Chloride Carbon Dioxide Anion Gap BUN Creatinine Estim Creat Clear Calc Est GFR (MDRD) Af Amer Est GFR (MDRD) Non-Af BUN/Creatinine Ratio Glucose Lactic Acid Calcium Phosphorus Magnesium Urine Color Urine Clarity Urine pH Ur Specific Willard Urine Protein Urine Glucose (UA) Urine Ketones Urine Occult Blood Urine Nitrite Urine Bilirubin Urine Urobilinogen Ur Leukocyte Esterase Urine RBC Urine WBC Ur Squamous Epith Cells Urine Bacteria Urine Mucus Vancomycin Trough POC Glucose 66 L 104 10/19/17 10/19/17 10/19/17 09:15 09:15 09:15 WBC RBC Hgb Hct MCV MCH MCHC RDW RDW Differential Plt Count MPV Immature Gran % (Auto) Neut % (Auto) Lymph % (Auto) Sterling % (Auto) Eos % (Auto) Baso % (Auto) Absolute Neuts (auto) Absolute Lymphs (auto) Total Counted Differential Comment Polychromasia Hypochromasia Anisocytosis Microcytosis PT 24.5 H INR 2.2 Sodium 146 H Potassium 3.5 Chloride 122 H Carbon Dioxide 19.0 L Anion Gap 5 BUN 15 Creatinine 0.69 Estim Creat Clear Calc 53.81 Est GFR (MDRD) Af Amer 110 Est GFR (MDRD) Non-Af 91 BUN/Creatinine Ratio 21.8 H Glucose 73 L Lactic Acid 0.6 Calcium 6.0 L* Phosphorus Magnesium Urine Color Urine Clarity Urine pH Ur Specific Willard Urine Protein Urine Glucose (UA) Urine Ketones Urine Occult Blood Urine Nitrite Urine Bilirubin Urine Urobilinogen Ur Leukocyte Esterase Urine RBC Urine WBC Ur Squamous Epith Cells Urine Bacteria Urine Mucus Vancomycin Trough POC Glucose 10/19/17 10/20/17 10/20/17 10:20 01:41 04:30 WBC 7.4 RBC 2.64 L Hgb 8.4 L Hct 26.4 L MCV 100.0 H MCH 31.8 MCHC 31.8 L RDW 20.5 H RDW Differential 68.1 H Plt Count 84 L MPV 12.6 H Immature Gran % (Auto) 1.500 H Neut % (Auto) 70.7 H Lymph % (Auto) 21.7 Sterling % (Auto) 5.5 Eos % (Auto) 0.3 Baso % (Auto) 0.3 Absolute Neuts (auto) 5.3 Absolute Lymphs (auto) 1.61 Total Counted Not Reportable Differential Comment SCAN Polychromasia 1+ Hypochromasia 1+ Anisocytosis 1+ Microcytosis 1+ PT INR Sodium Potassium Chloride Carbon Dioxide Anion Gap BUN Creatinine Estim Creat Clear Calc Est GFR (MDRD) Af Amer Est GFR (MDRD) Non-Af BUN/Creatinine Ratio Glucose Lactic Acid Calcium Phosphorus Magnesium Urine Color Yellow Urine Clarity Sl. Cloudy Urine pH 6.0 Ur Specific Willard 1.015 Urine Protein 30 H Urine Glucose (UA) Normal Urine Ketones Negative Urine Occult Blood 150 H Urine Nitrite Positive H Urine Bilirubin 1 H Urine Urobilinogen Normal Ur Leukocyte Esterase 500 H Urine RBC 0 SEEN Urine WBC 5-10 SEEN Ur Squamous Epith Cells 0 SEEN Urine Bacteria 2+ Urine Mucus 0 SEEN Vancomycin Trough POC Glucose 83 10/20/17 10/20/17 10/20/17 04:30 04:54 11:57 WBC RBC Hgb Hct MCV MCH MCHC RDW RDW Differential Plt Count MPV Immature Gran % (Auto) Neut % (Auto) Lymph % (Auto) Sterling % (Auto) Eos % (Auto) Baso % (Auto) Absolute Neuts (auto) Absolute Lymphs (auto) Total Counted Differential Comment Polychromasia Hypochromasia Anisocytosis Microcytosis PT INR Sodium 147 H Potassium 3.0 L Chloride 123 H Carbon Dioxide 15.0 L Anion Gap 9 BUN 13 Creatinine 0.64 Estim Creat Clear Calc 53.81 Est GFR (MDRD) Af Amer 120 Est GFR (MDRD) Non-Af 99 BUN/Creatinine Ratio 20.4 H Glucose 146 H Lactic Acid Calcium 5.1 L* Phosphorus 1.8 L Magnesium 1.4 L Urine Color Urine Clarity Urine pH Ur Specific Willard Urine Protein Urine Glucose (UA) Urine Ketones Urine Occult Blood Urine Nitrite Urine Bilirubin Urine Urobilinogen Ur Leukocyte Esterase Urine RBC Urine WBC Ur Squamous Epith Cells Urine Bacteria Urine Mucus Vancomycin Trough POC Glucose 96 89 10/20/17 10/20/17 10/20/17 17:47 23:30 23:32 WBC RBC Hgb Hct MCV MCH MCHC RDW RDW Differential Plt Count MPV Immature Gran % (Auto) Neut % (Auto) Lymph % (Auto) Sterling % (Auto) Eos % (Auto) Baso % (Auto) Absolute Neuts (auto) Absolute Lymphs (auto) Total Counted Differential Comment Polychromasia Hypochromasia Anisocytosis Microcytosis PT INR Sodium Potassium Chloride Carbon Dioxide Anion Gap BUN Creatinine Estim Creat Clear Calc Est GFR (MDRD) Af Amer Est GFR (MDRD) Non-Af BUN/Creatinine Ratio Glucose Lactic Acid Calcium Phosphorus Magnesium Urine Color Urine Clarity Urine pH Ur Specific Willard Urine Protein Urine Glucose (UA) Urine Ketones Urine Occult Blood Urine Nitrite Urine Bilirubin Urine Urobilinogen Ur Leukocyte Esterase Urine RBC Urine WBC Ur Squamous Epith Cells Urine Bacteria Urine Mucus Vancomycin Trough 23.3 H POC Glucose 107 122 H 10/21/17 10/21/17 10/21/17 05:10 05:10 05:10 WBC Pending RBC Pending Hgb Pending Hct Pending MCV Pending MCH Pending MCHC Pending RDW Pending RDW Differential Pending Plt Count Pending MPV Immature Gran % (Auto) Neut % (Auto) Pending Lymph % (Auto) Sterling % (Auto) Eos % (Auto) Baso % (Auto) Absolute Neuts (auto) Pending Absolute Lymphs (auto) Total Counted Pending Differential Comment Polychromasia Hypochromasia Anisocytosis Microcytosis PT 26.5 H INR 2.4 Sodium 146 H Potassium 3.8 Chloride 120 H Carbon Dioxide 17.0 L Anion Gap 9 BUN 13 Creatinine 0.79 Estim Creat Clear Calc 53.81 Est GFR (MDRD) Af Amer 94 Est GFR (MDRD) Non-Af 77 BUN/Creatinine Ratio 16.5 Glucose 133 H Lactic Acid Calcium 5.7 L* Phosphorus 2.4 L Magnesium 2.1 Urine Color Urine Clarity Urine pH Ur Specific Willard Urine Protein Urine Glucose (UA) Urine Ketones Urine Occult Blood Urine Nitrite Urine Bilirubin Urine Urobilinogen Ur Leukocyte Esterase Urine RBC Urine WBC Ur Squamous Epith Cells Urine Bacteria Urine Mucus Vancomycin Trough POC Glucose 10/21/17 05:57 WBC RBC Hgb Hct MCV MCH MCHC RDW RDW Differential Plt Count MPV Immature Gran % (Auto) Neut % (Auto) Lymph % (Auto) Sterling % (Auto) Eos % (Auto) Baso % (Auto) Absolute Neuts (auto) Absolute Lymphs (auto) Total Counted Differential Comment Polychromasia Hypochromasia Anisocytosis Microcytosis PT INR Sodium Potassium Chloride Carbon Dioxide Anion Gap BUN Creatinine Estim Creat Clear Calc Est GFR (MDRD) Af Amer Est GFR (MDRD) Non-Af BUN/Creatinine Ratio Glucose Lactic Acid Calcium Phosphorus Magnesium Urine Color Urine Clarity Urine pH Ur Specific Willard Urine Protein Urine Glucose (UA) Urine Ketones Urine Occult Blood Urine Nitrite Urine Bilirubin Urine Urobilinogen Ur Leukocyte Esterase Urine RBC Urine WBC Ur Squamous Epith Cells Urine Bacteria Urine Mucus Vancomycin Trough POC Glucose 129 H Microbiology 10/19/17 10:20 Urine Catheter - Catheter Urine Culture - Preliminary GNR lactose court manager 10/20/17 07:25 Stool C. difficile DNA Amplification - Final 10/19/17 06:50 Stool C. difficile DNA Amplification - Final Clinical Impression(s) from Imaging Studies Abdomen/Pelvis CT 10/18/17 14:59 IMPRESSION: Evaluation of the GI tract limited without oral contrast. Cannot exclude diffuse colitis. No change in fatty liver, large hiatal hernia, severe right renal atrophy, nonobstructing stones of the left kidney. Electronically Signed: Syed Casey MD at 16:34 EDT , Service support , Medical Necessity - Tobacco Use Smoking Status: Former smoker Assessment/Plan Active and Suspected Problems Septic shock (Acute) Chronic anemia (Acute) Hypotension (Acute) Vaginal bleeding (Acute) Recurrent colitis due to Clostridium difficile (Acute) RECOMMENDATIONS: 1. Continue to wean Levophed to maintain a mean arterial pressure at or above 65 mmHg. 2. Infectious diseases consultation is pending. However, C. difficile workup has been negative. Okay to transition to cefepime from my perspective. 3. Phosphorus and calcium repletion as ordered. 4. Gentle IV fluid hydration 5. Continue appropriate ICU prophylaxis 6. Encourage incentive spirometer use while in bed and mobilize patient as tolerated. IMPRESSIONS: 1. Septic shock, likely secondary to gram-negative cystitis/history of recurrent urinary tract infections We will plan to continue antibiotics per infectious diseases recommendations. There is no indication for additional IV fluid replacement. The patient has been adequately volume resuscitated at this time. Continue vasopressor support to maintain a mean arterial pressure at about 65 mmHg. The patient does not begin to improve clinically over the next 24 hours, will obtain repeat CT abdomen/pelvis. 2. Blood loss anemia secondary to vaginal bleeding The patient has been seen by gynecology. Blood counts remain stable at this time. We will continue to monitor accordingly. Consider pelvic ultrasound with the patient is able to tolerate. 3. Delirium/metabolic encephalopathy Improved. Continue Haldol as needed for agitation. Aggressive repletion of the patient's electrolyte abnormalities. 4. Morbid obesity/anxiety/depression/protracted illness/history of obstructive sleep apnea Complicates care, management, recovery and prognosis. Likely okay to continue home medications. Recommend physical therapy to work with patient. Recommend initiation of nocturnal Pap therapy while the patient is admitted to the hospital. TIME: 38 minutes of critical care time, independent of procedures, was spent addressing the patient's septic shock secondary to gram-negative cystitis, blood loss anemia, delirium/metabolic encephalopathy, review of all data and collaboration with the care team. ([id number]) Code Visit 9xxxx: [id number] Critical care first hour
[2017-10-21 07:14] LABS: Absolute Lymphocyte Count 1.09 X10^3/ul (0.83-4.51); Basophil# 0.02 X10^3/uL; Basophil% 0.4 % (0-1); Eosinophil# 0.05 X10^3/uL; Eosinophils% 0.9 % (0-5); Hematocrit 29.6 % (37-47); Hemoglobin 9.4 g/dl (12.0-15.0); Lymphocyte # 1.09 X10^3/ul (4.0); Lymphocyte % 19.9 % (19-41); Mean Corp Hgb Conc 31.8 g/gl (32-36); Mean Corpuscular Hgb 30.8 pg (27.0-32.0); Monocyte% 5.5 % (0-10); Neutrophil # 3.99 X10^3/uL (2.7-7.7); Neutrophil % 72.6 % (47-70); Platelet Count 87 K/mm3 (150-450); RBC Distribution Width CV 21.3 % (11.6-14.6); RBC Distribution Width SD 72.2 fl (35.1-43.9); Red Blood Count 3.05 M/mm3 (4.2-5.4); White Blood Count 5.5 K/mm3 (4.4-11.0)
--- NOTE | 2017-10-21 07:34 | PN_ITS ---
Patient Problems: Active and Suspected Problems Chronic anemia (Acute) Hypotension (Acute) Vaginal bleeding (Acute) Recurrent colitis due to Clostridium difficile (Acute) Subjective: The patient is a 67 year old F with 4 comorbidities admitted with septic shock secondary to UTI. Admitted to the intensive care unit where patient is being managed with broad-spectrum antibiotic therapy in addition to pressor support Objective: GENERAL:and in no apparent distress. HEENT: Clear conjunctiva, moist oral mucosa NECK; supple, normal thyroid, no distended JVD. CHEST: Diminished to auscultation bilaterally, HEART: Regular S1 S2, no audible murmurs ABDOMEN: soft, non-tender, normoactive bowel sounds, RECTAL: deferred EXTREMITIES: No edema, no clubbing, no cyanosis. TRAINING SYSTEMS OFFICER: Awake; no lateralizing signs. SKIN: No Rash Vitals/I&O's: Vital Signs Temp Pulse Resp BP Pulse Ox 100.0 F H 111 H 25 H 87/52 L 99 10/21/17 04:00 10/21/17 06:00 10/21/17 06:00 10/21/17 06:46 10/21/17 06:00 Oxygen Delivery Method Room Air Weight: 126.2 kg Body Mass Index (BMI) 39.6 Intake and Output for Last 24 Hours 10/19/17 10/20/17 10/21/17 23:59 23:59 23:59 Intake Total 3371.3 / 3371.3 4649.6 / 4649.6 2368.7 / 2368.7 Output Total 675 / 675 475 / 475 200 / 200 Balance 2696.3 / 2696.3 4174.6 / 4174.6 2168.7 / 2168.7 Microbiology Past 72 Hours 10/19/17 10:20 Urine Catheter - Catheter Urine Culture - Preliminary GNR lactose joiners supervisor 10/20/17 07:25 Stool C. difficile DNA Amplification - Final 10/19/17 06:50 Stool C. difficile DNA Amplification - Final Laboratory Results 10/20/17 04:54: POC Glucose 96 10/20/17 11:57: POC Glucose 89 10/20/17 17:47: POC Glucose 107 10/20/17 23:30: Vancomycin Trough 23.3 H 10/20/17 23:32: POC Glucose 122 H 10/21/17 05:10: WBC Pending, RBC Pending, Hgb Pending, Hct Pending, MCV Pending , MCH Pending, MCHC Pending, RDW Pending, RDW Differential Pending, Plt Count Pending, Neut % (Auto) Pending, Absolute Neuts (auto) Pending, Total Counted Pending 10/21/17 05:10: Sodium 146 H, Potassium 3.8, Chloride 120 H, Carbon Dioxide 17.0 L, Anion Gap 9, BUN 13, Creatinine 0.79, Estim Creat Clear Calc 53.81, Est GFR (MDRD) Af Amer 94, Est GFR (MDRD) Non-Af 77, BUN/Creatinine Ratio 16.5, Glucose 133 H, Calcium 5.7 L*, Phosphorus 2.4 L, Magnesium 2.1 10/21/17 05:10: PT 26.5 H, INR 2.4 10/21/17 05:57: POC Glucose 129 H Current Medications Acetaminophen (Tylenol) 650 mg PO Q6H PRN PRN PRN Reason: pain/fever Last Admin: 10/20/17 00:23 Dose: 650 mg Allopurinol (Zyloprim) 100 mg PO BID [facility] Last Admin: 10/20/17 21:50 Dose: 100 mg Bisacodyl (Dulcolax) 10 mg RECTAL DAILY PRN PRN PRN Reason: Constipation Calamine/Phenol (Calmoseptine Ointment) 1 applic TOPICAL 4X/DAY [facility] PRN Reason: Protocol Last Admin: 10/20/17 21:51 Dose: 1 applicatio Chlorhexidine Gluconate () 1 each TOPICAL DAILY [facility] Last Admin: 10/21/17 05:59 Dose: 1 each Dextrose (D50w Syringe) 0 gm IV X1 PRN; Protocol PRN Reason: Hypoglycemia Last Admin: 10/19/17 06:51 Dose: 12.5 gm Fentanyl Citrate (Sublimaze (100mcg Ampule)) 25 mcg IV Q2H PRN PRN PRN Reason: PAIN Last Admin: 10/20/17 21:59 Dose: 25 mcg Glucagon () 1 mg IM .X1 PRN PRN Reason: Hypoglycemia Metronidazole (Flagyl) 500 mg in 100 mls @ 100 mls/hr IV Q8 [facility] Last Admin: 10/21/17 05:59 Dose: 100 mls/hr Pantoprazole Sodium 40 mg/ (Sodium Chloride) 110 mls @ 330 mls/hr IV DAILY [facility] Last Admin: 10/20/17 13:00 Dose: 330 mls/hr Sodium Chloride () 250 mls @ 15 mls/hr IV .[id number] PRN PRN Reason: SALINE FLUSH Last Admin: 10/18/17 20:43 Dose: 15 mls/hr Meropenem 1 gm/ Sodium (Chloride) 120 mls @ 33 mls/hr IV Q8 [facility] Last Admin: 10/21/17 05:59 Dose: 33 mls/hr Norepinephrine Bitartrate 8 mg (/ Dextrose) 258 mls @ 9.67 mls/hr IV .[id number] [facility] PRN Reason: 5 MCG/MIN Last Admin: 10/21/17 04:00 Dose: 9.67 mls/hr Dextrose/Sodium Chloride () 1,000 mls @ 100 mls/hr IV .Q10H [facility] Last Admin: 10/21/17 05:59 Dose: Not Given Vancomycin HCl 1,250 mg/ (Sodium Chloride) 275 mls @ 183.333 mls/hr IV Q12H [facility] Calcium Gluconate 2 gm/ Sodium (Chloride) 120 mls @ 120 mls/hr IV .Q1H [facility] Stop: 10/21/17 08:59 Potassium Phosphate 21 mm/ (Sodium Chloride) 257 mls @ 84 mls/hr IV X1 ONE Stop: 10/21/17 12:03 Lactobacillus Acidophilus (Acidophilus) 1 tablet PO BID [facility] Last Admin: 10/20/17 21:50 Dose: 1 tablet Magnesium Hydroxide (Milk Of Magnesia) 30 ml PO DAILY PRN PRN Reason: Constipation Magnesium Hydroxide (Milk Of Magnesia) 30 ml PO DAILY PRN PRN PRN Reason: Constipation Nystatin/Triamcinolone Acetonide (Mycolog) 1 applic TOPICAL BID [facility] PRN Reason: Protocol Last Admin: 10/20/17 21:51 Dose: 1 applicatio Ondansetron HCl (Zofran) 4 mg IV Q8H PRN PRN PRN Reason: NAUSEA Promethazine HCl (Phenergan) 12.5 mg IV Q6H PRN PRN PRN Reason: NAUSEA/VOMITING Sodium Chloride () 5 - 30 ml IV UD PRN PRN Reason: SALINE FLUSH Last Admin: 10/20/17 23:36 Dose: 30 ml Medical Necessity - Tobacco Use Smoking Status: Former smoker Assessment/Plan Active and Suspected Problems Chronic anemia (Acute) Hypotension (Acute) Vaginal bleeding (Acute) Recurrent colitis due to Clostridium difficile (Acute) The patient is a 67 year old F with 4 comorbidities admitted with septic shock secondary to UTI. Admitted to the intensive care unit where patient is being managed with broad-spectrum antibiotic therapy in addition to pressor support 1. Septic shock secondary to UTI patient is on broad-spectrum antibiotic therapy with vancomycin and meropenem in addition to pressor support urine culture so far positive for gram-negative organisms 2. Acute encephalopathy secondary to infectious encephalopathy 3. 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 On Accu-Cheks before meals and at bedtime with sliding scale coverage 4. Hypocalcemia corrected for protocol 5. Anemia secondary to anemia of chronic disorder monitoring H&H 6. Morbid obesity with BMI of 40.6 weight loss advised 7. Depression with anxiety 8. Physical debility requested for PT and OT eval and treatment patient was discharged back to her [facility] 9. DVT prophylaxis SCDs avoided the use of chemical prophylaxis in view of patient having experienced bleeding per vagina on admission Active Medications Acetaminophen (Tylenol) 650 mg PO Q6H PRN PRN PRN Reason: pain/fever Last Admin: 10/20/17 00:23 Dose: 650 mg Allopurinol (Zyloprim) 100 mg PO BID [facility] Last Admin: 10/20/17 21:50 Dose: 100 mg Bisacodyl (Dulcolax) 10 mg RECTAL DAILY PRN PRN PRN Reason: Constipation Calamine/Phenol (Calmoseptine Ointment) 1 applic TOPICAL 4X/DAY [facility] PRN Reason: Protocol Last Admin: 10/20/17 21:51 Dose: 1 applicatio Chlorhexidine Gluconate () 1 each TOPICAL DAILY [facility] Last Admin: 10/21/17 05:59 Dose: 1 each Dextrose (D50w Syringe) 0 gm IV X1 PRN; Protocol PRN Reason: Hypoglycemia Last Admin: 10/19/17 06:51 Dose: 12.5 gm Fentanyl Citrate (Sublimaze (100mcg Ampule)) 25 mcg IV Q2H PRN PRN PRN Reason: PAIN Last Admin: 10/20/17 21:59 Dose: 25 mcg Glucagon () 1 mg IM .X1 PRN PRN Reason: Hypoglycemia Metronidazole (Flagyl) 500 mg in 100 mls @ 100 mls/hr IV Q8 [facility] Last Admin: 10/21/17 05:59 Dose: 100 mls/hr Pantoprazole Sodium 40 mg/ (Sodium Chloride) 110 mls @ 330 mls/hr IV DAILY [facility] Last Admin: 10/20/17 13:00 Dose: 330 mls/hr Sodium Chloride () 250 mls @ 15 mls/hr IV .[id number] PRN PRN Reason: SALINE FLUSH Last Admin: 10/18/17 20:43 Dose: 15 mls/hr Meropenem 1 gm/ Sodium (Chloride) 120 mls @ 33 mls/hr IV Q8 [facility] Last Admin: 10/21/17 05:59 Dose: 33 mls/hr Norepinephrine Bitartrate 8 mg (/ Dextrose) 258 mls @ 9.67 mls/hr IV .[id number] [facility] PRN Reason: 5 MCG/MIN Last Admin: 10/21/17 04:00 Dose: 9.67 mls/hr Dextrose/Sodium Chloride () 1,000 mls @ 100 mls/hr IV .Q10H [facility] Last Admin: 10/21/17 05:59 Dose: Not Given Vancomycin HCl 1,250 mg/ (Sodium Chloride) 275 mls @ 183.333 mls/hr IV Q12H [facility] Calcium Gluconate 2 gm/ Sodium (Chloride) 120 mls @ 120 mls/hr IV .Q1H [facility] Stop: 10/21/17 08:59 Potassium Phosphate 21 mm/ (Sodium Chloride) 257 mls @ 84 mls/hr IV X1 ONE Stop: 10/21/17 12:03 Lactobacillus Acidophilus (Acidophilus) 1 tablet PO BID [facility] Last Admin: 10/20/17 21:50 Dose: 1 tablet Magnesium Hydroxide (Milk Of Magnesia) 30 ml PO DAILY PRN PRN Reason: Constipation Magnesium Hydroxide (Milk Of Magnesia) 30 ml PO DAILY PRN PRN PRN Reason: Constipation Nystatin/Triamcinolone Acetonide (Mycolog) 1 applic TOPICAL BID [facility] PRN Reason: Protocol Last Admin: 10/20/17 21:51 Dose: 1 applicatio Ondansetron HCl (Zofran) 4 mg IV Q8H PRN PRN PRN Reason: NAUSEA Promethazine HCl (Phenergan) 12.5 mg IV Q6H PRN PRN PRN Reason: NAUSEA/VOMITING Sodium Chloride () 5 - 30 ml IV UD PRN PRN Reason: SALINE FLUSH Last Admin: 10/20/17 23:36 Dose: 30 ml Code Visit Inpatient E&M: 23577 Subs Hosp L3
[2017-10-21 07:49] LABS: Absolute Nucleated RBC Count 0.05 10^3/uL (0-5); Differential Indicated SCAN CRITERIA MET; NRBC Flagged by Analyzer 0.8 % (0-5); POSITIVE COUNT NO; POSITIVE DIFFERENTIAL NO; POSITIVE MORPHOLOGY YES
[2017-10-21 07:50] LABS: Anisocytosis 2+; Hypochromasia 2+; Platelet Estimate MOD DEC (ADEQ); Platelet Morphology LARGE
--- NOTE | 2017-10-21 10:07 | CASEMGMT ---
SW spoke w/Sophy at [facility], confirmed pt can return when ready. SW faxed clinical updates to [facility]. SW will continue to follow for discharge back to [facility] when pt is clinically ready. AMBER Jo, CIVIL ENGINEERING DIRECTOR
[2017-10-21] MEDS: Menthol/Lanolin/Calamine/Znox 113 GM Tube 1 APPLIC TOPICAL ×3 (10:13→17:51)
[2017-10-21] MEDS: Allopurinol 100 MG Tablet PO ×2 (10:13→21:36)
[2017-10-21] MEDS: Nystatin/Triamcin Cream Tube 1 APPLIC TOPICAL ×2 (10:13→21:38)
[2017-10-21] MEDS: Glucerna Shake 120 ML LIQUID PO ×3 (10:13→21:37)
[2017-10-21 12:02] LABS: Pathologist Review Reviewed
--- NOTE | 2017-10-21 12:54 | PCM.HP.ID ---
Problem List (1) Septic shock Status: Acute Reason for Consult: shock Consulted by: Dr. Timmons History of Present Illness: The patient is a 67 year old F with h/o dementia who presented from [facility] with confusion, vaginal bleeding. Had been started on po flagyl and then po vanc two weeks prior for cdiff. Had been admitted to [facility] at middle of September for uti, discharged on short course of cefdinir and developed diarrhea after that. Ucx at that admission was (+) for ecoli and GBS. No cdiff was checked during that hospital stay. Pt taken to ED 10/18. Truck Assembler consulted. CT with ? colitis. Surgery and pulm consulted. Started on meropenem, IV vanc, iv flagyl. Cdiff x2 has been neg. Fever on 10/20 to 101.6 and hypotension requiring pressors. Ucx with enterobacter, so abx narrowed to cefepime. She denies any abd pain. No fever last night. ROS unobtainable due to mental status. - Medical History Past Medical History (Chronic Problems): Chronic Problems YOLANDA (obstructive sleep apnea) (Chronic) Obesity (Chronic) HTN (hypertension) (Chronic) Dyslipidemia (Chronic) DM type 2 (diabetes mellitus, type 2) (Chronic) Anxiety disorder (Chronic) Allergies/Adverse Reactions: Allergies latex Allergy (Verified 10/18/17 14:53) Rash levofloxacin [From Levaquin] Allergy (Verified 10/18/17 14:53) Rash acetaminophen [From Darvocet-N] Adverse Reaction (Verified 10/18/17 14:53) Vomiting codeine Adverse Reaction (Verified 10/18/17 14:53) Unknown gabapentin Adverse Reaction (Verified 10/18/17 14:53) Other propoxyphene [From Darvon] Adverse Reaction (Verified 10/18/17 14:53) Vomiting Home Medications: Ambulatory Orders Medication Instructions Recorded Albuterol Inhaler [Ventolin Hfa] 2 puff INHALATION Q4H PRN PRN 02/28/16 Nystatin Powder [Mycostatin Powder] 1 applic TOPICAL BID PRN PRN 05/02/17 Nystatin/Triamcin Cream [Mycolog] 1 applic TOPICAL BID #1 tube 07/21/17 Allopurinol 100 mg PO BID 10/04/17 Bisacodyl 10 mg RC DAILY PRN PRN 10/04/17 Citalopram Hydrobromide 40 mg PO DAILY 10/04/17 [Citalopram HBr] Ferrous Sulfate [Iron] 325 mg PO DAILY 10/04/17 L. Rhamnosus GG/Inulin [Culturelle 1 each PO DAILY 10/04/17 Capsule] Mag Hydrox/Aluminum Hyd/Simeth 10/04/17 [Antacid Suspension] Omeprazole 40 mg PO DAILY 10/04/17 Potassium Chloride [K-Dur] 10 meq PO DAILY 10/04/17 Promethazine HCl 25 mg PO Q6H PRN PRN 10/04/17 Ranitidine [Zantac] 300 mg PO DAILY 10/04/17 Simvastatin 5 mg PO DAILY 10/04/17 busPIRone [Buspar] 5 mg PO BID 10/04/17 Vancomcyin 125 MG/ 5 ML Susp 125 mg PO Q6 #40 dose 10/07/17 [Vancomycin 125mg/5mL Susp] Ca/D3/Mag Ox/Zinc/Jr. Systems Administrator/Keo/Bor 1 each PO DAILY 10/16/17 [Calcium 630-J9-[id number] Chw Tb] Multivitamin [Daily Multiple 1 each PO DAILY 10/16/17 Vitamin] Zinc Oxide [Dr. Christopher's Adult 170 gm TP DAILY 10/16/17 Barrier] - Social History SMOKING STATUS:: Former smoker Vital Signs Temp Pulse Resp BP Pulse Ox 99.7 F H 117 H 17 91/75 98 10/21/17 12:00 10/21/17 12:00 10/21/17 12:00 10/21/17 12:00 10/21/17 12:00 Oxygen Delivery Method Room Air Weight: 126.2 kg Body Mass Index (BMI) 39.6 Microbiology Past 72 Hours 10/19/17 10:20 Urine Culture - Final Urine Catheter - Catheter Enterobacter aerogenes 10/20/17 07:25 C. difficile DNA Amplification - Final Stool 10/19/17 06:50 C. difficile DNA Amplification - Final Stool Laboratory Tests Past 24 Hrs 10/20/17 10/21/17 10/21/17 23:30 05:10 05:10 WBC 5.5 RBC 3.05 L Hgb 9.4 L Hct 29.6 L MCV 97.0 MCH 30.8 MCHC 31.8 L RDW 21.3 H RDW Differential 72.2 H Plt Count 87 L MPV TNP Immature Gran % (Auto) 0.700 Neut % (Auto) 72.6 H Lymph % (Auto) 19.9 [place] % (Auto) 5.5 Eos % (Auto) 0.9 Baso % (Auto) 0.4 Absolute Neuts (auto) 4.0 Absolute Lymphs (auto) 1.09 Total Counted Not Reportable Nucleated RBC % 0.8 Platelet Estimate MOD DEC Plt Morphology Comment LARGE Hypochromasia 2+ Anisocytosis 2+ Absolute Retic 0.05 PT INR Sodium 146 H Potassium 3.8 Chloride 120 H Carbon Dioxide 17.0 L Anion Gap 9 BUN 13 Creatinine 0.79 Estim Creat Clear Calc 53.81 Est GFR (MDRD) Af Amer 94 Est GFR (MDRD) Non-Af 77 BUN/Creatinine Ratio 16.5 Glucose 133 H Calcium 5.7 L* Phosphorus 2.4 L Magnesium 2.1 Vancomycin Trough 23.3 H 10/21/17 05:10 WBC RBC Hgb Hct MCV MCH MCHC RDW RDW Differential Plt Count MPV Immature Gran % (Auto) Neut % (Auto) Lymph % (Auto) [place] % (Auto) Eos % (Auto) Baso % (Auto) Absolute Neuts (auto) Absolute Lymphs (auto) Total Counted Nucleated RBC % Platelet Estimate Plt Morphology Comment Hypochromasia Anisocytosis Absolute Retic PT 26.5 H INR 2.4 Sodium Potassium Chloride Carbon Dioxide Anion Gap BUN Creatinine Estim Creat Clear Calc Est GFR (MDRD) Af Amer Est GFR (MDRD) Non-Af BUN/Creatinine Ratio Glucose Calcium Phosphorus Magnesium Vancomycin Trough - Other Studies Radiology: [] reviewed Other Studies: [] Route of nutrition/ use of supplements: [] Nutritional Intake: [] IV Site: [] Ayon Catheter: [] - Physical Exam General: No apparent distress HEENT: Atraumatic, PERRLA, EOMI Neck: Supple, No Nodes Lungs: Clear to auscultation, Normal air movement Cardiovascular: No murmurs, Tachycardic Abdomen: Soft, Non Tender, Non-Distended, Obese Extremities: Edema Skin: No rashes IV Site: PICC, - - a line Musculoskeletal: No Tenderness to Palpation of Joints or Extremities Neurological: Cranial nerves II-XII grossly intact - Assessment/Plan Antibiotics: [] Assessment/Plan: [] Active and Suspected Problems Chronic anemia (Acute) Hypotension (Acute) Vaginal bleeding (Acute) Recurrent colitis due to Clostridium difficile (Acute) septic shock with unclear cause - ? h/o cdiff. Was admitted to [place] mid September with ecoli and GBS uti, discharged on cefdinir, but no cdiff checked in the [employer] system. Cdiff neg x2 here. She had been on oral vanc prior to admission which would decrease the yield of cdiff testing, but if cdiff was the primary heavy truck driver of her illness now, would expect her to be (+). Possible UTI as source, but UA showed minimal pyuria. Ucx with heavy enterobacter, R to zosyn, but it is strange she had new fever and shock after being on meropenem for almost 2 days. There are nonobstructing stones in L kidney, but no hydro, stranding, or abscess seen. She remains on pressors, other cxs are negative. Currently on cefepime. Fever improved last night. FMS in place. If she worsens, I think the next steps would be restarting anaerobic coverage, vaginal ultrasound, repeat CT abd/pelvis with po and iv contrast to better evaluate the colon, and consider urology consult for stones. Thank you, will follow.
--- NOTE | 2017-10-21 13:08 | CON.PCM_ITS ---
Problem List (1) Septic shock Status: Acute Reason for Consult: shock Consulted by: Dr. Timmons History of Present Illness: The patient is a 67 year old F with h/o dementia who presented from [facility] with confusion, vaginal bleeding. Had been started on po flagyl and then po vanc two weeks prior for cdiff. Had been admitted to [facility] at middle of September for uti, discharged on short course of cefdinir and developed diarrhea after that. Ucx at that admission was (+) for ecoli and GBS. No cdiff was checked during that hospital stay. Pt taken to ED 10/18. Chair Pad Maker consulted. CT with ? colitis. Surgery and pulm consulted. Started on meropenem, IV vanc, iv flagyl. Cdiff x2 has been neg. Fever on 10/20 to 101.6 and hypotension requiring pressors. Ucx with enterobacter, so abx narrowed to cefepime. She denies any abd pain. No fever last night. ROS unobtainable due to mental status. - Medical History Past Medical History (Chronic Problems): Chronic Problems YOLANDA (obstructive sleep apnea) (Chronic) Obesity (Chronic) HTN (hypertension) (Chronic) Dyslipidemia (Chronic) DM type 2 (diabetes mellitus, type 2) (Chronic) Anxiety disorder (Chronic) Allergies/Adverse Reactions: Allergies latex Allergy (Verified 10/18/17 14:53) Rash levofloxacin [From Levaquin] Allergy (Verified 10/18/17 14:53) Rash acetaminophen [From Darvocet-N] Adverse Reaction (Verified 10/18/17 14:53) Vomiting codeine Adverse Reaction (Verified 10/18/17 14:53) Unknown gabapentin Adverse Reaction (Verified 10/18/17 14:53) Other propoxyphene [From Darvon] Adverse Reaction (Verified 10/18/17 14:53) Vomiting Home Medications: Ambulatory Orders Medication Instructions Recorded Albuterol Inhaler [Ventolin Hfa] 2 puff INHALATION Q4H PRN PRN 02/28/16 Nystatin Powder [Mycostatin Powder] 1 applic TOPICAL BID PRN PRN 05/02/17 Nystatin/Triamcin Cream [Mycolog] 1 applic TOPICAL BID #1 tube 07/21/17 Allopurinol 100 mg PO BID 10/04/17 Bisacodyl 10 mg RC DAILY PRN PRN 10/04/17 Citalopram Hydrobromide 40 mg PO DAILY 10/04/17 [Citalopram HBr] Ferrous Sulfate [Iron] 325 mg PO DAILY 10/04/17 L. Rhamnosus GG/Inulin [Culturelle 1 each PO DAILY 10/04/17 Capsule] Mag Hydrox/Aluminum Hyd/Simeth 10/04/17 [Antacid Suspension] Omeprazole 40 mg PO DAILY 10/04/17 Potassium Chloride [K-Dur] 10 meq PO DAILY 10/04/17 Promethazine HCl 25 mg PO Q6H PRN PRN 10/04/17 Ranitidine [Zantac] 300 mg PO DAILY 10/04/17 Simvastatin 5 mg PO DAILY 10/04/17 busPIRone [Buspar] 5 mg PO BID 10/04/17 Vancomcyin 125 MG/ 5 ML Susp 125 mg PO Q6 #40 dose 10/07/17 [Vancomycin 125mg/5mL Susp] Ca/D3/Mag Ox/Zinc/Registered Health Nurse/Keo/Bor 1 each PO DAILY 10/16/17 [Calcium 177-S6-Xdovoexz Chw Tb] Multivitamin [Daily Multiple 1 each PO DAILY 10/16/17 Vitamin] Zinc Oxide [Dr. Christopher's Adult 170 gm TP DAILY 10/16/17 Barrier] - Social History SMOKING STATUS:: Former smoker Vital Signs Temp Pulse Resp BP Pulse Ox 99.7 F H 117 H 17 91/75 98 10/21/17 12:00 10/21/17 12:00 10/21/17 12:00 10/21/17 12:00 10/21/17 12:00 Oxygen Delivery Method Room Air Weight: 126.2 kg Body Mass Index (BMI) 39.6 Microbiology Past 72 Hours 10/19/17 10:20 Urine Culture - Final Urine Catheter - Catheter Enterobacter aerogenes 10/20/17 07:25 C. difficile DNA Amplification - Final Stool 10/19/17 06:50 C. difficile DNA Amplification - Final Stool Laboratory Tests Past 24 Hrs 10/20/17 10/21/17 10/21/17 23:30 05:10 05:10 WBC 5.5 RBC 3.05 L Hgb 9.4 L Hct 29.6 L MCV 97.0 MCH 30.8 MCHC 31.8 L RDW 21.3 H RDW Differential 72.2 H Plt Count 87 L MPV TNP Immature Gran % (Auto) 0.700 Neut % (Auto) 72.6 H Lymph % (Auto) 19.9 [place] % (Auto) 5.5 Eos % (Auto) 0.9 Baso % (Auto) 0.4 Absolute Neuts (auto) 4.0 Absolute Lymphs (auto) 1.09 Total Counted Not Reportable Nucleated RBC % 0.8 Platelet Estimate MOD DEC Plt Morphology Comment LARGE Hypochromasia 2+ Anisocytosis 2+ Absolute Retic 0.05 PT INR Sodium 146 H Potassium 3.8 Chloride 120 H Carbon Dioxide 17.0 L Anion Gap 9 BUN 13 Creatinine 0.79 Estim Creat Clear Calc 53.81 Est GFR (MDRD) Af Amer 94 Est GFR (MDRD) Non-Af 77 BUN/Creatinine Ratio 16.5 Glucose 133 H Calcium 5.7 L* Phosphorus 2.4 L Magnesium 2.1 Vancomycin Trough 23.3 H 10/21/17 05:10 WBC RBC Hgb Hct MCV MCH MCHC RDW RDW Differential Plt Count MPV Immature Gran % (Auto) Neut % (Auto) Lymph % (Auto) [place] % (Auto) Eos % (Auto) Baso % (Auto) Absolute Neuts (auto) Absolute Lymphs (auto) Total Counted Nucleated RBC % Platelet Estimate Plt Morphology Comment Hypochromasia Anisocytosis Absolute Retic PT 26.5 H INR 2.4 Sodium Potassium Chloride Carbon Dioxide Anion Gap BUN Creatinine Estim Creat Clear Calc Est GFR (MDRD) Af Amer Est GFR (MDRD) Non-Af BUN/Creatinine Ratio Glucose Calcium Phosphorus Magnesium Vancomycin Trough - Other Studies Radiology: [] reviewed Other Studies: [] Route of nutrition/ use of supplements: [] Nutritional Intake: [] IV Site: [] Ayon Catheter: [] - Physical Exam General: No apparent distress HEENT: Atraumatic, PERRLA, EOMI Neck: Supple, No Nodes Lungs: Clear to auscultation, Normal air movement Cardiovascular: No murmurs, Tachycardic Abdomen: Soft, Non Tender, Non-Distended, Obese Extremities: Edema Skin: No rashes IV Site: PICC, - - a line Musculoskeletal: No Tenderness to Palpation of Joints or Extremities Neurological: Cranial nerves II-XII grossly intact - Assessment/Plan Antibiotics: [] Assessment/Plan: [] Active and Suspected Problems Chronic anemia (Acute) Hypotension (Acute) Vaginal bleeding (Acute) Recurrent colitis due to Clostridium difficile (Acute) septic shock with unclear cause - ? h/o cdiff. Was admitted to [place] mid September with ecoli and GBS uti, discharged on cefdinir, but no cdiff checked in the [employer] system. Cdiff neg x2 here. She had been on oral vanc prior to admission which would decrease the yield of cdiff testing, but if cdiff was the primary truck driver teamster of her illness now, would expect her to be (+). Possible UTI as source, but UA showed minimal pyuria. Ucx with heavy enterobacter, R to zosyn, but it is strange she had new fever and shock after being on meropenem for almost 2 days. There are nonobstructing stones in L kidney, but no hydro, stranding, or abscess seen. She remains on pressors, other cxs are negative. Currently on cefepime. Fever improved last night. FMS in place. If she worsens, I think the next steps would be restarting anaerobic coverage, vaginal ultrasound, repeat CT abd/ pelvis with po and iv contrast to better evaluate the colon, and consider urology consult for stones. Thank you, will follow.
[2017-10-21] MEDS: Dext 5%-0.45% NS 1,000 ML 100 ML IV (17:53)
[2017-10-22] VITALS (41 sets, daily range): BP systolic 75–113; BP diastolic 41–83; PULSE 95–117; RESP 16–30; TEMP 36.6–37.3; O2SAT 92–100
--- NOTE | 2017-10-22 | COLBX_PTH ---
PATIENT: Carri Membreno LOC: [facility] U#:[id number] AGE/SX: 67/F ROOM: ICU02 RE10/18/[address]: Charis Vieyra MD : 1950 BED: 1 DIS: 10/23/2017 SPEC #: [id number] RECD: 10/22/17 15:43 STATUS: OLIVIER ERA #: [id number] LAUREN: 10/22/17 00:[address]: Werner Hall DEPT: SURGICAL PATHOLOGY RECD BY: Mamadou Colmenares ENTERED: 10/23/17 06:44 SP TYPE: COLON BX OTHR DR: MD Dr. Darnell Ricketts MD Dr. Douglas Wenger, MD Dr. Emily Benekos, MD Dr. Prakash Chand, MD Dr. Robert Leininger, MD Tissues: Sigmoid colon biopsy Procedures: Surgery Specimen Level IV HEADER OPERATION: Flexible sigmoidoscopy PRE-OP DIAGNOSIS: Colitis TISSUE SUBMITTED: Sigmoid biopsy MICROSCOPIC DIAGNOSIS Sigmoid, biopsy: Fragments of colonic mucosa, no pathologic diagnosis. CHUCKY:francois 10/24/17 MICROSCOPIC DESCRIPTION Slides are reviewed. GROSS DESCRIPTION Received in fixative is one container labeled with the patient's name and designated sigmoid biopsy. The specimen consists of multiple irregular fragments of light sainz soft tissue that in aggregate measure 0.6 x 0.5 x 0.2 cm. The specimen is totally submitted in one cassette. / AM:francois 10/23/17 TC:4 CPT: 94836
[2017-10-22 01:01] LABS: Bedside Glucose 182 mg/dL (70-110)
[2017-10-22] MEDS: 0.9% NaCl Peripheral Flush Adult/Peds IV (03:10)
[2017-10-22] MEDS: fentaNYL 100 MCG/2 ML Ampul 25 MCG IV ×4 (03:10→17:43)
[2017-10-22 03:58] LABS: Absolute Lymphocyte Count 1.95 X10^3/ul (0.83-4.51); Absolute Neutrophil Count 5.4 X10^3/uL (2.0-7.7); Basophil# 0.03 X10^3/uL; Basophil% 0.4 % (0-1); Hematocrit 30.1 % (37-47); Hemoglobin 9.7 g/dl (12.0-15.0); Lymphocyte # 1.95 X10^3/ul (4.0); Lymphocyte % 24.2 % (19-41); Mean Corp Hgb Conc 32.2 g/gl (32-36); Mean Corpuscular Hgb 31.8 pg (27.0-32.0); Mean Corpuscular Volume 98.7 fL (81-99); Mean Platelet Vol. 12.2 fl (6.2-12.0); Monocyte# 0.52 X10^3/uL; Monocyte% 6.5 % (0-10); Neutrophil # 5.44 X10^3/uL (2.7-7.7); Neutrophil % 67.5 % (47-70); POSITIVE COUNT NO; POSITIVE DIFFERENTIAL NO; Platelet Count 81 K/mm3 (150-450); RBC Distribution Width CV 21.2 % (11.6-14.6); RBC Distribution Width SD 69.8 fl (35.1-43.9); Red Blood Count 3.05 M/mm3 (4.2-5.4); White Blood Count 8.1 K/mm3 (4.4-11.0)
[2017-10-22 03:59] LABS: Differential Indicated SCAN CRITERIA MET; POSITIVE MORPHOLOGY YES
[2017-10-22 04:26] LABS: Anisocytosis 1+; Platelet Estimate ADEQUATE (ADEQ)
[2017-10-22 04:27] LABS: Hypochromasia RARE; Macrocytosis 1+; Ovalocyte RARE
[2017-10-22 05:15] LABS: Anion Gap 9 (5-15); BUN 13 mg/dL (7-18); BUN/Creat Ratio 14.3 RATIO (10-20); Calcium,Total 5.9 mg/dL (8.5-10.1); Chloride 120 mmol/L (98-107); Creatinine, Serum 0.91 mg/dL (0.55-1.02); EST Glomerular Filtration Rate 66 mL/min (>60); Est Glom Filt Rate - Afr Amer 80 mL/min (>60); Estimated Creatinine Clearance 59.14 ml/min; Glucose 171 mg/dL (74-106); Potassium 4.3 mmol/L (3.5-5.1); Sodium Level 144 mmol/L (136-145)
[2017-10-22] MEDS: Dext 5%-0.45% NS 1,000 ML 100 ML IV (05:26)
[2017-10-22] MEDS: CHLORHEXIDINE GLUC 2% CLOTH 1 EACH TOWELETTE TOPICAL (05:27)
--- NOTE | 2017-10-22 06:38 | CT_ITS ---
STUDY: CT CHEST WITH CONTRAST REASON FOR EXAM: Female, 67 years old. Cough. Abdominal pain. Septic shock. RADIATION DOSAGE (If Supplied By Facility): CTDIvol = ( 27.35 ) mGy, DLP = ( 2882.98 ) mGycm TECHNIQUE: Transaxial imaging was performed following intravenous administration of 100mL ml of Isovue 300 contrast material. Multiplanar coronal and sagittal images were reformatted. Individualized dose optimization techniques were used for this CT. COMPARISON: None. FINDINGS: Anterior to it is seen within the esophagus. There are small bilateral pleural effusions with bibasilar atelectasis. Mild increased markings in the peripheral aspect of the right upper lobe. There are calcifications of the coronary arteries. There are multiple small lymph nodes within the mediastinum, which are normal in size and morphology most compatible with reactive lymph hyperplasia. Normal hilar regions. Normal enhanced pulmonary arteries. Normal aorta arch and descending thoracic aorta. There are degenerative changes of the thoracic spine. Large hiatal hernia. Diffuse fatty infiltration of the liver. CT/Chest WITH Contrast IMPRESSION: Small bilateral pleural effusions with bibasilar atelectasis. Mild increased markings in the lateral aspect of the right upper lobe. Coronary artery calcification. Diffuse fatty infiltration of the liver. Large hiatal hernia. Electronically Signed: Antonio Steel MD at 11:22 EDT Tel [phone], Service support ,
--- NOTE | 2017-10-22 06:39 | CT_ITS ---
STUDY: CT ABDOMEN AND PELVIS WITH CONTRAST REASON FOR EXAM: Female, 67 years old. Abdominal pain. Refractory septic shock. Vaginal bleeding. Pseudomonas colitis. RADIATION DOSAGE (If Supplied By Facility): CTDIvol = ( 27.35 ) mGy, DLP = ( 2882.98 ) mGycm TECHNIQUE: Transaxial images were obtained from the dome of the diaphragm to the symphysis pubis with oral contrast. 100mL ml of Isovue 300 contrast was administered. Sagittal and coronal images were reconstructed. Individualized dose optimization techniques were used for this CT. COMPARISON: Comparison is made with prior study dated October 18, 2017. FINDINGS: Increasing bilateral pleural effusions with underlying infiltration and/or atelectasis. Small pericardial effusion. There is decreased attenuation of the liver consistent with steatosis. Hepatomegaly. There are surgical clips in the gallbladder fossa consistent with a prior cholecystectomy. Normal spleen. Normal pancreas. Normal bilateral adrenal glands. Marked atrophy of the right kidney. Nonobstructive calculi seen in the mid and lower pole calyces of the left kidney. Large hiatal hernia. Normal small intestine. Diffuse circumferential wall thickening of the right hemicolon and descending colon suggestive of colitis. There is also evidence of mucosal edema and wall thickening of the rectosigmoid colon. Small amount of fluid in the right paracolic gutter. There is non-visualization of the appendix. There is diffuse atherosclerotic calcification of the abdominal aorta, without a demonstrated aneurysm. Normal inferior vena cava. Normal retroperitoneum. Normal urinary bladder. Small amount of free fluid in the right pelvis. Subcutaneous edema. There are diffuse degenerative changes of the visualized lumbar spine. CT/Abdomen/Pelvis WITH Contrast IMPRESSION: Progressive small bilateral pleural effusions with bibasilar atelectasis. Hepatomegaly and diffuse fatty infiltration of the liver. There appears to be progressive colitis. Electronically Signed: Antonio Steel MD at 12:20 EDT Tel [phone], Service support ,
--- NOTE | 2017-10-22 06:46 | PN_ITS ---
Subjective: The patient was seen and examined at the bedside this morning. Events from the last 24 hours have been reviewed. Although the patient is currently afebrile, she remains hypotensive, tachycardic and tachypneic. She is, nonetheless, maintaining appropriate oxygen saturations on room air. Unfortunately, her Levophed requirement increased overnight. This morning, she reports increasing abdominal pain, which is diffuse and nonfocal in nature. Blood counts remain stable. When corrected for the patient's serum albumin level, the patient's calcium level is 8.3 mg/dL. The patient is currently overall net +13.5 L for the admission. Objective: The patient's most recent lab work, culture data and imaging studies have all been personally reviewed. C. difficile was negative. Blood cultures are pending. Urine Gram stain was positive for the presence of Enterobacter aerogenes. CT abdomen and pelvis revealed possible enteritis/colitis, fatty liver, large hiatal hernia and nonobstructing stones of the left kidney. Polysomnogram from 2012 revealed evidence of obstructive sleep apnea, for which it was recommended that the patient be placed on nasal BiPAP therapy at a pressure setting of 17/11 cm of water. General: Alert, Cooperative, - - Appears older than stated age. Ill in appearance. HEENT: Atraumatic, PERRLA, Normocephalic Oral: No Gingival or Mucosal Lesions/ Ulcerations Neck: Supple, No Nodes, Trachea Midline Lungs: No rhonchi, No wheeze, No rales, Diminished Cardiovascular: Normal S1, Normal S2, No murmurs, No rub noted, No Gallop, Tachycardic Abdomen: Bowel Sounds Present, Soft, Obese, - - There is diffuse abdominal tenderness to palpation without rebound, guarding or rigidity. Extremities: No clubbing, No cyanosis, Edema Skin: - - No significant change from previous. Musculoskeletal: No Muscle Wasting Lymphatic: No Cervical, Supraclavicular, or Inguinal Adenopathy Neurological: Neuro grossly intact, - - Tremulous Psych/Mental Status: Normal Affect, Appropriate Vital Signs Temp Pulse Resp BP Pulse Ox 98.4 F 115 H 30 H 104/61 96 10/22/17 06:00 10/22/17 06:00 10/22/17 06:00 10/22/17 06:00 10/22/17 06:00 Oxygen Delivery Method Room Air Weight: 280 lb 6.848 oz Body Mass Index (BMI) 39.6 Intake and Output for Last 24 Hours 10/20/17 10/21/17 10/22/17 23:59 23:59 23:59 Intake Total 4649.6 / 4649.6 4270.7 / 4270.7 1657 / 1657 Output Total 475 / 475 510 / 510 225 / 225 Balance 4174.6 / 4174.6 3760.7 / 3760.7 1432 / 1432 Labs (Last 48 Hours) 10/20/17 10/20/17 10/20/17 04:54 11:57 17:47 WBC RBC Hgb Hct MCV MCH MCHC RDW RDW Differential Plt Count MPV Immature Gran % (Auto) Neut % (Auto) Lymph % (Auto) [place] % (Auto) Eos % (Auto) Baso % (Auto) Absolute Neuts (auto) Absolute Lymphs (auto) Total Counted Nucleated RBC % Platelet Estimate Plt Morphology Comment Hypochromasia Anisocytosis Macrocytosis Ovalocytes Absolute Retic PT INR Sodium Potassium Chloride Carbon Dioxide Anion Gap BUN Creatinine Estim Creat Clear Calc Est GFR (MDRD) Af Amer Est GFR (MDRD) Non-Af BUN/Creatinine Ratio Glucose Calcium Phosphorus Magnesium Vancomycin Trough POC Glucose 96 89 107 10/20/17 10/20/17 10/21/17 23:30 23:32 05:10 WBC 5.5 RBC 3.05 L Hgb 9.4 L Hct 29.6 L MCV 97.0 MCH 30.8 MCHC 31.8 L RDW 21.3 H RDW Differential 72.2 H Plt Count 87 L MPV TNP Immature Gran % (Auto) 0.700 Neut % (Auto) 72.6 H Lymph % (Auto) 19.9 [place] % (Auto) 5.5 Eos % (Auto) 0.9 Baso % (Auto) 0.4 Absolute Neuts (auto) 4.0 Absolute Lymphs (auto) 1.09 Total Counted Not Reportable Nucleated RBC % 0.8 Platelet Estimate MOD DEC Plt Morphology Comment LARGE Hypochromasia 2+ Anisocytosis 2+ Macrocytosis Ovalocytes Absolute Retic 0.05 PT INR Sodium Potassium Chloride Carbon Dioxide Anion Gap BUN Creatinine Estim Creat Clear Calc Est GFR (MDRD) Af Amer Est GFR (MDRD) Non-Af BUN/Creatinine Ratio Glucose Calcium Phosphorus Magnesium Vancomycin Trough 23.3 H POC Glucose 122 H 10/21/17 10/21/17 10/21/17 05:10 05:10 05:57 WBC RBC Hgb Hct MCV MCH MCHC RDW RDW Differential Plt Count MPV Immature Gran % (Auto) Neut % (Auto) Lymph % (Auto) [place] % (Auto) Eos % (Auto) Baso % (Auto) Absolute Neuts (auto) Absolute Lymphs (auto) Total Counted Nucleated RBC % Platelet Estimate Plt Morphology Comment Hypochromasia Anisocytosis Macrocytosis Ovalocytes Absolute Retic PT 26.5 H INR 2.4 Sodium 146 H Potassium 3.8 Chloride 120 H Carbon Dioxide 17.0 L Anion Gap 9 BUN 13 Creatinine 0.79 Estim Creat Clear Calc 53.81 Est GFR (MDRD) Af Amer 94 Est GFR (MDRD) Non-Af 77 BUN/Creatinine Ratio 16.5 Glucose 133 H Calcium 5.7 L* Phosphorus 2.4 L Magnesium 2.1 Vancomycin Trough POC Glucose 129 H 10/22/17 10/22/17 10/22/17 00:54 03:35 03:35 WBC 8.1 RBC 3.05 L Hgb 9.7 L Hct 30.1 L MCV 98.7 MCH 31.8 MCHC 32.2 RDW 21.2 H RDW Differential 69.8 H Plt Count 81 L MPV 12.2 H Immature Gran % (Auto) 1.400 H Neut % (Auto) 67.5 Lymph % (Auto) 24.2 [place] % (Auto) 6.5 Eos % (Auto) 0.0 Baso % (Auto) 0.4 Absolute Neuts (auto) 5.4 Absolute Lymphs (auto) 1.95 Total Counted Not Reportable Nucleated RBC % Platelet Estimate ADEQUATE Plt Morphology Comment Hypochromasia RARE Anisocytosis 1+ Macrocytosis 1+ Ovalocytes RARE Absolute Retic PT INR Sodium 144 Potassium 4.3 Chloride 120 H Carbon Dioxide 15.0 L Anion Gap 9 BUN 13 Creatinine 0.91 Estim Creat Clear Calc 59.14 Est GFR (MDRD) Af Amer 80 Est GFR (MDRD) Non-Af 66 BUN/Creatinine Ratio 14.3 Glucose 171 H Calcium 5.9 L* Phosphorus Magnesium Vancomycin Trough POC Glucose 182 H Microbiology 10/19/17 11:00 Blood Culture (Wb) - Pic Blood Culture - Preliminary No growth in 48 hours. 10/19/17 10:20 Blood Culture (Wb) - Arterial Blood Culture - Preliminary No growth in 48 hours. 10/19/17 10:20 Urine Catheter - Catheter Urine Culture - Final Enterobacter aerogenes 10/20/17 07:25 Stool C. difficile DNA Amplification - Final Clinical Impression(s) from Imaging Studies Abdomen/Pelvis CT 10/18/17 14:59 IMPRESSION: Evaluation of the GI tract limited without oral contrast. Cannot exclude diffuse colitis. No change in fatty liver, large hiatal hernia, severe right renal atrophy, nonobstructing stones of the left kidney. Electronically Signed: Syed Casey MD at 16:34 EDT , Service support , Medical Necessity - Tobacco Use Smoking Status: Former smoker Assessment/Plan Active and Suspected Problems Septic shock (Acute) Hypotension (Acute) Vaginal bleeding (Acute) Recurrent colitis due to Clostridium difficile (Acute) RECOMMENDATIONS: 1. Continue to wean Levophed to maintain a mean arterial pressure at or above 65 mmHg. 2. Given questionable septic source, recommend CT chest/abdomen/pelvis 3. Obtain hepatic function profile, INR and lipase. In addition, will recheck serum lactate level. 4. Broaden antibiotics to include Zosyn and vancomycin. Appreciate infectious diseases recommendations. 5. The patient's corrected serum calcium level is still on the low side. Additional repletion will be ordered. 6. Stop supplemental IV fluids 7. Continue appropriate ICU prophylaxis 8. Encourage incentive spirometer use while in bed and mobilize patient as tolerated. IMPRESSIONS: 1. Refractory Septic shock/gram-negative cystitis Although the patient had Enterobacter aerogenes isolated from her urine culture , her vasopressor requirement has continued to increase despite being on appropriate antibiotics. She has been more than adequately volume resuscitated. We will plan to continue Levophed to maintain mean arterial pressure at or above 65 mmHg. Repeat cultures will be sent. In addition to the aforementioned, clinical suspicion for an alternative source of infection, potentially intra-abdominal in nature. Therefore, a CT chest/abdomen/pelvis will be obtained. The patient's antibiotics will be broadened. Infectious diseases is following accordingly. 2. Blood loss anemia secondary to vaginal bleeding The patient has been seen by gynecology. Blood counts remain stable at this time. We will continue to monitor accordingly. Consider pelvic ultrasound with the patient is able to tolerate. 3. Delirium/metabolic encephalopathy Improved. Continue Haldol as needed for agitation. Aggressive repletion of the patient's electrolyte abnormalities. 4. Morbid obesity/anxiety/depression/protracted illness/history of obstructive sleep apnea Complicates care, management, recovery and prognosis. Likely okay to continue home medications. Recommend physical therapy to work with patient once medically stabilized. Recommend initiation of nocturnal Pap therapy while the patient is admitted to the hospital. TIME: 55 minutes of critical care time, independent of procedures, was spent addressing the patient's refractory septic shock, blood loss anemia, delirium/ metabolic encephalopathy, review of all data and collaboration with the care team. ([id number]) Code Visit 9xxxx: [id number] Critical care first hour
[2017-10-22 07:31] LABS: International Normalized Ratio 2.3
[2017-10-22 07:32] LABS: Lactic Acid 2.2 mmol/L (0.4-2.0)
--- NOTE | 2017-10-22 07:32 | PCM.RX.CS ---
Consult Pharmacy has been consulted to manage selected antiobiotic: Vancomycin Type of Consult: New start Suspected Infection: Other - Unknown Source Labs: Sodium 144 mmol/L (136-145) 10/22/17 03:35 Potassium 4.3 mmol/L (3.5-5.1) 10/22/17 03:35 Chloride 120 mmol/L (98-107) H 10/22/17 03:35 Carbon Dioxide 15.0 mmol/L (21.0-32.0) L 10/22/17 03:35 Anion Gap 9 (5-15) 10/22/17 03:35 BUN 13 mg/dL (7-18) 10/22/17 03:35 Creatinine 0.91 mg/dL (0.55-1.02) 10/22/17 03:35 Est GFR (MDRD) Af Amer 80 mL/min (>60) 10/22/17 03:35 Est GFR (MDRD) Non-Af 66 mL/min (>60) 10/22/17 03:35 BUN/Creatinine Ratio 14.3 RATIO (10-20) 10/22/17 03:35 Glucose 171 mg/dL (74-106) H 10/22/17 03:35 Vancomycin Trough 23.3 ug/mL (5.0-15.0) H 10/20/17 23:30 Microbiology: Microbiology 10/19/17 11:00 Blood Culture (Wb) - Pic Blood Culture - Preliminary No growth in 48 hours. 10/19/17 10:20 Blood Culture (Wb) - Arterial Blood Culture - Preliminary No growth in 48 hours. 10/19/17 10:20 Urine Catheter - Catheter Urine Culture - Final Enterobacter aerogenes 10/20/17 07:25 Stool C. difficile DNA Amplification - Final 10/19/17 06:50 Stool C. difficile DNA Amplification - Final Weight used for dosin kg Estimated Creatinine Clearance: 59 mL/min Goal Trough: 15-20 mcg/mL Pharmacy Plan for Drug Dosing: Recommend vancomycin 1250mg q12h. Patient tolerated similar regimen previously. Check trough prior to 5th dose knowing patient tolerated previously. Pharmacy Service will continue to monitor and adjust dosing as required. Follow-Up Labs: Trough Vancomycin - 10/24/17 @ 0800
--- NOTE | 2017-10-22 07:33 | PCM.PN.HOSP ---
Patient Problems: Active and Suspected Problems Septic shock (Acute) Hypotension (Acute) Vaginal bleeding (Acute) Recurrent colitis due to Clostridium difficile (Acute) Subjective: Patient seen, appears ill looking. Has increasing requirement for pressors. Also complains of abdominal pain CT of the abdomen ordered for subsequent evaluation. Patient still continues to have diarrhea and her hyperchloremic non-anion gap acidosis persist Objective: GENERAL: appears ill looking. HEENT: Clear conjunctiva, NECK; supple, normal thyroid, CHEST: Diminished to auscultation bilaterally, khloe rhonchi HEART: Regular S1 S2, no audible murmurs ABDOMEN: soft, diffusely tender, normoactive bowel sounds, RECTAL: deferred EXTREMITIES: 2+ Pitting edema COMMUNITY SERVICE AIDE: Awake; no lateralizing signs. SKIN: No Rash Vitals/I&O's: Vital Signs Temp Pulse Resp BP Pulse Ox 98.4 F 115 H 30 H 104/61 96 10/22/17 06:00 10/22/17 06:00 10/22/17 06:00 10/22/17 06:00 10/22/17 06:00 Oxygen Delivery Method Room Air Weight: 127.2 kg Body Mass Index (BMI) 39.6 Intake and Output for Last 24 Hours 10/20/17 10/21/17 10/22/17 23:59 23:59 23:59 Intake Total 4649.6 / 4649.6 4270.7 / 4270.7 1657 / 1657 Output Total 475 / 475 510 / 510 225 / 225 Balance 4174.6 / 4174.6 3760.7 / 3760.7 1432 / 1432 Microbiology Past 72 Hours 10/19/17 11:00 Blood Culture (Wb) - Pic Blood Culture - Preliminary No growth in 48 hours. 10/19/17 10:20 Blood Culture (Wb) - Arterial Blood Culture - Preliminary No growth in 48 hours. 10/19/17 10:20 Urine Catheter - Catheter Urine Culture - Final Enterobacter aerogenes 10/20/17 07:25 Stool C. difficile DNA Amplification - Final 10/19/17 06:50 Stool C. difficile DNA Amplification - Final Laboratory Results 10/21/17 05:10: WBC 5.5, RBC 3.05 L, Hgb 9.4 L, Hct 29.6 L, MCV 97.0, MCH 30.8, MCHC 31.8 L, RDW 21.3 H, RDW Differential 72.2 H, Plt Count 87 L, MPV TNP, Immature Gran % (Auto) 0.700, Neut % (Auto) 72.6 H, Lymph % (Auto) 19.9, [place] % (Auto) 5.5, Eos % (Auto) 0.9, Baso % (Auto) 0.4, Absolute Neuts (auto) 4.0, Absolute Lymphs (auto) 1.09, Total Counted Not Reportable, Nucleated RBC % 0.8, Platelet Estimate MOD DEC, Plt Morphology Comment LARGE, Hypochromasia 2+, Anisocytosis 2+, Absolute Retic 0.05 10/22/17 00:54: POC Glucose 182 H 10/22/17 03:35: WBC 8.1, RBC 3.05 L, Hgb 9.7 L, Hct 30.1 L, MCV 98.7, MCH 31.8, MCHC 32.2, RDW 21.2 H, RDW Differential 69.8 H, Plt Count 81 L, MPV 12.2 H, Immature Gran % (Auto) 1.400 H, Neut % (Auto) 67.5, Lymph % (Auto) 24.2, [place] % (Auto) 6.5, Eos % (Auto) 0.0, Baso % (Auto) 0.4, Absolute Neuts (auto) 5.4, Absolute Lymphs (auto) 1.95, Total Counted Not Reportable, Platelet Estimate ADEQUATE, Hypochromasia RARE, Anisocytosis 1+, Macrocytosis 1+, Ovalocytes RARE 10/22/17 03:35: Sodium 144, Potassium 4.3, Chloride 120 H, Carbon Dioxide 15.0 L, Anion Gap 9, BUN 13, Creatinine 0.91, Estim Creat Clear Calc 59.14, Est GFR (MDRD) Af Amer 80, Est GFR (MDRD) Non-Af 66, BUN/Creatinine Ratio 14.3, Glucose 171 H, Calcium 5.9 L* 10/22/17 03:35: Phosphorus Pending, Total Bilirubin Pending, Direct Bilirubin Pending, AST Pending, ALT Pending, Alkaline Phosphatase Pending, Total Protein Pending, Albumin Pending 10/22/17 03:35: Lipase Pending 10/22/17 06:46: PT Cancelled, INR Cancelled 10/22/17 06:50: Lactic Acid 2.2 H 10/22/17 07:10: PT Pending, INR Pending Current Medications Acetaminophen (Tylenol) 650 mg PO Q6H PRN PRN PRN Reason: pain/fever Last Admin: 10/20/17 00:23 Dose: 650 mg Allopurinol (Zyloprim) 100 mg PO BID [facility] Last Admin: 10/21/17 21:36 Dose: 100 mg Bisacodyl (Dulcolax) 10 mg RECTAL DAILY PRN PRN PRN Reason: Constipation Calamine/Phenol (Calmoseptine Ointment) 1 applic TOPICAL 4X/DAY JOELLE PRN Reason: Protocol Last Admin: 10/22/17 00:00 Dose: 1 applicatio Chlorhexidine Gluconate () 1 each TOPICAL DAILY JOELLE Last Admin: 10/22/17 05:27 Dose: 1 each Dextrose (D50w Syringe) 0 gm IV X1 PRN; Protocol PRN Reason: Hypoglycemia Last Admin: 10/19/17 06:51 Dose: 12.5 gm Fentanyl Citrate (Sublimaze (100mcg Ampule)) 25 mcg IV Q2H PRN PRN PRN Reason: PAIN Last Admin: 10/22/17 03:10 Dose: 25 mcg Glucagon () 1 mg IM .X1 PRN PRN Reason: Hypoglycemia Pantoprazole Sodium 40 mg/ (Sodium Chloride) 110 mls @ 330 mls/hr IV DAILY JOELLE Last Admin: 10/21/17 10:14 Dose: 330 mls/hr Sodium Chloride () 250 mls @ 15 mls/hr IV .[id number] PRN PRN Reason: SALINE FLUSH Last Admin: 10/18/17 20:43 Dose: 15 mls/hr Norepinephrine Bitartrate 8 mg (/ Dextrose) 258 mls @ 9.67 mls/hr IV .[id number] JOELLE PRN Reason: 5 MCG/MIN Last Admin: 10/22/17 01:50 Dose: 9.67 mls/hr Cefepime HCl 2 gm/ Sodium (Chloride) 100 mls @ 200 mls/hr IV Q8 JOELLE Last Admin: 10/22/17 05:27 Dose: 200 mls/hr Calcium Gluconate 3 gm/ Sodium (Chloride) 120 mls @ 120 mls/hr IV .Q1H [facility] Stop: 10/22/17 08:59 Vancomycin HCl 1,250 mg/ (Sodium Chloride) 275 mls @ 183.333 mls/hr IV Q12H JOELLE Piperacillin Sod/Tazobactam Sod (Zosyn) 4.5 gm in 100 mls @ 200 mls/hr IV X1 ONE Stop: 10/22/17 08:29 Piperacillin Sod/Tazobactam Sod (Zosyn) 3.375 gm in 50 mls @ 12.5 mls/hr IV Q8 JOELLE Lactobacillus Acidophilus (Acidophilus) 1 tablet PO BID JOELLE Last Admin: 10/21/17 21:37 Dose: 1 tablet Magnesium Hydroxide (Milk Of Magnesia) 30 ml PO DAILY PRN PRN Reason: Constipation Magnesium Hydroxide (Milk Of Magnesia) 30 ml PO DAILY PRN PRN PRN Reason: Constipation Nutritional Formula (Lactose Free) (Glucerna Shake) 120 ml PO 4X/DAY [facility] Last Admin: 10/21/17 21:37 Dose: 120 ml Nystatin/Triamcinolone Acetonide (Mycolog) 1 applic TOPICAL BID JOELLE PRN Reason: Protocol Last Admin: 10/21/17 21:38 Dose: 1 applicatio Ondansetron HCl (Zofran) 4 mg IV Q8H PRN PRN PRN Reason: NAUSEA Promethazine HCl (Phenergan) 12.5 mg IV Q6H PRN PRN PRN Reason: NAUSEA/VOMITING Sodium Chloride () 5 - 30 ml IV UD PRN PRN Reason: SALINE FLUSH Last Admin: 10/22/17 03:10 Dose: 10 ml Medical Necessity - Tobacco Use Smoking Status: Former smoker Assessment/Plan Active and Suspected Problems Septic shock (Acute) Hypotension (Acute) Vaginal bleeding (Acute) Recurrent colitis due to Clostridium difficile (Acute) The patient is a 67 year old F with 4 comorbidities admitted with septic shock secondary to UTI. Admitted to the intensive care unit where patient is being managed with broad-spectrum antibiotic therapy in addition to pressor support 1. Septic shock secondary to UTI patient is on broad-spectrum antibiotic therapy with vancomycin and meropenem in addition to pressor support urine culture so far positive for gram-negative organisms patient complaining of abdominal pain CT of the abdomen ordered to rule out ischemic colitis 2. Acute encephalopathy secondary to infectious encephalopathy 3. 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 On Accu-Cheks before meals and at bedtime with sliding scale coverage 4. Hypocalcemia corrected for protocol 5. Anemia secondary to anemia of chronic disorder monitoring H&H 6. Morbid obesity with BMI of 40.6 weight loss advised 7. Depression with anxiety 8. Physical debility requested for PT and OT eval and treatment patient was discharged back to her ECF 9. Hyperchloremic metabolic acidosis from patient's profuse diarrhea will continue with monitoring 10. DVT prophylaxis SCDs avoided the use of chemical prophylaxis in view of patient having experienced bleeding per vagina on admission Code Visit Inpatient E&M: 10524 Subs Hosp L3
[2017-10-22 07:47] LABS: Lipase 90 U/L (73-393)
--- NOTE | 2017-10-22 07:55 | RAD_ITS ---
STUDY: X-RAY - ABDOMEN/PELVIS REASON FOR EXAM: Female, 67 years old. NG tube placement. TECHNIQUE: Single AP view of the abdomen / pelvis. COMPARISON: None. FINDINGS: The distal tip of the nasogastric tube is in the distal portion of the stomach. Proximal to this, the nasogastric tube is coiled within the hiatal hernia. RAD/Abdomen Single View (Portable) IMPRESSION: The distal tip of the nasogastric tube is within the distal stomach. Coiling of the nasogastric tube within the hiatal hernia. Electronically Signed: Antonio Steel MD at 10:59 EDT Tel [phone], Service support ,
[2017-10-22 07:58] LABS: AST(SGOT) 48 U/L (15-37); Alanine Aminotransfer ALT/SGPT 31 U/L (13-56); Alkaline Phosphatase 666 U/L (45-117); Bilirubin, Direct 0.43 mg/dL (0.00-0.30); Globulin 2.3 g/dL (2.2-4.2); Phosphorus 2.7 mg/dL (2.5-4.9); Protein, Total 3.3 g/dL (6.4-8.2)
--- NOTE | 2017-10-22 08:03 | PCM.PN.SRG ---
Patient Problems: Active and Suspected Problems Septic shock (Acute) Hypotension (Acute) Vaginal bleeding (Acute) Recurrent colitis due to Clostridium difficile (Acute) Subjective: Patient required increasing pressors yesterday. She is complaining of abdominal pain. - Physical Exam General: Confused HEENT: Atraumatic Oral: Moist Mucosa Neck: No JVD Lungs: Normal air movement Cardiovascular: Regular Rhythm, Tachycardic Abdomen: Soft, Non-Distended, Tender - Diffusely tender. No guarding or rebound. Extremities: No clubbing Neurological: Cranial nerves II-XII grossly intact Psych/Mental Status: Normal Affect Vital Signs Temp Pulse Resp BP Pulse Ox 98.4 F 115 H 30 H 104/61 96 10/22/17 06:00 10/22/17 06:00 10/22/17 06:00 10/22/17 06:00 10/22/17 06:00 Oxygen Delivery Method Room Air Weight: 280 lb 6.848 oz Body Mass Index (BMI) 39.6 Intake and Output for Last 24 Hours 10/20/17 10/21/17 10/22/17 23:59 23:59 23:59 Intake Total 4649.6 / 4649.6 4270.7 / 4270.7 1657 / 1657 Output Total 475 / 475 510 / 510 225 / 225 Balance 4174.6 / 4174.6 3760.7 / 3760.7 1432 / 1432 Microbiology Past 72 Hours 10/19/17 11:00 Blood Culture - Preliminary Blood Culture (Wb) - Pic No growth in 48 hours. 10/19/17 10:20 Blood Culture - Preliminary Blood Culture (Wb) - Arterial No growth in 48 hours. 10/19/17 10:20 Urine Culture - Final Urine Catheter - Catheter Enterobacter aerogenes 10/20/17 07:25 C. difficile DNA Amplification - Final Stool 10/19/17 06:50 C. difficile DNA Amplification - Final Stool Laboratory Tests Past 24 Hrs 10/22/17 10/22/17 10/22/17 03:35 03:35 03:35 WBC 8.1 RBC 3.05 L Hgb 9.7 L Hct 30.1 L MCV 98.7 MCH 31.8 MCHC 32.2 RDW 21.2 H RDW Differential 69.8 H Plt Count 81 L MPV 12.2 H Immature Gran % (Auto) 1.400 H Neut % (Auto) 67.5 Lymph % (Auto) 24.2 [place] % (Auto) 6.5 Eos % (Auto) 0.0 Baso % (Auto) 0.4 Absolute Neuts (auto) 5.4 Absolute Lymphs (auto) 1.95 Total Counted Not Reportable Platelet Estimate ADEQUATE Hypochromasia RARE Anisocytosis 1+ Macrocytosis 1+ Ovalocytes RARE PT INR Sodium 144 Potassium 4.3 Chloride 120 H Carbon Dioxide 15.0 L Anion Gap 9 BUN 13 Creatinine 0.91 Estim Creat Clear Calc 59.14 Est GFR (MDRD) Af Amer 80 Est GFR (MDRD) Non-Af 66 BUN/Creatinine Ratio 14.3 Glucose 171 H Lactic Acid Calcium 5.9 L* Phosphorus 2.7 Total Bilirubin 0.90 Direct Bilirubin 0.43 H AST 48 H ALT 31 Alkaline Phosphatase 666 H Total Protein 3.3 L Albumin 1.0 L Globulin 2.3 Lipase 10/22/17 10/22/17 10/22/17 03:35 06:46 06:50 WBC RBC Hgb Hct MCV MCH MCHC RDW RDW Differential Plt Count MPV Immature Gran % (Auto) Neut % (Auto) Lymph % (Auto) [place] % (Auto) Eos % (Auto) Baso % (Auto) Absolute Neuts (auto) Absolute Lymphs (auto) Total Counted Platelet Estimate Hypochromasia Anisocytosis Macrocytosis Ovalocytes PT Cancelled INR Cancelled Sodium Potassium Chloride Carbon Dioxide Anion Gap BUN Creatinine Estim Creat Clear Calc Est GFR (MDRD) Af Amer Est GFR (MDRD) Non-Af BUN/Creatinine Ratio Glucose Lactic Acid 2.2 H Calcium Phosphorus Total Bilirubin Direct Bilirubin AST ALT Alkaline Phosphatase Total Protein Albumin Globulin Lipase 90 10/22/17 07:10 WBC RBC Hgb Hct MCV MCH MCHC RDW RDW Differential Plt Count MPV Immature Gran % (Auto) Neut % (Auto) Lymph % (Auto) [place] % (Auto) Eos % (Auto) Baso % (Auto) Absolute Neuts (auto) Absolute Lymphs (auto) Total Counted Platelet Estimate Hypochromasia Anisocytosis Macrocytosis Ovalocytes PT 25.0 H INR 2.3 Sodium Potassium Chloride Carbon Dioxide Anion Gap BUN Creatinine Estim Creat Clear Calc Est GFR (MDRD) Af Amer Est GFR (MDRD) Non-Af BUN/Creatinine Ratio Glucose Lactic Acid Calcium Phosphorus Total Bilirubin Direct Bilirubin AST ALT Alkaline Phosphatase Total Protein Albumin Globulin Lipase POC Glucose 10/22/17 00:54 POC Glucose 182 H Medical Necessity - Tobacco Use Smoking Status: Former smoker Assessment/Plan Active and Suspected Problems Septic shock (Acute) Hypotension (Acute) Vaginal bleeding (Acute) Recurrent colitis due to Clostridium difficile (Acute) 67-year-old female with sepsis 1. Patient is still having abdominal pain but her pressor requirement has gone up. Her white count is normal today with no left shift. She is on broad-spectrum antibiotics and has received over 10 L of fluid resuscitation this visit. 2. Unsure as to why the patient's sepsis is worsening. Patient is getting a repeat CT of the chest abdomen and pelvis today. The nurses were trying to get an NG this morning but were unable to. Patient has a large hiatal hernia with most of her stomach in her chest. 3. C. difficile was negative ?2. With normal white count it is positive that she is in shock for some other reason. Her hemoglobin is 9.7 today. She may have cardiogenic shock. I would recommend checking echo and troponins if CT does not reveal a cause for shock. Werner Hall MD Pager: [facility] [address] [place] [address], [address] [place] [address] Office:
--- NOTE | 2017-10-22 08:07 | PN.SURG_ITS ---
Patient Problems: Active and Suspected Problems Septic shock (Acute) Hypotension (Acute) Vaginal bleeding (Acute) Recurrent colitis due to Clostridium difficile (Acute) Subjective: Patient required increasing pressors yesterday. She is complaining of abdominal pain. - Physical Exam General: Confused HEENT: Atraumatic Oral: Moist Mucosa Neck: No JVD Lungs: Normal air movement Cardiovascular: Regular Rhythm, Tachycardic Abdomen: Soft, Non-Distended, Tender - Diffusely tender. No guarding or rebound. Extremities: No clubbing Neurological: Cranial nerves II-XII grossly intact Psych/Mental Status: Normal Affect Vital Signs Temp Pulse Resp BP Pulse Ox 98.4 F 115 H 30 H 104/61 96 10/22/17 06:00 10/22/17 06:00 10/22/17 06:00 10/22/17 06:00 10/22/17 06:00 Oxygen Delivery Method Room Air Weight: 280 lb 6.848 oz Body Mass Index (BMI) 39.6 Intake and Output for Last 24 Hours 10/20/17 10/21/17 10/22/17 23:59 23:59 23:59 Intake Total 4649.6 / 4649.6 4270.7 / 4270.7 1657 / 1657 Output Total 475 / 475 510 / 510 225 / 225 Balance 4174.6 / 4174.6 3760.7 / 3760.7 1432 / 1432 Microbiology Past 72 Hours 10/19/17 11:00 Blood Culture - Preliminary Blood Culture (Wb) - Pic No growth in 48 hours. 10/19/17 10:20 Blood Culture - Preliminary Blood Culture (Wb) - Arterial No growth in 48 hours. 10/19/17 10:20 Urine Culture - Final Urine Catheter - Catheter Enterobacter aerogenes 10/20/17 07:25 C. difficile DNA Amplification - Final Stool 10/19/17 06:50 C. difficile DNA Amplification - Final Stool Laboratory Tests Past 24 Hrs 10/22/17 10/22/17 10/22/17 03:35 03:35 03:35 WBC 8.1 RBC 3.05 L Hgb 9.7 L Hct 30.1 L MCV 98.7 MCH 31.8 MCHC 32.2 RDW 21.2 H RDW Differential 69.8 H Plt Count 81 L MPV 12.2 H Immature Gran % (Auto) 1.400 H Neut % (Auto) 67.5 Lymph % (Auto) 24.2 [place] % (Auto) 6.5 Eos % (Auto) 0.0 Baso % (Auto) 0.4 Absolute Neuts (auto) 5.4 Absolute Lymphs (auto) 1.95 Total Counted Not Reportable Platelet Estimate ADEQUATE Hypochromasia RARE Anisocytosis 1+ Macrocytosis 1+ Ovalocytes RARE PT INR Sodium 144 Potassium 4.3 Chloride 120 H Carbon Dioxide 15.0 L Anion Gap 9 BUN 13 Creatinine 0.91 Estim Creat Clear Calc 59.14 Est GFR (MDRD) Af Amer 80 Est GFR (MDRD) Non-Af 66 BUN/Creatinine Ratio 14.3 Glucose 171 H Lactic Acid Calcium 5.9 L* Phosphorus 2.7 Total Bilirubin 0.90 Direct Bilirubin 0.43 H AST 48 H ALT 31 Alkaline Phosphatase 666 H Total Protein 3.3 L Albumin 1.0 L Globulin 2.3 Lipase 10/22/17 10/22/17 10/22/17 03:35 06:46 06:50 WBC RBC Hgb Hct MCV MCH MCHC RDW RDW Differential Plt Count MPV Immature Gran % (Auto) Neut % (Auto) Lymph % (Auto) [place] % (Auto) Eos % (Auto) Baso % (Auto) Absolute Neuts (auto) Absolute Lymphs (auto) Total Counted Platelet Estimate Hypochromasia Anisocytosis Macrocytosis Ovalocytes PT Cancelled INR Cancelled Sodium Potassium Chloride Carbon Dioxide Anion Gap BUN Creatinine Estim Creat Clear Calc Est GFR (MDRD) Af Amer Est GFR (MDRD) Non-Af BUN/Creatinine Ratio Glucose Lactic Acid 2.2 H Calcium Phosphorus Total Bilirubin Direct Bilirubin AST ALT Alkaline Phosphatase Total Protein Albumin Globulin Lipase 90 10/22/17 07:10 WBC RBC Hgb Hct MCV MCH MCHC RDW RDW Differential Plt Count MPV Immature Gran % (Auto) Neut % (Auto) Lymph % (Auto) [place] % (Auto) Eos % (Auto) Baso % (Auto) Absolute Neuts (auto) Absolute Lymphs (auto) Total Counted Platelet Estimate Hypochromasia Anisocytosis Macrocytosis Ovalocytes PT 25.0 H INR 2.3 Sodium Potassium Chloride Carbon Dioxide Anion Gap BUN Creatinine Estim Creat Clear Calc Est GFR (MDRD) Af Amer Est GFR (MDRD) Non-Af BUN/Creatinine Ratio Glucose Lactic Acid Calcium Phosphorus Total Bilirubin Direct Bilirubin AST ALT Alkaline Phosphatase Total Protein Albumin Globulin Lipase POC Glucose 10/22/17 00:54 POC Glucose 182 H Medical Necessity - Tobacco Use Smoking Status: Former smoker Assessment/Plan Active and Suspected Problems Septic shock (Acute) Hypotension (Acute) Vaginal bleeding (Acute) Recurrent colitis due to Clostridium difficile (Acute) 67-year-old female with sepsis 1. Patient is still having abdominal pain but her pressor requirement has gone up. Her white count is normal today with no left shift. She is on broad- spectrum antibiotics and has received over 10 L of fluid resuscitation this visit. 2. Unsure as to why the patient's sepsis is worsening. Patient is getting a repeat CT of the chest abdomen and pelvis today. The nurses were trying to get an NG this morning but were unable to. Patient has a large hiatal hernia with most of her stomach in her chest. 3. C. difficile was negative ?2. With normal white count it is positive that she is in shock for some other reason. Her hemoglobin is 9.7 today. She may have cardiogenic shock. I would recommend checking echo and troponins if CT does not reveal a cause for shock. Werner Hall MD Pager: [facility] [address] [place] [address], [address] [place] [address] Office:
--- NOTE | 2017-10-22 08:24 | ECHOD_ITS ---
Reason For Study: DYSPNEA/SOB Procedure This was a 2D Doppler, Color Flow transthoracic echocardiogram. Exam performed portable in ICU/CCU. Left Ventricle Normal size and thickness. The estimated ejection fraction is 60 %. Stage 1 diastolic dysfunction. No regional wall motion abnormalities noted. Right Ventricle Mildly dilated right ventricle. Possible apical RV strain, possibly c/w acute pulmonary embolus. Recommend clinical correlation or alternative mode of testing if PE is suspected. Normal systolic function. Atria Normal left atrium. Normal right atrium. Normal atrial septum. Mitral Valve The mitral valve is structurally normal. No prolapse or stenosis seen. Tricuspid Valve Normal tricuspid valve. Trivial tricuspid valve insufficiency. Right ventricular systolic pressure estimated to be 26 mmHg. Aortic Valve Normal aortic valve. Trisinus/trileaflet aortic valve. Pulmonic Valve Normal pulmonic valve. Great Vessels Normal aortic root. Normal arch. Normal inferior vena cava. Inferior vena cava collapse with sniff. Pericardium/Pleural No pericardial effusion. MMode/2D Measurements & Calculations LVIDd: 3.3 cm IVSd: 0.76 cm Ao root diam: 3.1 cm LVIDs: 2.0 cm LVPWd: 0.98 cm RVDd: 2.3 cm FS: 40.1 % LAV(MOD-bp): 27.1 ml LVAd ap4: 22.0 cm2 SV(MOD-sp4): 40.5 ml LAV(MOD-bp) Indexed: 11.6 ml/m2 EDV(MOD-sp4): 57.9 ml LAV(MOD-sp2): 33.4 ml EDV(sp4-el): 60.5 ml LAV(MOD-sp4): 23.1 ml LVAs ap4: 10.4 cm2 ESV(MOD-sp4): 17.4 ml ESV(sp4-el): 18.2 ml EF(MOD-sp4): 69.9 % EF(sp4-el): 69.9 % SV(sp4-el): 42.3 ml LA A4 area: 11.7 cm2 RA A4 area: 9.5 cm2 Doppler Measurements & Calculations MV E max neto: 60.0 cm/sec Lat Peak E' Neto: 10.0 cm/sec Med Peak E' Neto: 8.6 cm/sec MV A max neto: 102.0 cm/sec E/E' lat: 6.0 E/E' med: 7.0 MV E/A: 0.59 Ao V2 max: 151.7 cm/sec LV V1 max: 130.8 cm/sec PA V2 max: 141.1 cm/sec Ao max P.2 mmHg LV V1 max P.9 mmHg TR max neto: 230.1 cm/sec TR max P.2 mmHg Interpretation Summary The estimated ejection fraction is 60 %. Stage 1 diastolic dysfunction. Mildly dilated right ventricle. Possible apical RV strain, possibly c/w acute pulmonary embolus. Recommend clinical correlation or alternative mode of testing if PE is suspected. Right ventricular systolic pressure estimated to be 26 mmHg. The study was technically difficult. There is no comparison study available. Ordering Physician: Gaurav Stafford D.O. Referring Physician: MARI BECKFORD Performed By: Anay Fowler RDCS
[2017-10-22] MEDS: Nystatin/Triamcin Cream Tube 1 APPLIC TOPICAL ×2 (10:06→22:38)
[2017-10-22] MEDS: Menthol/Lanolin/Calamine/Znox 113 GM Tube 1 APPLIC TOPICAL ×5 (10:06→22:37)
[2017-10-22 10:07] LABS: GGTP 170 U/L (5-55)
--- NOTE | 2017-10-22 10:57 | PCM.PN.ID ---
Patient Problems: Active and Suspected Problems Septic shock (Acute) Hypotension (Acute) Vaginal bleeding (Acute) Recurrent colitis due to Clostridium difficile (Acute) Subjective: Worsened BP overnight. No fever. Denies abd pain. Still diarrhea. - Physical Exam General: Alert, Cooperative Lungs: Clear to auscultation, Normal air movement Cardiovascular: Tachycardic Abdomen: Soft, Non Tender, Non-Distended, Obese Extremities: Edema Skin: No rashes Vital Signs Temp Pulse Resp BP Pulse Ox 97.9 F 101 H 20 H 104/61 92 10/22/17 08:00 10/22/17 10:00 10/22/17 10:00 10/22/17 10:00 10/22/17 10:00 Oxygen Delivery Method Room Air Weight: 127.2 kg Body Mass Index (BMI) 39.6 Intake and Output for Last 24 Hours 10/20/17 10/21/17 10/22/17 23:59 23:59 23:59 Intake Total 4649.6 / 4649.6 4270.7 / 4270.7 1657 / 1657 Output Total 475 / 475 510 / 510 225 / 225 Balance 4174.6 / 4174.6 3760.7 / 3760.7 1432 / 1432 Microbiology Past 72 Hours 10/19/17 11:00 Blood Culture - Preliminary Blood Culture (Wb) - Pic No growth in 48 hours. 10/19/17 10:20 Blood Culture - Preliminary Blood Culture (Wb) - Arterial No growth in 48 hours. 10/19/17 10:20 Urine Culture - Final Urine Catheter - Catheter Enterobacter aerogenes 10/20/17 07:25 C. difficile DNA Amplification - Final Stool 10/19/17 06:50 C. difficile DNA Amplification - Final Stool Laboratory Tests Past 24 Hrs 10/22/17 10/22/17 10/22/17 03:35 03:35 03:35 WBC 8.1 RBC 3.05 L Hgb 9.7 L Hct 30.1 L MCV 98.7 MCH 31.8 MCHC 32.2 RDW 21.2 H RDW Differential 69.8 H Plt Count 81 L MPV 12.2 H Immature Gran % (Auto) 1.400 H Neut % (Auto) 67.5 Lymph % (Auto) 24.2 [place] % (Auto) 6.5 Eos % (Auto) 0.0 Baso % (Auto) 0.4 Absolute Neuts (auto) 5.4 Absolute Lymphs (auto) 1.95 Total Counted Not Reportable Platelet Estimate ADEQUATE Hypochromasia RARE Anisocytosis 1+ Macrocytosis 1+ Ovalocytes RARE PT INR Sodium 144 Potassium 4.3 Chloride 120 H Carbon Dioxide 15.0 L Anion Gap 9 BUN 13 Creatinine 0.91 Estim Creat Clear Calc 59.14 Est GFR (MDRD) Af Amer 80 Est GFR (MDRD) Non-Af 66 BUN/Creatinine Ratio 14.3 Glucose 171 H Lactic Acid Calcium 5.9 L* Phosphorus 2.7 Total Bilirubin 0.90 Direct Bilirubin 0.43 H GGT AST 48 H ALT 31 Alkaline Phosphatase 666 H Troponin I Total Protein 3.3 L Albumin 1.0 L Globulin 2.3 Lipase 10/22/17 10/22/17 10/22/17 03:35 03:35 03:35 WBC RBC Hgb Hct MCV MCH MCHC RDW RDW Differential Plt Count MPV Immature Gran % (Auto) Neut % (Auto) Lymph % (Auto) [place] % (Auto) Eos % (Auto) Baso % (Auto) Absolute Neuts (auto) Absolute Lymphs (auto) Total Counted Platelet Estimate Hypochromasia Anisocytosis Macrocytosis Ovalocytes PT INR Sodium Potassium Chloride Carbon Dioxide Anion Gap BUN Creatinine Estim Creat Clear Calc Est GFR (MDRD) Af Amer Est GFR (MDRD) Non-Af BUN/Creatinine Ratio Glucose Lactic Acid Calcium Phosphorus Total Bilirubin Direct Bilirubin GGT 170 H AST ALT Alkaline Phosphatase Troponin I 0.023 Total Protein Albumin Globulin Lipase 90 10/22/17 10/22/17 10/22/17 06:46 06:50 07:10 WBC RBC Hgb Hct MCV MCH MCHC RDW RDW Differential Plt Count MPV Immature Gran % (Auto) Neut % (Auto) Lymph % (Auto) [place] % (Auto) Eos % (Auto) Baso % (Auto) Absolute Neuts (auto) Absolute Lymphs (auto) Total Counted Platelet Estimate Hypochromasia Anisocytosis Macrocytosis Ovalocytes PT Cancelled 25.0 H INR Cancelled 2.3 Sodium Potassium Chloride Carbon Dioxide Anion Gap BUN Creatinine Estim Creat Clear Calc Est GFR (MDRD) Af Amer Est GFR (MDRD) Non-Af BUN/Creatinine Ratio Glucose Lactic Acid 2.2 H Calcium Phosphorus Total Bilirubin Direct Bilirubin GGT AST ALT Alkaline Phosphatase Troponin I Total Protein Albumin Globulin Lipase POC Glucose 05/22/18 00:54 POC Glucose 182 H Medical Necessity - Tobacco Use Smoking Status: Former smoker Route of nutrition/ use of supplements: [] Nutritional Intake: [] IV Site: [] [place]yon Catheter: [] - Assessment/Plan Antibiotics: [] Assessment/Plan: [] Active and Suspected Problems Chronic anemia (Acute) Hypotension (Acute) Vaginal bleeding (Acute) Recurrent colitis due to Clostridium difficile (Acute) septic shock with unclear cause - ? h/o cdiff. Was admitted to [facility] mid September with ecoli and GBS uti, discharged on cefdinir, but no cdiff checked in the [employer] system. Seen in ED here 10/03 and was already on flagyl which had been changed to po vanc due to lack of improvement. Spoke with [facility] today, and they have no record of cdiff being checked at facility; it's not clear who started cdiff treatment as an outpatient. Cdiff neg x2 here. 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 Possible UTI as source, but UA showed minimal pyuria. Ucx with heavy enterobacter, R to zosyn, but had new fever and shock after being on meropenem for almost 2 days. There are nonobstructing stones in L kidney, but no hydro, stranding, or abscess seen. No fever but worsened hypotension and pressors. Still with heavy diarrhea. CT with po/iv contrast ordered. Abx changed to vanc/zosyn this AM from cefepime. Her enterbacter in the urine was R to zosyn, so will continue iv vanc for now. Change zosyn to cefepime/flagyl. Add po vanc for additional empiric cdiff coverage given severity of her illness. Will follow. D/w pharmacy.
[2017-10-22 11:16] LABS: Reflex Lactate? Y
[2017-10-22 12:15] LABS: Bedside Glucose 127 mg/dL (70-110)
[2017-10-22 12:19] LABS: Lactic Acid 2.1 mmol/L (0.4-2.0)
--- NOTE | 2017-10-22 13:27 | PCM.PN.SRG ---
Patient Problems: Active and Suspected Problems Septic shock (Acute) Hypotension (Acute) Vaginal bleeding (Acute) Recurrent colitis due to Clostridium difficile (Acute) Subjective: Patient still having abdominal pain. She still having nonbloody diarrhea. - Physical Exam General: Alert, Confused Lungs: Clear to auscultation Cardiovascular: Regular Rhythm, Tachycardic Abdomen: Soft, Non-Distended, Tender Neurological: Cranial nerves II-XII grossly intact Psych/Mental Status: Normal Affect Vital Signs Temp Pulse Resp BP Pulse Ox 98.3 F 108 H 24 H 94/76 98 10/22/17 11:53 10/22/17 12:00 10/22/17 11:53 10/22/17 11:53 10/22/17 11:53 Oxygen Delivery Method Room Air Weight: 280 lb 6.848 oz Body Mass Index (BMI) 39.6 Intake and Output for Last 24 Hours 10/20/17 10/21/17 10/22/17 23:59 23:59 23:59 Intake Total 4649.6 / 4649.6 4270.7 / 4270.7 3807 / 3807 Output Total 475 / 475 510 / 510 400 / 400 Balance 4174.6 / 4174.6 3760.7 / 3760.7 3407 / 3407 Microbiology Past 72 Hours 10/19/17 11:00 Blood Culture - Preliminary Blood Culture (Wb) - Pic No growth in 48 hours. 10/19/17 10:20 Blood Culture - Preliminary Blood Culture (Wb) - Arterial No growth in 48 hours. 10/19/17 10:20 Urine Culture - Final Urine Catheter - Catheter Enterobacter aerogenes 10/20/17 07:25 C. difficile DNA Amplification - Final Stool 10/19/17 06:50 C. difficile DNA Amplification - Final Stool Laboratory Tests Past 24 Hrs 10/22/17 10/22/17 10/22/17 03:35 03:35 03:35 WBC 8.1 RBC 3.05 L Hgb 9.7 L Hct 30.1 L MCV 98.7 MCH 31.8 MCHC 32.2 RDW 21.2 H RDW Differential 69.8 H Plt Count 81 L MPV 12.2 H Immature Gran % (Auto) 1.400 H Neut % (Auto) 67.5 Lymph % (Auto) 24.2 [place] % (Auto) 6.5 Eos % (Auto) 0.0 Baso % (Auto) 0.4 Absolute Neuts (auto) 5.4 Absolute Lymphs (auto) 1.95 Total Counted Not Reportable Platelet Estimate ADEQUATE Hypochromasia RARE Anisocytosis 1+ Macrocytosis 1+ Ovalocytes RARE PT INR Sodium 144 Potassium 4.3 Chloride 120 H Carbon Dioxide 15.0 L Anion Gap 9 BUN 13 Creatinine 0.91 Estim Creat Clear Calc 59.14 Est GFR (MDRD) Af Amer 80 Est GFR (MDRD) Non-Af 66 BUN/Creatinine Ratio 14.3 Glucose 171 H Lactic Acid Calcium 5.9 L* Phosphorus 2.7 Total Bilirubin 0.90 Direct Bilirubin 0.43 H GGT AST 48 H ALT 31 Alkaline Phosphatase 666 H Troponin I Total Protein 3.3 L Albumin 1.0 L Globulin 2.3 Lipase Blood Type 10/22/17 10/22/17 10/22/17 03:35 03:35 03:35 WBC RBC Hgb Hct MCV MCH MCHC RDW RDW Differential Plt Count MPV Immature Gran % (Auto) Neut % (Auto) Lymph % (Auto) [place] % (Auto) Eos % (Auto) Baso % (Auto) Absolute Neuts (auto) Absolute Lymphs (auto) Total Counted Platelet Estimate Hypochromasia Anisocytosis Macrocytosis Ovalocytes PT INR Sodium Potassium Chloride Carbon Dioxide Anion Gap BUN Creatinine Estim Creat Clear Calc Est GFR (MDRD) Af Amer Est GFR (MDRD) Non-Af BUN/Creatinine Ratio Glucose Lactic Acid Calcium Phosphorus Total Bilirubin Direct Bilirubin GGT 170 H AST ALT Alkaline Phosphatase Troponin I 0.023 Total Protein Albumin Globulin Lipase 90 Blood Type 10/22/17 10/22/17 10/22/17 06:46 06:50 07:10 WBC RBC Hgb Hct MCV MCH MCHC RDW RDW Differential Plt Count MPV Immature Gran % (Auto) Neut % (Auto) Lymph % (Auto) [place] % (Auto) Eos % (Auto) Baso % (Auto) Absolute Neuts (auto) Absolute Lymphs (auto) Total Counted Platelet Estimate Hypochromasia Anisocytosis Macrocytosis Ovalocytes PT Cancelled 25.0 H INR Cancelled 2.3 Sodium Potassium Chloride Carbon Dioxide Anion Gap BUN Creatinine Estim Creat Clear Calc Est GFR (MDRD) Af Amer Est GFR (MDRD) Non-Af BUN/Creatinine Ratio Glucose Lactic Acid 2.2 H Calcium Phosphorus Total Bilirubin Direct Bilirubin GGT AST ALT Alkaline Phosphatase Troponin I Total Protein Albumin Globulin Lipase Blood Type 10/22/17 10/22/17 10/22/17 11:00 11:45 13:10 WBC RBC Hgb Hct MCV MCH MCHC RDW RDW Differential Plt Count MPV Immature Gran % (Auto) Neut % (Auto) Lymph % (Auto) [place] % (Auto) Eos % (Auto) Baso % (Auto) Absolute Neuts (auto) Absolute Lymphs (auto) Total Counted Platelet Estimate Hypochromasia Anisocytosis Macrocytosis Ovalocytes PT INR Sodium Potassium Chloride Carbon Dioxide Anion Gap BUN Creatinine Estim Creat Clear Calc Est GFR (MDRD) Af Amer Est GFR (MDRD) Non-Af BUN/Creatinine Ratio Glucose Lactic Acid 2.1 H Calcium Phosphorus Total Bilirubin Direct Bilirubin GGT AST ALT Alkaline Phosphatase Troponin I 0.030 Total Protein Albumin Globulin Lipase Blood Type Pending POC Glucose 10/22/17 10/22/17 12:12 00:54 POC Glucose 127 H 182 H Clinical Impression(s) from Imaging Studies Chest CT 10/22/17 06:38 IMPRESSION: Small bilateral pleural effusions with bibasilar atelectasis. Mild increased markings in the lateral aspect of the right upper lobe. Coronary artery calcification. Diffuse fatty infiltration of the liver. Large hiatal hernia. Electronically Signed: Antonio Steel MD at 11:22 EDT Tel [phone], Service support , Abdomen/Pelvis CT 10/22/17 06:39 IMPRESSION: Progressive small bilateral pleural effusions with bibasilar atelectasis. Hepatomegaly and diffuse fatty infiltration of the liver. There appears to be progressive colitis. Electronically Signed: Antonio Steel MD at 12:20 EDT Tel [phone], Service support , KUB X-Ray 10/22/17 07:55 IMPRESSION: The distal tip of the nasogastric tube is within the distal stomach. Coiling of the nasogastric tube within the hiatal hernia. Electronically Signed: Antonio Steel MD at 10:59 EDT Tel [phone], Service support , Medical Necessity - Tobacco Use Smoking Status: Former smoker Assessment/Plan Active and Suspected Problems Septic shock (Acute) Hypotension (Acute) Vaginal bleeding (Acute) Recurrent colitis due to Clostridium difficile (Acute) 67-year-old female with colitis 1. Patient's repeat CT shows progressive colitis. There is thickening of the mucosa of the rectosigmoid as well as worsening of the colitis of the right and left colon. Given the fact that she has been on pressors since Saturday and her pressor requirement has gone up I believe this may be ischemic colitis. I doubt this is C. difficile because the C. difficile has never been positive. 2. The patient has abdominal pain as well as tachycardia and worsening of her pressor requirements. I believe that her UTI started her sepsis but with pressor requirements as well as dehydration and hypotension she has developed ischemic colitis as well. I believe her colitis is contributing to her pressor requirements. I discussed the case with her daughter Aicha in detail. 3. I discussed starting with a flexible sigmoidoscopy at the bedside to see the extent of disease in the sigmoid area. If the patient has necrosis or pseudomembranes of the rectosigmoid colon I would recommend exploratory laparotomy with total abdominal colectomy and end ileostomy. I explained to the daughter that this would be a life-saving measure and I would have to resect the colon entirely to try to remove the source of sepsis. I explained the risks of flex was sigmoidoscopy as bleeding and perforation of the colon and I expand the risks of laparotomy with total abdominal colectomy. I sling the risks of bleeding, infection, injury to ureters, injury to small bowel, infection, stroke and heart attack and . I also explained that the patient would stay intubated after surgery and be brought back to the ICU. I also explained that if there was ischemia of the entirety of the small bowel no heroic measures would be taken but that if there was a small amount of small bowel ischemia I would resect those areas. I also offered the patient transfer to a tertiary care center which she denies she would like patient's treatment here. 4. I discussed the case with Dr. Stafford and Dr. Timmons and they are in agreement with the treatment plan. 5. I will proceed with flexible sigmoidoscopy at the bedside. If the mucosa appears ischemic I will take her for total abdominal colectomy as the right colon appears to be affected on CT as well. I believe this gives her the best chance of getting off pressors and surviving this episode. Werner Hall MD Pager: [facility] [address] [place] [address], [address] [place] [address] Office:
--- NOTE | 2017-10-22 13:32 | PN.SURG_ITS ---
Patient Problems: Active and Suspected Problems Septic shock (Acute) Hypotension (Acute) Vaginal bleeding (Acute) Recurrent colitis due to Clostridium difficile (Acute) Subjective: Patient still having abdominal pain. She still having nonbloody diarrhea. - Physical Exam General: Alert, Confused Lungs: Clear to auscultation Cardiovascular: Regular Rhythm, Tachycardic Abdomen: Soft, Non-Distended, Tender Neurological: Cranial nerves II-XII grossly intact Psych/Mental Status: Normal Affect Vital Signs Temp Pulse Resp BP Pulse Ox 98.3 F 108 H 24 H 94/76 98 10/22/17 11:53 10/22/17 12:00 10/22/17 11:53 10/22/17 11:53 10/22/17 11:53 Oxygen Delivery Method Room Air Weight: 280 lb 6.848 oz Body Mass Index (BMI) 39.6 Intake and Output for Last 24 Hours 10/20/17 10/21/17 10/22/17 23:59 23:59 23:59 Intake Total 4649.6 / 4649.6 4270.7 / 4270.7 3807 / 3807 Output Total 475 / 475 510 / 510 400 / 400 Balance 4174.6 / 4174.6 3760.7 / 3760.7 3407 / 3407 Microbiology Past 72 Hours 10/19/17 11:00 Blood Culture - Preliminary Blood Culture (Wb) - Pic No growth in 48 hours. 10/19/17 10:20 Blood Culture - Preliminary Blood Culture (Wb) - Arterial No growth in 48 hours. 10/19/17 10:20 Urine Culture - Final Urine Catheter - Catheter Enterobacter aerogenes 10/20/17 07:25 C. difficile DNA Amplification - Final Stool 10/19/17 06:50 C. difficile DNA Amplification - Final Stool Laboratory Tests Past 24 Hrs 10/22/17 10/22/17 10/22/17 03:35 03:35 03:35 WBC 8.1 RBC 3.05 L Hgb 9.7 L Hct 30.1 L MCV 98.7 MCH 31.8 MCHC 32.2 RDW 21.2 H RDW Differential 69.8 H Plt Count 81 L MPV 12.2 H Immature Gran % (Auto) 1.400 H Neut % (Auto) 67.5 Lymph % (Auto) 24.2 Elliott % (Auto) 6.5 Eos % (Auto) 0.0 Baso % (Auto) 0.4 Absolute Neuts (auto) 5.4 Absolute Lymphs (auto) 1.95 Total Counted Not Reportable Platelet Estimate ADEQUATE Hypochromasia RARE Anisocytosis 1+ Macrocytosis 1+ Ovalocytes RARE PT INR Sodium 144 Potassium 4.3 Chloride 120 H Carbon Dioxide 15.0 L Anion Gap 9 BUN 13 Creatinine 0.91 Estim Creat Clear Calc 59.14 Est GFR (MDRD) Af Amer 80 Est GFR (MDRD) Non-Af 66 BUN/Creatinine Ratio 14.3 Glucose 171 H Lactic Acid Calcium 5.9 L* Phosphorus 2.7 Total Bilirubin 0.90 Direct Bilirubin 0.43 H GGT AST 48 H ALT 31 Alkaline Phosphatase 666 H Troponin I Total Protein 3.3 L Albumin 1.0 L Globulin 2.3 Lipase Blood Type 10/22/17 10/22/17 10/22/17 03:35 03:35 03:35 WBC RBC Hgb Hct MCV MCH MCHC RDW RDW Differential Plt Count MPV Immature Gran % (Auto) Neut % (Auto) Lymph % (Auto) Elliott % (Auto) Eos % (Auto) Baso % (Auto) Absolute Neuts (auto) Absolute Lymphs (auto) Total Counted Platelet Estimate Hypochromasia Anisocytosis Macrocytosis Ovalocytes PT INR Sodium Potassium Chloride Carbon Dioxide Anion Gap BUN Creatinine Estim Creat Clear Calc Est GFR (MDRD) Af Amer Est GFR (MDRD) Non-Af BUN/Creatinine Ratio Glucose Lactic Acid Calcium Phosphorus Total Bilirubin Direct Bilirubin GGT 170 H AST ALT Alkaline Phosphatase Troponin I 0.023 Total Protein Albumin Globulin Lipase 90 Blood Type 10/22/17 10/22/17 10/22/17 06:46 06:50 07:10 WBC RBC Hgb Hct MCV MCH MCHC RDW RDW Differential Plt Count MPV Immature Gran % (Auto) Neut % (Auto) Lymph % (Auto) Elliott % (Auto) Eos % (Auto) Baso % (Auto) Absolute Neuts (auto) Absolute Lymphs (auto) Total Counted Platelet Estimate Hypochromasia Anisocytosis Macrocytosis Ovalocytes PT Cancelled 25.0 H INR Cancelled 2.3 Sodium Potassium Chloride Carbon Dioxide Anion Gap BUN Creatinine Estim Creat Clear Calc Est GFR (MDRD) Af Amer Est GFR (MDRD) Non-Af BUN/Creatinine Ratio Glucose Lactic Acid 2.2 H Calcium Phosphorus Total Bilirubin Direct Bilirubin GGT AST ALT Alkaline Phosphatase Troponin I Total Protein Albumin Globulin Lipase Blood Type 10/22/17 10/22/17 10/22/17 11:00 11:45 13:10 WBC RBC Hgb Hct MCV MCH MCHC RDW RDW Differential Plt Count MPV Immature Gran % (Auto) Neut % (Auto) Lymph % (Auto) Elliott % (Auto) Eos % (Auto) Baso % (Auto) Absolute Neuts (auto) Absolute Lymphs (auto) Total Counted Platelet Estimate Hypochromasia Anisocytosis Macrocytosis Ovalocytes PT INR Sodium Potassium Chloride Carbon Dioxide Anion Gap BUN Creatinine Estim Creat Clear Calc Est GFR (MDRD) Af Amer Est GFR (MDRD) Non-Af BUN/Creatinine Ratio Glucose Lactic Acid 2.1 H Calcium Phosphorus Total Bilirubin Direct Bilirubin GGT AST ALT Alkaline Phosphatase Troponin I 0.030 Total Protein Albumin Globulin Lipase Blood Type Pending POC Glucose 10/22/17 10/22/17 12:12 00:54 POC Glucose 127 H 182 H Clinical Impression(s) from Imaging Studies Chest CT 10/22/17 06:38 IMPRESSION: Small bilateral pleural effusions with bibasilar atelectasis. Mild increased markings in the lateral aspect of the right upper lobe. Coronary artery calcification. Diffuse fatty infiltration of the liver. Large hiatal hernia. Electronically Signed: Antonio Steel MD at 11:22 EDT Tel [phone], Service support , Abdomen/Pelvis CT 10/22/17 06:39 IMPRESSION: Progressive small bilateral pleural effusions with bibasilar atelectasis. Hepatomegaly and diffuse fatty infiltration of the liver. There appears to be progressive colitis. Electronically Signed: Antonio Steel MD at 12:20 EDT Tel [phone], Service support , KUB X-Ray 10/22/17 07:55 IMPRESSION: The distal tip of the nasogastric tube is within the distal stomach. Coiling of the nasogastric tube within the hiatal hernia. Electronically Signed: Antonio Steel MD at 10:59 EDT Tel [phone], Service support , Medical Necessity - Tobacco Use Smoking Status: Former smoker Assessment/Plan Active and Suspected Problems Septic shock (Acute) Hypotension (Acute) Vaginal bleeding (Acute) Recurrent colitis due to Clostridium difficile (Acute) 67-year-old female with colitis 1. Patient's repeat CT shows progressive colitis. There is thickening of the mucosa of the rectosigmoid as well as worsening of the colitis of the right and left colon. Given the fact that she has been on pressors since Saturday and her pressor requirement has gone up I believe this may be ischemic colitis. I doubt this is C. difficile because the C. difficile has never been positive. 2. The patient has abdominal pain as well as tachycardia and worsening of her pressor requirements. I believe that her UTI started her sepsis but with pressor requirements as well as dehydration and hypotension she has developed ischemic colitis as well. I believe her colitis is contributing to her pressor requirements. I discussed the case with her daughter Aicha in detail. 3. I discussed starting with a flexible sigmoidoscopy at the bedside to see the extent of disease in the sigmoid area. If the patient has necrosis or pseudomembranes of the rectosigmoid colon I would recommend exploratory laparotomy with total abdominal colectomy and end ileostomy. I explained to the daughter that this would be a life-saving measure and I would have to resect the colon entirely to try to remove the source of sepsis. I explained the risks of flex was sigmoidoscopy as bleeding and perforation of the colon and I expand the risks of laparotomy with total abdominal colectomy. I sling the risks of bleeding, infection, injury to ureters, injury to small bowel, infection, stroke and heart attack and . I also explained that the patient would stay intubated after surgery and be brought back to the ICU. I also explained that if there was ischemia of the entirety of the small bowel no heroic measures would be taken but that if there was a small amount of small bowel ischemia I would resect those areas. I also offered the patient transfer to a tertiary care center which she denies she would like patient's treatment here. 4. I discussed the case with Dr. Stafford and Dr. Timmons and they are in agreement with the treatment plan. 5. I will proceed with flexible sigmoidoscopy at the bedside. If the mucosa appears ischemic I will take her for total abdominal colectomy as the right colon appears to be affected on CT as well. I believe this gives her the best chance of getting off pressors and surviving this episode. Werner Hall MD Pager: [facility] [address] [place] [address], [address] [place] [address] Office:
--- NOTE | 2017-10-22 16:25 | PCM.OPRPT ---
Problem List (1) Recurrent colitis due to Clostridium difficile Status: Acute Report of Operation Date of Procedure: 10/22/17 Pre-Operative Diagnosis: Ischemic colitis Post-Operative Diagnosis: Normal sigmoid colon and descending colon Surgery/Procedure Performed:: Flexible sigmoidoscopy Specimen's removed: Biopsies of the sigmoid colon Description of Procedure: The patient was turned onto her left side. A well-lubricated colonoscope was placed into the rectum and was advanced all the way to the splenic flexure. The mucosa did not appear ischemic. There were no pseudomembranes. The colonoscope was slowly withdrawn. There did not appear to be any blue or black mucosa. It did not even appear friable. Several biopsies of sigmoid colon were taken with cold forceps. These will be sent for permanent pathology. The scope was slowly withdrawn and removed from the patient. I was able to make it all the way to the splenic flexure with no signs of ischemia of the mucosa.
--- NOTE | 2017-10-22 16:28 | PCM.PN.BLA ---
Progress Note I discussed the patient's colonoscopy with the patient's daughter. I also discussed the patient will several other surgeons. At this point the patient has been stable since this morning on the same dose of Levophed. Her abdominal pain is not out of proportion to exam. She does not have an acute abdomen on exam. Her white count was normal with no left shift. Her flexible sigmoidoscopy was unremarkable for any mucosal ischemia. This does not rule out small bowel or right colon ischemia but at this point I would believe if the descending colon or rectal colitis with the cause of her sepsis they would show signs of mucosal ischemia. At this time she has been stable for about 12 hours on the same dose of pressors so I would like to continue to observe the patient. If she worsens at all I would take her to surgery to perform expiratory laparoscopy and possible laparotomy. The daughter is in agreement and I did inform her that she may deteriorate and require the surgery overnight. At this point I do not believe there is a strong indication for emergency surgery and colectomy but if her condition worsens at all I will take her for exploratory laparoscopy tonight. Recommend continuing antibiotics and ICU support. I discussed this with the optics test technician as well as the hospitalist and they both agree to continue to observe tonight. Werner Hall MD Pager: [facility] [address] [place] [address], [address] [place] [address] Office:
[2017-10-22 17:55] LABS: Bedside Glucose 117 mg/dL (70-110)
[2017-10-23] VITALS (18 sets, daily range): BP systolic 81–106; BP diastolic 40–65; PULSE 102–112; RESP 19–25; TEMP 37.2–37.4; O2SAT 93–96
[2017-10-23 00:31] LABS: Bedside Glucose 128 mg/dL (70-110)
[2017-10-23 05:15] LABS: Anion Gap 10 (5-15); BUN 13 mg/dL (7-18); Calcium,Total 6.3 mg/dL (8.5-10.1); Chloride 120 mmol/L (98-107); Creatinine, Serum 0.93 mg/dL (0.55-1.02); EST Glomerular Filtration Rate 64 mL/min (>60); Est Glom Filt Rate - Afr Amer 78 mL/min (>60); Estimated Creatinine Clearance 57.86 ml/min; Glucose 99 mg/dL (74-106); Potassium 3.7 mmol/L (3.5-5.1); Sodium Level 145 mmol/L (136-145)
[2017-10-23 05:17] LABS: Absolute Neutrophil Count 1.9 X10^3/uL (2.0-7.7); Basophil# 0.01 X10^3/uL; Basophil% 0.3 % (0-1); Eosinophil# 0.04 X10^3/uL; Eosinophils% 1.3 % (0-5); Hematocrit 26.4 % (37-47); Hemoglobin 8.4 g/dl (12.0-15.0); Lymphocyte % 31.5 % (19-41); Mean Corp Hgb Conc 31.8 g/gl (32-36); Mean Corpuscular Hgb 30.8 pg (27.0-32.0); Mean Corpuscular Volume 96.7 fL (81-99); Mean Platelet Vol. 12.1 fl (6.2-12.0); Monocyte# 0.22 X10^3/uL; Monocyte% 6.9 % (0-10); Neutrophil # 1.87 X10^3/uL (2.7-7.7); Neutrophil % 59.1 % (47-70); Platelet Count 66 K/mm3 (150-450); RBC Distribution Width CV 21.7 % (11.6-14.6); RBC Distribution Width SD 74.5 fl (35.1-43.9); Red Blood Count 2.73 M/mm3 (4.2-5.4); White Blood Count 3.2 K/mm3 (4.4-11.0)
[2017-10-23 05:20] LABS: Differential Indicated SCAN CRITERIA MET; POSITIVE COUNT NO; POSITIVE DIFFERENTIAL NO; POSITIVE MORPHOLOGY YES
[2017-10-23] MEDS: CHLORHEXIDINE GLUC 2% CLOTH 1 EACH TOWELETTE TOPICAL (05:25)
--- NOTE | 2017-10-23 06:07 | PCM.PN.SRG ---
Patient Problems: Active and Suspected Problems Septic shock (Acute) Hypotension (Acute) Vaginal bleeding (Acute) Recurrent colitis due to Clostridium difficile (Acute) Subjective: The patient describes no abdominal pain. Diarrhea is improved per the nurse. No blood. - Physical Exam General: Alert, Confused Lungs: Normal air movement Cardiovascular: Regular Rhythm, Tachycardic Abdomen: Soft, Non-Distended, Tender - She does have some tenderness to palpation of the lower midline but no guarding or rebound. Rest of the abdomen is soft and nontender. Neurological: Cranial nerves II-XII grossly intact Vital Signs Temp Pulse Resp BP Pulse Ox 99.3 F H 104 H 23 H 106/59 L 95 10/23/17 00:00 10/23/17 03:00 10/23/17 02:00 10/23/17 02:00 10/23/17 02:00 Oxygen Delivery Method Room Air Weight: 286 lb 13.142 oz Body Mass Index (BMI) 39.6 Intake and Output for Last 24 Hours 10/21/17 10/22/17 10/23/17 23:59 23:59 23:59 Intake Total 4270.7 / 4270.7 5207 / 5207 869 / 869 Output Total 510 / 510 525 / 525 330 / 330 Balance 3760.7 / 3760.7 4682 / 4682 539 / 539 Microbiology Past 72 Hours 10/19/17 11:00 Blood Culture - Preliminary Blood Culture (Wb) - Pic No growth in 48 hours. 10/19/17 10:20 Blood Culture - Preliminary Blood Culture (Wb) - Arterial No growth in 48 hours. 10/19/17 10:20 Urine Culture - Final Urine Catheter - Catheter Enterobacter aerogenes 10/20/17 07:25 C. difficile DNA Amplification - Final Stool Laboratory Tests Past 24 Hrs 10/22/17 10/22/17 10/22/17 03:35 03:35 03:35 WBC RBC Hgb Hct MCV MCH MCHC RDW RDW Differential Plt Count MPV Immature Gran % (Auto) Neut % (Auto) Lymph % (Auto) Calvert % (Auto) Eos % (Auto) Baso % (Auto) Absolute Neuts (auto) Absolute Lymphs (auto) Total Counted PT INR Sodium Potassium Chloride Carbon Dioxide Anion Gap BUN Creatinine Estim Creat Clear Calc Est GFR (MDRD) Af Amer Est GFR (MDRD) Non-Af BUN/Creatinine Ratio Glucose Lactic Acid Calcium Phosphorus 2.7 Total Bilirubin 0.90 Direct Bilirubin 0.43 H GGT 170 H AST 48 H ALT 31 Alkaline Phosphatase 666 H Troponin I Total Protein 3.3 L Albumin 1.0 L Globulin 2.3 Lipase 90 Blood Type 10/22/17 10/22/17 10/22/17 03:35 06:46 06:50 WBC RBC Hgb Hct MCV MCH MCHC RDW RDW Differential Plt Count MPV Immature Gran % (Auto) Neut % (Auto) Lymph % (Auto) Calvert % (Auto) Eos % (Auto) Baso % (Auto) Absolute Neuts (auto) Absolute Lymphs (auto) Total Counted PT Cancelled INR Cancelled Sodium Potassium Chloride Carbon Dioxide Anion Gap BUN Creatinine Estim Creat Clear Calc Est GFR (MDRD) Af Amer Est GFR (MDRD) Non-Af BUN/Creatinine Ratio Glucose Lactic Acid 2.2 H Calcium Phosphorus Total Bilirubin Direct Bilirubin GGT AST ALT Alkaline Phosphatase Troponin I 0.023 Total Protein Albumin Globulin Lipase Blood Type 10/22/17 10/22/17 10/22/17 07:10 11:00 11:45 WBC RBC Hgb Hct MCV MCH MCHC RDW RDW Differential Plt Count MPV Immature Gran % (Auto) Neut % (Auto) Lymph % (Auto) Calvert % (Auto) Eos % (Auto) Baso % (Auto) Absolute Neuts (auto) Absolute Lymphs (auto) Total Counted PT 25.0 H INR 2.3 Sodium Potassium Chloride Carbon Dioxide Anion Gap BUN Creatinine Estim Creat Clear Calc Est GFR (MDRD) Af Amer Est GFR (MDRD) Non-Af BUN/Creatinine Ratio Glucose Lactic Acid 2.1 H Calcium Phosphorus Total Bilirubin Direct Bilirubin GGT AST ALT Alkaline Phosphatase Troponin I 0.030 Total Protein Albumin Globulin Lipase Blood Type 10/22/17 10/23/17 10/23/17 13:10 04:25 04:25 WBC 3.2 L RBC 2.73 L Hgb 8.4 L Hct 26.4 L MCV 96.7 MCH 30.8 MCHC 31.8 L RDW 21.7 H RDW Differential 74.5 H Plt Count 66 L MPV 12.1 H Immature Gran % (Auto) 0.900 Neut % (Auto) 59.1 Lymph % (Auto) 31.5 Calvert % (Auto) 6.9 Eos % (Auto) 1.3 Baso % (Auto) 0.3 Absolute Neuts (auto) 1.9 L Absolute Lymphs (auto) 1.00 Total Counted Pending PT INR Sodium 145 Potassium 3.7 Chloride 120 H Carbon Dioxide 15.0 L Anion Gap 10 BUN 13 Creatinine 0.93 Estim Creat Clear Calc 57.86 Est GFR (MDRD) Af Amer 78 Est GFR (MDRD) Non-Af 64 BUN/Creatinine Ratio 14.0 Glucose 99 Lactic Acid Calcium 6.3 L* Phosphorus Total Bilirubin Direct Bilirubin GGT AST ALT Alkaline Phosphatase Troponin I Total Protein Albumin Globulin Lipase Blood Type O POSITIVE 10/23/17 04:25 WBC RBC Hgb Hct MCV MCH MCHC RDW RDW Differential Plt Count MPV Immature Gran % (Auto) Neut % (Auto) Lymph % (Auto) Calvert % (Auto) Eos % (Auto) Baso % (Auto) Absolute Neuts (auto) Absolute Lymphs (auto) Total Counted PT Pending INR Pending Sodium Potassium Chloride Carbon Dioxide Anion Gap BUN Creatinine Estim Creat Clear Calc Est GFR (MDRD) Af Amer Est GFR (MDRD) Non-Af BUN/Creatinine Ratio Glucose Lactic Acid Calcium Phosphorus Total Bilirubin Direct Bilirubin GGT AST ALT Alkaline Phosphatase Troponin I Total Protein Albumin Globulin Lipase Blood Type POC Glucose 10/23/17 10/22/17 10/22/17 00:26 17:40 12:12 POC Glucose 128 H 117 H 127 H Clinical Impression(s) from Imaging Studies Chest CT 10/22/17 06:38 IMPRESSION: Small bilateral pleural effusions with bibasilar atelectasis. Mild increased markings in the lateral aspect of the right upper lobe. Coronary artery calcification. Diffuse fatty infiltration of the liver. Large hiatal hernia. Electronically Signed: Antonio Steel MD at 11:22 EDT Tel [phone], Service support , Abdomen/Pelvis CT 10/22/17 06:39 IMPRESSION: Progressive small bilateral pleural effusions with bibasilar atelectasis. Hepatomegaly and diffuse fatty infiltration of the liver. There appears to be progressive colitis. Electronically Signed: Antonio Steel MD at 12:20 EDT Tel [phone], Service support , KUB X-Ray 10/22/17 07:55 IMPRESSION: The distal tip of the nasogastric tube is within the distal stomach. Coiling of the nasogastric tube within the hiatal hernia. Electronically Signed: Antonio Steel MD at 10:59 EDT Tel [phone], Service support , Medical Necessity - Tobacco Use Smoking Status: Former smoker Assessment/Plan Active and Suspected Problems Septic shock (Acute) Hypotension (Acute) Vaginal bleeding (Acute) Recurrent colitis due to Clostridium difficile (Acute) 67-year-old female with sepsis 1. I performed a flexible sigmoidoscopy and the patient yesterday evening. The colonic mucosa of the rectum, sigmoid, descending colon did not appear ischemic. The patient is having no abdominal pain without palpation and with palpation she only has minimal lower abdominal pain with no guarding or rebound. The rest of the abdomen is soft and nontender. 2. The patient's pressor requirement has remained stable since yesterday morning when it was raised. It has not gone up any farther. Today the patient's white count is 3.2 with no left shift. 3. I would expect if the patient had bowel that she would continue to worsen but she has remained stable since yesterday morning. I do not believe that she has ischemia to the left colon based on flexible sigmoidoscopy. Her condition has not worsened at all since yesterday. I did discuss this with the patient's daughter yesterday and yesterday she is in agreement for not doing surgery but I got a call yesterday evening saying she would like to transfer to [facility] for second opinion. This is okay with me as more eyes on the patient is always beneficial. The other option would be to perform an exploratory laparoscopy but I feel that the patient will not be able to be extubated after surgery. I explained this to the patient's daughter. She has bilateral pleural effusion is very weak. 4. Patient may be transferred for a larger facility if the patient's daughter would like. If not we will continue to watch the patient as she has not deteriorated. Her condition appears stable and at this time she is having no acute abdomen or bloody diarrhea or leukocytosis and her pressor requirement has not gone up. If any of these occur I will reconsider exploratory laparoscopy with possible laparotomy. Werner Hall MD Pager: [facility] [address] [place] [address], [address] [place] [address] Office:
[2017-10-23 06:11] LABS: International Normalized Ratio 1.9; Prothrombin Time (Protime)PT. 21.5 SECONDS (11.7-14.9)
--- NOTE | 2017-10-23 06:12 | PN.SURG_ITS ---
Patient Problems: Active and Suspected Problems Septic shock (Acute) Hypotension (Acute) Vaginal bleeding (Acute) Recurrent colitis due to Clostridium difficile (Acute) Subjective: The patient describes no abdominal pain. Diarrhea is improved per the nurse. No blood. - Physical Exam General: Alert, Confused Lungs: Normal air movement Cardiovascular: Regular Rhythm, Tachycardic Abdomen: Soft, Non-Distended, Tender - She does have some tenderness to palpation of the lower midline but no guarding or rebound. Rest of the abdomen is soft and nontender. Neurological: Cranial nerves II-XII grossly intact Vital Signs Temp Pulse Resp BP Pulse Ox 99.3 F H 104 H 23 H 106/59 L 95 10/23/17 00:00 10/23/17 03:00 10/23/17 02:00 10/23/17 02:00 10/23/17 02:00 Oxygen Delivery Method Room Air Weight: 286 lb 13.142 oz Body Mass Index (BMI) 39.6 Intake and Output for Last 24 Hours 10/21/17 10/22/17 10/23/17 23:59 23:59 23:59 Intake Total 4270.7 / 4270.7 5207 / 5207 869 / 869 Output Total 510 / 510 525 / 525 330 / 330 Balance 3760.7 / 3760.7 4682 / 4682 539 / 539 Microbiology Past 72 Hours 10/19/17 11:00 Blood Culture - Preliminary Blood Culture (Wb) - Pic No growth in 48 hours. 10/19/17 10:20 Blood Culture - Preliminary Blood Culture (Wb) - Arterial No growth in 48 hours. 10/19/17 10:20 Urine Culture - Final Urine Catheter - Catheter Enterobacter aerogenes 10/20/17 07:25 C. difficile DNA Amplification - Final Stool Laboratory Tests Past 24 Hrs 10/22/17 10/22/17 10/22/17 03:35 03:35 03:35 WBC RBC Hgb Hct MCV MCH MCHC RDW RDW Differential Plt Count MPV Immature Gran % (Auto) Neut % (Auto) Lymph % (Auto) Rich % (Auto) Eos % (Auto) Baso % (Auto) Absolute Neuts (auto) Absolute Lymphs (auto) Total Counted PT INR Sodium Potassium Chloride Carbon Dioxide Anion Gap BUN Creatinine Estim Creat Clear Calc Est GFR (MDRD) Af Amer Est GFR (MDRD) Non-Af BUN/Creatinine Ratio Glucose Lactic Acid Calcium Phosphorus 2.7 Total Bilirubin 0.90 Direct Bilirubin 0.43 H GGT 170 H AST 48 H ALT 31 Alkaline Phosphatase 666 H Troponin I Total Protein 3.3 L Albumin 1.0 L Globulin 2.3 Lipase 90 Blood Type 10/22/17 10/22/17 10/22/17 03:35 06:46 06:50 WBC RBC Hgb Hct MCV MCH MCHC RDW RDW Differential Plt Count MPV Immature Gran % (Auto) Neut % (Auto) Lymph % (Auto) Rich % (Auto) Eos % (Auto) Baso % (Auto) Absolute Neuts (auto) Absolute Lymphs (auto) Total Counted PT Cancelled INR Cancelled Sodium Potassium Chloride Carbon Dioxide Anion Gap BUN Creatinine Estim Creat Clear Calc Est GFR (MDRD) Af Amer Est GFR (MDRD) Non-Af BUN/Creatinine Ratio Glucose Lactic Acid 2.2 H Calcium Phosphorus Total Bilirubin Direct Bilirubin GGT AST ALT Alkaline Phosphatase Troponin I 0.023 Total Protein Albumin Globulin Lipase Blood Type 10/22/17 10/22/17 10/22/17 07:10 11:00 11:45 WBC RBC Hgb Hct MCV MCH MCHC RDW RDW Differential Plt Count MPV Immature Gran % (Auto) Neut % (Auto) Lymph % (Auto) Rich % (Auto) Eos % (Auto) Baso % (Auto) Absolute Neuts (auto) Absolute Lymphs (auto) Total Counted PT 25.0 H INR 2.3 Sodium Potassium Chloride Carbon Dioxide Anion Gap BUN Creatinine Estim Creat Clear Calc Est GFR (MDRD) Af Amer Est GFR (MDRD) Non-Af BUN/Creatinine Ratio Glucose Lactic Acid 2.1 H Calcium Phosphorus Total Bilirubin Direct Bilirubin GGT AST ALT Alkaline Phosphatase Troponin I 0.030 Total Protein Albumin Globulin Lipase Blood Type 10/22/17 10/23/17 10/23/17 13:10 04:25 04:25 WBC 3.2 L RBC 2.73 L Hgb 8.4 L Hct 26.4 L MCV 96.7 MCH 30.8 MCHC 31.8 L RDW 21.7 H RDW Differential 74.5 H Plt Count 66 L MPV 12.1 H Immature Gran % (Auto) 0.900 Neut % (Auto) 59.1 Lymph % (Auto) 31.5 Rich % (Auto) 6.9 Eos % (Auto) 1.3 Baso % (Auto) 0.3 Absolute Neuts (auto) 1.9 L Absolute Lymphs (auto) 1.00 Total Counted Pending PT INR Sodium 145 Potassium 3.7 Chloride 120 H Carbon Dioxide 15.0 L Anion Gap 10 BUN 13 Creatinine 0.93 Estim Creat Clear Calc 57.86 Est GFR (MDRD) Af Amer 78 Est GFR (MDRD) Non-Af 64 BUN/Creatinine Ratio 14.0 Glucose 99 Lactic Acid Calcium 6.3 L* Phosphorus Total Bilirubin Direct Bilirubin GGT AST ALT Alkaline Phosphatase Troponin I Total Protein Albumin Globulin Lipase Blood Type O POSITIVE 10/23/17 04:25 WBC RBC Hgb Hct MCV MCH MCHC RDW RDW Differential Plt Count MPV Immature Gran % (Auto) Neut % (Auto) Lymph % (Auto) Rich % (Auto) Eos % (Auto) Baso % (Auto) Absolute Neuts (auto) Absolute Lymphs (auto) Total Counted PT Pending INR Pending Sodium Potassium Chloride Carbon Dioxide Anion Gap BUN Creatinine Estim Creat Clear Calc Est GFR (MDRD) Af Amer Est GFR (MDRD) Non-Af BUN/Creatinine Ratio Glucose Lactic Acid Calcium Phosphorus Total Bilirubin Direct Bilirubin GGT AST ALT Alkaline Phosphatase Troponin I Total Protein Albumin Globulin Lipase Blood Type POC Glucose 10/23/17 10/22/17 10/22/17 00:26 17:40 12:12 POC Glucose 128 H 117 H 127 H Clinical Impression(s) from Imaging Studies Chest CT 10/22/17 06:38 IMPRESSION: Small bilateral pleural effusions with bibasilar atelectasis. Mild increased markings in the lateral aspect of the right upper lobe. Coronary artery calcification. Diffuse fatty infiltration of the liver. Large hiatal hernia. Electronically Signed: Antonio Steel MD at 11:22 EDT Tel [phone], Service support , Abdomen/Pelvis CT 10/22/17 06:39 IMPRESSION: Progressive small bilateral pleural effusions with bibasilar atelectasis. Hepatomegaly and diffuse fatty infiltration of the liver. There appears to be progressive colitis. Electronically Signed: Antonio Steel MD at 12:20 EDT Tel [phone], Service support , KUB X-Ray 10/22/17 07:55 IMPRESSION: The distal tip of the nasogastric tube is within the distal stomach. Coiling of the nasogastric tube within the hiatal hernia. Electronically Signed: Antonio Steel MD at 10:59 EDT Tel [phone], Service support , Medical Necessity - Tobacco Use Smoking Status: Former smoker Assessment/Plan Active and Suspected Problems Septic shock (Acute) Hypotension (Acute) Vaginal bleeding (Acute) Recurrent colitis due to Clostridium difficile (Acute) 67-year-old female with sepsis 1. I performed a flexible sigmoidoscopy and the patient yesterday evening. The colonic mucosa of the rectum, sigmoid, descending colon did not appear ischemic. The patient is having no abdominal pain without palpation and with palpation she only has minimal lower abdominal pain with no guarding or rebound. The rest of the abdomen is soft and nontender. 2. The patient's pressor requirement has remained stable since yesterday morning when it was raised. It has not gone up any farther. Today the patient' s white count is 3.2 with no left shift. 3. I would expect if the patient had bowel that she would continue to worsen but she has remained stable since yesterday morning. I do not believe that she has ischemia to the left colon based on flexible sigmoidoscopy. Her condition has not worsened at all since yesterday. I did discuss this with the patient's daughter yesterday and yesterday she is in agreement for not doing surgery but I got a call yesterday evening saying she would like to transfer to [facility] for second opinion. This is okay with me as more eyes on the patient is always beneficial. The other option would be to perform an exploratory laparoscopy but I feel that the patient will not be able to be extubated after surgery. I explained this to the patient's daughter. She has bilateral pleural effusion is very weak. 4. Patient may be transferred for a larger facility if the patient's daughter would like. If not we will continue to watch the patient as she has not deteriorated. Her condition appears stable and at this time she is having no acute abdomen or bloody diarrhea or leukocytosis and her pressor requirement has not gone up. If any of these occur I will reconsider exploratory laparoscopy with possible laparotomy. Werner Hall MD Pager: [facility] [address] [place] [address], [address] [place] [address] Office:
[2017-10-23 06:23] LABS: Anisocytosis 1+; Differential Comment SCAN
[2017-10-23 06:24] LABS: Hypochromasia 1+; Microcytosis 1+; Polychromasia 1+
--- NOTE | 2017-10-23 07:03 | PN_ITS ---
Subjective: The patient was seen and examined at the bedside this morning. Events from the last 24 hours have been reviewed. The patient is currently afebrile. She remains on Levophed to maintain hemodynamic stability. In addition, she remains on room air and is maintaining appropriate oxygen saturations. The patients diarrhea has improved. She denies any abdominal pain this morning. A flexible sigmoidoscopy was performed by surgery at the bedside yesterday afternoon which revealed normal-appearing colonic mucosa of the rectum, sigmoid and descending colon. It did not appear ischemic. Per overnight nursing account, the patient's daughter voiced an interest in having the patient transferred to the [facility] for further evaluation. Objective: The patient's most recent lab work, culture data and imaging studies have all been personally reviewed. C. difficile x 2 was negative. Blood cultures have shown no growth to date. Urine Gram stain was positive for the presence of Enterobacter aerogenes. CT abdomen and pelvis revealed possible enteritis/ colitis, fatty liver, large hiatal hernia and nonobstructing stones of the left kidney. Repeat CT abdomen/pelvis completed on October 22 revealed progressive small bilateral pleural effusions with progressive colitis, hepatomegaly and diffuse fatty infiltration of the liver. CT chest also completed on October 22 revealed small bilateral pleural effusions with associated compressive atelectasis. Polysomnogram from 2012 revealed evidence of obstructive sleep apnea, for which it was recommended that the patient be placed on nasal BiPAP therapy at a pressure setting of 17/11 cm of water. General: Alert, No apparent distress, Confused, - - Appears older than stated age HEENT: Atraumatic, PERRLA, Normocephalic Oral: Dry Mucosa, - - Edentulous Neck: Supple, No Nodes, Trachea Midline Lungs: No rhonchi, No wheeze, No rales, Diminished, Tachypneic Cardiovascular: Normal S1, Normal S2, No murmurs, Tachycardic Abdomen: Soft, Non Tender, Non-Distended, Hypoactive Bowel Sounds, Obese Extremities: No clubbing, No cyanosis, Edema Skin: - - No significant change from previous. Musculoskeletal: No Muscle Wasting Lymphatic: No Cervical, Supraclavicular, or Inguinal Adenopathy Neurological: Neuro grossly intact Psych/Mental Status: Flat Affect Vital Signs Temp Pulse Resp BP Pulse Ox 98.9 F 102 H 23 H 95/51 L 96 10/23/17 04:00 10/23/17 06:15 10/23/17 06:00 10/23/17 06:15 10/23/17 06:00 Oxygen Delivery Method Room Air Weight: 286 lb 13.142 oz Body Mass Index (BMI) 39.6 Intake and Output for Last 24 Hours 10/21/17 10/22/17 10/23/17 23:59 23:59 23:59 Intake Total 4270.7 / 4270.7 5207 / 5207 869 / 869 Output Total 510 / 510 525 / 525 330 / 330 Balance 3760.7 / 3760.7 4682 / 4682 539 / 539 Labs (Last 48 Hours) 10/21/17 10/22/17 10/22/17 05:10 00:54 03:35 WBC 5.5 8.1 RBC 3.05 L 3.05 L Hgb 9.4 L 9.7 L Hct 29.6 L 30.1 L MCV 97.0 98.7 MCH 30.8 31.8 MCHC 31.8 L 32.2 RDW 21.3 H 21.2 H RDW Differential 72.2 H 69.8 H Plt Count 87 L 81 L MPV TNP 12.2 H Immature Gran % (Auto) 0.700 1.400 H Neut % (Auto) 72.6 H 67.5 Lymph % (Auto) 19.9 24.2 [place] % (Auto) 5.5 6.5 Eos % (Auto) 0.9 0.0 Baso % (Auto) 0.4 0.4 Absolute Neuts (auto) 4.0 5.4 Absolute Lymphs (auto) 1.09 1.95 Total Counted Not Reportable Not Reportable Nucleated RBC % 0.8 Differential Comment Platelet Estimate MOD DEC ADEQUATE Plt Morphology Comment LARGE Polychromasia Hypochromasia 2+ RARE Anisocytosis 2+ 1+ Microcytosis Macrocytosis 1+ Ovalocytes RARE Absolute Retic 0.05 PT INR Sodium Potassium Chloride Carbon Dioxide Anion Gap BUN Creatinine Estim Creat Clear Calc Est GFR (MDRD) Af Amer Est GFR (MDRD) Non-Af BUN/Creatinine Ratio Glucose Lactic Acid Calcium Phosphorus Total Bilirubin Direct Bilirubin GGT AST ALT Alkaline Phosphatase Troponin I Total Protein Albumin Globulin Lipase POC Glucose 182 H Blood Type 10/22/17 10/22/17 10/22/17 03:35 03:35 03:35 WBC RBC Hgb Hct MCV MCH MCHC RDW RDW Differential Plt Count MPV Immature Gran % (Auto) Neut % (Auto) Lymph % (Auto) [place] % (Auto) Eos % (Auto) Baso % (Auto) Absolute Neuts (auto) Absolute Lymphs (auto) Total Counted Nucleated RBC % Differential Comment Platelet Estimate Plt Morphology Comment Polychromasia Hypochromasia Anisocytosis Microcytosis Macrocytosis Ovalocytes Absolute Retic PT INR Sodium 144 Potassium 4.3 Chloride 120 H Carbon Dioxide 15.0 L Anion Gap 9 BUN 13 Creatinine 0.91 Estim Creat Clear Calc 59.14 Est GFR (MDRD) Af Amer 80 Est GFR (MDRD) Non-Af 66 BUN/Creatinine Ratio 14.3 Glucose 171 H Lactic Acid Calcium 5.9 L* Phosphorus 2.7 Total Bilirubin 0.90 Direct Bilirubin 0.43 H GGT AST 48 H ALT 31 Alkaline Phosphatase 666 H Troponin I Total Protein 3.3 L Albumin 1.0 L Globulin 2.3 Lipase 90 POC Glucose Blood Type 10/22/17 10/22/17 10/22/17 03:35 03:35 06:46 WBC RBC Hgb Hct MCV MCH MCHC RDW RDW Differential Plt Count MPV Immature Gran % (Auto) Neut % (Auto) Lymph % (Auto) [place] % (Auto) Eos % (Auto) Baso % (Auto) Absolute Neuts (auto) Absolute Lymphs (auto) Total Counted Nucleated RBC % Differential Comment Platelet Estimate Plt Morphology Comment Polychromasia Hypochromasia Anisocytosis Microcytosis Macrocytosis Ovalocytes Absolute Retic PT Cancelled INR Cancelled Sodium Potassium Chloride Carbon Dioxide Anion Gap BUN Creatinine Estim Creat Clear Calc Est GFR (MDRD) Af Amer Est GFR (MDRD) Non-Af BUN/Creatinine Ratio Glucose Lactic Acid Calcium Phosphorus Total Bilirubin Direct Bilirubin GGT 170 H AST ALT Alkaline Phosphatase Troponin I 0.023 Total Protein Albumin Globulin Lipase POC Glucose Blood Type 10/22/17 10/22/17 10/22/17 06:50 07:10 11:00 WBC RBC Hgb Hct MCV MCH MCHC RDW RDW Differential Plt Count MPV Immature Gran % (Auto) Neut % (Auto) Lymph % (Auto) [place] % (Auto) Eos % (Auto) Baso % (Auto) Absolute Neuts (auto) Absolute Lymphs (auto) Total Counted Nucleated RBC % Differential Comment Platelet Estimate Plt Morphology Comment Polychromasia Hypochromasia Anisocytosis Microcytosis Macrocytosis Ovalocytes Absolute Retic PT 25.0 H INR 2.3 Sodium Potassium Chloride Carbon Dioxide Anion Gap BUN Creatinine Estim Creat Clear Calc Est GFR (MDRD) Af Amer Est GFR (MDRD) Non-Af BUN/Creatinine Ratio Glucose Lactic Acid 2.2 H Calcium Phosphorus Total Bilirubin Direct Bilirubin GGT AST ALT Alkaline Phosphatase Troponin I 0.030 Total Protein Albumin Globulin Lipase POC Glucose Blood Type 10/22/17 10/22/17 10/22/17 11:45 12:12 13:10 WBC RBC Hgb Hct MCV MCH MCHC RDW RDW Differential Plt Count MPV Immature Gran % (Auto) Neut % (Auto) Lymph % (Auto) [place] % (Auto) Eos % (Auto) Baso % (Auto) Absolute Neuts (auto) Absolute Lymphs (auto) Total Counted Nucleated RBC % Differential Comment Platelet Estimate Plt Morphology Comment Polychromasia Hypochromasia Anisocytosis Microcytosis Macrocytosis Ovalocytes Absolute Retic PT INR Sodium Potassium Chloride Carbon Dioxide Anion Gap BUN Creatinine Estim Creat Clear Calc Est GFR (MDRD) Af Amer Est GFR (MDRD) Non-Af BUN/Creatinine Ratio Glucose Lactic Acid 2.1 H Calcium Phosphorus Total Bilirubin Direct Bilirubin GGT AST ALT Alkaline Phosphatase Troponin I Total Protein Albumin Globulin Lipase POC Glucose 127 H Blood Type O POSITIVE 10/22/17 10/23/17 10/23/17 17:40 00:26 04:25 WBC 3.2 L RBC 2.73 L Hgb 8.4 L Hct 26.4 L MCV 96.7 MCH 30.8 MCHC 31.8 L RDW 21.7 H RDW Differential 74.5 H Plt Count 66 L MPV 12.1 H Immature Gran % (Auto) 0.900 Neut % (Auto) 59.1 Lymph % (Auto) 31.5 [place] % (Auto) 6.9 Eos % (Auto) 1.3 Baso % (Auto) 0.3 Absolute Neuts (auto) 1.9 L Absolute Lymphs (auto) 1.00 Total Counted Not Reportable Nucleated RBC % Differential Comment SCAN Platelet Estimate Plt Morphology Comment Polychromasia 1+ Hypochromasia 1+ Anisocytosis 1+ Microcytosis 1+ Macrocytosis Ovalocytes Absolute Retic PT INR Sodium Potassium Chloride Carbon Dioxide Anion Gap BUN Creatinine Estim Creat Clear Calc Est GFR (MDRD) Af Amer Est GFR (MDRD) Non-Af BUN/Creatinine Ratio Glucose Lactic Acid Calcium Phosphorus Total Bilirubin Direct Bilirubin GGT AST ALT Alkaline Phosphatase Troponin I Total Protein Albumin Globulin Lipase POC Glucose 117 H 128 H Blood Type 10/23/17 10/23/17 04:25 04:25 WBC RBC Hgb Hct MCV MCH MCHC RDW RDW Differential Plt Count MPV Immature Gran % (Auto) Neut % (Auto) Lymph % (Auto) [place] % (Auto) Eos % (Auto) Baso % (Auto) Absolute Neuts (auto) Absolute Lymphs (auto) Total Counted Nucleated RBC % Differential Comment Platelet Estimate Plt Morphology Comment Polychromasia Hypochromasia Anisocytosis Microcytosis Macrocytosis Ovalocytes Absolute Retic PT 21.5 H INR 1.9 Sodium 145 Potassium 3.7 Chloride 120 H Carbon Dioxide 15.0 L Anion Gap 10 BUN 13 Creatinine 0.93 Estim Creat Clear Calc 57.86 Est GFR (MDRD) Af Amer 78 Est GFR (MDRD) Non-Af 64 BUN/Creatinine Ratio 14.0 Glucose 99 Lactic Acid Calcium 6.3 L* Phosphorus Total Bilirubin Direct Bilirubin GGT AST ALT Alkaline Phosphatase Troponin I Total Protein Albumin Globulin Lipase POC Glucose Blood Type Microbiology 10/19/17 11:00 Blood Culture (Wb) - Pic Blood Culture - Preliminary No growth in 48 hours. 10/19/17 10:20 Blood Culture (Wb) - Arterial Blood Culture - Preliminary No growth in 48 hours. 10/19/17 10:20 Urine Catheter - Catheter Urine Culture - Final Enterobacter aerogenes Clinical Impression(s) from Imaging Studies Abdomen/Pelvis CT 10/18/17 14:59 IMPRESSION: Evaluation of the GI tract limited without oral contrast. Cannot exclude diffuse colitis. No change in fatty liver, large hiatal hernia, severe right renal atrophy, nonobstructing stones of the left kidney. Electronically Signed: Syed Casey MD at 16:34 EDT , Service support , Chest CT 10/22/17 06:38 IMPRESSION: Small bilateral pleural effusions with bibasilar atelectasis. Mild increased markings in the lateral aspect of the right upper lobe. Coronary artery calcification. Diffuse fatty infiltration of the liver. Large hiatal hernia. Electronically Signed: Antonio Steel MD at 11:22 EDT Tel [phone], Service support , Abdomen/Pelvis CT 10/22/17 06:39 IMPRESSION: Progressive small bilateral pleural effusions with bibasilar atelectasis. Hepatomegaly and diffuse fatty infiltration of the liver. There appears to be progressive colitis. Electronically Signed: Antonio Steel MD at 12:20 EDT Tel [phone], Service support , KUB X-Ray 10/22/17 07:55 IMPRESSION: The distal tip of the nasogastric tube is within the distal stomach. Coiling of the nasogastric tube within the hiatal hernia. Electronically Signed: Antonio Steel MD at 10:59 EDT Tel [phone], Service support , Medical Necessity - Tobacco Use Smoking Status: Former smoker Assessment/Plan Active and Suspected Problems Septic shock (Acute) Hypotension (Acute) Vaginal bleeding (Acute) Recurrent colitis due to Clostridium difficile (Acute) RECOMMENDATIONS: 1. Continue to wean Levophed to maintain a mean arterial pressure at or above 65 mmHg. 2. Obtain surface echocardiogram 3. Perform cosyntropin stimulation test 4. Continue antibiotics as ordered 5. Discontinue fentanyl 6. Continue appropriate ICU prophylaxis 7. Encourage incentive spirometer use while in bed and mobilize patient as tolerated. IMPRESSIONS: 1. Refractory Septic shock/gram-negative cystitis Although the patient had Enterobacter aerogenes isolated from her urine culture , her vasopressor requirement has continued to increase despite being on appropriate antibiotics. She has been more than adequately volume resuscitated. We will plan to continue Levophed to maintain mean arterial pressure at or above 65 mmHg. Repeat cultures are pending. Repeat CT abdomen/ pelvis yesterday revealed progressive colitis. Surgery performed a sigmoidoscopy at the bedside, which revealed no overt signs of ischemic colitis. The patient's diarrhea appears to be improving. However, her vasopressor requirement persists. Would plan to obtain surface echocardiogram. In addition, a cosyntropin stimulation test can be performed. Infectious diseases is following accordingly. 2. Blood loss anemia secondary to vaginal bleeding The patient has been seen by gynecology. Blood counts remain stable at this time. We will continue to monitor accordingly. Consider pelvic ultrasound with the patient is able to tolerate. 3. Delirium/metabolic encephalopathy Improved. Continue Haldol as needed for agitation. Aggressive repletion of the patient's electrolyte abnormalities. 4. Morbid obesity/anxiety/depression/protracted illness/history of obstructive sleep apnea Complicates care, management, recovery and prognosis. Likely okay to continue home medications. Recommend physical therapy to work with patient once medically stabilized. Recommend initiation of nocturnal Pap therapy while the patient is admitted to the hospital. TIME: 35 minutes of critical care time, independent of procedures, was spent addressing the patient's refractory septic shock, blood loss anemia, delirium/ metabolic encephalopathy, review of all data and collaboration with the care team. ([id number]) Code Visit [id number]: [id number] Critical care first hour
--- NOTE | 2017-10-23 09:53 | PCM.DC ---
- Discharge Diagnoses Current Active Problems: Current Active and Chronic Problems Septic shock (Acute) Hypotension (Acute) Vaginal bleeding (Acute) Diarrhea, c. difficile negative. Probable acute cystitis. You will use the following diet at home:: Other - NPO. Allergies/Adverse Reactions: Allergies latex Allergy (Verified 10/18/17 14:53) Rash levofloxacin [From Levaquin] Allergy (Verified 10/18/17 14:53) Rash acetaminophen [From Darvocet-N] Adverse Reaction (Verified 10/18/17 14:53) Vomiting codeine Adverse Reaction (Verified 10/18/17 14:53) Unknown gabapentin Adverse Reaction (Verified 10/18/17 14:53) Other propoxyphene [From Darvon] Adverse Reaction (Verified 10/18/17 14:53) Vomiting Medications to take at Discharge Albuterol Inhaler [Ventolin Hfa] 2 puff INHALATION Q4H PRN PRN 02/28/16 Nystatin Powder [Mycostatin Powder] 1 applic TOPICAL BID PRN PRN 05/02/17 Nystatin/Triamcin Cream [Mycolog] 1 applic TOPICAL BID #1 tube 07/21/17 Allopurinol 100 mg PO BID 10/04/17 Bisacodyl 10 mg RC DAILY PRN PRN 10/04/17 Citalopram Hydrobromide [Citalopram HBr] 40 mg PO DAILY 10/04/17 Ferrous Sulfate [Iron] 325 mg PO DAILY 10/04/17 L. Rhamnosus GG/Inulin [Culturelle Capsule] 1 each PO DAILY 10/04/17 Mag Hydrox/Aluminum Hyd/Simeth [Antacid Suspension] 10/04/17 Omeprazole 40 mg PO DAILY 10/04/17 Potassium Chloride [K-Dur] 10 meq PO DAILY 10/04/17 Promethazine HCl 25 mg PO Q6H PRN PRN 10/04/17 Ranitidine [Zantac] 300 mg PO DAILY 10/04/17 Simvastatin 5 mg PO DAILY 10/04/17 busPIRone [Buspar] 5 mg PO BID 10/04/17 Vancomcyin 125 MG/ 5 ML Susp [Vancomycin 125mg/5mL Susp] 125 mg PO Q6 #40 dose 10/07/17 Ca/D3/Mag Ox/Zinc/[employer]way [employer]/Keo/Bor [Calcium 811-V4-Ehkipsur Chw Tb] 1 each PO DAILY 10/16/17 Multivitamin [Daily Multiple Vitamin] 1 each PO DAILY 10/16/17 Zinc Oxide [Dr. Christopher's Adult Barrier] 170 gm TP DAILY 10/16/17 Primary Care Physician: Kolton Garcia MD [Primary Care Provider] - Please follow up with your Primary Care Physician in: To be determined
--- NOTE | 2017-10-23 09:56 | DCINST_ITS ---
- Discharge Diagnoses Current Active Problems: Current Active and Chronic Problems Septic shock (Acute) Hypotension (Acute) Vaginal bleeding (Acute) Diarrhea, c. difficile negative. Probable acute cystitis. You will use the following diet at home:: Other - NPO. Allergies/Adverse Reactions: Allergies latex Allergy (Verified 10/18/17 14:53) Rash levofloxacin [From Levaquin] Allergy (Verified 10/18/17 14:53) Rash acetaminophen [From Darvocet-N] Adverse Reaction (Verified 10/18/17 14:53) Vomiting codeine Adverse Reaction (Verified 10/18/17 14:53) Unknown gabapentin Adverse Reaction (Verified 10/18/17 14:53) Other propoxyphene [From Darvon] Adverse Reaction (Verified 10/18/17 14:53) Vomiting Medications to take at Discharge Albuterol Inhaler [Ventolin Hfa] 2 puff INHALATION Q4H PRN PRN 02/28/16 Nystatin Powder [Mycostatin Powder] 1 applic TOPICAL BID PRN PRN 05/02/17 Nystatin/Triamcin Cream [Mycolog] 1 applic TOPICAL BID #1 tube 07/21/17 Allopurinol 100 mg PO BID 10/04/17 Bisacodyl 10 mg RC DAILY PRN PRN 10/04/17 Citalopram Hydrobromide [Citalopram HBr] 40 mg PO DAILY 10/04/17 Ferrous Sulfate [Iron] 325 mg PO DAILY 10/04/17 L. Rhamnosus GG/Inulin [Culturelle Capsule] 1 each PO DAILY 10/04/17 Mag Hydrox/Aluminum Hyd/Simeth [Antacid Suspension] 10/04/17 Omeprazole 40 mg PO DAILY 10/04/17 Potassium Chloride [K-Dur] 10 meq PO DAILY 10/04/17 Promethazine HCl 25 mg PO Q6H PRN PRN 10/04/17 Ranitidine [Zantac] 300 mg PO DAILY 10/04/17 Simvastatin 5 mg PO DAILY 10/04/17 busPIRone [Buspar] 5 mg PO BID 10/04/17 Vancomcyin 125 MG/ 5 ML Susp [Vancomycin 125mg/5mL Susp] 125 mg PO Q6 #40 dose 10/07/17 Ca/D3/Mag Ox/Zinc/Embedded Firmware Engineer/Keo/Bor [Calcium 826-R9-Ovuredza Chw Tb] 1 each PO DAILY 10/16/17 Multivitamin [Daily Multiple Vitamin] 1 each PO DAILY 10/16/17 Zinc Oxide [Dr. Christopher's Adult Barrier] 170 gm TP DAILY 10/16/17 Primary Care Physician: Kolton Garcia MD [Primary Care Provider] - Please follow up with your Primary Care Physician in: To be determined
--- NOTE | 2017-10-23 09:59 | PCM.DC.SUM ---
Discharge Date and Diagnosis - Problem List Patient Problems: Active and Suspected Problems Septic shock (Acute) Hypotension (Acute) Vaginal bleeding (Acute) Recurrent colitis due to Clostridium difficile (Acute) Date of Admission: 10/18/17 Date of Discharge: 10/23/17 - Primary Discharge Diagnosis Active and Suspected Problems Septic shock (Acute) Hypotension (Acute) Vaginal bleeding (Acute) Diarrhea, c. difficile negative Acute cystitis metabolic encephalopathy. - Secondary Discharge Diagnosis Chronic Problems YOLANDA (obstructive sleep apnea) (Chronic) Obesity (Chronic) HTN (hypertension) (Chronic) Dyslipidemia (Chronic) DM type 2 (diabetes mellitus, type 2) (Chronic) Anxiety disorder (Chronic) Hospital Course and Treatment Imaging Results: Diagnostic Data Chest CT 10/22/17 06:38 IMPRESSION: Small bilateral pleural effusions with bibasilar atelectasis. Mild increased markings in the lateral aspect of the right upper lobe. Coronary artery calcification. Diffuse fatty infiltration of the liver. Large hiatal hernia. Electronically Signed: Antonio Steel MD at 11:22 EDT Tel [phone], Service support , Abdomen/Pelvis CT 10/22/17 06:39 IMPRESSION: Progressive small bilateral pleural effusions with bibasilar atelectasis. Hepatomegaly and diffuse fatty infiltration of the liver. There appears to be progressive colitis. Electronically Signed: Antonio Steel MD at 12:20 EDT Tel [phone], Service support , KUB X-Ray 10/22/17 07:55 IMPRESSION: The distal tip of the nasogastric tube is within the distal stomach. Coiling of the nasogastric tube within the hiatal hernia. Electronically Signed: Antonio Steel MD at 10:59 EDT Tel [phone], Service support , Overhauler Helper: Dr. Alford / Rivera, critical care. Dr. Wilkins, [place]. Dr. Hall, general surgery. Operations: None Procedures: 2-D Echocardiogram - Result pending. Summary of Care Provided: The patient is a 67 year old WF, admitted on 10/18/17 for septic shock, thought to be due to underling UTI. She was started on broad spectrum antibiotics, along with pressor, admitted to ICU. She had fever, up to 101.6 during the hospital stay, but became afebrile since 10/22. Her Tmax was 99.3 earlier this morning. Her WBC was peaked at 8.1, and appears that she has underling leukopenia. WBC is back to her baseline at 3.2 now. She was on oral vancomycin for c-diff colitis, but it does not appear that she had positive stool test at [facility]. C. diff toxin was negative x 2 at this hospital. All the parameter are better except for her blood pressure. Her MAP is ranging from 60 to 70, but pressor requirement actually increased on 10/22. She is otherwise stable in ICU today. Echocardiogram was done to r/o cardiogenic shock this morning, result is pending. Overall, her condition is stable except for hypotension. Family member had requested to transfer patient to [facility]. Arrangement was made. She was accepted under the care of Dr. Boone at [facility]. 1. Septic shock secondary to UTI patient is on broad-spectrum antibiotic therapy with vancomycin and meropenem in addition to pressor support urine culture so far positive for gram-negative organisms. ABX changed to cefepime, metronidazole, and vancomycin on 10/22/17. She was having persistent abdominal pain, CT of abd/pelvis were obtained, which were unremarkable. General surgery was consulted also. 2. Acute encephalopathy secondary to infectious process. 3. 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 On Accu-Cheks before meals and at bedtime with sliding scale coverage 4. Hypocalcemia corrected for protocol 5. Anemia secondary to anemia of chronic disorder monitoring H&H 6. Morbid obesity with BMI of 40.6 weight loss advised 7. Depression with anxiety 8. Physical debility requested for PT and OT eval and treatment patient was discharged back to her ECF 9. Hyperchloremic metabolic acidosis from patient's profuse diarrhea 10. DVT prophylaxis SCDs avoided the use of chemical prophylaxis in view of patient having experienced bleeding per vagina on admission Discharge Diet: - - NPO Home Medications: Medications to take at Discharge Albuterol Inhaler [Ventolin Hfa] 2 puff INHALATION Q4H PRN PRN 02/28/16 Nystatin Powder [Mycostatin Powder] 1 applic TOPICAL BID PRN PRN 05/02/17 Nystatin/Triamcin Cream [Mycolog] 1 applic TOPICAL BID #1 tube 07/21/17 Allopurinol 100 mg PO BID 10/04/17 Citalopram Hydrobromide [Citalopram HBr] 40 mg PO DAILY 10/04/17 Ferrous Sulfate [Iron] 325 mg PO DAILY 10/04/17 L. Rhamnosus GG/Inulin [Culturelle Capsule] 1 each PO DAILY 10/04/17 Omeprazole 40 mg PO DAILY 10/04/17 Potassium Chloride [K-Dur] 10 meq PO DAILY 10/04/17 Promethazine HCl 25 mg PO Q6H PRN PRN 10/04/17 Ranitidine [Zantac] 300 mg PO DAILY 10/04/17 Simvastatin 5 mg PO DAILY 10/04/17 busPIRone [Buspar] 5 mg PO BID 10/04/17 Ca/D3/Mag Ox/Zinc/Shuffle Board Operator/Keo/Bor [Calcium 215-L0-Viuiyzfl Chw Tb] 1 each PO DAILY 10/16/17 Multivitamin [Daily Multiple Vitamin] 1 each PO DAILY 10/16/17 Zinc Oxide [Dr. Christopher's Adult Barrier] 170 gm TP DAILY 10/16/17 Cefepime HCl [Maxipime] 2 gm IV Q8 vial 10/23/17 Menthol/Lanolin/Calamine/Znox [Calmoseptine Ointment] 1 applic TOPICAL 4X/DAY tube 10/23/17 Metronidazole [Flagyl IVPB] 500 mg IV Q8 bag 10/23/17 Vancomcyin 125 MG/ 5 ML Susp [Vancomycin 125mg/5mL Susp] 500 mg PO Q6 po.syringe 10/23/17 Primary Care Physician: Kolton Garcia MD [Primary Care Provider] - Please follow up with your Primary Care Physician in: To be determined Disposition: Acute care Hospital - [facility]. Patient Condition:: Stable Medical Necessity - Tobacco Use Smoking Status: Former smoker Meaningful Use Info Meaningful Use Diagnoses (Choose all that apply): None applicable Code Visit Inpatient E&M: 42516 [facility] Disch
--- NOTE | 2017-10-23 10:13 | DS.PCM_ITS ---
Discharge Date and Diagnosis - Problem List Patient Problems: Active and Suspected Problems Septic shock (Acute) Hypotension (Acute) Vaginal bleeding (Acute) Recurrent colitis due to Clostridium difficile (Acute) Date of Admission: 10/18/17 Date of Discharge: 10/23/17 - Primary Discharge Diagnosis Active and Suspected Problems Septic shock (Acute) Hypotension (Acute) Vaginal bleeding (Acute) Diarrhea, c. difficile negative Acute cystitis metabolic encephalopathy. - Secondary Discharge Diagnosis Chronic Problems YOLANDA (obstructive sleep apnea) (Chronic) Obesity (Chronic) HTN (hypertension) (Chronic) Dyslipidemia (Chronic) DM type 2 (diabetes mellitus, type 2) (Chronic) Anxiety disorder (Chronic) Hospital Course and Treatment Imaging Results: Diagnostic Data Chest CT 10/22/17 06:38 IMPRESSION: Small bilateral pleural effusions with bibasilar atelectasis. Mild increased markings in the lateral aspect of the right upper lobe. Coronary artery calcification. Diffuse fatty infiltration of the liver. Large hiatal hernia. Electronically Signed: Antonio Steel MD at 11:22 EDT Tel [phone], Service support , Abdomen/Pelvis CT 10/22/17 06:39 IMPRESSION: Progressive small bilateral pleural effusions with bibasilar atelectasis. Hepatomegaly and diffuse fatty infiltration of the liver. There appears to be progressive colitis. Electronically Signed: Antonio Steel MD at 12:20 EDT Tel [phone], Service support , KUB X-Ray 10/22/17 07:55 IMPRESSION: The distal tip of the nasogastric tube is within the distal stomach. Coiling of the nasogastric tube within the hiatal hernia. Electronically Signed: Antonio Steel MD at 10:59 EDT Tel [phone], Service support , Control Officer: Dr. Alford / Rivera, critical care. Dr. Wilkins, ID. Dr. Hall, general surgery. Operations: None Procedures: 2-D Echocardiogram - Result pending. Summary of Care Provided: The patient is a 67 year old WF, admitted on 10/18/17 for septic shock, thought to be due to underling UTI. She was started on broad spectrum antibiotics, along with pressor, admitted to ICU. She had fever, up to 101.6 during the hospital stay, but became afebrile since 10/22. Her Tmax was 99.3 earlier this morning. Her WBC was peaked at 8.1, and appears that she has underling leukopenia. WBC is back to her baseline at 3.2 now. She was on oral vancomycin for c-diff colitis, but it does not appear that [facility]. C. diff toxin was negative x 2 at this hospital. All the parameter are better except for her blood pressure. Her MAP is ranging from 60 to 70, but pressor requirement actually increased on 10/22. She is otherwise stable in ICU today. Echocardiogram was done to r/o cardiogenic shock this morning, result is pending. Overall, her condition is stable except for hypotension. Family member had requested to transfer patient to [facility]. Arrangement was made. She was accepted under the care of Dr. Boone at [facility]. 1. Septic shock secondary to UTI patient is on broad-spectrum antibiotic therapy with vancomycin and meropenem in addition to pressor support urine culture so far positive for gram-negative organisms. ABX changed to cefepime, metronidazole, and vancomycin on 10/22/17. She was having persistent abdominal pain, CT of abd/pelvis were obtained, which were unremarkable. General surgery was consulted also. 2. Acute encephalopathy secondary to infectious process. 3. 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 On Accu-Cheks before meals and at bedtime with sliding scale coverage 4. Hypocalcemia corrected for protocol 5. Anemia secondary to anemia of chronic disorder monitoring H&H 6. Morbid obesity with BMI of 40.6 weight loss advised 7. Depression with anxiety 8. Physical debility requested for PT and OT eval and treatment patient was discharged back to her ECF 9. Hyperchloremic metabolic acidosis from patient's profuse diarrhea 10. DVT prophylaxis SCDs avoided the use of chemical prophylaxis in view of patient having experienced bleeding per vagina on admission Discharge Diet: - - NPO Home Medications: Medications to take at Discharge Albuterol Inhaler [Ventolin Hfa] 2 puff INHALATION Q4H PRN PRN 02/28/16 Nystatin Powder [Mycostatin Powder] 1 applic TOPICAL BID PRN PRN 05/02/17 Nystatin/Triamcin Cream [Mycolog] 1 applic TOPICAL BID #1 tube 07/21/17 Allopurinol 100 mg PO BID 10/04/17 Citalopram Hydrobromide [Citalopram HBr] 40 mg PO DAILY 10/04/17 Ferrous Sulfate [Iron] 325 mg PO DAILY 10/04/17 L. Rhamnosus GG/Inulin [Culturelle Capsule] 1 each PO DAILY 10/04/17 Omeprazole 40 mg PO DAILY 10/04/17 Potassium Chloride [K-Dur] 10 meq PO DAILY 10/04/17 Promethazine HCl 25 mg PO Q6H PRN PRN 10/04/17 Ranitidine [Zantac] 300 mg PO DAILY 10/04/17 Simvastatin 5 mg PO DAILY 10/04/17 busPIRone [Buspar] 5 mg PO BID 10/04/17 Ca/D3/Mag Ox/Zinc/Superintendent Fish Hatchery/Keo/Bor [Calcium 088-H5-Jvejnkje Chw Tb] 1 each PO DAILY 10/16/17 Multivitamin [Daily Multiple Vitamin] 1 each PO DAILY 10/16/17 Zinc Oxide [Dr. Christopher's Adult Barrier] 170 gm TP DAILY 10/16/17 Cefepime HCl [Maxipime] 2 gm IV Q8 vial 10/23/17 Menthol/Lanolin/Calamine/Znox [Calmoseptine Ointment] 1 applic TOPICAL 4X/DAY tube 10/23/17 Metronidazole [Flagyl IVPB] 500 mg IV Q8 bag 10/23/17 Vancomcyin 125 MG/ 5 ML Susp [Vancomycin 125mg/5mL Susp] 500 mg PO Q6 po.syringe 10/23/17 Primary Care Physician: Kolton Garcia MD [Primary Care Provider] - Please follow up with your Primary Care Physician in: To be determined Disposition: Acute care Hospital - [facility]. Patient Condition:: Stable Medical Necessity - Tobacco Use Smoking Status: Former smoker Meaningful Use Info Meaningful Use Diagnoses (Choose all that apply): None applicable Code Visit Inpatient E&M: 850[address] [facility] Disch
[2017-10-23] MEDS: Menthol/Lanolin/Calamine/Znox 113 GM Tube 1 APPLIC TOPICAL (10:17)
[2017-10-23] MEDS: Nystatin/Triamcin Cream Tube 1 APPLIC TOPICAL (10:18)
--- NOTE | 2017-10-23 10:32 | CASEMGMT ---
Pt is getting transferred to [facility] [place], SW left a message for Sophy at [facility] letting her know. No further needs are anticipated at this time. AMBER Jo, FINISHING MACHINE OPERATOR AUTOMATIC
== END 2017-10-23 11:37 | disposition short-term general hospital (02) | DRG 415 ==
LOC: ED 15:04 → PCU 18:12 → ICU 18:33
PROVIDERS: Internal Medicine; Internal Medicine Critical Care Medicine; Surgery; Admitting Provider Internal Medicine; Emergency Provider Emergency Medicine; Family Provider Family Medicine; PCP Family Medicine; Visit Provider Hospitalist
PROC: 0DJD8ZZ Inspection of Lower Intestinal Tract, Via Natural or Artificial Opening Endoscopic (ICD-10-PCS; CPT 45330; principal; 2017-10-22 13:25)
DX: A41.50 Gram-negative sepsis, unspecified (principal); R65.21 Severe sepsis with septic shock; A04.71 Enterocolitis due to Clostridium difficile, recurrent; E86.0 Dehydration; D62 Acute posthemorrhagic anemia; N30.00 Acute cystitis without hematuria; D61.818 Other pancytopenia; E87.2 Acidosis; E66.01 Morbid (severe) obesity due to excess calories; Z68.41 Body mass index [BMI] 40.0-44.9, adult; F41.8 Other specified anxiety disorders; G93.41 Metabolic encephalopathy; G47.33 Obstructive sleep apnea (adult) (pediatric); I10 Essential (primary) hypertension; E11.8 Type 2 diabetes mellitus with unspecified complications; E78.5 Hyperlipidemia, unspecified; Z87.891 Personal history of nicotine dependence; F03.90 Unspecified dementia, unspecified severity, without behavioral disturbance, psychotic disturbance, mood disturbance, and anxiety; B95.2 Enterococcus as the cause of diseases classified elsewhere; D63.8 Anemia in other chronic diseases classified elsewhere; N95.0 Postmenopausal bleeding; G89.29 Other chronic pain; B96.5 Pseudomonas (aeruginosa) (mallei) (pseudomallei) as the cause of diseases classified elsewhere; G93.49 Other encephalopathy
CPT/HCPCS: 36569; 71260; 74018; 74177; 80048; 80076; 80202; 81001; 82533; 82962; 82977; 83605; 83630; 83690; 83735; 84100; 84484; 85025; 85027; 85610; 85730; 86644; 86850; 86900; 86920; 87040; 87077; 87086; 87088; 87186; 87493; 87506; 87641; 88305; 92507; 92526; 93005; 93306; 96360; 96361; 97110; 97162; 97166; 99283; 99284; J2185; J7030; J7040; J7050; P9016; P9017; Q9957; Q9967; A4216; J0610; J0834; J3490; J7799